=== PATIENT | female | born 2000 | race Caucasian/White ===

== ENCOUNTER 2025-02-18 23:44 | Emergency (ER) | payer OTHER, MEDICAID, SELFPAY ==
[2025-02-18 23:46] VITALS: BP 144/94; PULSE 82; RESP 18; TEMP 36.8; O2SAT 95; BMI 27.6
--- OUTSIDE RECORDS SUMMARY | 2025-02-19 00:03 | XMS RPT_ITS | CCD ---
Author Organization [facility] Inform ion Partnership [facility] Care Team Providers Care Curtain Mender Name Role Phone TRINHANABEL HUMPHRIESHRYN Unavailable Unavailable PRESLEY ALBERTSLY A Unavailable Unavailabl e Unavailable Primary Care Provider Unavailabl e Veronica Alberts Unavailable Semaj Lr IV Unavailable Unavailable Aristeo PIÑA, Veronica Primary Care Provider Rosa Alvarez MD Unavailable Keyla Oakes Unavailable Unavailable Aristeo PIÑA, Veronica Primary Care Provider Rosa Alvarez MD Unavailable Veronica Alberts MD Primary Care Provider Rosa Alvarez MD Unavailable Veronica Alberts Unavailable Unavailable Unavailable Veronica Alberts MD Primary Care Provider Rosa Alvarez MD Unavailable TRENTON MCCORD Attending Unavailable ARISTEO, VERONICA Primary Care Unavailable TRENTON MCCORD Referring Unavailable TRENTON MCCORD Attending Unavailable ARISTEO VERONICA Primary Care Unavailable TRENTON MCCORD Referring Unavailable TRENTON MCCORD Attending Unavailable ARISTEO VERONICA Primary Care Unavailable TRENTON MCCORD Referring Unavailable ARISTEO, VERONICA Primary Care Unavailable TRENTON MCCORD Referring Unavailable TRENTON MCCORD Attending Unavailable ARISTEO, VERONICA Primary Care Unavailable TRENTON MCCORD Referring Unavailable TRENTON MCCORD Attending Unavailable REFERRED, SELF Referring Unavailable ARISTEO, VERONICA Primary Care Unavailable VERONICA ALBERTS Attending Unavailable REFERRED, SELF Referring Unavailable ARISTEO, VERONICA Primary Care Unavailable ARISTEO, VERONICA Attending Unavailable ARISTEO, [place] Primary Care Unavailable WYNESKI, TRENTON Referring Unavailable WYNESKI, TRENTON Attending Unavailable WYNESKI, TRENTON Referring Unavailable ARISTEO, [place] Primary Care Unavailable WYNESKI, TRENTON Attending Unavailable WYNESKI, TRENTON Referring Unavailable ARISTEO, [place] Primary Care Unavailable WYNESKI, TRENTON Attending Unavailable ARISTEO, [place] Primary Care Unavailable ALYSON CONTRERAS Attending Unavailable WYNESKI, TRENTON Attending Unavailable ARISTEO, [place] Primary Care Unavailable WYNESKI, TRENTON Referring Unavailable Aristeo, [place] Primary Care Unavailable KAVULLA, MICHELLE Busby Attending Unavaila ble Self, Referral Referring Unavailable Kwasmax, Bert Attending Unavailable Aristeo, Veronica Primary Care Unavailable KAVULLA, [employer] VERONICA Busby Referring Unavaila ble Aristeo, Veronica Minaya Primary Care Provider Aristeo, Veronica Minaya Primary Care Provider [phone] Aristeo, Dr. Veronica Hernandez Primary Care Unav ailable Kwasnicka, Dr. Bert Kessler Attending Tracy vailable Aristeo, Dr. Veronica Hernandez Primary Care Unav ailable Kwasnicka, Dr. Bert Kessler Attending Tracy vailable Aristeo, Dr. Veronica Hernandez Primary Care Unav ailable Kwasnicka, Dr. Bert Kessler Attending Tracy vailable Kwasnicka, Dr. Bert Kessler Attending Tracy vailable Aristeo, Dr. Veronica Hernandez Primary Care Unav ailable Kwasnick[place], Dr. Bert Kessler Attending Tracy vailable Aristeo, Dr. Veronica Hernandez Primary Care Unav ailable Veronica Alberts MD Primary Care Provider LILIAN STEPHENSON Referring Unavailable ARISTEO, VERONICA Minaya Primary Care Unavailabl e LILIAN STEPHENSON Referring Unavailable ARISTEO, VERONICA Minaya Primary Care Unavailabl LILIAN Amezcua Referring Unavailable ARISTEO, VERONICA Minaya Primary Care Unavailabl e SARAH JENNINGS Attending Unavailable MIYA ARCE Referring Unavailable ARISTEO, VERONICA Minaya Primary Care Unavailabl e LILIAN STEPHENSON Referring Unavailable ARISTEO, VERONICA A Primary Care Unavailabl e LILIAN STEPHENSON Referring Unavailable ARISTEO, VERONICA A Primary Care Unavailabl LILIAN Amezcua Attending Unavailable ARISTEO, VERONICA A Primary Care Unavailabl e BERT CASEY Rei Attending Unavailable ARISTEO, VERONICA A Primary Care Unavailabl LILIAN Amezcua Attending Unavailable ARISTEO, VERONICA A Primary Care Unavailabl e LILIAN STEPHENSON Attending Unavailable ARISTEO, VERONICA A Primary Care Unavailabl e GALLAGAN MIYA E Attending Unavailable ARISTEO, VERONICA A Primary Care Unavailabl e GALLAGAN MIYA E Attending Unavailable ARISTEO, VERONICA A Primary Care Unavailabl e LILIAN STEPHENSON Attending Unavailable ARISTEO, VERONICA A Primary Care Unavailabl e GALLAGAN MIYA E Attending Unavailable ARISTEO, VERONICA A Primary Care Unavailabl e LILIAN STEPHENSON Attending Unavailable ARISTEO, VERONICA A Primary Care Unavailabl e LILIAN STEPHENSON Attending Unavailable ARISTEO, VERONICA A Primary Care Unavailabl e LILIAN STEPHENSON Attending Unavailable ARISTEO, VERONICA A Primary Care Unavailabl e Aristeo, Veronica A Primary Care Provider [phone] LORIE ROBLES Attending Unavailable ARISTEO, VERONICA Primary Care Unavailable ARISTEO, VERONICA Primary Care Unavailable TANK WOLF Attending Unavailable ARISTEO, VERONICA Primary Care Unavailable YESICA MCKINNON Attending Unavailable ARISTEO, VERONICA Primary Care Unavailable JORGEDARRELLNA Attending Unavailable ARISTEO, VERONICA Primary Care Unavailable SAFFEYESICA ASHFORD Attending Unavailable ARISTEO, VERONICA Primary Care Unavailable AKI SANDHU Attending Unavailable ARISTEO, VERONICA Primary Care Unavailable VALENTE, JAMIR Yi Attending Unavailable ARISTEO, VERONICA Primary Care Unavailable JORGE, LO Admitting Unavailable JORGE LO Attending Unavailable YESICA MCKINNON Attending Unavailable ARISTEO, VERONICA Primary Care Unavailable QUINCY AKI Attending Unavailable ARISTEO, VERONICA Primary Care Unavailable YESICA MCKINNON Referring Unavailable ARISTEO, VERONICA Primary Care Unavailable YESICA MCKINNON Attending Unavailable ARISTEO, VERONICA Primary Care Unavailable SAFFEYESICA ASHFORD Attending Unavailable ARISTEO, VERONICA Primary Care Unavailable LO PATEL Attending Unavailable ARISTEO, VERONICA Primary Care Unavailable KWASNICKA, BERT A Referring Unavailable ARISTEO, VERONICA A Primary Care Unavailabl e KWASNICKA, BERT A Referring Unavailable ARISTEO, VERONICA A Primary Care Unavailabl e ARISTEO, VERONICA A Primary Care Unavailabl e KWASNICKA, BERT A Referring Unavailable KWASNICKA, BERT A Referring Unavailable ARISTEO, VERONICA A Primary Care Unavailabl e KWASNICKA, BERT A Referring Unavailable ARISTEO, VERONICA A Primary Care Unavailabl e KWASNICKA, BERT A Referring Unavailable ARISTEO, VERONICA A Primary Care Unavailabl e KWASNICKA, BERT A Referring Unavailable ARISTEO, VERONICA A Primary Care Unavailabl e KWASNICKA, BERT A Referring Unavailable ARISTEO, VERONICA A Primary Care Unavailabl e Allergies Allergy Classification Reported Allergen(s) Allergy Type Date of Onset Reaction(s) Facility Penicillins (antibiotic) (2 sources) Amoxicillin Drug Allergy Unknown [facility] (20 sources) Amoxicillin; Translations: [amoxicillin] Drug Allergy 0 Hives, Rash, Unknown [place], [place] (11 sources) Penicillins; Translations: [PENICILLINS] Propensity to adverse reactions to drug 0 Hives, Rash [place], [place] (20 sources) oxyCODONE; Translations: [oxycodone] Drug Allergy 1 [facility] Work Phone: (15 sources) Penicillin; Translations: [Penicillins] Drug Allergy 3 Hives [facility] (20 sources) Penicillins Drug Intolerance 0 Hives, [facility] Medications Current Medications Medication Drug Class(es) Dates Sig (Normalized) Sig (Original) [id number] 200 actuat albuterol 0.09 mg/actuat metered dose inhaler (5 sources) beta2-Adrenergic Agonist Start: 10-16-2024 End: 11-15-2024 take 2 puff(s) by inhalation every four hours as needed for wheezing albuterol 108 (90 Base) MCG/ACT inhaler Inhale 2 puffs every 4 hours as needed for wheezing. Please provide spacer with the inhaler 18 g 10/16/2024 11/15/2024 Active Start: 10-16-2024 2.5 mg, Nebuli zation, Once, On 10/16/24 at 1355, For 1 dose Start: 10-02-2021 End: 10-31-2021 take 2 puff(s) by inhalation every six hours as needed Proventil HFA 90 mcg/inh inhalation aerosol ; 2 puff(s) inhaled every 6 hours, As Needed Quantity: 1 Refills: 0 Ordered: 02-Oct-2021 Keyla Oakes Start: 02-Oct-2021 End: 31-Oct-2021 Generic Substitution Allowed Comments: For inhalation only.It is very important that you take or use this exactly as directed. Do not skip doses or discontinue unless directed by your doctor.Obtain medical advice before taking any non-prescription drugs as some may affect the action of this medication.Shake well before use. Comment on above: For inhalation only. It is very important that you take or use this exactly as directed. Do not skip doses or discontinue unless directed by your doctor.Obtain medical advice before taking any non-prescription drugs as some may affect the action of this medication.Shake well before use. brompheniramine maleate 0.4 mg/ml / dextromethorphan hydrobromide 2 mg/ml / pseudoephedrine hydrochloride 6 mg/ml oral solution (1 source) alpha-Adrenergic Agonist, Uncompetitive R-njalak-U-aspartate Receptor Antagonist, Sigma-1 Agonist Start: End: take 10 mL by mouth every four hours as needed brompheniramine/pse udoephedrine/dextro methorphan [id number]/5 mL oral syrup ; 10 milliliter(s) orally every 4 hours, As Needed Quantity: 300 Refills: 0 Ordered: 02-Oct-2021 Keyla Oakes Start: 02-Oct-2021 End: 06-Oct-2021 Generic Substitution Allowed Comments: May cause drowsiness. Alcohol may intensify this effect. Use care when operating dangerous machinery.Obtain medical advice before taking any non-prescription drugs as some may affect the action of this medication. Comment on above: May cause drowsiness . Alcohol may intensify this effect. Use care when operating dangerous machinery.Obtain medical advice before taking any non-prescription drugs as some may affect the action of this medication. ergocalciferol 1.25 mg oral capsule (9 sources) Provitamin D2 Compound Start: 021 vitamin D (ERGOCALCIFEROL) 1.25 MG (39436 UT) capsule Take 1 Capsule (50,000 Units) by mouth every 7 days 12 Capsule 0 08/22/2020 Active inFLIXimab-dyyb 100 mg injection (20 sources) Tumor Necrosis Factor Fernando Start: 024 Inflectra 100 MG injection 07/09/2023 Active End: 10-07-2024 inFLIXimab (Remicade) 100 MG injection Infuse into a venous catheter. Every six weeks 10/07/2024 Discontinued (Therapy completed) Misc. Devices (Breast Pump) misc (19 sources) Start: 12-24-2023 Misc. Devices (Breast Pump) misc Indications: Mother Double Electric. Lactating mother 1 each 12/24/2023 Suspended Start: 12-24-2023 Misc. Devices (Breast Pump) misc Indications: Mother Double Electric. 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 60 tablet 05/28/2023 Active take 1 tablet by mouth once eddie y modafinil (Provigil) 100 mg tablet Take 1 tablet (100 mg) by mouth once daily. 0 Active predniSONE 50 mg oral tablet (4 sources) Start: 10-17-2024 End: 10-22-2024 take 1 tablet by mouth once daily predniSONE (Deltasone) 50 MG tablet Take 1 tablet (50 mg) by mouth daily for 5 days. Do not start before October 17, 2024. 5 tablet 10/17/2024 10/22/2024 Active Start: 10-16-2024 End: 10-16-2024 take 50 mg by mouth once 50 mg, Oral, Once, On Sun 05/02 at 1355, For 1 dose Start: 10-16-2024 End: 10-16-2024 take 50 mg by mouth once 50 mg, Oral, Once, On Sun 05/02 at 1355, For 1 dose no115/iron/folic ac id ( 19 ORAL) (5 sources) no115/i jason/folic acid ( 19 ORAL) Take by mouth. Active no115/i jason/folic acid ( 19 ORAL) Take by mouth. 0 Active sodium oxybate (Lumryz) 6 gram extend release granules,packet (4 sources) Start: 03-10-2023 sodium oxybate (Lumryz) 6 gram extend release granules,packet Take 1 packet by mouth. 0 03/10/2023 Active sodium oxybate (Lumryz) 9 gram extend release granules,packet (4 sources) sodium oxybate ( Lumryz) 9 gram extend release granules,packet Take 9 g by mouth once daily. 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 Take contents of one packet mixed with water in provided mixing cup at bedtime. 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 Take contents of one packet mixed with water in provided mixing cup at bedtime. 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 Take contents of one packet mixed with water in provided mixing cup at bedtime. 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 Take contents of one packet mixed with water in provided mixing cup at bedtime. 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 Take contents of one packet mixed with water in provided mixing cup at bedtime. Start after finishing 7 days of 7.5 gram dose. 30 each 3 04/17/2023 05/28/2023 Discontinued (Reorder) tiZANidine 2 mg oral tablet (1 source) Central alpha-2 Adrenergic Agonist Start: 05-15-2020 take 1 tablet by mouth three times daily as needed for pain tiZANidine (ZANAFLEX) 2 MG tablet Take 1 tablet by mouth 3 times daily as needed (pain) 30 tablet 0 05/15/2020 Active traMADol hydrochloride 50 mg oral tablet (4 sources) Opioid Agonist Start: 02-24-2024 End: 03-03-2024 take 1 tablet by mouth every six hours as needed for pain traMADol (Ultram) 50 MG tablet Indications: S/P section Take 1 tablet (50 mg) by mouth every 6 hours as needed for moderate pain (4-6) for up to 5 days. 20 tablet 02/27/2024 03/03/2024 Active Completed/Discontinued Medications Medication Drug Class(es) Dates Sig (Normalized) Sig (Original) acetaminophen 325 mg oral tablet (7 sources) Start: 02-24-2024 End: 02-27-2024 take 1 tablet by mouth every six hours as needed 650 mg, Oral, Every 6 hours PRN, other, Pain (1-10), Starting on Thu02/24/24 at 1200, , Give in addition to any other pain medication ordered at same time for any pain indication. Maximum dose of acetaminophen is 4000mg from all sources in 24 hours. Alternate ibuprofen and acetaminophen every 3 hours. Start: 02-24-2024 End: 02-24-2024 IntraVENous, Administer over 15 Minutes, As needed, Starting on Thu02/24/24 at 0634, Anesthesia Intraprocedure Start: 01-09-2022 End: 01-09-2022 acetaminophen (TYLENOL) tabl et 500 mg Start: 11-28-2021 End: 11-28-2021 acetaminophen (TYLENOL) tabl et 500 mg Start: 10-18-2021 End: 10-18-2021 acetaminophen (TYLENOL) tabl et 500 mg Start: 09-02-2021 End: 09-02-2021 acetaminophen (TYLENOL) tabl et 500 mg acetaminophen 325 mg / oxyCODONE hydrochloride 5 mg oral tablet (2 sources) Opioid Agonist Start: 02-27-2024 End: 02-27-2024 take 1 tablet by mouth every six hours as needed for pain oxyCODONE-acetaminophen (Percocet) 5-325 MG tablet Indications: S/P section Take 1 tablet by mouth every 6 hours as needed for moderate pain (4-6) or severe pain (7-10) for up to 5 days. 15 tablet 02/27/2024 02/27/2024 Discontinued (Stop taking at discharge) adapalene 1 mg/ml topical cream (8 sources) Retinoid Start: 05-07-2017 End: 06-27-2022 adapalene (DIFFERIN) 0.1 % cream Apply to affected area nightly at bedtime 135 g 3 05/07/2017 06/27/2022 Discontinued (* Remove (Not on AVS)) armodafinil 50 mg oral tablet (13 sources) Start: 01-13-2023 End: 06-25-2023 take 1 tablet by mouth once daily armodafinil (Nuvigil) 50 mg tablet Take 1 tablet (50 mg) by mouth once daily. 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 30 tablet 2 09/09/2022 10/13/2022 Discontinued (Therapy completed) azelastine hydrochloride 0.137 mg/actuat / fluticasone propionate 0.05 mg/actuat metered dose nasal spray (10 sources) Corticosteroid, Histamine-1 Receptor Antagonist Start: 06-05-2017 End: 06-25-2023 take 1 spray(s) nasal route once daily azelastine-fluticasone (Dymista) 137-50 mcg/spray nasal spray Administer 1 spray into affected nostril(s) once daily. 0 06/05/2017 06/25/2023 Discontinued (Other) Start: 06-05-2017 take 1 spray(s) nasa l route once daily DYMISTA 137-50 MCG/ACT SUSP use 1 [employer] each nostril daily 69 g 3 06/05/2017 Active azithromycin 500 mg injection (1 source) Macrolide Antimicrobial Start: 02-24-2024 End: 02-24-2024 IntraVENous, As needed, Starting on Thu02/24/24 at 0612, Anesthesia Intraprocedure bacitracin zinc 0.5 unt/mg topical ointment (1 source) Start: 12-31-2021 End: 01-01-2022 bacitracin 500 UNIT/GM ointment 5 ml bupivacaine hydrochloride 5 mg/ml injection (1 source) Amide Local Anesthetic Start: 12-31-2021 End: 12-31-2021 bupivacaine (MARCAINE) 0.5 % injection 1.5 mL calcium chloride 0.0014 meq/ml / potassium chloride 0.004 meq/ml / sodium chloride 0.103 meq/ml / sodium lactate 0.028 meq/ml injectable solution (3 sources) Start: 02-23-2024 End: 02-24-2024 take 100 mL intravenously every hour 100 mL/hr, IntraVENous, Continuous, Starting on Thu02/24/24 at 0600, Pre-Delivery chlorhexidine gluconate 40 mg/ml medicated liquid soap (2 sources) Start: 02-23-2024 End: 02-24-2024 1 Application, Topical, Daily, First dose on Thu02/23/24 at 0500, Pre-Delivery, Use solution to clean abdomen upon admission then once daily until delivered citric acid 66.8 mg/ml / sodium citrate 100 mg/ml oral solution (2 sources) Calculi Dissolution Agent, Anti-coagulant Start: 02-24-2024 End: 02-24-2024 take 30 mL by mouth once 30 mL, Oral, Once, On Thu02/24/24 at 0600, For 1 dose, Pre-Delivery, Give immediately prior to transfer to surgery. clindamycin 10 mg/ml medicated pad (8 sources) Lincosamide Antibacterial Start: 08-01-2020 End: 06-27-2022 clindamycin phosphate (CLEOCIN-T) 1 % SWAB 0 08/01/2020 06/27/2022 Discontinued (* Remove (Not on AVS)) 24 hr desvenlafaxine succinate 50 mg extended release oral tablet (20 sources) Serotonin and Norepinephrine Reuptake Inhibitor Start: 09-08-2024 End: 10-07-2024 take 1 tablet by mouth once daily in the morning desvenlafaxine (Pristiq) 50 MG 24 hr tablet Take 50 mg by mouth every morning. 09/08/2024 10/07/2024 Discontinued (Therapy completed) Start: 02-24-2024 End: 02-27-2024 take 25 mg by mouth once daily in the morning 25 mg, Oral, Every morning, First dose on Thu02/24/24 at 1200, Patient's own medication identified by glm. Start: 01-06-2023 End: 10-07-2024 take 1 tablet by mouth every twenty-four hours desvenlafaxine succinate ER 25 MG 24 hour tablet Take 25 mg by mouth. 01/06/2023 10/07/2024 Discontinued (Therapy completed) Start: 01-06-2023 End: 04-07-2024 take 2 tablets by mouth once daily in the morning desvenlafaxine succinate ER 25 MG 24 hour tablet Take 50 mg by mouth every morning. 01/06/2023 04/07/2024 Discontinued (Other) 1 ml dexamethasone phosphate 10 mg/ml injection (1 source) Corticosteroid Start: 02-24-2024 End: 02-24-2024 IntraVENous, As needed, Starting on Thu02/24/24 at 0633, Anesthesia Intraprocedure dexAMETHasone-bupiv acaine-epinephrine (TAP) syringe (1 source) Start: 02-24-2024 End: 02-24-2024 Injection, Once PRN Procedure, Starting on Thu02/24/24 at 0702, For 1 dose, Anesthesia Intraprocedure dexmedeTOMIDine HCl in NaCl (Precedex) injection (1 source) Start: 02-24-2024 End: 02-24-2024 Epidural, As needed, Starting on Thu02/24/24 at 0612, Anesthesia Intraprocedure 1 ml diphenhydrAMINE hydrochloride 50 mg/ml cartridge (6 sources) Histamine-1 Receptor Antagonist Start: 02-24-2024 End: 02-27-2024 take 25 mg intravenously every six hours as needed Start: 01-09-2022 End: 01-09-2022 diphenhydrAMINE (BENADRYL) c apsule 25 mg Start: 11-28-2021 End: 11-28-2021 diphenhydrAMINE (BENADRYL) c apsule 25 mg Start: 10-18-2021 End: 10-18-2021 diphenhydrAMINE (BENADRYL) c apsule 25 mg Start: 09-02-2021 End: 09-02-2021 diphenhydrAMINE (BENADRYL) c apsule 25 mg docusate sodium 100 mg oral capsule (2 sources) Start: 02-24-2024 End: 02-27-2024 take 100 mg by mouth twice daily as needed for constipation 100 mg, Oral, 2 times daily PRN, constipation, Starting on Thu02/24/24 at 1022, , Do not crush or break. 0.6 ml enoxaparin sodium 100 mg/ml prefilled syringe (2 sources) Low Molecular Weight Heparin Start: 02-24-2024 End: 02-27-2024 inject 60 mg by subcutaneous injection once daily 60 mg, SubCUTAneous, Daily, First dose on Thu02/24/24 at 2030, , Indication of Use: Prophylaxis-DVT/PE 1 ml ePHEDrine sulfate 50 mg/ml injection (1 source) alpha-Adrenergic Agonist, beta-Adrenergic Agonist, Norepinephrine Releasing Agent Start: 02-24-2024 End: 02-24-2024 IntraVENous, As needed, Starting on Thu02/24/24 at 0617, Anesthesia Intraprocedure 10 ml EPINEPHrine 0.005 mg/ml / lidocaine hydrochloride 20 mg/ml injection (2 sources) Antiarrhythmic, alpha-Adrenergic Agonist, beta-Adrenergic Agonist, Catecholamine, Amide Local Anesthetic Start: 02-24-2024 End: 02-24-2024 Epidural, As needed, Starting on Thu02/24/24 at 0612, Anesthesia Intraprocedure Start: 02-24-2024 End: 02-24-2024 Epidural, Once PRN Procedure , Starting on Thu02/24/24 at 0150, For 1 dose, Anesthesia Intraprocedure famotidine 20 mg oral tablet (2 sources) Histamine-2 Receptor Antagonist Start: 02-24-2024 End: 02-27-2024 take 1 tablet by mouth every twenty-four hours as needed for gastroesophageal reflux disease ferrous sulfate 325 mg oral tablet (2 sources) Start: 02-24-2024 End: 02-27-2024 325 mg, Oral, 2 times daily with meals, First dose on Thu02/24/24 at 1030, , Start if Hgb less than 10. Hold oral ferrous sulfate dose if receiving IV iron sucrose (Venofer) hydrocortisone 25 mg/ml topical cream (8 sources) Corticosteroid Start: 05-07-2017 End: 06-27-2022 hydrocortisone 2.5 % cream Apply to affected area 2 times daily Apply thin film to affected areas. 120 g 3 05/07/2017 06/27/2022 Discontinued (* Remove (Not on AVS)) HYDROmorphone (Dilaudid) injection 0.25 mg (2 sources) Start: 02-24-2024 End: 02-27-2024 HYDROmorphone (Dilaudid) injection 0.25 mg ibuprofen 600 mg oral tablet (2 sources) Nonsteroidal Anti-inflammatory Drug Start: 02-24-2024 End: 02-27-2024 take 1 tablet by mouth every six hours 600 mg, Oral, Every 6 hours, First dose on Thu02/24/24 at 1600, , Once tolerating PO, discontinue Toradol and begin ibuprofen 8 hours after the final dose of Toradol. Alternate ibuprofen and acetaminophen every 3 hours. inFLIXimab-dyyb (INFLECTRA) 800 mg in NaCl 0.9% 250 mL IV (8 sources) Start: 08-08-2022 End: 08-08-2022 inFLIXimab-dyyb (INFLECTRA) 800 mg in NaCl 0.9% 250 mL IV Start: 06-27-2022 End: 06-27-2022 inFLIXimab-dyyb (INFLECTRA) 800 mg in NaCl 0.9% 250 mL IV Start: 05-16-2022 End: 05-16-2022 inFLIXimab-dyyb (INFLECTRA) 800 mg in NaCl 0.9% 250 mL IV Start: 02-20-2022 End: 02-20-2022 inFLIXimab-dyyb (INFLECTRA) 800 mg in NaCl 0.9% 250 mL IV Start: 01-09-2022 End: 01-09-2022 inFLIXimab-dyyb (INFLECTRA) 800 mg in NaCl 0.9% 250 mL IV Start: 11-28-2021 End: 11-28-2021 inFLIXimab-dyyb (INFLECTRA) 800 mg in NaCl 0.9% 250 mL IV Start: 10-18-2021 End: 10-18-2021 inFLIXimab-dyyb (INFLECTRA) 800 mg in NaCl 0.9% 250 mL IV Start: 09-02-2021 End: 09-02-2021 inFLIXimab-dyyb (INFLECTRA) 800 mg in NaCl 0.9% 250 mL IV 1 ml ketorolac tromethamine 30 mg/ml cartridge (4 sources) Nonsteroidal Anti-inflammatory Drug, Cyclooxygenase Inhibitor Start: 02-24-2024 End: 02-25-2024 take 30 mg intravenously every six hours 30 mg, IntraVENous, Every 6 hours, First dose on Thu02/24/24 at 1400, For 4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 Residual codes; unclassified (1 source) 38 weeks gestation of ; Translations: [38 weeks gestation of ] Onset: 02-12-2024 Episodic Residual codes; unclassified (1 source) 37 weeks gestation of ; Translations: [37 weeks gestation of ] Onset: 02-03-2024 Episodic Residual codes; unclassified (1 source) 35 weeks gestation of ; Translations: [35 weeks gestation of ] Onset: 01-18-2024 Episodic Residual codes; unclassified (1 source) 33 weeks gestation of ; Translations: [33 weeks gestation of ] Onset: 01-08-2024 Episodic Residual codes; unclassified (1 source) 31 weeks gestation of ; Translations: [31 weeks gestation of ] Onset: 12-24-2023 Episodic Skin and subcutaneous tissue infections (20 sources) Abscess of buttock; Translations: [Cutaneous abscess of buttock] Onset: 02-25-2019 Resolved: 07-10-2021 07-10-2021 Episodic Comment on above: right gluteal absces s; I&D 2019; Substance-related disorders (9 sources) Marijuana user; Translations: [Cannabis use, unspecified, uncomplicated] Onset: 07-10-2021 07-10-2021 Episodic Unclassified (1 source) MOUTH LACERATION Onset: 02-25-2018 Unclassified (9 sources) Onset: 05-29-2023 Resolved: 09-04-2023 05-29-2023 Unclassified (1 source) Acute cough; Translations: [Acute cough] Onset: 10-16-2024 Results Test Name Value Interpretation Reference Range Facility HEPATITIS B SURFACE AB IMMUN ITY, QNon 01-28-2025 HEPATITIS B SURFACE AB IMMUNITY, QN <5 Low > OR = 10 [facility] Comment on above: Result Comment: Patient does not have immunity to hepatitis B virus. For additional information, please refer to http://CebaTech/faq/MKA692 (This link is being provided for informational/ educational purposes only). Performed By: #### [id number] #### [facility], [facility], [address] [place] [address] Assisted Living Administrator: Delano Tubbs #### [id number] #### [facility]/[address] [place] [id number] [facility] [place], [place] Assisted Living Administrator: Phillip Acuña M.D.,PhD #### [phone] #### [facility] [address], [address] [place] [phone] Assisted Living Administrator: Ricky Lawrence MD HEPATITIS B SURFACE ANTIGEN W/REFL CONFIRMon 01-28-2025 HEPATITIS B SURFACE ANTIGEN Non-Reactive Normal NON-REACTIVE [facility] Comment on above: Order Comment: FASTI NG:NO FASTING: NO Result Comment: For additional information, please refer to http://Sepior.Harri/faq/XZO469 (This link is being provided for informational/ educational purposes only.) Performed By: #### 3 [id number] #### [facility] [address] Assisted Living Administrator: Delano Tubbs #### [id number] #### [facility]/[address] [place], [place] Assisted Living Administrator: Phillip Acuña M.D.,PhD #### [phone] #### [facility] [address], [address] [place] [address] Assisted Living Administrator: Ricky Lawrence MD T-SPOT(R).TBon 01-28-2025 NEGATIVE CONTROL Passed Normal [facility] Comment on above: Order Comment: FASTI NG:NO FASTING: NO Performed By: #### 3 [id number] #### [facility] [address] [place] [address] Assisted Living Administrator: Delano Tubbs #### [id number] #### [facility]/[address] [place], [place] Assisted Living Administrator: Phillip Acuña M.D.,PhD #### [phone], [phone] #### [facility] [address], [address] [place] [address] Assisted Living Administrator: Ricky Lawrence MD PANEL A SPOT COUNT CORRECTED FOR NEG CONTROL 0 Normal [facility] Comment on above: Order Comment: FASTI NG:NO FASTING: NO Performed By: #### 3 [id number] #### [facility], [address] Assisted Living Administrator: Delano Tubbs #### [id number] #### [facility]/[address] [place], [place] Assisted Living Administrator: Phillip Acuña M.D.,PhD #### [phone], [phone] #### [facility] [address], [address] [place] [address] Assisted Living Administrator: Ricky Lawrence MD PANEL B SPOT COUNT CORRECTED FOR NEG CONTROL 0 Normal [facility] Comment on above: Order Comment: FASTI NG:NO FASTING: NO Performed By: #### 3 [id number] #### [facility] [address] [place] [address] Assisted Living Administrator: Delano Tubbs #### [id number] #### [facility]/[place] [id number] [facility] [place], [place] Assisted Living Administrator: Phillip Acuña M.D.,PhD #### [phone], [phone] #### [facility] [place] [address] Assisted Living Administrator: Ricky Lawrence MD POSITIVE CONTROL Passed Normal [facility] Comment on above: Order Comment: FASTI NG:NO FASTING: NO Result Comment: For additional information, please refer to http://education.Harri/faq/WFI065 (This link is being provided for informational/ educational purposes only.) Performed By: #### 3 [id number] #### [facility] [address] [place] [address] Assisted Living Administrator: Delano Tubbs #### [id number] #### [facility]/[place] [id number] [facility] [place], [place] Assisted Living Administrator: Phillip Acuña M.D.,PhD #### [phone], [phone] #### [facility] [address], [address] [place] [address] Assisted Living Administrator: Ricky Lawrence MD T-SPOT.TB Negative Normal Negative [facility] Comment on above: Order Comment: FASTI NG:NO FASTING: NO Result Comment: A negative test result does not exclude the possibility of exposure to or infection with Mycobacterium tuberculosis (M. tuberculosis). Patients with recent exposure to TB infected individuals exhibiting a negative T-SPOT.TB result should be considered for retesting within 6 weeks or if other relevant clinical symptoms indicate. Results from T-SPOT.TB testing must be used in conjunction with each individual's epidemiological history, current medical status, and results of other diagnostic evaluations. The T-SPOT.TB test is qualitative and results are reported as positive, borderline, or negative, given that the test controls perform as expected. In line with the Centers for Disease Control and Prevention's 2010 recommendation to report quantitative measurements alongside the qualitative result, the laboratory provides spot counts for informational purposes only. The T-SPOT.TB test should not be interpreted as a quantitative test. Performed By: #### 3 [id number] #### [facility] [address] [place] [address] Assisted Living Administrator: Delano Tubbs #### [phone] #### [facility]/[address] [place], [place] Assisted Living Administrator: Phillip Acuña M.D.,PhD #### [phone], [phone] #### [facility] [address], [address] [place] [address] Assisted Living Administrator: Ricky Lawrence MD T-SPOT(R).TBon 01-27-2025 NEGATIVE CONTROL Normal [facility] Comment on above: Performed By: #### 3 [id number] #### [facility], [place] [address] Assisted Living Administrator: Delano Tubbs #### [phone] #### [facility]/[address] [place], [place] Assisted Living Administrator: Phillip Acuña M.D.,PhD #### [phone], [phone] #### [facility] [address], [address] [place] [address] Assisted Living Administrator: Ricky Lawrence MD PANEL A SPOT COUNT CORRECTED FOR NEG CONTROL Normal [facility] Comment on above: Performed By: #### 3 [id number] #### [facility], [address] [place] [address] Assisted Living Administrator: Delano Tubbs #### [id number] #### [facility]/[address] [place] Assisted Living Administrator: Phillip Acuña M.D.,PhD #### [phone], [phone] #### [facility] of [address], [address] [place] [address] Assisted Living Administrator: Ricky Lawrence MD PANEL B SPOT COUNT CORRECTED FOR NEG CONTROL Normal [facility] Comment on above: Performed By: #### 3 [id number] #### [facility], [place] [address] [address] [place] [address] Assisted Living Administrator: Delano Tubbs #### [id number] #### [facility]/[address] [place], [place] Assisted Living Administrator: Phillip Acuña M.D.,PhD #### [phone], [phone] #### [facility] of [address], [address] [place] [address] Assisted Living Administrator: Ricky Lawrence MD POSITIVE CONTROL Normal [facility] Comment on above: Performed By: #### 3 [id number] #### [facility], [place] [address] Assisted Living Administrator: Delano Tubbs #### [id number] #### [facility]/[address] [place], [place] Assisted Living Administrator: Phillip Acuña M.D.,PhD #### [phone], [phone] #### [facility] of [address], [address] [place] [address] Assisted Living Administrator: Ricky Lawrence MD T-SPOT.TB Normal [facility] Comment on above: Performed By: #### 3 [id number] #### [facility], [place] [address] [address] [place] [address] Assisted Living Administrator: Delano Tubbs #### [id number] #### [facility]/[address] [place] Assisted Living Administrator: Phillip Acuña M.D.,PhD #### [phone], [phone] #### [facility] [address], [address] [place] [address] Assisted Living Administrator: Ricky Lawrence MD COVID-19, Flu A/B, and RSV C omboon 10-16-2024 Interpretation and review of laboratory results Normal [facility] ED Nursing Noteon 10-16-2024 ED Nursing Note Patient reports impr ovement in nausea, no additional vomiting. Lungs sounds improved, and currently denies SOB/CP. Normal [facility] ED Nursing Note Patient vomiting. Navi tolbert reports she feels like her stomach is upset from all of the drainage. Normal [facility] ED Nursing Note Patient to room 4 wi th c/o congestion, cough, and shortness of breath worse the last two days. V/S obtained, call light within reach. Patient has been using her boyfriends albuterol MDI one hour prior to arrival. Normal [facility] ED Provider Noteon ED Provider Note EMERGENCY DEPARTMENT ENCOUNTER Pt Name: Kristine Crum Birthdate 2000 Date of evaluation: 10/16/2024 ED Provider: Jamir Victor MD CHIEF COMPLAINT Chief Complaint Patient presents with Shortness of Breath Cough Nasal Congestion HISTORY OF PRESENT ILLNESS (Location/Symptom, Timing/Onset, Context/Setting, Quality, Duration, Modifying Factors, Severity) Note limiting factors. I wore appropriate PPE for the entirety of this encounter. HPI Kristine Crum is a 24 y.o. who presents to the emergency department with chief complaint of double breathing, cough and congestion. The patient started feeling bad a couple weeks ago. She says its gotten worse over the past couple days. She has had a lot of postnasal drainage. She has had a productive cough. She has felt short of breath over the past couple days which is somewhat new for her. She denies any pulmonary history that she is aware of. She only smokes occasionally. She does take seasonal allergy medication which has helped a little bit. She has a headache when she coughs. Vision normal. No fevers that she is aware of. She denies any pain elsewhere. No vomiting or diarrhea. No urinary complaints. No new pain or swelling in the legs. No localizing numbness or weakness. No other associated symptoms. Nursing Notes were reviewed. Limitations to history: None Outside historians: None REVIEW OF SYSTEMS Review of Systems Constitutional: Negative for chills and fever. HENT: Positive for congestion and postnasal drip. Negative for ear pain and sore throat. Eyes: Negative for visual disturbance. Respiratory: Positive for cough and shortness of breath. Cardiovascular: Negative for chest pain and leg swelling. Gastrointestinal: Negative for abdominal pain, diarrhea and vomiting. Genitourinary: Negative for dysuria. Musculoskeletal: Negative for arthralgias and back pain. Skin: Negative for color change and rash. Neurological: Negative for weakness and numbness. All other systems reviewed and are negative. Pertinent positives and negatives as per HPI. PAST MEDICAL HISTORY Past Medical History: Diagnosis Date CC (Crohn's colitis) (CMS/HCC) ([facility]) Narcolepsy SURGICAL HISTORY Past Surgical History: Procedure Laterality Date BREAST SURGERY SECTION, LOW TRANSVERSE TONSILLECTOMY (HISTORICAL) CURRENT MEDICATIONS Previous Medications INFLECTRA 100 MG INJECTION MISC. DEVICES (BREAST PUMP) MISC [employer]. Lactating mother MODAFINIL (PROVIGIL) 100 MG TABLET Take 1 tablet (100 mg) by mouth 2 times daily as needed (sleepiness). SODIUM OXYBATE ER (LUMRYZ) 9 G PACK Take 9 g by mouth Nightly. Take contents of one packet mixed with water in provided mixing cup at bedtime. ALLERGIES Amoxicillin, Oxycodone, and Penicillins FAMILY HISTORY Family History Problem Relation Name Age of Onset No Known Problems Paternal Grandfather Heart disease Paternal Grandmother Ovarian cysts Maternal Grandmother No Known Problems Maternal Grandfather Crohn's disease Father Diabetes Father Ovarian cysts Mother SOCIAL HISTORY Social History Socioeconomic History Marital status: Single Tobacco Use Smoking status: Former Current packs/day: 0.50 Types: Cigarettes Smokeless tobacco: Former Tobacco comments: She vapes Vaping Use Vaping status: Former Substance and Sexual Activity Alcohol use: Not Currently Drug use: Not Currently Types: Marijuana Comment: Last used when she was about 10 weeks Sexual activity: Not Currently Partners: Male Comment: recent Social Drivers of Health Financial Resource Strain: Low Risk (02/23/2024) Overall Financial Resource Strain (CARDIA) Difficulty of Paying Living Expenses: Not hard at all Food Insecurity: No Food Insecurity (02/23/2024) Hunger Vital Sign Worried About Running Out of Food in the Last Year: Never true Ran Out of Food in the Last Year: Never true Transportation Needs: No Transportation Needs (02/23/2024) PRAPARE - Transportation Lack of Transportation (Medical): No Lack of Transportation (Non-Medical): No Physical Activity: Insufficiently Active (02/23/2024) Exercise Vital Sign Days of Exercise per Week: 2 days Minutes of Exercise per Session: 40 min Stress: No Stress Concern Present (02/23/2024) [employer] - Occupational Stress Questionnaire Feeling of Stress : Not at all Social Connections: Moderately Isolated (02/23/2024) Social Connection and Isolation Panel [NHANES] Frequency of Communication with Friends and Family: More than three times a week Frequency of Social Gatherings with Friends and Family: Twice a week Attends Taoism Services: Never Active Member of Clubs or Organizations: Yes Attends Club or Organization Meetings: 1 to 4 times per year Marital Status: Never Intimate Partner Violence: Not At Risk (02/23/2024) Humilia (more content not included)... Normal [facility] Laboratory - Microbiology an d Antimicrobial susceptibilityon 10-16-2024 FLUAV RNA XANDER+probe Ql (Resp) Not detected Not Detected [facility] FLUBV RNA XANDER+probe Ql (Resp) Not detected Not Detected [facility] RSV RNA XANDER+probe Ql (Resp) Not detected Not Detected [facility] SARS-CoV-2 (COVID-19) RNA XANDER+probe Ql (Resp) Not detected Not Detected [facility] SARS-CoV-2 (COVID-19) RNA XANDER+probe Ql (Unsp spec) Methodology: real-time, RT-PCR The SARS-CoV-2, Flu A/B, and RSV Combo assay is intended for in vitro diagnostic use under the FDA Emergency Use Authorization (EUA). This test has not been FDA cleared or approved. In compliance with this authorization, please visit www.fda.gov/media/399842/do wnload or www.fda.gov/media/961483/do wnload to access the applicable information sheets. [facility] SARS-COV-2, FLU A/B, AND RSV COMBOon 05-11-2025 SARS-CoV-2 (COVID-19) RNA XANDER+probe Ql (Unsp spec) SARS-COV-2 Reference Not Detected Not Detected RESPIRATORY SYNCYTIAL VIRUS Reference Not Detected Not Detected INFLUENZA A (CEPHEID) Reference Not Detected Not Detected INFLUENZA B (CEPHEID) Reference Not Detected Not Detected ORDER COMMENTS: Methodology: real-time, RT-PCR The SARS-CoV-2, Flu A/B, and RSV Combo assay is intended for in vitro diagnostic use under the FDA Emergency Use Authorization (EUA). This test has not been FDA cleared or approved. In compliance with this authorization, please visit www.fda.gov/media/225065/do wnload or www.fda.gov/media/931165/do wnload to access the applicable information sheets. Normal [facility] Comment on above: Performed By: #### L [id number] ####Assisted Living Administrator: SHANTI FISHER ([phone])[facility] [place] [address] XR Chest Single viewon 10-16 No acute cardiopulmo nary abnormality identified. Report Dictated on Electronically Signed By: Guerrero Kang MD Electronically Signed Date/Time: 10/16/2024 2:09 PM EDT [facility] [employer] Patient Name: [facility]RISTINE VELAZQUEZ : 2000 [id number] Exam Date/Time: 10/16/2024 13:55 Procedure: XR CHEST 1 VIEW Ordering Provider: VICTOR TARAS Reason For Exam: DYSPNEA EXAMINATION: XR chest AP. EXAM DATE & TIME: 10/16/2024 1:55 PM EDT INDICATION: DYSPNEA ADDITIONAL INFORMATION: 24-year-old female with dyspnea presents for evaluation COMPARISON: None TECHNIQUE: Frontal view of the chest was obtained. FINDINGS: Lines/support devices: None. Cardiomediastinal silhouette: Within normal limits. Lungs/pleura: No focal consolidation, pleural effusion or pneumothorax. Osseous structures: No acute osseous abnormality is demonstrated. Other findings: None. [facility] Guerrero Kang MD - 10/16/2024 Patient Name: KRISTINE CRUM : 2000 [facility]#: [id number] Exam Date/Time: 10/16/2024 13:55 Procedure: XR CHEST 1 VIEW Ordering Provider: VICTOR TARAS Reason For Exam: DYSPNEA EXAMINATION: XR chest AP. EXAM DATE & TIME: 10/16/2024 1:55 PM EDT INDICATION: DYSPNEA ADDITIONAL INFORMATION: 24-year-old female with dyspnea presents for evaluation COMPARISON: None TECHNIQUE: Frontal view of the chest was obtained. FINDINGS: Lines/support devices: None. Cardiomediastinal silhouette: Within normal limits. Lungs/pleura: No focal consolidation, pleural effusion or pneumothorax. Osseous structures: No acute osseous abnormality is demonstrated. Other findings: None. IMPRESSION: No acute cardiopulmonary abnormality identified. Report Dictated on Electronically Signed By: Guerrero Kang MD Electronically Signed Date/Time: 10/16/2024 2:09 PM EDT [facility] Radiology Study observation (narrative) [facility] [employer] XR Chest Single viewOrdered By: Guerrero Kang on 10-16-2024 [facility] [employer] Work Phone: Sureswab(R) Advanced Vaginit is Plus, [facility] ([facility])on 10-08-2024 C. glabrata RNA XANDER+probe Ql (Vag fld) Not detected NOT DETECTED [facility] Comment on above: Radha species C. albicans, C. tropicalis, C. parapsilosis, and/or C. dubliniensis can be detected, but not differentiated, in the Radha spp. result. C. trachomatis rRNA XANDER+probe Ql (Unsp spec) Not detected NOT DETECTED [facility] Radha sp rRNA Probe Ql (Vag fld) Not detected NOT DETECTED [facility] Lactobacillus crispatus+gasseri+j ensenii + Gardnerella vaginalis + Atopobium vaginae rRNA XANDER+probe Ql (Vag fld) Negative NEGATIVE [facility] N. gonorrhoeae rRNA XANDER+probe Ql (Unsp spec) Not detected NOT DETECTED [facility] Comment on above: For additional infor marie, please refer to https://education.Harri/faq/OOS986 (This link is being provided for information/ educational purposes only.) T. vaginalis rRNA XANDER+probe Ql (Unsp spec) Not detected NOT DETECTED [facility] Office Visiton 10-07-2024 Follow-up visit [id number] Kristine Crum 2000 F Date Provider Department Center 10/07/2024 AKI G[facility] Family History Problem Relation Age of Onset No Known Problems Paternal Grandfather Heart disease Paternal Grandmother Ovarian cysts Maternal Grandmother No Known Problems Maternal Grandfather Crohn's disease Father Diabetes Father Ovarian cysts Mother Family Status - Relation Status Age at Paternal Grandfather Alive Paternal Grandmother Alive Maternal Grandmother Alive Maternal Grandfather Alive Father Alive Mother Alive Level of Service:14324 [place] PERIODIC PREVENTIVE MED EST PATIENT 18-39 YRS Reason for Visit and Comments: Annual Exam [83] - Annual exam Normal [facility] Progress Noteon 10-07-2024 Progress Note Associate Programmer was offere d to the patient for exam. 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 Chief Complaint Patient presents with Annual Exam Annual exam Patient's last menstrual period was 09/23/2024. Primary Care Physician: Veronica Alberts The patient was seen and examined. She is here for her annual. Pap 08/01 neg No ho abnormal Menses heavy bleeding Std testing desired Gardasil sp series control not desired no Delivery 2023 No fam ho cancer HPI : Kristine Crum is a 24 y.o. female OB History Para Term AB Living 1 1 1 1 SAB IAB Ectopic Multiple Live Births 0 1 # Outcome Date GA Lbr Randy/2nd Weight Sex Type Anes PTL Lv 1 Term 02/24/24 40w4d 7 lb 13 oz (3.545 kg) M CS-LTranv EPI N VAMSHI Complications: Meconium, Prolonged Rupture, Arrest of Dilatation Past Medical History: Diagnosis Date CC (Crohn's colitis) (CMS/HCC) (HCC) Narcolepsy Past Surgical History: Procedure Laterality Date BREAST SURGERY SECTION, LOW TRANSVERSE TONSILLECTOMY (HISTORICAL) Family History Problem Relation Name Age of Onset No Known Problems Paternal Grandfather Heart disease Paternal Grandmother Ovarian cysts Maternal Grandmother No Known Problems Maternal Grandfather Crohn's disease Father Diabetes Father Ovarian cysts Mother Social History Socioeconomic History Marital status: Single Spouse name: Not on file Number of children: Not on file Years of education: Not on file Highest education level: Not on file Occupational History Not on file Tobacco Use Smoking status: Former Current packs/day: 0.50 Types: Cigarettes Smokeless tobacco: Former Tobacco comments: She vapes Vaping Use Vaping status: Former Substance and Sexual Activity Alcohol use: Not Currently Drug use: Not Currently Types: Marijuana Comment: Last used when she was about 10 weeks Sexual activity: Not Currently Partners: Male Comment: recent Other Topics Concern Not on file Social History Narrative Not on file Social Drivers of Health Financial Resource Strain: Low Risk (02/23/2024) Overall Financial Resource Strain (CARDIA) Difficulty of Paying Living Expenses: Not hard at all Food Insecurity: No Food Insecurity (02/23/2024) Hunger Vital Sign Worried About Running Out of Food in the Last Year: Never true Ran Out of Food in the Last Year: Never true Transportation Needs: No Transportation Needs (02/23/2024) PRAPARE - Transportation Lack of Transportation (Medical): No Lack of Transportation (Non-Medical): No Physical Activity: Insufficiently Active (02/23/2024) Exercise Vital Sign Days of Exercise per Week: 2 days Minutes of Exercise per Session: 40 min Stress: No Stress Concern Present (02/23/2024) [employer] - Occupational Stress Questionnaire Feeling of Stress : Not at all Social Connections: Moderately Isolated (02/23/2024) Social Connection and Isolation Panel [NHANES] Frequency of Communication with Friends and Family: More than three times a week Frequency of Social Gatherings with Friends and Family: Twice a week Attends Taoism Services: Never Active Member of Clubs or Organizations: Yes Attends Club or Organization Meetings: 1 to 4 times per year Marital Status: Never Intimate Partner Violence: Not At Risk (02/23/2024) Humiliation, Afraid, Rape, and Kick questionnaire Fear of Current or Ex-Partner: No Emotionally Abused: No Physically Abused: No Sexually Abused: No Housing Stability: Low Risk (02/23/2024) Housing Stability Vital Sign Unable to Pay for Housing in the Last Year: No Number of Times Moved in the Last Year: 1 Homeless in the Last Year: No MEDICATIONS: Current Outpatient Medications Medication Sig Dispense Refill Inflectra 100 MG injection Misc. Devices (Breast Pump) misc Double Electric. Lactating mother 1 each 0 modafinil (Provigil) 100 MG tablet Take 1 tablet (100 mg) by mouth 2 times daily as needed (sleepiness). 60 tablet 0 Sodium Oxybate ER (Lumryz) 9 g pack Take 9 g by mouth Nightly. Take contents of one packet mixed with water in provided mixing cup at bedtime. 90 each 0 No current facility-administered medications for this visit. ALLERGIES: Allergies as of 10/07/2024 - Reviewed 10/07/2024 Allergen Reaction Noted Amoxicillin Hives 12/24/2023 Oxycodone Swelling 11/13/2020 Penicillins Hives and Rash 11/01/2009 Gynecologic History: Menstrual History: Patient's last menstrual period was 09/23/2024. Review of Systems Constitutional: Negative for fatigue, fever and unexpected weight change. HENT: Negative for congestion and sore throat. Eyes: Negative for discharge and visual disturbance. Respiratory: Negative for cough and shortness of breath. Cardiovascular: Negative for (more content not included)... [facility] Progress Noteon 04-07-2024 Progress Note VISIT Kristine Crum is a 24 y.o. female Presents today for routine visit S/P , Low Transverse on 02/24/24 of male (Humberto) who is doing well. She is accompanied by her baby. Patient is breast feeding without any problems. She denies any breast lumps, redness, edema or signs of infection on the breast. Patient denies any symptoms of depression or anxiety. Restarting her cycle of inflectra infusions. Last pap 08/01 Negative SUBJECTIVE: Patient had a , Low Transverse. Denies problems with voiding, BM's, eating or drinking. Patient is breast feeding. Patient's bleeding is: no bleeding. Patient is not sexually active. Patient plans condoms for contraception. depression screening: negative REVIEW OF SYSTEMS: Review of Systems Constitutional: Negative for fever. Genitourinary: Negative for difficulty urinating, frequency, menstrual problem, pelvic pain, vaginal bleeding, vaginal discharge and vaginal pain. Psychiatric/Behavioral: Negative for self-injury and suicidal ideas. The patient is not nervous/anxious. PHYSICAL EXAM: BP 117/78 Pulse 75 Wt 189 lb 6.4 oz (85.9 kg) Yes BMI 32.51 kg/m? Physical Exam Vitals reviewed. Constitutional: Appearance: Normal appearance. Abdominal: Palpations: Abdomen is soft. Tenderness: There is no abdominal tenderness. Comments: Incision well healed. No redness, drainage, edema or signs of infection Neurological: Mental Status: She is alert. Psychiatric: Mood and Affect: Mood normal. Behavior: Behavior normal. Thought Content: Thought content normal. Judgment: Judgment normal. ASSESSMENT/PLAN: Kristine was seen today for care. Diagnoses and all orders for this visit: care and examination (Primary) Status post delivery Other orders - Flu vaccine (FLUZONE/FLULAVAL/FLUARIX), trivalent, split virus (VFC product) Signs and symptoms of breast infection discussed. Advised patient to contact the office with signs of infection. Flu vaccine given. RTO 6 months for CLINICAL REHABILITATION SPECIALIST annual. Contact the office with any questions or concerns prior to next scheduled visit. Patient agrees with plan of care. Follow up in about 6 months (around 10/05/2024) for CLINICAL REHABILITATION SPECIALIST annual. Yesica Mckinnon APRN - [employer] [facility] Progress Note Flu vaccine given in left deltoid on 04/07/24. Pt tolerated well. [facility]# [id number] LOT# [id number] EXP 12/05/2024 [facility] Progress Noteon 03-09-2024 Progress Note Kristine Crum sarah 24 y.o. female SUBJECTIVE: 2 wks PP, PCD 2/2 arrest of dilation Bleeding minimal. No s/sx PP depression Not sexually active Planning nothing for control + Baby doing well. BP 123/80 Pulse 99 Wt 187 lb 6.4 oz (85 kg) LMP 05/16/2023 (Exact Date) Yes BMI 32.17 kg/m? Physical Exam Gen: normal appearance, NAD Neuro: AAOx3 Psych: normal affect Lungs: nonlabored breathing Chest: regular rate Incision: C/D/I, bandaged removed today Current Outpatient Medications: Cyanocobalamin (VITAMIN B 12 PO), Take 1,000 mcg by mouth daily., Disp: , Rfl: desvenlafaxine succinate ER 25 MG 24 hour tablet, Take 50 mg by mouth every morning., Disp: , Rfl: desvenlafaxine succinate ER 25 MG 24 hour tablet, Take 25 mg by mouth., Disp: , Rfl: Inflectra 100 MG injection, , Disp: , Rfl: inFLIXimab (Remicade) 100 MG injection, Infuse into a venous catheter. Every six weeks, Disp: , Rfl: Misc. Devices (Breast Pump) misc, Double Electric. Lactating mother, Disp: 1 each, Rfl: 0 MV-Min-Fe Fum-FA-DHA ( 1 PO), Take by mouth., Disp: , Rfl: modafinil (Provigil) 100 MG tablet, Take 1 tablet (100 mg) by mouth 2 times daily as needed (sleepiness)., Disp: 60 tablet, Rfl: 0 Sodium Oxybate ER (Lumryz) 9 g pack, Take 9 g by mouth Nightly. Take contents of one packet mixed with water in provided mixing cup at bedtime., Disp: 90 each, Rfl: 0 ASSESSMENT: 1. care and examination PLAN: Contraception: declines; discussed BF and anovulation; discussed recommended intervals Follow up: 4 weeks Follow up in about 4 weeks (around 04/06/2024) for PP visit w/ RICCARDO. [facility] 42on 02-27-2024 42 Follow-up visit with patient. Patient states infant has been nursing well, patient is having some slight discomfort initially but discomfort eases as nurses. Encouraged patient to call for assistance at next feeding if needed. Patient verbalized understanding and aware of how to call for LC on wall touch pad. [facility] Progress Noteon 02-27-2024 Progress Note Note-Tana lewis POST OPERATIVE DAY # 3 Kristine Crum is a 24 y.o. who was seen & examined today. Her was complicated by: Patient Active Problem List Diagnosis Crohn's disease (HCC) care, antepartum Vanishing twin syndrome Anxiety disorder affecting , antepartum Indication for care in labor or delivery Today she is doing well without any chief complaint. Her lochia is light. She denies Headache, Chest Pain, Vision Changes, and Shortness of Breath. She is ambulating well. Flatus present. Bowel movement present. Voiding spontaneously . She is tolerating solids. Pain is controlled yes. Vital Signs: Vitals: 02/26/24 0726 02/26/24 1935 02/27/24 0019 02/27/24 0330 BP: 112/68 139/76 120/67 113/75 BP Location: Right arm Right arm Right arm Patient Position: Sitting Lying Lying Pulse: 86 85 90 96 Resp: 16 16 16 18 Temp: 36.6 ?C (97.9 ?F) 36.8 ?C (98.2 ?F) 36.6 ?C (97.8 ?F) 36.6 ?C (97.9 ?F) TempSrc: Temporal Temporal Temporal Temporal SpO2: 96% 97% 96% 96% Weight: Height: Urine Input & Output last 24hrs: No intake or output data in the 24 hours ending 02/27/24 0530 Physical Exam: GENERAL APPEARANCE: alert, well appearing, in no apparent distress ABDOMEN : benign non-tender, without masses or organomegaly palpable EXTREMITIES: no redness or tenderness in the calves or thighs, no edema NEUROLOGIC: alert, oriented, normal speech, no focal findings or movement disorder noted UTERUS : normal size, well involuted, firm, non-tender Desc; incision: silverlon overlying, replaced overnight Labs: Lab Results Component Value Date WBC 14.5 (H) 02/23/2024 HGB 8.8 (L) 02/25/2024 HCT 34.1 (L) 02/23/2024 MCV 82.6 02/23/2024 PLT 203 02/23/2024 A Antibody Screen: No results found for: LABANTI No results found for: RUBELLAIGG LABOR DELIVERY ??? SCD's ONLY (labor through ambulation) SCD's PLUS Prophylactic Anticoagulation until discharge SCD's PLUS Prophylactic Anticoagulation for 6 weeks SCD's PLUS Therapeutic Anticoagulation for 6 weeks Vaginal Delivery [] BMI ? 40 kg/m2 Delivery All patients Vaginal Delivery [] BMI ? 40 kg/m2 AND [] Antepartum hospitalization ? 72 hours within the past month Delivery 1 Major Risk Factor: [x] BMI ? 35 kg/m2 [] Low Risk Thrombophilia [] PPH+RBCs, IR, or operation [] Infection+Antibiotics [] Antepartum hospitalization ? 72 hours within the past month [] PMH: Sickle Cell, SLE, Cardiac Dz, Active IBD, Active Cancer, Nephrotic Syndrome OR 2 Minor Risk Factors: [] Multiple gestation [] Age > 40 [] PPH ? 1,000cc [] (+)FMH of VTE [] Smoker [] Preeclampsia [] BMI ? 40 kg/m2 AND [] Low Risk Thrombophilia OR ANY OF THE FOLLOWING: [] High Risk Thrombophilia without prior VTE [] Low Risk Thrombophilia with (+)FMH of VTE [] Any single prior VTE ANY OF THE FOLLOWING: [] Already on LMWH/UFH [] Multiple prior VTE [] High Risk Thrombophilia with prior VTE Low Risk Thrombophilia: FVL (heterozygous), Prothrombin (heterozygous), Protein C, Protein S High Risk Thrombophilia: FVL (homozygous), Prothrombin (homozygous), FVL+Prothrombin (heterozygous), Antithrombin III, APLS Assessment/Plan: Kristine Crum is a 24 y.o. POD # 3 s/p PLTCS 2/2 Failed IOL Care - Doing well, VSS - Male - Contraception: Per Private Attending - Encourage ambulation and use of incentive spirometer - D/C lee catheter and saline lock IV on POD #1 - Postop Hb 8.8 - VTE Prophylaxis: Prophylactic Dosing until Discharge gHTN -Met criteria during labor -PreE labs WNL during labor -Normotensive and asymptomatic overnight -Vitals per unit protocol Acute Blood Loss Anemia -Hg drop from 11.2 to 8.8 postoperatively -EBL 600mL -Vital signs WNL without tachycardia or hypotension -Denies symptoms this AM -Continue PO iron Crohn's Disease -Follows with GI -On Remicade antepartum, per GI -Denies new sx this AM BHASKAR -Follows with psychiatry -Mood appropriate this AM -Continue Pristiq 25 mg daily Narcolepsy -No meds at this time -Follows with sleep medicine Disposition: Per private attending. Provider's Name: MD Leila Pace MD 02/27/2024, 5:30 AM [facility] 42on 02-26-2024 42 Observation of . Pt able to independently position and latch baby; baby in football hold on left breast. Reinforcement given on skin to skin, proper positioning and latch-on technique. Importance of deep, wide latch discussed. Baby feeding well and swallows noted. Pt reports feeding is comfortable. Breasts and nipples WNL; breasts remain soft. Pt reminded that learning to takes practice, and baby will continue to improve with this new skill over time. Reminded to feed baby on demand, at earliest signs of hunger, for a total of 8 or more feeds in 24 hours. Reviewed availability of [facility] dept and Mothers Support Group for help after discharge. Encouraged to all for LC as needed. [facility] Progress Noteon 02-26-2024 Progress Note Called to replace sa turated Silverlon Dressing. Silverlon removed with steri-strips remaining. Incision looks well approximated with no erythema, induration. New silverlon applied. Patient doing well with no complaints. [facility] Progress Note ------- Attestation signed by Kylah Laguerre MD at 02/26/2024 10:14 AM Hospital Care (Independent): I independently saw and evaluated the patient. I agree with the findings and plan of care as documented in the resident's note. Note- POST OPERATIVE DAY # 2 Kristine Crum is a 24 y.o. who was seen & examined today. Her was complicated by: Patient Active Problem List Diagnosis Crohn's disease (HCC) care, antepartum Vanishing twin syndrome Anxiety disorder affecting , antepartum Indication for care in labor or delivery Today she is doing well without any chief complaint. Her lochia is light. She denies Headache, Chest Pain, Vision Changes, and Shortness of Breath. She is ambulating well. Flatus present. Bowel movement present. Voiding spontaneously . She is tolerating solids. Pain is controlled yes. Vital Signs: Vitals: 02/25/24 0755 02/25/24 1114 02/25/24 1602 02/25/24 2205 BP: 116/62 108/60 121/74 117/71 BP Location: Right arm Right arm Right arm Patient Position: Sitting Sitting Pulse: 82 84 83 81 Resp: 18 14 18 18 Temp: 36.4 ?C (97.5 ?F) 36.6 ?C (97.9 ?F) 36.8 ?C (98.3 ?F) 36.7 ?C (98.1 ?F) TempSrc: Temporal Temporal Temporal Temporal SpO2: 95% 100% 98% 97% Weight: Height: Urine Input & Output last 24hrs: No intake or output data in the 24 hours ending 02/26/24 0540 Physical Exam: GENERAL APPEARANCE: alert, well appearing, in no apparent distress ABDOMEN : benign non-tender, without masses or organomegaly palpable EXTREMITIES: no redness or tenderness in the calves or thighs, no edema NEUROLOGIC: alert, oriented, normal speech, no focal findings or movement disorder noted UTERUS : normal size, well involuted, firm, non-tender Desc; incision: Silverlon in place Labs: Lab Results Component Value Date WBC 14.5 (H) 02/23/2024 HGB 8.8 (L) 02/25/2024 HCT 34.1 (L) 02/23/2024 MCV 82.6 02/23/2024 PLT 203 02/23/2024 A Antibody Screen: No results found for: LABANTI No results found for: RUBELLAIGG LABOR DELIVERY ??? SCD's ONLY (labor through ambulation) SCD's PLUS Prophylactic Anticoagulation until discharge SCD's PLUS Prophylactic Anticoagulation for 6 weeks SCD's PLUS Therapeutic Anticoagulation for 6 weeks Vaginal Delivery [] BMI ? 40 kg/m2 Delivery All patients Vaginal Delivery [] BMI ? 40 kg/m2 AND [] Antepartum hospitalization ? 72 hours within the past month Delivery 1 Major Risk Factor: [x] BMI ? 35 kg/m2 [] Low Risk Thrombophilia [] PPH+RBCs, IR, or operation [] Infection+Antibiotics [] Antepartum hospitalization ? 72 hours within the past month [] PMH: Sickle Cell, SLE, Cardiac Dz, Active IBD, Active Cancer, Nephrotic Syndrome OR 2 Minor Risk Factors: [] Multiple gestation [] Age > 40 [] PPH ? 1,000cc [] (+)FMH of VTE [] Smoker [] Preeclampsia [] BMI ? 40 kg/m2 AND [] Low Risk Thrombophilia OR ANY OF THE FOLLOWING: [] High Risk Thrombophilia without prior VTE [] Low Risk Thrombophilia with (+)FMH of VTE [] Any single prior VTE ANY OF THE FOLLOWING: [] Already on LMWH/UFH [] Multiple prior VTE [] High Risk Thrombophilia with prior VTE Low Risk Thrombophilia: FVL (heterozygous), Prothrombin (heterozygous), Protein C, Protein S High Risk Thrombophilia: FVL (homozygous), Prothrombin (homozygous), FVL+Prothrombin (heterozygous), Antithrombin III, APLS Assessment/Plan: Kristine Crum is a 24 y.o. POD # 2 s/p PLTCS 2/2 Failed IOL Care - Doing well, VSS - Male - Contraception: Per Private Attending - Encourage ambulation and use of incentive spirometer - D/C lee catheter and saline lock IV on POD #1 - Postop Hb 8.8 - VTE Prophylaxis: Prophylactic Dosing until Discharge gHTN -Met criteria during labor -PreE labs WNL during labor -Normotensive and asymptomatic overnight -Continue vitals per unit protocol Acute Blood Loss Anemia -Hg drop from 11.2 to 8.8 -EBL 600mL -Vital signs stable without signs of hypotension or tachycardia -Denies symptoms of light headedness with standing, dizziness this AM -Continue PO iron and colace Crohn's Disease -Follows with GI -On Remicade during antepartum period, per GI -Denies new sx this AM BHASKAR -Follows with psychiatry -Mood appropriate this AM -Continue Pristiq 25mg daily Narcolepsy -No meds at this time -Follows with sleep medicine Disposition: Per private attending. Provider's Name: MD Leila Pace MD 02/26/2024, 5:40 AM [facility] 42on 02-25-2024 42 Pt seen regarding of term who is now 35 HOL. This is first baby for pt. States is going well. Reports some nipple soreness. Baby is in nursery at this time for an antibiotic infusion. Reviewed deep latching technique through picture illustrations. Reminded that she and baby are learning a new skill that will improve with time and practice. Reminded to feed baby at earliest signs of hunger, but at least every 3 hours and call for help if not latching. Pt / family instructed on the following signs of adequate intake for the breastfed baby: 8 or more feeds in 24 hrs, including in the night; 6 or more wet diapers per 24 hrs by day 6 of life; 4 or more stools, turning yellow and seedy, per 24 hrs by day 5 of life; audible swallows during ; baby appears full / content after feeds; pt's breasts noticeably marinelli and heavier with whitish milk seen no later than day 5 . Engorgement, damaged nipples, blocked ducts and mastitis information all reviewed in care booklet. Pt / family reminded to have baby seen by follow up provider as instructed and no later than 3 days after discharge. Flyer given and discussed for [facility] and other resources for support after discharge. Encouraged to seek help as soon as possible for any infant feeding or related concerns. Encouraged to call LC for assist with ; reviewed use of wall touch pad. Pt reports she has a Spectra pump for home use. Pt receptive to my visit and education. Denies questions at this time. [facility] HEMOGLOBINon 02-25-2024 Hemoglobin (Bld) [Mass/Vol] 8.8 g/dL Low 11.7-16.0 [facility] Comment on above: Order Comment: POD # 1; if Hemoglobin less than 8 or greater than 3gm drop from admission, notify MD and repeat as ordered, Performed By: #### L [id number] ####Assisted Living Administrator: SHANTI FISHER ([phone])[facility] ([id number] Hemoglobin (Bld) [Mass/Vol]O rdered By: Kecia Velásquez on 02-25-2024 Interpretation and review of laboratory results Abnormal [facility] - Hematology and Cell countsOrdered By: Kecia Velásquez on 02-25-2024 Hemoglobin (Bld) [Mass/Vol] 8.8 g/dL Low 11.7 - 16.0 g/dL [facility] Nursing Noteon 02-25-2024 Nursing Note Mom asked if she cou ld switch baby to sensitive formula. She is doing both breast and bottle and continues to do so at home. She states that when baby drinks the regular formula he spits/throws up, but when she nurses him, he does not. I reached out to Dr. Nelson, and she was fine with this. Mom given a 4 pack of sensitive formula and slow flow nipples, will continue to monitor. [facility] Progress Noteon 02-25-2024 Progress Note Nutrition rescreen completed. Patient assigned a level 1. L[place] [facility] Progress Note Note-Tana lewis POST OPERATIVE DAY # 1 Kristine Crum is a 24 y.o. who was seen & examined today. Her was complicated by: Patient Active Problem List Diagnosis Crohn's disease (HCC) care, antepartum Vanishing twin syndrome Anxiety disorder affecting , antepartum Indication for care in labor or delivery Today she is doing well without any chief complaint. Her lochia is light. She denies Headache, Chest Pain, Vision Changes, and Shortness of Breath. She is ambulating well. Flatus present. Bowel movement absent. Voiding spontaneously . She is tolerating solids. Pain is controlled yes. Vital Signs: Vitals: 02/24/24 1705 02/24/24 1951 02/25/24 0004 02/25/24 0335 BP: 123/77 121/74 113/68 106/66 BP Location: Patient Position: Pulse: 75 68 78 85 Resp: 14 16 16 Temp: 36.4 ?C (97.5 ?F) 36.3 ?C (97.3 ?F) 36.3 ?C (97.4 ?F) 36.8 ?C (98.3 ?F) TempSrc: Temporal Temporal Temporal Temporal SpO2: 97% 97% 97% 95% Weight: Height: Urine Input & Output last 24hrs: Intake/Output Summary (Last 24 hours) at 02/25/2024 0613 Last data filed at 02/25/2024 0300 Gross per 24 hour Intake 1643 ml Output 4790 ml Net -3147 ml Physical Exam: GENERAL APPEARANCE: alert, well appearing, in no apparent distress ABDOMEN : benign non-tender, without masses or organomegaly palpable EXTREMITIES: no redness or tenderness in the calves or thighs, no edema NEUROLOGIC: alert, oriented, normal speech, no focal findings or movement disorder noted UTERUS : normal size, well involuted, firm, non-tender Desc; incision: Silverlon Labs: Lab Results Component Value Date WBC 14.5 (H) 02/23/2024 HGB 11.2 (L) 02/23/2024 HCT 34.1 (L) 02/23/2024 MCV 82.6 02/23/2024 PLT 203 02/23/2024 A Antibody Screen: No results found for: LABANTI No results found for: RUBELLAIGG LABOR DELIVERY ??? SCD's ONLY (labor through ambulation) SCD's PLUS Prophylactic Anticoagulation until discharge SCD's PLUS Prophylactic Anticoagulation for 6 weeks SCD's PLUS Therapeutic Anticoagulation for 6 weeks Vaginal Delivery [] BMI ? 40 kg/m2 Delivery All patients Vaginal Delivery [] BMI ? 40 kg/m2 AND [] Antepartum hospitalization ? 72 hours within the past month Delivery 1 Major Risk Factor: [x] BMI ? 35 kg/m2 [] Low Risk Thrombophilia [] PPH+RBCs, IR, or operation [] Infection+Antibiotics [] Antepartum hospitalization ? 72 hours within the past month [] PMH: Sickle Cell, SLE, Cardiac Dz, Active IBD, Active Cancer, Nephrotic Syndrome OR 2 Minor Risk Factors: [] Multiple gestation [] Age > 40 [] PPH ? 1,000cc [] (+)FMH of VTE [] Smoker [] Preeclampsia [] BMI ? 40 kg/m2 AND [] Low Risk Thrombophilia OR ANY OF THE FOLLOWING: [] High Risk Thrombophilia without prior VTE [] Low Risk Thrombophilia with (+)FMH of VTE [] Any single prior VTE ANY OF THE FOLLOWING: [] Already on LMWH/UFH [] Multiple prior VTE [] High Risk Thrombophilia with prior VTE Low Risk Thrombophilia: FVL (heterozygous), Prothrombin (heterozygous), Protein C, Protein S High Risk Thrombophilia: FVL (homozygous), Prothrombin (homozygous), FVL+Prothrombin (heterozygous), Antithrombin III, APLS Assessment/Plan: Kristine Crum is a 24 y.o. POD # 1 s/p PLTCS 2/2 Failed IOL Care - Doing well, VSS - Male - Contraception: Per Private Attending - Encourage ambulation and use of incentive spirometer - D/C lee catheter and saline lock IV on POD #1 - Postop Hb pending at this note time - VTE Prophylaxis: Prophylactic Dosing until Discharge gHTN -Met criteria during labor -PreE labs WNL at that time -Normotensive and asymptomatic overnight Chron's -follows with GI -Remicade per GI antepartum infusions BHASKAR -follows with psych -Mood appropriate this am -Continue Pristiq 25mg daily Narcolepsy -no medications at this time -follows with sleep clinic Disposition: Per private attending Provider's Name: MD Leila Pace MD 02/25/2024, 6:13 AM [facility] 42on 02-24-2024 42 RN states that she h ad originally called LC for latch assistance but was able to assist pt and latch infant on right side in cradle position. is awake, attentive, with wide gape, lips furled and continuous swallows noted. Mom encouraged to feed on the right side as long as he wants to, e.g. twenty minutes, then offer a burp and switch to left side if infant continues to show hunger cues. Mom encouraged to attempt feeding every 2-3 hrs today and at least 8- 10 times per 24 hr period- tomorrow. Re-assurance given to parents and encouraged to call as needed. [facility] CARECOORDon 02-24-2024 CARECOORD Date: 02/24/2024 Name: Kristine Crum : 2000 [facility] Information [place] Patient Information Primary Caregiver: Self Accompanied by/Relationship: S/O;Family Marital Status: single Support System: SO/Family Taoism/Cultural Factors: none Activities of Daily Living Communication: See demographics Living Arrangements Current Residence: Private residence Lives With: S/O; Family Support System: S/O; Family Income Information Income Source: Employed Financial Resource Strain How hard is it for you to pay for the very basics like food, housing, medical care and heating? N/A Housing Stability In the last 12 months, was there a time when you did not have a steady place to sleep or slept in a fdc (including now)? No Transportation Needs Has the lack of Transportation kept you from medical appointments? No In the past 12 months, has the lack of transportation kept you from meetings, work, or from getting things needed for daily living? No Food Insecurity Within the past 12 months, have you worried that your food would run out before you got the money to buy more? No Stress Do you feel stress - tense, restless, nervous, or anxious, or unable to sleep at night because you mind is troubled all the time? Mood stable Referral To Financial Resources: N/A Community Resources: Admission folder given upon admission to PP Unit Social Work: N/A CLP: N/A Medical Information 24 year year old admitted for augmentation of PROM at 40/3 weeks. 1 para 0. delivery. Hx of THC, stopped when she found out she was . Chemicals from marijuana can be passed to your baby through breast milk. THC is stored in fat and is slowly released over time, meaning an infant could be exposed for a longer period of time. Discharge Plan Home or Community Resources: Admission folder given upon admission to PP unit Equipment: N/A Education Given: Discussion on the A. B. C's of safe sleep. Always place your baby on his or her back to sleep, use a firm sleep surface and your baby should not sleep in an adult bed, on a couch or chair. Keep soft objects, toys and loose bedding out of your baby's sleep area. Reviewed depression. It is common to have blues. This is a normal response to many of the hormonal changes, stress and lack of sleep that go with raising a and physically recovering from the . Don't hesitate to talk to your provider with any concerns. There are resources in your home going booklet. To help prevent germs from spreading to you and your baby, make sure everyone washes their hands before they handle your . Avoid crowds, and keep infant away from sick people, anyone who is sick with a cough or fever, including family members. Post- warning signs information reviewed with patient per nurse with discharge Additional Information: Patient is independent and has insurance. She is prepared with her baby supplies. To be discharged to home. Denies any concerns at this time. Mental Health Services: Resources in discharge folder Equipment: Developmental Delay: N/A Children's Services: N/A Normal [facility] COMPREHENSIVE METABOLIC PANE Masood 02-24-2024 Albumin [Mass/Vol] 3.2 g/dL Low 3.5-5.0 [facility] Comment on above: Performed By: #### L [id number] ####Assisted Living Administrator: SHANTI FISHER ([id number])[address] ALP [Catalytic activity/Vol] 199 U/L High 38-126 [facility] Comment on above: Performed By: #### L AB17 ####Assisted Living Administrator: SHANTI FISHER ([id number])[address] ALT [Catalytic activity/Vol] 14 U/L Normal 0-34 [facility] Comment on above: Performed By: #### L AB17 ####Assisted Living Administrator: SHANTI FISHER ([id number])[address] Anion gap [Moles/Vol] 6 mmol/L Normal 3-13 [facility] Comment on above: Performed By: #### L AB17 ####Assisted Living Administrator: SHANTI FISHER ([id number])[facility] [place] [address] [place] AST [Catalytic activity/Vol] 21 U/L Normal 15-46 [facility] Comment on above: Performed By: #### L AB17 ####Assisted Living Administrator: SHANTI FISHER ([id number])[facility] ([facility])[address] [place] [address] [place] Bilirubin [Mass/Vol] 0.5 mg/dL Normal 0.2-1.3 [facility] Comment on above: Performed By: #### L AB17 ####Assisted Living Administrator: SHANTI FISHER ([id number])[facility] ([facility])[address] [place] [address] Calcium [Mass/Vol] 9.0 mg/dL Normal 8.4-10.4 [facility] Comment on above: Performed By: #### L AB17 ####Assisted Living Administrator: SHANTI FISHER ([id number])[facility] ([facility])[address] [place] [address] [place] Chloride [Moles/Vol] 111 mmol/L High 98-107 [facility] Comment on above: Performed By: #### L AB17 ####Assisted Living Administrator: SHANTI FISHER ([id number])[facility] ([facility])[address] [place] [address] [place] CO2 [Moles/Vol] 17 mmol/L Low 22-30 [facility] Comment on above: Performed By: #### L AB17 ####Assisted Living Administrator: SHANTI FISHER ([id number])[facility] ([facility])[address] [place] [address] [place] Creatinine [Mass/Vol] 0.67 mg/dL Normal 0.52-1.04 [facility] Comment on above: Performed By: #### L AB17 ####Assisted Living Administrator: SHANTI FISHER ([id number])[facility] ([facility])[address] [place] [address] [place] GLOMERULAR FILTRATION RATE ML/MIN/1.73 SQ M.PREDICTED >90.0 Normal >60.0 [facility] Comment on above: Result Comment: Calc ulation based on the Chronic Kidney Disease Epidemiology Collaboration (CKD-EPI) equation refit without adjustment for race Performed By: #### L AB17 ####Assisted Living Administrator: SHANTI FISHER ([id number])[facility] ([facility])[address] [place] [address] Glucose [Mass/Vol] 76 mg/dL Normal 70-100 [facility] Comment on above: Performed By: #### L AB17 ####Assisted Living Administrator: SHANTI FISHER ([id number])[facility] ([facility])[address] [place] [address] Potassium [Moles/Vol] 3.9 mmol/L Normal 3.5-5.1 [facility] Comment on above: Performed By: #### L AB17 ####Assisted Living Administrator: SHANTI FISHER ([id number])[facility] ([facility])[address] [place] [address] Protein [Mass/Vol] 6.6 g/dL Normal 6.3-8.2 [facility] Comment on above: Performed By: #### L AB17 ####Assisted Living Administrator: SHANTI FISHER ([id number])[facility] ([facility])[address] [place] [address] Sodium [Moles/Vol] 134 mmol/L Low 135-145 [facility] Comment on above: Performed By: #### L AB17 ####Assisted Living Administrator: SHANTI FISHER ([id number])[facility])[address] [place] [address] Urea nitrogen [Mass/Vol] 7 mg/dL Normal 7-17 [facility] Comment on above: Performed By: #### L AB17 ####Assisted Living Administrator: SHANTI FISHER ([id number])[facility])[address] [place] [address] Comprehensive metabolic 1998 panelon 02-24-2024 Albumin [Mass/Vol] 3.2 g/dL Low 3.5 - 5.0 g/dL [facility] ALP [Catalytic activity/Vol] 199 U/L High 38 - 126 U/L [facility] ALT [Catalytic activity/Vol] 14 U/L 0 - 34 U/L [facility] Anion gap [Moles/Vol] 6 mmol/L 3 - 13 mmol/L [facility] AST [Catalytic activity/Vol] 21 U/L 15 - 46 U/L [facility] Bilirubin [Mass/Vol] 0.5 mg/dL 0.2 - 1.3 mg/dL [facility] Calcium [Mass/Vol] 9.0 mg/dL 8.4 - 10. 4 mg/dL [facility] Chloride [Moles/Vol] 111 mmol/L High 98 - 107 mmol/L [facility] CO2 [Moles/Vol] 17 mmol/L Low 22 - 30 mmol/L [facility] Creatinine [Mass/Vol] 0.67 mg/dL 0.52 - 1.04 mg/dL [facility] GFR/1.73 sq M.predicted (S/P/Bld) [Vol rate/Area] - PINF [facility] Comment on above: Calculation based on the Chronic Kidney Disease Epidemiology Collaboration (CKD-EPI) equation refit without adjustment for race Glucose [Mass/Vol] 76 mg/dL 70 - 100 mg/dL [facility] Interpretation and review of laboratory results Abnormal [facility] Potassium [Moles/Vol] 3.9 mmol/L 3.5 - 5.1 mmol/L [facility] Protein [Mass/Vol] 6.6 g/dL 6.3 - 8.2 g/dL [facility] Sodium [Moles/Vol] 134 mmol/L Low 135 - 145 mmol/L [facility] Urea nitrogen [Mass/Vol] 7 mg/dL 7 - 17 mg/dL [facility] Epidural Blockon 02-24-2024 JOSTIN Goddard CRNA 02/24/2024 1:59 AM Epidural Block Time Out: 02/24/2024 1:44 AM Patient location during procedure: OB Start time: 02/24/2024 1:45 AM End time: 02/24/2024 1:53 AM Reason for block: labor analgesia Staffing Performed: SUPPLIER DEVELOPMENT MANAGER Resident/SUPPLIER DEVELOPMENT MANAGER: JOSTIN Goddard CRNA Preanesthetic Checklist Completed: patient identified, IV checked, site marked, risks and benefits discussed, surgical consent, monitors and equipment checked, pre-op evaluation, timeout performed, IV bolus and anesthesia consent given Block Placement Patient position: sitting Prep: ChloraPrep Sterility prep: drape, gloves, cap, hand and mask Sedation level: no sedation Patient monitoring: heart rate Approach: midline Location: lumbar Lumbar location: L3-L4 Epidural Loss of resistance technique: saline Guidance: landmark technique Needle Needle type: César Needle gauge: 17 G Needle length: 9 cm Needle insertion depth: 7 cm Catheter type: multi-orifice Catheter size: 19 G Catheter at skin depth: 14 cm Catheter securement method: surgical tape, liquid medical adhesive and clear occlusive dressing Test dose: negative Medications Administered lidocaine-EPINEPHrine (Xylocaine W/EPI) 1.5 %-[id number] injection - Epidural 3 mL - 02/24/2024 1:50:00 AM ropivacaine (Naropin) 0.2 % epidural bolus - Epidural 15 mL - 02/24/2024 1:51:00 AM Assessment Block outcome: pain improved Number of attempts: 1 Procedure assessment: patient tolerated procedure well with no immediate complications [facility] Nursing Noteon 02-24-2024 Nursing Note Yanet reported some dizziness when I went in to do vitals. No chest pain, no headache, and no blurred vision. Vitals were WDL, see flowsheet. Bleeding is WDL. Patient states she is very tired and hasn't had much sleep, she has been pushing her water and has great output. Patient states she will try to rest after visitors have gone. Will continue to monitor. Normal [facility] Nursing Note Patient up and ambul ated to the restroom with nurse. Patient did well. Mary care was demonstrated and teach back was done. Patient is ok to walk independently if she choose. Normal [facility] Op Noteon 02-24-2024 Op Note ------- Attestation signed by Gen Read MD at 02/27/2024 12:47 PM Procedures or Surgery: I was present for all coyle elements of the procedure or surgery as described in the resident note. Operative Note Patient: Kristine Crum : 2000 Date of Procedure: 02/24/24 Principal Problem: Indication for care in labor or delivery PREOPERATIVE DIAGNOSES: 1. at 40w4d 2. Failed augmentation of labor 3. Arrest of dilation 4. Crohn's disease 5. Gestational hypertension 6. Narcolepsy POSTOPERATIVE DIAGNOSES: 1. Same 2. Live male PROCEDURE: Primary low transverse section. SURGEON: Dr. Read ASST: Dr. Dumont ANESTHESIA: Epidural ANTIBIOTIC(S): Clindamycin, Gentamycin VAG PREP (Iodine): Yes FINDINGS: Viable male infant in cephalic presentation Weight 3545 g, Apgars 7 and 9. No adhesive disease Uterus, tubes, and ovaries normal FLUIDS: 1200 ml crystalloid URINE: 1100 ml EBL: 600 ml QBL: 590 ml DRAINS: Lee catheter SPECIMENS: Placenta COMPLICATIONS: None CONDITION: Stable and transferred to post anesthesia recovery Description of Procedure: The patient was taken back to the operating room with running IV fluids. She was given Clindamycin and gentamicin preoperatively for infection prophylaxis. Epidural anesthesia was in place and confirmed to be adequate. She was prepped and draped in the usual sterile fashion, and placed in the supine position with a leftward tilt. Anesthesia was found to be adequate. A Pfannenstiel skin incision was made with the scalpel. The incision was carried through the subcutaneous tissue to the fascia with the scalpel and bovie. The fascia was incised in the midline and carried transversely curved mayos. Kochers were used to grasp and elevate the superior edge of the fascia, and the underlying rectus muscle was dissected off with the bovie. The inferior fascia was treated in a similar fashion. The rectus muscles were in the midline bluntly. The peritoneum was found to be free of adherent bowel and entered bluntly. The peritoneal incision was extended bluntly with good visualization of bladder. The bladder retractor and Perez retractor were placed, and the vesicouterine peritoneum was identified. The lower uterine segment was incised in a low transverse fashion with a scalpel. The hysterotomy was extended bluntly. The amniotic cavity was ruptured with an Allis clamp and clear amniotic fluid was noted. The fetus was found to be in cephalic, occiput anterior presentation. Pelvis did not feel tight. Bladder retractor and Perez retractor were removed. The head was brought to the level of the uterine incision with special care to avoid using the incision as a fulcrum. Fundal pressure was then applied and the delivered without difficulty. The cord was clamped and cut, and the infant was handed off to the RN for evaluation. IV pitocin was then started. The placenta was removed with gentle traction and fundal pressure. The uterus was exteriorized and wrapped in a wet lap. The uterine cavity was wiped with a dry lap to assure complete removal of placental membranes. The uterine incision closed with 0 vicryl suture in a continuous fashion. A single figure of eight suture was placed in the center of her hysterotomy with 0 Vicryl. The uterine incision was found to be hemostatic. Tubes and ovaries were inspected and found to be normal. The posterior cul de sac was cleared of debris. The uterus was returned into the abdominal cavity. The uterine incision was reinspected and adequate hemostasis was again appreciated. The abdominal cavity was cleared of all clots and debris with wet lap sponges. The peritoneum was reapproximated with 3-0 Vicryl in a continuous fashion. The rectus muscles were reapproximated with 3-0 Vicryl in a continuous fashion. The fascia was closed with 0 Vicryl suture in a running fashion x2. The incision was irrigated. The subcutaneous layer was closed with 3-0 Monocryl. The skin was closed with 4-0 Vicryl suture in a subcuticular fashion. Steri strips and a bandage were placed over the incision. All counts were correct times two. Patient was transferred to the recovery room in satisfactory stable condition. MELANIA DUMONT DO 02/24/2024 8:19 AM VTE Prophylaxis: Prophylactic Dosing until Discharge LABOR DELIVERY ??? SCD's ONLY (labor through ambulation) SCD's PLUS Prophylactic Anticoagulation until discharge SCD's PLUS Prophylactic Anticoagulation for 6 weeks SCD's PLUS Therapeutic Anticoagulation for 6 weeks Vaginal Delivery [] BMI ? 40 kg/m2 Del (more content not included)... Normal [facility] Peripheral Blockon RUSLAN Hernandes SUPPLIER DEVELOPMENT MANAGER 02/24/2024 7:07 AM Peripheral Block Time Out: 02/24/2024 7:02 AM Patient location during procedure: Procedural Start time: 02/24/2024 7:02 AM End time: 02/24/2024 7:07 AM Reason for block: at surgeon's request and post-op pain management Staffing Performed: SUPPLIER DEVELOPMENT MANAGER Resident/SUPPLIER DEVELOPMENT MANAGER: JOSTIN Hernandes CRNA Preanesthetic Checklist Completed: patient identified, IV checked, site marked, risks and benefits discussed, surgical consent, monitors and equipment checked, pre-op evaluation and timeout performed Region: [place] Primary: TAP (60ml of Bupivacaine 0.375% with dexamethasone 0.01% with epinephrine 1:200,000 divided evenly bilaterally) Peripheral Block Patient position: supine Prep: ChloraPrep Patient monitoring: heart rate, conveyor monitor and continuous pulse ox O2: Room air Laterality: bilateral Injection technique: single-shot Guidance: ultrasound guided -image retained in chart, tip of the needle identified by ultraound during injection. Needle Needle: 21G X 110 mm Additional Notes 02/24/2024 7:02 AM Assessment Injection assessment: negative aspiration for heme, no paresthesia on injection, incremental injection and local visualized surrounding nerve on ultrasound Paresthesia pain: none Heart rate change: no Slow fractionated injection: yes Required Documentation: Relevant anatomy identified (Nerves, Vessels, Muscles), Negative for blood on aspiration, Local anesthetic injected incrementally with intermittent aspiration every 5 mL, No EKG changes noted, No symptoms of toxicity, Local anesthetic spread visualized around nerves or plane., Normal resistance with injection, No paresthesias reported by patient during injection and Local anesthetic injected without difficultyMedications gixEUBNTsexve-jaolwmewaqj-r pinephrine (TAP) syringe - Injection 40 mL - 02/24/2024 7:02:00 AM [facility] Progress Noteon 02-24-2024 Progress Note Safety Huddle Patient admitted for AOL-PROM. Her labor course consisted of a cytotec, lee balloon, pitocin. She was broken and on pitocin for 18 hours without making change past 4 cm. She met criteria for failed induction/augmentation of labor. She was agreeable to a PCD. Plan to proceed with a primary section for failed augmentation of labor. Risks and benefits discussed with the patient including the risk of injury to surrounding structures, bleeding and infection. Patient amendable to receiving blood products if medically indicated. Consent form signed. Safety Huddle performed with Attending provider, OB devulcanizer charger, OB anesthesia, resident team and primary RN. All in agreement for PCD-Failed IOL. Patient will be for clinda/gent and azithromycin. Epidural in place and will be redosed. This will be an unscheduled non-emergent primary section. Shawna Doran, DO 02/24/2024 5:54 AM [facility] 36on 02-23-2024 36 Noted. Pt is current ly admitted in hospital [facility] 36 S-Patient called in because her water broke. B-She is 40.3 weeks . A-States she started leaking about 20 minutes with some mucous plug. R-I advised OB Triage. Reason for Disposition Leakage of fluid from vagina (Exception: Patient is uncertain, but thinks it might be urine incontinence.) Answer Assessment - Initial Assessment Questions 1. ONSET: When did you notice the fluid coming out of your vagina? 20 minutes ago 2. CONTRACTIONS: Are you having any contractions? If Yes, ask: Describe the contractions that you are having. (e.g., duration, frequency, regularity, severity) no 3. NEHEMIAS: What date are you expecting to deliver? 02/20/24 4. PARITY: Have you had a baby before? If Yes, ask: How long did the labor last? no 5. MOVEMENT: Has the baby's movement decreased or changed significantly from normal? See note 6. OTHER SYMPTOMS: Do you have any other symptoms? (e.g., abdomen pain, fever, hand or face swelling, vaginal bleeding) no Protocols used: - Rupture of Mem[id number] and Rh group Confirm Nom (Bld)on 02-23-2024 ABO group Nom (Bld) A [facility] D Ag Ql (RBC) Positive [facility] BLOOD TYPE AND SCREEN GELon 02-23-2024 ABO GROUPING A Normal [facility] Comment on above: Order Comment: Speci men is valid for 3 days - nurse to verify valid specimen. Performed By: #### L [id number] ####Assisted Living Administrator: SHANTI FISHER ([id number])[facility] ([facility])[address] [place] [address] RH TYPE IN BLOOD Positive Normal [facility] Comment on above: Order Comment: Speci men is valid for 3 days - nurse to verify valid specimen. Performed By: #### L [id number] ####Assisted Living Administrator: SHANTI FISHER ([id number])[facility] ([facility])[address] [place] [address] Blood type and Crossmatch pa sai (Bld)on 02-23-2024 ABO group Nom (Bld) A [facility] Blood group antibody screen GEL Ql Negative [facility] D Ag Ql (RBC) Positive [facility] CBC (HEMOGRAM)on 02-23-2024 Erythrocyte distribution width (RBC) [Ratio] 14.4 % Normal 11.5-15.0 [facility] Comment on above: Performed By: #### L [id number] ####Assisted Living Administrator: SHANTI FISHER ([id number])[facility])[address] [place] [address] Hematocrit (Bld) [Volume fraction] 34.1 % Low 35.0-47.0 [facility] Comment on above: Performed By: #### L [id number] ####Assisted Living Administrator: SHANTI FISHER ([id number])[facility])[address] [place] [address] Hemoglobin (Bld) [Mass/Vol] 11.2 g/dL Low 11.7-16.0 [facility] Comment on above: Performed By: #### L [id number] ####Assisted Living Administrator: SHANTI FISHER ([id number])[facility])[address] [place] [address] MCH (RBC) [Entitic mass] 27.1 pg Normal 26.0-34.0 [facility] Comment on above: Performed By: #### L [id number] ####Assisted Living Administrator: SHANTI FISHER ([id number])[facility])[address] [place] [address] MCHC 32.8 % Normal 30.5-36.0 [facility] Comment on above: Performed By: #### L [id number] ####Assisted Living Administrator: SHANTI FISHER ([id number])[facility])[address] [place] [address] MCV (RBC) [Entitic vol] 82.6 fL Normal 77.0-99.0 [facility] Comment on above: Performed By: #### L [id number] ####Assisted Living Administrator: SHANTI FISHER ([id number])[facility])[address] [place] [address] Platelet mean volume (Bld) [Entitic vol] 12.8 fL High 9.0-12.7 [facility] Comment on above: Performed By: #### L [id number] ####Assisted Living Administrator: SHANTI FISHER ([id number])[facility])[address] [place] [address] Platelets (Bld) [#/Vol] 203 10*3/uL Normal 140-440 [facility] Comment on above: Performed By: #### L [id number] ####Assisted Living Administrator: SHANTI FISHER ([id number])[facility])[address] [place] [address] RBC (Bld) [#/Vol] 4.13 10*6/uL Normal 3.80-5.20 [facility] Comment on above: Performed By: #### L [id number] ####Assisted Living Administrator: SHANTI FISHER ([id number])[facility])[address] [place] [address] WBC (Bld) [#/Vol] 14.5 10*3/uL High 3.6-10.7 [facility] Comment on above: Performed By: #### L [id number] ####Assisted Living Administrator: SHANTI FISHER ([id number])[facility] ([address] CBC panel Auto (Bld)on 02-22 Erythrocyte distribution width (RBC) [Ratio] 14.4 % 11.5 - 15.0 % [facility] Hematocrit (Bld) [Volume fraction] 34.1 % Low 35.0 - 47.0 % [facility] Hemoglobin (Bld) [Mass/Vol] 11.2 g/dL Low 11.7 - 16.0 g/dL [facility] Interpretation and review of laboratory results Abnormal [facility] MCH (RBC) [Entitic mass] 27.1 pg 26.0 - 34.0 pg [facility] MCHC (RBC) [Mass/Vol] 32.8 % 30.5 - 36.0 % [facility] MCV (RBC) [Entitic vol] 82.6 fL 77.0 - 99.0 fL [facility] Platelet mean volume (Bld) [Entitic vol] 12.8 fL High 9.0 - 12.7 fL [facility] Platelets (Bld) [#/Vol] 203 10*3/uL 140 - 440 10*3/uL [facility] RBC (Bld) [#/Vol] 4.13 10*6/uL 3.80 - 5.2 0 10*6/uL [facility] WBC (Bld) [#/Vol] 14.5 10*3/uL High 3.6 - 10.7 10*3/uL [facility] Progress Noteon 02-23-2024 Progress Note Department of Obstet rics and Gynecology Labor and Delivery Triage Note CHIEF COMPLAINT: r/o ROM HISTORY OF PRESENT ILLNESS: Pt noted leaking then gush of fluid around 3am today. Was originally clear fluid but noted green fluid in triage bathroom. No regular contractions but does have abdominal cramping and stomach ache. Denies N/V/BAH/VC/CP/SOB/RUQ or epigastric pain/LE edema. Checked in office yesterday was 06/27/3. The patient is a 24 y.o. 40w3d. OB History 1 Para Term AB Living SAB IAB Ectopic Multiple Live Births Patient presents with a chief complaint as above. Denies DFM/VB/CTX. Endorses LOF. Estimated Due Date: Estimated Date of Delivery: 02/20/24 PAST MEDICAL HISTORY: Past Medical History: Diagnosis Date CC (Crohn's colitis) (CMS/HCC) (HCC) Narcolepsy PAST SURGICAL HISTORY: Past Surgical History: Procedure Laterality Date BREAST SURGERY TONSILLECTOMY (HISTORICAL) SOCIAL HISTORY: reports that she has quit smoking. Her smoking use included cigarettes. She has quit using smokeless tobacco. She reports that she does not currently use alcohol. She reports that she does not currently use drugs after having used the following drugs: Marijuana. MEDICATIONS: Prior to Admission medications Medication Sig Start Date End Date Taking? Authorizing Provider Cyanocobalamin (VITAMIN B 12 PO) Take 1,000 mcg by mouth daily. Historical Provider, desvenlafaxine succinate ER 25 MG 24 hour tablet Take 50 mg by mouth every morning. 01/06/23 Historical Provider, desvenlafaxine succinate ER 25 MG 24 hour tablet Take 25 mg by mouth. 01/06/23 Historical Provider, Inflectra 100 MG injection 07/09/23 Historical Provider, inFLIXimab (Remicade) 100 MG injection Infuse into a venous catheter. Every six weeks Historical Provider, Misc. Devices (Breast Pump) misc Double Electric. Lactating mother 12/24/23 Yesica Mckinnon APRN - MICHELLE modafinil (Provigil) 100 MG tablet Take 1 tablet (100 mg) by mouth 2 times daily as needed (sleepiness). 05/28/23 02/12/24 Kayleigh Stevens MD MV-Min-Fe Fum-FA-DHA ( 1 PO) Take by mouth. Historical Provider, Sodium Oxybate ER (Lumryz) 9 g pack Take 9 g by mouth Nightly. Take contents of one packet mixed with water in provided mixing cup at bedtime. 05/28/23 02/12/24 Kayleigh Stevens MD CARE: Complicated by: none REVIEW OF SYSTEMS: Pertinent items are noted in HPI. APPEARANCE: Pain: No PHYSICAL EXAM: Vital Signs: VS wnl-reviewed/Respirations normal effort Vitals: 02/23/24 0426 BP: 133/87 Pulse: 80 Resp: 18 Temp: 37 ?C (98.6 ?F) TempSrc: Oral Weight: 206 lb (93.4 kg) Height: 5' 4 (1.626 m) Abdomen: soft, NT, ND, no rebound/guarding Uterus: gravid/non-tender LE Edema: trace Speculum Exam: pooled fluid appearing dark green and thin, blood absent, Nitrizine test is positive, Ferning test is positive heart rate: Category I Cervix: checked in office on 02/21 was found to be 1/20/-3, visually closed on spec exam Contraction frequency: none Membranes: Ruptured meconium stained RESULTS: NST: Reactive GENERAL LABS: No results found for this or any previous visit (from the past 24 hour(s)). TRIAGE COURSE: Pt resting comfortably in triage. Reported gush of fluid around 3am this morning that was initially clear but is now dark green in triage. Spec exam significant for pooling of dark green fluid, positive Nitrazine, positive ferning. Cervical exam performed in office on 02/21 was 1/20/-3, cervical exam deferred at this time due to ROM. Plan to admit to L&D for AOL-PROM. FHT Cat I, HR baseline 130, accelerations present, decelerations absent. ESSION: Leaking Fluid/ROM-meconium Pain assessment and plan: None DISCUSSED WITH [facility] PROVIDER: Dr. Lo Patel DISPOSITION: Admit to L&D [facility] Progress Noteon 2024 Progress Note Patient advised to c all with labor contractions, LOF, bleeding or decreased movement GBS negative RH+ Normal GCT/CBC Received Tdap Advised kick counts Induction Thursday F/U PP visit Normal [facility] Progress Note Stable Follows with GI [facility] Progress Note Stable Normal [facility] Progress Note PLAN: Anxiety disorder affecting , antepartum Stable Crohn's disease (HCC) Stable Follows with GI care, antepartum Patient advised to call with labor contractions, LOF, bleeding or decreased movement GBS negative RH+ Normal GCT/CBC Received Tdap Advised kick counts Induction Thursday F/U PP visit ASSESSESMENT: Diagnosis Plan 1. High-risk supervision, third trimester 2. Anxiety disorder affecting , antepartum 3. Post-term , 40-42 weeks of gestation 4. Crohn's disease with complication, unspecified gastrointestinal tract location (HCC) 5. Vanishing twin syndrome 6. 40 weeks gestation of She is here for 40w2d OB visit. Denies cramping, leaking of fluid, or bleeding PHYSICAL EXAM: BP 123/80 Pulse 84 Wt 207 lb (93.9 kg) LMP 05/16/2023 (Exact Date) BMI 35.53 kg/m? I have reviewed her pertinent history, lab results, medications and problem list. See episode for any changes. Reports baby is very active all day Well appearing, Alert & oriented Skin warm & dry Normal range of motion in all extremities. Abdomen soft nontender Normal resp effort Yesica Mckinnon, [employer] 02/22/24 Follow up for visit. Normal [facility] Progress Noteon 02-15-2024 Progress Note GBS negative Will schedule for 41 week IOL. She declines earlier IOL. OK for vaginal delivery unless active perianal or rectal disease from a GI perspective. Normal [facility] Progress Note Stable on medication (IV Inflectra q6w). Has been on meds x 10 years. Recent infusion 01/15/24. Continue follow up with GI. Normal [facility] Progress Note PLAN: Crohn's disease (HCC) Stable on medication (IV Inflectra q6w). Has been on meds x 10 years. Recent infusion 01/15/24. Continue follow up with GI. care, antepartum GBS negative Will schedule for 41 week IOL. She declines earlier IOL. OK for vaginal delivery unless active perianal or rectal disease from a GI perspective. ASSESSESMENT: Diagnosis Plan 1. Supervision of high risk in third trimester 2. 39 weeks gestation of 3. Crohn's disease with complication, unspecified gastrointestinal tract location (HCC) She is here for 39w2d OB visit. Denies cramping, leaking of fluid, or bleeding PHYSICAL EXAM: BP 122/80 Pulse 70 Wt 204 lb 6.4 oz (92.7 kg) LMP 05/16/2023 (Exact Date) BMI 35.09 kg/m? I have reviewed her pertinent history, lab results, medications and problem list. See episode for any changes. Well appearing, Alert & oriented Skin warm & dry Normal range of motion in all extremities. Abdomen soft nontender Normal resp effort Tank Wolf MD 02/15/24 Follow up in about 1 week (around 2024) for Routine OB visit. Normal [facility] Progress Noteon 02-12-2024 Progress Note Gbs neg Normal [facility] Progress Note She is here for 38w6 d OB visit. Denies cramping leaking or bleeding or LOF PHYSICAL EXAM: BP 136/81 Pulse 85 Wt 200 lb (90.7 kg) LMP 05/16/2023 (Exact Date) BMI 34.33 kg/m? I have reviewed her pertinent history, lab results, medications and problem list. See episode for any changes. Denies cramping leaking or bleeding or LOF Well appearing, Alert & oriented Skin warm & dry Normal range of motion in all extremities. Abdomen soft nontender Normal resp effort ASSESSESMENT: Diagnosis Plan 1. Anxiety disorder affecting , antepartum 2. 38 weeks gestation of PLAN: Patient Active Problem List Diagnosis Crohn's disease (HCC) care, antepartum Vanishing twin syndrome Anxiety disorder affecting , antepartum Anxiety disorder affecting , antepartum Gbs neg JOSTIN Rod CNM 02/12/24 Follow up in about 1 week (around 02/19/2024) for TROITO. Normal [facility] Progress Noteon 02-03-2024 Progress Note -GBS collected -labor precautions [facility] Progress Note PLAN: Crohn's disease (HCC) Stable on medication ( IV Inflectra Q6w). Has been on meds x 10 years. Recent infusion 01/15/24 Continued F/U with GI Growth AGA care, antepartum -GBS collected -labor precautions ASSESSESMENT: Diagnosis Plan 1. Supervision of high risk , antepartum 2. Vanishing twin syndrome 3. Anxiety disorder affecting , antepartum 4. care, antepartum 5. 37 weeks gestation of 6. screening for streptococcus B Group B Strep Screen PCR She is here for 37w4d OB visit. Denies cramping, leaking of fluid, or bleeding PHYSICAL EXAM: LMP 05/16/2023 (Exact Date) I have reviewed her pertinent history, lab results, medications and problem list. See episode for any changes. Well appearing, Alert & oriented Skin warm & dry Normal range of motion in all extremities. Abdomen soft nontender Normal resp effort Lo Patel MD 02/03/24 Follow up in about 1 week (around 02/10/2024) for TORITO. Normal [facility] Progress Note Stable on medication ( IV Inflectra Q6w). Has been on meds x 10 years. Recent infusion 01/15/24 Continued F/U with GI Growth AGA Normal [facility] Progress Noteon 01-18-2024 Progress Note PLAN: Anxiety disorder affecting , antepartum Stable on medication. Follows with psychiatrist Crohn's disease (HCC) Stable on medication ( IV Inflectra Q6w). Has been on meds x 10 years. Recent infusion 01/15/24 Continued F/U with GI Prelim US: Single live IUP in a vertex presentation. Cardiac activity and movement are present. EFW is 2681gr = 5lbs 15oz, 49% (Ector). KATIE = 16.7cm. anatomy appears normal, as noted above. Normal movements and breathing noted. care, antepartum Patient advised to call with > 6 contractions in an hour, LOF, bleeding or decreased movement RH+ Normal GCT/CBC Received Tdap Prelim US: Single live IUP in a vertex presentation. Cardiac activity and movement are present. EFW is 2681gr = 5lbs 15oz, 49% (Ector). KATIE = 16.7cm. anatomy appears normal, as noted above. Normal movements and breathing noted. TORITO 1 week Vanishing twin syndrome Serial growth US. Prelim US: Single live IUP in a vertex presentation. Cardiac activity and movement are present. EFW is 2681gr = 5lbs 15oz, 49% (Ector). KATIE = 16.7cm. anatomy appears normal, as noted above. Normal movements and breathing noted. ASSESSESMENT: Diagnosis Plan 1. High-risk supervision, third trimester 2. Anxiety disorder affecting , antepartum 3. Vanishing twin syndrome 4. Maternal Crohn's disease affecting in third trimester ([facility]) 5. 35 weeks gestation of She is here for 35w2d OB visit. Denies cramping, leaking of fluid, or bleeding. Prelim US results reviewed with patient: Single live IUP in a vertex presentation. Cardiac activity and movement are present. EFW is 2681gr = 5lbs 15oz, 49% (Ector). KATIE = 16.7cm. anatomy appears normal, as noted above. Normal movements and breathing noted. PHYSICAL EXAM: BP 117/70 Pulse 83 Wt 194 lb (88 kg) LMP 05/16/2023 (Exact Date) BMI 33.30 kg/m? I have reviewed her pertinent history, lab results, medications and problem list. See episode for any changes. Feeling good movement Well appearing, Alert & oriented Normal range of motion in all extremities. Normal resp effort Yesica Mckinnon APRN - [employer] 01/18/24 Follow up in about 1 week (around 01/25/2024) for TORITO. Normal [facility] Progress Note Serial growth US. Prelim US: Single live IUP in a vertex presentation. Cardiac activity and movement are present. EFW is 2681gr = 5lbs 15oz, 49% (Ector). KATIE = 16.7cm. anatomy appears normal, as noted above. Normal movements and breathing noted. Normal [facility] Progress Note Patient advised to c all with > 6 contractions in an hour, LOF, bleeding or decreased movement RH+ Normal GCT/CBC Received Tdap Prelim US: Single live IUP in a vertex presentation. Cardiac activity and movement are present. EFW is 2681gr = 5lbs 15oz, 49% (Ector). KATIE = 16.7cm. anatomy appears normal, as noted above. Normal movements and breathing noted. TORITO 1 week Normal [facility] Progress Note Stable on medication ( IV Inflectra Q6w). Has been on meds x 10 years. Recent infusion 01/15/24 Continued F/U with GI Prelim US: Single live IUP in a vertex presentation. Cardiac activity and movement are present. EFW is 2681gr = 5lbs 15oz, 49% (Ector). KATIE = 16.7cm. anatomy appears normal, as noted above. Normal movements and breathing noted. Normal [facility] Progress Note Stable on medication . Follows with psychiatrist Normal [facility] OB FOLLOW UP TRANSABDOMIN AL APPROACHon 01-18-2024 OB FOLLOW UP TRANSABDOMINAL APPROACH OBSTETRICS REPORT (Signed Final 01/18/2024 07:56 pm) PATIENT INFO: ID #: [id number] : [birth year] (23 yrs)(F) Name: KRISTINE Visit Date: 01/18/2024 03:22 pm SKYLA PERFORMED BY: Attending: Loki Ontiveros MD Performed By: Ruth Kapoor RDMS Referred By: Yesica BARRY Location: [facility] [place] Visit Type: [facility] ENGINEER SERVICE(S) PROVIDED: [place] [id number] INDICATIONS: Supervision of high risk , O09.93 unspecified, third trimester Continuing after spontaneous O31.10X0 of one fetus or more, unspecified trimester, not applicable or unspecified Crohn's disease of both small and large K50.80 intestine without complications (HCC) 31 weeks gestation of Z3A.31 EDC 02/20/2024 = 35w2d Growth / KATIE EVALUATION: Num Of Fetuses: 1 Preg. Location: Intrauterine Heart Rate(bpm): 138 Cardiac Activity: Regular rhythm Lie: Vertex Presentation: Vertex Placenta: Posterior Grade 1 P. Cord Insertion: Not Visualized Amniotic Fluid KATIE FV: Within normal limits KATIE Sum(cm) %Tile Largest Pocket(cm) 16.7 61 5.5 RUQ(cm) RLQ(cm) LUQ(cm) LLQ(cm) 4.9 5.5 2.4 3.9 BIOMETRY: BPD: 90.7 mm G.Age: 36w 5d 89 % OFD: 110.7 mm HC: 320.2 mm G.Age: 36w 1d 36 % AC: 306.9 mm G.Age: 34w 4d 38 % FL: 70.7 mm G.Age: 36w 2d 69 % CI: 81.9 % 70 - 86 FL/HC: 22.1 % 20.1 - 22.3 HC/AC: 1.04 0.93 - 1.11 FL/BPD: 77.9 % 71 - 87 FL/AC: 23.0 % - 24 Est. FW: 2681 gm 5 lb 15 oz 49 % GESTATIONAL AGE: Clinical NEHEMIAS: 35w 2d NEHEMIAS: 02/20/24 U/S Today: 36w 0d NEHEMIAS: 02/15/24 Best: 35w 2d Det. By: Clinical NEHEMIAS NEHEMIAS: 02/20/24 TARGETED ANATOMY: Central Nervous System Calvarium/Cranial V.: Normal appearance Intracranial Leif: Normal appearance Cavum: Normal appearance Parenchyma: Normal appearance Lateral Ventricles: Rt WNL. Lt non vis Choroid Plexus: Normal appearance Cereb./Vermis: Normal appearance Cisterna Magna: Normal appearance Midline Falx: Normal appearance Spine Cervical: Normal appearance Thoracic: Normal appearance Lumbar: Normal appearance Sacral: Normal appearance Head/Neck Face: Not visualized Lips: Normal appearance Profile: Normal appearance Orbits/Eyes: Not visualized Thorax 4 Chamber View: Normal appearance Cardiac Activity: Normal Rt Outflow Tract: Not visualized Lt Outflow Tract: Normal appearance Diaphragm: Normal appearance 3 Vessel View: Normal appearance 3 V Trachea View: Normal appearance Abdomen Cord Insertion: Normal appearance Situs: Normal appearance Stomach: Normal appearance Lt Kidney: Normal appearance Rt Kidney: Normal appearance Bladder: Normal appearance Extremities Lt Humerus: Normal appearance Rt Humerus: Not visualized Lt Forearm: Normal appearance Rt Forearm: Normal appearance Lt Hand: Normal appearance Rt Hand: Not visualized Lt Femur: Normal appearance Rt Femur: Normal appearance Lt Lower Leg: Normal appearance Rt Lower Leg: Normal appearance Lt Foot: Not visualized Rt Foot: Normal appearance Other Umbilical Cord: Normal 3-vessel Genitalia: Male Comment: Renal arteries - Normal appearance CERVIX UTERUS ADNEXA: Cervix Not seen Right Ovary Size(cm) 2.95 x 1.48 x 2.15 Vol(ml): 4.91 Normal in size and appearance Left Ovary Not visualized Cul De Sac No free fluid Adnexa Both adnexae appeared unremarkable. Loki Ontiveros MD Electronically Signed Final Report 01/18/2024 07:56 pm IMPRESSION: Single live IUP in a vertex presentation. Cardiac activity and movement are present. EFW is 2681gr = 5lbs 15oz, 49% (Ector). KATIE = 16.7cm. anatomy appears normal, as noted above. Normal movements and breathing noted. Patient is scheduled to see Yesica Mckinnon CNP following ultrasound 01/18/2024. *Ultrasound cannot detect all or genetic abnormalities and a normal ultrasound cannot guarantee a normal outcome.* Normal [facility] Progress Noteon 01-08-2024 Progress Note Pt here for OB visit . The baby is active. No LOF or bleeding. No contractions. History reviewed - see episode report No nausea or vomiting. PE: See vitals Pt A&OX3, NAD Normal affect Non labored breathing Abd - non tender Ext - no edema lower extremities 33 week IUP Ulsd growth 12/24 wnl Repeat next visit Will go for labs Normal [facility] RUBELLA ANTIBODY, IGGon RUBELLA IMMUNE STATUS 24.1 IU/mL Normal [facility] Comment on above: Result Comment: GALI Busby COMMENTS: Interpretation Table: <10.0 Antibody NOT Detected >=10.0 Antibody Detected Performed By: #### L [id number] ####Assisted Living Administrator: JAYA FARIAS ([id number])[facility] SIRISHAPRESBYTER[facility] CENTERRafaela (SBHLAB)[address] [place] [address] Rubella antibody, IgGon 08 Rubella virus IgG Qn (S) 24.1 [IU]/mL IU/mL [employer] Interpretation Table : <10.0 Antibody NOT Detected >=10.0 Antibody Detected [facility] BIOPHYSICAL PROFILE WO NON STRESS TESTINGon 12-25-2023 BIOPHYSICAL PROFILE WO NON STRESS TESTING Interpreted by: Marlyn Montejo Indication ======== Growth for Suspected Problem with Growth, Crohn's DIsease/ Ulcerative Colitis History ====== General History Smoking: Quit during Height 163 cm Height (ft) 5 ft Height (in) 4 in Previous Outcomes 1 Para 0 Maternal Assessment Height 163 cm Height (ft) 5 ft Height (in) 4 in Weight 74 kg Weight (lb) 164 lb Weight gain 0 kg Weight gain (lb) 0 lb BMI 28.15 kg/m??? Physical Exam Initial weight (lb) 164 lb ========= Miller . Number of fetuses: 1 Dating ====== LMP on: 05/16/2023 GA by LMP 31 w + 6 d NEHEMIAS by LMP: 02/20/2024 Conception: LMP Ultrasound examination on: 12/25/2023 GA by U/S based upon: AC, BPD, Femur, HC GA by U/S 32 w + 6 d NEHMEIAS by U/S: 02/13/2024 Assigned: based on the LMP, selected on 08/19/2023 Assigned GA 31 w + 6 d Assigned NEHEMIAS: 02/20/2024 Growth Overview Exam date GA BPD (mm) HC (mm) AC (mm) FL (mm) HL (mm) EFW (g) 10/02/2023 19w 6d 47 65% 172.8 41% 141.4 33% 32.2 49% 32.6 76% 312 40% 11/27/2023 27w 6d 72.5 78% 273.1 80% 233.1 36% 53.1 45% 1180 48% 12/25/2023 31w 6d 82.4 78% 308 79% 277.1 45% 61.6 39% 1923 50% Impression ========= Kristine Crum presents for assessment of growth for Crohn's disease (on biologic therapy). She also has narcolepsy, and is on desvenlafaxine. - Vertex, posterior placenta, normal amniotic fluid volume - Normal interval growth - No malformations identified on a limited survey - [facility] 01/13 We recommend repeat assessment of growth in 4 weeks for Crohn's disease on biologic therapy. General Evaluation Cardiac activity present. FHR 147 bpm. movements: visualized. Presentation: cephalic Placenta: Placental site: posterior Umbilical cord: Cord vessels: 3 vessel cord Amniotic fluid: Amount of AF: normal amount. MVP 5.8 cm. KATIE 20.3 cm. Q1 5.8 cm, Q2 4.6 cm, Q3 5.6 cm, Q4 4.3 cm Biometry Standard BPD 82.4 mm 33w 1d 78% Hadlock OFD 108.7 mm 91% INTERGROWTH-21st HC 308.0 mm 34w 3d 79% Hadlock Cerebellum tr 42.1 mm 33w 1d 82% Davison AC 277.1 mm 31w 5d 45% Hadlock Femur 61.6 mm 32w 0d 39% Hadlock HC / AC 1.11 EFW 1,923 g 31w 6d 50% Hadlock EFW (lb) 4 lb EFW (oz) 4 oz EFW by: Hadlock (BWI-NI-SQ-FL) Extended Case Fitter 4.3 mm Head / Face / Neck Cephalic index 0.76 13% Nicolaides Extremities / Bony Struc FL / BPD 0.75 FL / HC 0.20 FL / AC 0.22 Other Structures FHR 147 bpm Anatomy Cranium: Normal Lateral ventricles: Normal Midline falx: Normal Cavum septi pellucidi: Normal Cerebellum: Normal Cisterna magna: Normal Head / Neck Rt lateral ventricle: Normal Lt lateral ventricle: Normal Thalami: Normal Cerebellar lobes: Normal 4-chamber view: Normal 3-vessel view: Normal Heart / Thorax Cardiac axis: Normal Diaphragm: Normal Stomach: Normal Kidneys: Normal Bladder: visualized Abdomen Stomach: correct situs Rt kidney: Normal Lt kidney: Normal Large bowel: Normal sex: male Wants to know sex: yes Biophysical Profile 2: breathing movements 2: Gross body movements 2: tone 2: Amniotic fluid volume 01/13 Biophysical profile score Maternal Structures Uterus / Cervix Uterus: Visualized Cervix: Not visualized Ovaries / Tubes / Adnexa Rt ovary: Visualized Rt ovary details: Normal Lt ovary: Not visualized Method ====== Transabdominal ultrasound examination. View: Suboptimal view: limited by late gestational age Indication ======== Growth for Suspected Problem with Growth, Crohn's DIsease/ Ulcerative Colitis History ====== General History Smoking: Quit during Height 163 cm Height (ft) 5 ft Height (in) 4 in Previous Outcomes 1 Para 0 Maternal Assessment Height 163 cm Height (ft) 5 ft Height (in) 4 in Weight 74 kg Weight (lb) 164 lb Weight gain 0 kg Weight gain (lb) 0 lb BMI 28.15 kg/m??? Physical Exam Initial weight (lb) 164 lb ========= Miller . Number of fetuses: 1 Dating ====== LMP on: 05/16/2023 GA by LMP 31 w + 6 d NEHEMIAS by LMP: 02/20/2024 Conception: LMP Ultrasound examination on: 12/25/2023 GA by U/S based upon: AC, BPD, Femur, HC GA by U/S 32 w + 6 d NEHEMIAS by U/S: 02/13/2024 Assigned: based on the LMP, selected on 08/19/2023 Assigned GA 31 w + 6 d Assigned NEHEMIAS: 02/20/2024 Growth Overview Exam date GA BPD (mm) HC (mm) AC (mm) FL (mm) HL (mm) EFW (g) 10/02/2023 19w 6d 47 65% 172.8 41% 141.4 33% 32.2 49% 32.6 76% 312 40% 11/27/2023 27w 6d 72.5 78% 273.1 80% 233.1 36% 53.1 45% 1180 48% 12/25/2023 31w 6d 82.4 78% 308 79% 277.1 45% 61.6 39% 1923 50% Impression ========= Kristine Crum presents for assessment of (more content not included)... [facility] US OB FOLLOW UP TRANSABDOMIN AL APPROACHon 12-25-2023 OB FOLLOW UP TRANSABDOMINAL APPROACH Interpreted by: Marlyn Montejo Indication ======== Growth for Suspected Problem with Growth, Crohn's DIsease/ Ulcerative Colitis History ====== General History Smoking: Quit during Height 163 cm Height (ft) 5 ft Height (in) 4 in Previous Outcomes 1 Para 0 Maternal Assessment Height 163 cm Height (ft) 5 ft Height (in) 4 in Weight 74 kg Weight (lb) 164 lb Weight gain 0 kg Weight gain (lb) 0 lb BMI 28.15 kg/m??? Physical Exam Initial weight (lb) 164 lb ========= Miller . Number of fetuses: 1 Dating ====== LMP on: 05/16/2023 GA by LMP 31 w + 6 d NEHEMIAS by LMP: 02/20/2024 Conception: LMP Ultrasound examination on: 12/25/2023 GA by U/S based upon: AC, BPD, Femur, HC GA by U/S 32 w + 6 d NEHEMIAS by U/S: 02/13/2024 Assigned: based on the LMP, selected on 08/19/2023 Assigned GA 31 w + 6 d Assigned NEHEMIAS: 02/20/2024 Growth Overview Exam date GA BPD (mm) HC (mm) AC (mm) FL (mm) HL (mm) EFW (g) 10/02/2023w 6d 47 65% 172.8 41% 141.4 33% 32.2 49% 32.6 76% 312 40% 11/27/2023 27w 6d 72.5 78% 273.1 80% 233.1 36% 53.1 45% 1180 48% 12/25/2023 31w 6d 82.4 78% 308 79% 277.1 45% 61.6 39% 1923 50% Impression ========= Kristine Crum presents for assessment of growth for Crohn's disease (on biologic therapy). She also has narcolepsy, and is on desvenlafaxine. - Vertex, posterior placenta, normal amniotic fluid volume - Normal interval growth - No malformations identified on a limited survey - [facility] 01/13 We recommend repeat assessment of growth in 4 weeks for Crohn's disease on biologic therapy. General Evaluation Cardiac activity present. FHR 147 bpm. movements: visualized. Presentation: cephalic Placenta: Placental site: posterior Umbilical cord: Cord vessels: 3 vessel cord Amniotic fluid: Amount of AF: normal amount. MVP 5.8 cm. KATIE 20.3 cm. Q1 5.8 cm, Q2 4.6 cm, Q3 5.6 cm, Q4 4.3 cm Biometry Standard BPD 82.4 mm 33w 1d 78% Hadlock OFD 108.7 mm 91% INTERGROWTH-21st HC 308.0 mm 34w 3d 79% Hadlock Cerebellum tr 42.1 mm 33w 1d 82% Davison AC 277.1 mm 31w 5d 45% Hadlock Femur 61.6 mm 32w 0d 39% Hadlock HC / AC 1.11 EFW 1,923 g 31w 6d 50% Hadlock EFW (lb) 4 lb EFW (oz) 4 oz EFW by: Hadlock (GOB-IP-LD-FL) Extended Case Fitter 4.3 mm Head / Face / Neck Cephalic index 0.76 13% Nicolaides Extremities / Bony Struc FL / BPD 0.75 FL / HC 0.20 FL / AC 0.22 Other Structures FHR 147 bpm Anatomy Cranium: Normal Lateral ventricles: Normal Midline falx: Normal Cavum septi pellucidi: Normal Cerebellum: Normal Cisterna magna: Normal Head / Neck Rt lateral ventricle: Normal Lt lateral ventricle: Normal Thalami: Normal Cerebellar lobes: Normal 4-chamber view: Normal 3-vessel view: Normal Heart / Thorax Cardiac axis: Normal Diaphragm: Normal Stomach: Normal Kidneys: Normal Bladder: visualized Abdomen Stomach: correct situs Rt kidney: Normal Lt kidney: Normal Large bowel: Normal sex: male Wants to know sex: yes Biophysical Profile 2: breathing movements 2: Gross body movements 2: tone 2: Amniotic fluid volume 01/13 Biophysical profile score Maternal Structures Uterus / Cervix Uterus: Visualized Cervix: Not visualized Ovaries / Tubes / Adnexa Rt ovary: Visualized Rt ovary details: Normal Lt ovary: Not visualized Method ====== Transabdominal ultrasound examination. View: Suboptimal view: limited by late gestational age Indication ======== Growth for Suspected Problem with Growth, Crohn's DIsease/ Ulcerative Colitis History ====== General History Smoking: Quit during Height 163 cm Height (ft) 5 ft Height (in) 4 in Previous Outcomes 1 Para 0 Maternal Assessment Height 163 cm Height (ft) 5 ft Height (in) 4 in Weight 74 kg Weight (lb) 164 lb Weight gain 0 kg Weight gain (lb) 0 lb BMI 28.15 kg/m??? Physical Exam Initial weight (lb) 164 lb ========= Miller . Number of fetuses: 1 Dating ====== LMP on: 05/16/2023 GA by LMP 31 w + 6 d NEHEMIAS by LMP: 02/20/2024 Conception: LMP Ultrasound examination on: 12/25/2023 GA by U/S based upon: AC, BPD, Femur, HC GA by U/S 32 w + 6 d NEHEIMAS by U/S: 02/13/2024 Assigned: based on the LMP, selected on 08/19/2023 Assigned GA 31 w + 6 d Assigned NEHEMIAS: 02/20/2024 Growth Overview Exam date GA BPD (mm) HC (mm) AC (mm) FL (mm) HL (mm) EFW (g) 10/02/2023 19w 6d 47 65% 172.8 41% 141.4 33% 32.2 49% 32.6 76% 312 40% 11/27/2023 27w 6d 72.5 78% 273.1 80% 233.1 36% 53.1 45% 1180 48% 12/25/2023 31w 6d 82.4 78% 308 79% 277.1 45% 61.6 39% 1923 50% Impression ========= Kristine Crum presents for assessment of (more content not included)... [facility] Progress Noteon 12-24-2023 Progress Note Serial growth US. Sc heduled tomorrow at [facility] Progress Note Patient advised to c all with > 6 contractions in an hour, LOF, bleeding or decreased movement RH+ Normal GCT/CBC Received Tdap Keep scheduled growth US at and F/U appt : Miller sex: Male Delivery Plans Planned delivery method: Vaginal Planned delivery location: [facility] Planned anesthesia: Epidural Post-Delivery Plans Feeding intentions: Breast Milk Circumcision requested: Provider Performed Breast pump order given to patient TORITO at out office 2 weeks and growth US in 4 weeks [facility] Progress Note Stable on medication ( IV Inflectra Q6w). Has been on meds x 10 years Continued F/U with GI Serial growth US. Scheduled for growth US tomorrow at and TORITO next week there for F/U. [facility] Progress Note Stable on medication . Follows with psychiatrist [facility] Progress Note PLAN: Anxiety disorder affecting , antepartum Stable on medication. Follows with psychiatrist Crohn's disease (HCC) Stable on medication ( IV Inflectra Q6w). Has been on meds x 10 years Continued F/U with GI Serial growth US. Scheduled for growth US tomorrow at and TORITO next week there for F/U. care, antepartum Patient advised to call with > 6 contractions in an hour, LOF, bleeding or decreased movement RH+ Normal GCT/CBC Received Tdap Keep scheduled growth US at and F/U appt : Miller sex: Male Delivery Plans Planned delivery method: Vaginal Planned delivery location: [facility] Planned anesthesia: Epidural Post-Delivery Plans Feeding intentions: Breast Milk Circumcision requested: Provider Performed Breast pump order given to patient TORITO at out office 2 weeks and growth US in 4 weeks Vanishing twin syndrome Serial growth US. Scheduled tomorrow at ASSESSESMENT: Diagnosis Plan 1. High-risk supervision, third trimester Rubella antibody, IgG Misc. Devices (Breast Pump) misc Rubella antibody, IgG US OB follow up transabdominal approach 2. Anxiety disorder affecting , antepartum 3. Vanishing twin syndrome US OB follow up transabdominal approach 4. Crohn's disease of both small and large intestine without complication (HCC) US OB follow up transabdominal approach 5. 31 weeks gestation of Rubella antibody, IgG Misc. Devices (Breast Pump) misc Rubella antibody, IgG US OB follow up transabdominal approach She is here for 31w5d transfer of care OB visit. Patient has had adequate PNC at . She is moving to [place] from [facility] so is transferring care to our practice. Records available in [facility] at time of visit. Reviewed records/ Denies cramping, leaking of fluid, or bleeding PHYSICAL EXAM: BP 118/75 Pulse 79 Wt 185 lb (83.9 kg) LMP 05/16/2023 (Exact Date) BMI 31.76 kg/m? I have reviewed her pertinent history, lab results, medications and problem list. See episode for any changes. Feeling good movement Well appearing, Alert & oriented Skin warm & dry Normal range of motion in all extremities. Abdomen soft nontender Normal resp effort Yesica Mckinnon APRN - [employer] 12/24/23 Follow up in about 2 weeks (around 01/07/2024) for TORITO. Normal [facility] CBC panel Auto (Bld)on 12-03 Erythrocyte distribution width (RBC) [Ratio] 13.2 % Normal 11.5-14.5 [facility] Comment on above: Performed By: #### 3 6903-3 #### DANIELLA Cooper ([id number]) [facility] ([facility]) [address] [place] [address] Hematocrit (Bld) [Volume fraction] 34.7 % Low 36.0-46.0 [facility] Comment on above: Performed By: #### 3 6903-3 #### DANIELLA Cooper ([id number]) [facility] ([facility]) [id number] [place] [address] Hemoglobin (Bld) [Mass/Vol] 11.3 g/dL Low 12.0-16.0 [facility] Comment on above: Performed By: #### 3 6903-3 #### DANIELLA Cooper ([id number]) [facility] ([facility]) [address] [place] [address]17 MCH (RBC) [Entitic mass] 29.3 pg Normal 26.0-34.0 [facility] Comment on above: Performed By: #### 3 6903-3 #### DANIELLA Cooper ([id number]) [facility] ([facility]) [address] [place] [address] 49311 MCHC (RBC) [Mass/Vol] 32.6 g/dL Normal 32.0-36.0 [facility] Comment on above: Performed By: #### 3 6903-3 #### DANIELLA Cooper ([id number]) [facility] ([facility]) [address] [place] [address]809 MCV (RBC) [Entitic vol] 90 fL Normal 80-100 [facility] Comment on above: Performed By: #### 3 6903-3 #### DANIELLA Cooper ([id number]) [facility] ([facility]) [id number] [place] [address]50 Nucleated RBC/100 WBC (Bld) [Ratio] 0.0 /100 WBCs Normal 0.0-0.0 [facility] Comment on above: Performed By: #### 3 6903-3 #### DANIELLA Cooper ([id number]) [facility] ([facility]) [address] [place] [address] 14745 Platelets (Bld) [#/Vol] 222 x10*3/uL Normal 150-450 [facility] Comment on above: Performed By: #### 3 6903-3 #### DANIELLA Cooper ([id number]) [facility] ([facility]) [address] [place] [address] [place] [address] RBC (Bld) [#/Vol] 3.86 x10*6/uL Low 4.00-5.20 [facility] Comment on above: Performed By: #### 3 6903-3 #### DANIELLA Cooper ([id number]) [facility] ([facility]) [id number] [place] [address] WBC (Bld) [#/Vol] 13.6 x10*3/uL High 4.4-11.3 [facility] Comment on above: Performed By: #### 3 6903-3 #### DANIELLA Cooper ([id number]) [facility] ([facility]) [address] [place] [address] Glucose^1H post 50 g glucose Corbin 12-04-2023 Glucose 1 Hr post 50 g glucose PO [Mass/Vol] 91 mg/dL Normal <135 [facility] Comment on above: Order Comment: The A PTIMA Combo 2 assay is FDA-approved NAAT using target capture for the in vitro qualitative detection and differentiation of ribosomal RNA (rRNA) for Chlamydia trachomatis and Neisseria gonorrhoeae testing on clinician-collected endocervical, PreservCyt solution liquid Pap specimens, vaginal, throat, rectal, and male urethral swab specimens; patient-collected vaginal swab specimens, and female and male urine specimens from symptomatic and asymptomatic individuals. Samples from all other sites are not validated for this method. Performed By: #### 3 6903-3 #### DANIELLA Cooper ([id number]) [facility] ([facility]) [address] [place] [address] REFLEX ADDED, ANEMIA PANELon 12-04-2023 REFLEX ADDED, ANEMIA PANEL No reflex. [facility] Comment on above: Performed By: #### 3 6903-3 #### DANIELLA Cooper ([id number]) [facility] ([facility]) [address] [place] [address] US OB FOLLOW UP TRANSABDOMIN AL APPROACHon 11-27-2023 US OB FOLLOW UP TRANSABDOMINAL APPROACH Interpreted by: Elijah Hinton Indication ======== Growth for Suspected Problem with Growth, Crohn's DIsease/ Ulcerative Colitis History ====== General History Smoking: Quit during Height 163 cm Height (ft) 5 ft Height (in) 4 in Previous Outcomes 1 Para 0 Maternal Assessment Height 163 cm Height (ft) 5 ft Height (in) 4 in Weight 74 kg Weight (lb) 164 lb Weight gain 0 kg Weight gain (lb) 0 lb BMI 28.15 kg/m??? Physical Exam Initial weight (lb) 164 lb ========= Miller . Number of fetuses: 1 Dating ====== LMP on: 05/16/2023 GA by LMP 27 w + 6 d NEHEMIAS by LMP: 02/20/2024 Conception: LMP Ultrasound examination on: 11/27/2023 GA by U/S based upon: AC, BPD, Femur, HC GA by U/S 28 w + 5 d NEHEMIAS by U/S: 02/14/2024 Assigned: based on the LMP, selected on 08/19/2023 Assigned GA 27 w + 6 d Assigned NEHEMIAS: 02/20/2024 Growth Overview Exam date GA BPD (mm) HC (mm) AC (mm) FL (mm) HL (mm) EFW (g) 10/02/2023 19w 6d 47 65% 172.8 41% 141.4 33% 32.2 49% 32.6 76% 312 40% 11/27/2023 27w 6d 72.5 78% 273.1 80% 233.1 36% 53.1 45% 1180 48% Impression ========= REMOTE READ Patient here for growth ultrasound in a complicated by Crohn's disease and narcolepsy - Normal interval growth - No malformations on today's limited survey - Normal amniotic fluid Growth in 4 weeks General Evaluation Cardiac activity present. FHR 156 bpm. movements: visualized. Presentation: cephalic Placenta: Placental site: posterior Umbilical cord: Cord vessels: 3 vessel cord Amniotic fluid: Amount of AF: normal amount. MVP 4.4 cm. KATIE 15.1 cm. Q1 3.6 cm, Q2 3.2 cm, Q3 4.4 cm, Q4 3.9 cm Biometry Standard BPD 72.5 mm 29w 1d 78% Hadlock OFD 96.3 mm 91% INTERGROWTH-21st HC 273.1 mm 29w 6d 80% Hadlock Cerebellum tr 34.2 mm 28w 6d 79% Davison AC 233.1 mm 27w 5d 36% Hadlock Femur 53.1 mm 28w 1d 45% Hadlock HC / AC 1.17 EFW 1,180 g 27w 6d 48% Hadlock EFW (lb) 2 lb EFW (oz) 10 oz EFW by: Hadlock ([id number]-FL) Extended Case Fitter 7.8 mm Head / Face / Neck Cephalic index 0.75 15% Nicolaides Extremities / Bony Struc FL / BPD 0.73 FL / HC 0.19 FL / AC 0.23 Other Structures FHR 156 bpm Anatomy Cranium: Normal Lateral ventricles: Normal Midline falx: Normal Cavum septi pellucidi: Normal Cerebellum: Normal Cisterna magna: Normal Head / Neck Rt lateral ventricle: Normal Lt lateral ventricle: Normal Thalami: Normal Cerebellar lobes: Normal Profile: Normal 4-chamber view: Normal 3-vessel view: Normal Heart / Thorax Cardiac axis: Normal Diaphragm: Normal Stomach: Normal Kidneys: Normal Bladder: visualized Genitals: Normal Abdomen Stomach: correct situs Rt kidney: Normal Lt kidney: Normal Large bowel: Normal sex: male Wants to know sex: yes Biophysical Profile 2: breathing movements 2: Gross body movements 2: tone 2: Amniotic fluid volume 8/8 Biophysical profile score Method ====== Transabdominal ultrasound examination. View: Suboptimal view: limited by late gestational age [facility] US OB DETAIL ANATOMYon 10-02-2023 US OB DETAIL ANATOMY Interpreted by: Luzmaria Cullen Indication ======== Screening for Anomaly, Crohn's DIsease/ Ulcerative Colitis History ====== General History Smoking: Quit during Height 163 cm Height (ft) 5 ft Height (in) 4 in Previous Outcomes 1 Para 0 Maternal Assessment Height 163 cm Height (ft) 5 ft Height (in) 4 in Weight 74 kg Weight (lb) 164 lb Weight gain 0 kg Weight gain (lb) 0 lb BMI 28.15 kg/m??? Physical Exam Initial weight (lb) 164 lb ========= Miller . Number of fetuses: 1 Dating ====== LMP on: 05/16/2023 GA by LMP 19 w + 6 d NEHEMIAS by LMP: 02/20/2024 Conception: LMP Ultrasound examination on: 10/02/2023 GA by U/S based upon: AC, BPD, Femur, HC GA by U/S 19 w + 6 d NEHEMIAS by U/S: 02/20/2024 Assigned: based on the LMP, selected on 08/19/2023 Assigned GA 19 w + 6 d Assigned NEHEMIAS: 02/20/2024 Growth Overview Exam date GA BPD (mm) HC (mm) AC (mm) FL (mm) HL (mm) EFW (g) 10/02/2023 19w 6d 47 65% 172.8 41% 141.4 33% 32.2 49% 32.6 76% 312 40% Impression ========= REMOTE READ: A targeted anatomic survey was indicated due to medication exposure. She is on Inflectra for Crohn's and Prestiq for narcolepsy. She has risk reducing cffDNA. - biometry is consistent with the stated gestational age -Detailed anatomic evaluation of the brain/ventricles, face, heart/outflow tracts and chest anatomy, abdominal organ specific anatomy, number/length/architecture of limbs and detailed evaluation of the umbilical cord and placenta and other anatomy as clinically indicated was performed. -No malformations were identified on this comprehensive survey within limitations of sonographic evaluation at this gestational age. Thank you for allowing us to participate in the care of your patient Follow-up ======== Growth at 28 weeks General Evaluation Cardiac activity present. FHR 146 bpm. movements: visualized. Presentation: Variable Placenta: Placental site: posterior, No Previa Seen Umbilical cord: Cord vessels: 3 vessel cord. Insertion site: placental insertion: normal Amniotic fluid: Amount of AF: normal amount Biometry Standard BPD 47.0 mm 20w 1d 65% Hadlock OFD 60.5 mm 56% INTERGROWTH-21st HC 172.8 mm 19w 6d 41% Hadlock Cerebellum tr 20.5 mm 20w 0d 57% Davison Nuchal fold 4.0 mm AC 141.4 mm 19w 4d 33% Hadlock Femur 32.2 mm 20w 0d 49% Hadlock Humerus 32.6 mm 76% Chitty HC / AC 1.22 84% Hadlock EFW 312 g 19w 5d 40% Hadlock EFW (lb) 0 lb EFW (oz) 11 oz EFW by: Hadlock ([id number]-FL) Extended Case Fitter 6.3 mm CM 5.5 mm 69% Nicolaides Head / Face / Neck Cephalic index 0.78 37% Nicolaides Nasal bone: present Extremities / Bony Struc FL / BPD 0.69 39% Hadlock FL / HC 0.19 68% Hadlock FL / AC 0.23 80% Hadlock Other Structures FHR 146 bpm Anatomy Cranium: Normal Lateral ventricles: Normal Choroid plexus: Normal Midline falx: Normal Cavum septi pellucidi: Normal Cerebellum: Normal Cisterna magna: Normal Head / Neck Head size: Normal Head shape: Normal Rt lateral ventricle: Normal Lt lateral ventricle: Normal Rt choroid plexus: Normal Lt choroid plexus: Normal Thalami: Normal Cerebellar lobes: Normal Vermis: Normal Neck: Normal Neck: No neck masses seen Lips: Normal Profile: Normal Nose: Normal Face Nasal bone: present Maxilla: Normal Mandible: Normal Orbits: Normal 4-chamber view: Normal RVOT view: Normal LVOT view: Normal 3-vessel view: Normal 7-yugdpy-agngoua view: Normal Heart / Thorax Situs: situs solitus (normal) Aortic arch view: Normal Bicaval view: Normal Cardiac position: levocardia (normal) Cardiac axis: Normal Cardiac size: normal (approx. 1/3 of thoracic area) Cardiac proportions: proportioned (normal) Cardiac rhythm: regular (normal) Rt lung: Normal Lt lung: Normal Rt diaphragm: Normal Lt diaphragm: Normal Cord insertion: Normal Stomach: Normal Kidneys: Normal Bladder: Normal Genitals: Normal Abdomen Abdom. wall: Normal Stomach: Stomach size and situs appear normal Rt kidney: Normal Lt kidney: Normal Small bowel: Normal Large bowel: Normal Cervical spine: Normal Thoracic spine: Normal Lumbar spine: Normal Sacral spine: Normal Arms: Normal Hands: normal Legs: Normal Feet: normal Rt upper arm: Normal Rt forearm: Normal Rt hand: Normal Rt fingers: Normal Lt upper arm: Normal Lt forearm: Normal Lt hand: Normal Lt fingers: Normal Rt upper leg: Normal Rt lower leg: Normal Rt foot: Normal Rt toes: Normal Lt upper leg: Normal Lt lower leg: Normal Lt foot: Normal Lt toes: Normal Position of hands: Normal Position of feet: Normal Wants to know sex: no Genetic Screen Age 23 yrs Echogenic focus: no Ventriculomegaly: no Nuchal fol (more content not included)... Normal [facility] US for pregnancyon 4 Interpreted by: Luzmaria Steele Indication ======== Screening for Anomaly, Crohn's DIsease/ Ulcerative Colitis History ====== General History Smoking: Quit during Height 163 cm Height (ft) 5 ft Height (in) 4 in Previous Outcomes 1 Para 0 Maternal Assessment Height 163 cm Height (ft) 5 ft Height (in) 4 in Weight 74 kg Weight (lb) 164 lb Weight gain 0 kg Weight gain (lb) 0 lb BMI 28.15 kg/m Physical Exam Initial weight (lb) 164 lb ========= Miller . Number of fetuses: 1 Dating ====== LMP on: 05/16/2023 GA by LMP 19 w + 6 d NEHEMIAS by LMP: 02/20/2024 Conception: LMP Ultrasound examination on: 10/02/2023 GA by U/S based upon: AC, BPD, Femur, HC GA by U/S 19 w + 6 d NEHEMIAS by U/S: 02/20/2024 Assigned: based on the LMP, selected on 08/19/2023 Assigned GA 19 w + 6 d Assigned NEHEMIAS: 02/20/2024 Growth Overview Exam date GA BPD (mm) HC (mm) AC (mm) FL (mm) HL (mm) EFW (g) 10/02/2023 19w 6d 47 65% 172.8 41% 141.4 33% 32.2 49% 32.6 76% 312 40% Impression ========= REMOTE READ: A targeted anatomic survey was indicated due to medication exposure. She is on Inflectra for Crohn's and Prestiq for narcolepsy. She has risk reducing cffDNA. - biometry is consistent with the stated gestational age -Detailed anatomic evaluation of the brain/ventricles, face, heart/outflow tracts and chest anatomy, abdominal organ specific anatomy, number/length/architecture of limbs and detailed evaluation of the umbilical cord and placenta and other anatomy as clinically indicated was performed. -No malformations were identified on this comprehensive survey within limitations of sonographic evaluation at this gestational age. Thank you for allowing us to participate in the care of your patient Follow-up ======== Growth at 28 weeks General Evaluation Cardiac activity present. FHR 146 bpm. movements: visualized. Presentation: Variable Placenta: Placental site: posterior, No Previa Seen Umbilical cord: Cord vessels: 3 vessel cord. Insertion site: placental insertion: normal Amniotic fluid: Amount of AF: normal amount Biometry Standard BPD 47.0 mm 20w 1d 65% Hadlock OFD 60.5 mm 56% INTERGROWTH-21st HC 172.8 mm 19w 6d 41% Hadlock Cerebellum tr 20.5 mm 20w 0d 57% Davison Nuchal fold 4.0 mm AC 141.4 mm 19w 4d 33% Hadlock Femur 32.2 mm 20w 0d 49% Hadlock Humerus 32.6 mm 76% Chitty HC / AC 1.22 84% Hadlock EFW 312 g 19w 5d 40% Hadlock EFW (lb) 0 lb EFW (oz) 11 oz EFW by: Hadlock ([id number]-FL) Extended Case Fitter 6.3 mm CM 5.5 mm 69% Nicolaides Head / Face / Neck Cephalic index 0.78 37% Nicolaides Nasal bone: present Extremities / Bony Struc FL / BPD 0.69 39% Hadlock FL / HC 0.19 68% Hadlock FL / AC 0.23 80% Hadlock Other Structures FHR 146 bpm Anatomy Cranium: Normal Lateral ventricles: Normal Choroid plexus: Normal Midline falx: Normal Cavum septi pellucidi: Normal Cerebellum: Normal Cisterna magna: Normal Head / Neck Head size: Normal Head shape: Normal Rt lateral ventricle: Normal Lt lateral ventricle: Normal Rt choroid plexus: Normal Lt choroid plexus: Normal Thalami: Normal Cerebellar lobes: Normal Vermis: Normal Neck: Normal Neck: No neck masses seen Lips: Normal Profile: Normal Nose: Normal Face Nasal bone: present Maxilla: Normal Mandible: Normal Orbits: Normal 4-chamber view: Normal RVOT view: Normal LVOT view: Normal 3-vessel view: Normal 2-bmisfc-wmidjan view: Normal Heart / Thorax Situs: situs solitus (normal) Aortic arch view: Normal Bicaval view: Normal Cardiac position: levocardia (normal) Cardiac axis: Normal Cardiac size: normal (approx. 1/3 of thoracic area) Cardiac proportions: proportioned (normal) Cardiac rhythm: regular (normal) Rt lung: Normal Lt lung: Normal Rt diaphragm: Normal Lt diaphragm: Normal Cord insertion: Normal Stomach: Normal Kidneys: Normal Bladder: Normal Genitals: Normal Abdomen Abdom. wall: Normal Stomach: Stomach size and situs appear normal Rt kidney: Normal Lt kidney: Normal Small bowel: Normal Large bowel: Normal Cervical spine: Normal Thoracic spine: Normal Lumbar spine: Normal Sacral spine: Normal Arms: Normal Hands: normal Legs: Normal Feet: normal Rt upper arm: Normal Rt forearm: Normal Rt hand: Normal Rt fingers: Normal Lt upper arm: Normal Lt forearm: Normal Lt hand: Normal Lt fingers: Normal Rt upper leg: Normal Rt lower leg: Normal Rt foot: Normal Rt toes: Normal Lt upper leg: Normal Lt lower leg: Normal Lt foot: Normal Lt toes: Normal Position o (more content not included)... VIEWPOINT Luzmaria Cullen M D - 10/02/2023 Interpreted by: Luzmaria Cullen Indication ======== Screening for Anomaly, Crohn's DIsease/ Ulcerative Colitis History ====== General History Smoking:Quit during Gjqads280 cm Height (ft)5 ft Height (in)4 in Previous Outcomes Gravida1 Para0 Maternal Assessment Ppicct337 cm Height (ft)5 ft Height (in)4 in Vwwfqz04 kg Weight (lb)164 lb Weight gain0 kg Weight gain (lb)0 lb BMI28.15 kg/m Physical Exam Initial weight (lb)164 lb ========= Miller . Number of fetuses: 1 Dating ====== LMP on:05/16/2023 GA by LMP19 w + 6 d NEHEMIAS by LMP:02/20/2024 Conception:LMP Ultrasound examination on:10/02/2023 GA by U/S based upon:AC, BPD, Femur, HC GA by U/S19 w + 6 d NEHEMIAS by U/S:02/20/2024 Assigned:based on the LMP, selected on 08/19/2023 Assigned GA19 w + 6 d Assigned NEHEMIAS:02/20/2024 Growth Overview Exam date GA BPD (mm) HC (mm) AC (mm) FL (mm) HL (mm) EFW (g) 10/02/2023 19w 6d 47 65% 172.8 41% 141.4 33% 32.2 49% 32.6 76% 312 40% Impression ========= REMOTE READ: A targeted anatomic survey was indicated due to medication exposure. She is on Inflectra for Crohn's and Prestiq for narcolepsy. She has risk reducing cffDNA. - biometry is consistent with the stated gestational age -Detailed anatomic evaluation of the brain/ventricles, face, heart/outflow tracts and chest anatomy, abdominal organ specific anatomy, number/length/architecture of limbs and detailed evaluation of the umbilical cord and placenta and other anatomy as clinically indicated was performed. -No malformations were identified on this comprehensive survey within limitations of sonographic evaluation at this gestational age. Thank you for allowing us to participate in the care of your patient Follow-up ======== Growth at 28 weeks General Evaluation Cardiac activity present. FHR 146 bpm. movements: visualized. Presentation: Variable Placenta: Placental site: posterior, No Previa Seen Umbilical cord: Cord vessels: 3 vessel cord. Insertion site: placental insertion: normal Amniotic fluid: Amount of AF: normal amount Biometry Standard BPD47.0 mm20w 1d 65% Hadlock OFD60.5 mm 56% INTERGROWTH-21st HC172.8 mm19w 6d 41% Hadlock Cerebellum tr20.5 mm20w 0d 57% Davison Nuchal fold4.0 mm AC141.4 mm19w 4d 33% Hadlock Femur32.2 mm20w 0d 49% Hadlock Iguhfui12.6 mm 76% Chitty HC / AC1.22 84% Hadlock LKA413 g19w 5d 40% Hadlock EFW (lb)0 lb EFW (oz)11 oz EFW by:Hadlock (EQM-[id number]-FL) Extended Vp6.3 mm CM5.5 mm 69% Nicolaides Head / Face / Neck Cephalic index0.78 37% Nicolaides Nasal bone:present Extremities / Bony Struc FL / BPD0.69 39% Hadlock FL / HC0.19 68% Hadlock FL / AC0.23 80% Hadlock Other Structures DWY702 bpm Anatomy Cranium:Normal Lateral ventricles:Normal Choroid plexus:Normal Midline falx:Normal Cavum septi pellucidi:Normal Cerebellum:Normal Cisterna magna:Normal Head / Neck Head size:Normal Head shape:Normal Rt lateral ventricle:Normal Lt lateral ventricle:Normal Rt choroid plexus:Normal Lt choroid plexus:Normal Thalami:Normal Cerebellar lobes:Normal Vermis:Normal Neck:Normal Neck:No neck masses seen Lips:Normal Profile:Normal Nose:Normal Face Nasal bone:present Maxilla:Normal Mandible:Normal Orbits:Normal 4-chamber view:Normal RVOT view:Normal LVOT view:Normal 3-vessel view:Normal 9-bzmqcz-cmsckoa view:Normal Heart / Thorax Situs:situs solitus (normal) Aortic arch view:Normal Bicaval view:Normal Cardiac position:levocardia (normal) Cardiac axis:Normal Cardiac size:normal (approx. 1/3 of thoracic area) Cardiac proportions:proportioned (normal) Cardiac rhythm:regular (normal) Rt lung:Normal Lt lung:Normal Rt diaphragm:Normal Lt diaphragm:Normal Cord insertion:Normal Stomach:Normal Kidneys:Normal Bladder:Normal Genitals:Normal Abdomen Abdom. wall:Normal Stomach:Stomach size and situs appear normal Rt kidney:Normal Lt kidney:Normal Small bowel:Normal Large bowel:Normal Cervical spine:Normal Thoracic spine:Normal Lumbar spine:Normal Sacral spine:Normal Arms:Normal Hands:normal Legs:Normal Feet:normal Rt upper arm:Normal Rt forearm:Normal Rt hand:Normal Rt fingers:Normal Lt upper arm:Normal Lt forearm:Normal Lt hand:Normal Lt fingers:Normal Rt upper leg:Normal Rt lower leg:Normal Rt foot:Normal Rt toes:Normal Lt upper leg:Normal Lt lower leg:Normal Lt foot:Normal Lt toes:Normal Position of hands:Normal Position of feet:Normal Wants to know sex:no Genetic Screen Age23 yrs Echogenic focus:no Ventriculomegaly:no Nuchal fold:normal Echogenic bow (more content not included)... [facility] Work Phone: Radiology Study observation (narrative) [facility] Work Phone: US for pregnancyOrdered By: Luzmaria Cullen on 10-02-2023 [facility] Work Phone: No Panel Informationon 08-18 Interpreted by: Floyd Dorsey Indication ======== Nuchal Translucency Screening, Confirm Gestational Age , Crohn's DIsease/ Ulcerative Colitis History ====== General History Smoking: Quit during Height 163 cm Height (ft) 5 ft Height (in) 4 in Previous Outcomes 1 Para 0 Maternal Assessment Height 163 cm Height (ft) 5 ft Height (in) 4 in Weight 74 kg Weight (lb) 164 lb Weight gain 0 kg Weight gain (lb) 0 lb BMI 28.15 kg/m Physical Exam Initial weight (lb) 164 lb ========= Miller . Number of fetuses: 1 Dating ====== LMP on: 05/16/2023 GA by LMP 13 w + 4 d NEHEMIAS by LMP: 02/20/2024 Conception: LMP Ultrasound examination on: 08/19/2023 GA by U/S based upon: CRL GA by U/S 13 w + 3 d NEHEMIAS by U/S: 02/21/2024 Assigned: based on the LMP, selected on 08/19/2023 Assigned GA 13 w + 4 d Assigned NEHEMIAS: 02/20/2024 Impression ========= Remote reading - In utero gestational sac with a live fetus - Karnak rump length is consistent with given NEHEMIAS - organ survey is within normal limits for the gestational age - Nuchal translucency is within normal limits measuring 1.8 mm - Normal appearing adnexa A normal first trimester evaluation cannot exclude major malformations. A second trimester anatomic survey was scheduled. Thank you for allowing us to participate in the care of your patient General Evaluation Cardiac activity present Placenta: Too early to evaluate Cord vessels: normal placental insertion Amniotic fluid: normal amount Biometry Standard FHR 152 bpm CRL 75.7 mm 13w 3d 36% Pexsters NT 1.80 mm Extended Nasal bone: present Anatomy Heart: Normal Oxford and Situs. Stomach: Visible, with correct situs. Bladder: Visible. Arms: Both Upper Extremities Seen. Legs: Both Lower Extremities Seen. The following structures appear normal: Cranium. Face: Nasal Bone Present. Neck. Thorax. Abdominal wall: Normal abdominal cord insertion. Spine. Maternal Structures Uterus / Cervix Uterus: Visualized Uterus position: anteverted Cervix: Visualized Cervix details: Normal Ovaries / Tubes / Adnexa Rt ovary: Visualized Rt ovary details: Normal Rt ovary morphology: normal Rt ovary D1 37.6 mm Rt ovary D2 32.6 mm Rt ovary D3 11.8 mm Rt ovary Vol 7.6 cm Lt ovary: Visualized Lt ovary details: Normal Lt ovary morphology: normal Lt ovary D1 34.5 mm Lt ovary D2 23.6 mm Lt ovary D3 25.3 mm Lt ovary Vol 10.8 cm Cul de Sac / Bladder / Kidneys / Other Cul de Sac: Visualized Free fluid: No free fluid visualized Method ====== Transabdominal ultrasound examination. View: Sufficient [facility] Sunita, Floyd, MD - 08/19/2023 Interpreted by: Floyd Dorsey Indication ======== Nuchal Translucency Screening, Confirm Gestational Age , Crohn's DIsease/ Ulcerative Colitis History ====== General History Smoking:Quit during Mmeobp263 cm Height (ft)5 ft Height (in)4 in Previous Outcomes Gravida1 Para0 Maternal Assessment Dmfpsp165 cm Height (ft)5 ft Height (in)4 in Gqyhvz93 kg Weight (lb)164 lb Weight gain0 kg Weight gain (lb)0 lb BMI28.15 kg/m Physical Exam Initial weight (lb)164 lb ========= Miller . Number of fetuses: 1 Dating ====== LMP on:05/16/2023 GA by LMP13 w + 4 d NEHEMIAS by LMP:02/20/2024 Conception:LMP Ultrasound examination on:08/19/2023 GA by U/S based upon:CRL GA by U/S13 w + 3 d NEHEMIAS by U/S:02/21/2024 Assigned:based on the LMP, selected on 08/19/2023 Assigned GA13 w + 4 d Assigned NEHEMIAS:02/20/2024 Impression ========= Remote reading - In utero gestational sac with a live fetus - Karnak rump length is consistent with given NEHEMIAS - organ survey is within normal limits for the gestational age - Nuchal translucency is within normal limits measuring 1.8 mm - Normal appearing adnexa A normal first trimester evaluation cannot exclude major malformations. A second trimester anatomic survey was scheduled. Thank you for allowing us to participate in the care of your patient General Evaluation Cardiac activity present Placenta: Too early to evaluate Cord vessels: normal placental insertion Amniotic fluid: normal amount Biometry Standard NAM520 bpm CRL75.7 mm13w 3d 36% Pexsters NT1.80 mm Extended Nasal bone:present Anatomy Heart: Normal Oxford and Situs. Stomach: Visible, with correct situs. Bladder: Visible. Arms: Both Upper Extremities Seen. Legs: Both Lower Extremities Seen. The following structures appear normal: Cranium. Face: Nasal Bone Present. Neck. Thorax. Abdominal wall: Normal abdominal cord insertion. Spine. Maternal Structures Uterus / Cervix Uterus:Visualized Uterus position:anteverted Cervix:Visualized Cervix details:Normal Ovaries / Tubes / Adnexa Rt ovary:Visualized Rt ovary details:Normal Rt ovary morphology:normal Rt ovary D137.6 mm Rt ovary D232.6 mm Rt ovary D311.8 mm Rt ovary Vol7.6 cm Lt ovary:Visualized Lt ovary details:Normal Lt ovary morphology:normal Lt ovary D134.5 mm Lt ovary D223.6 mm Lt ovary D325.3 mm Lt ovary Vol10.8 cm Cul de Sac / Bladder / Kidneys / Other Cul de Sac:Visualized Free fluid:No free fluid visualized Method ====== Transabdominal ultrasound examination. View: Sufficient [facility] Work Phone: Radiology Study observation (narrative) [facility] Work Phone: No Panel InformationOrdered By: Floyd Dorsey on 08-19-2023 [facility] Work Phone: US OB < 14 WEEKS EARLYon US OB < 14 WEEKS EARLY Interpreted by: Floyd Dorsey Indication ======== Nuchal Translucency Screening, Confirm Gestational Age , Crohn's DIsease/ Ulcerative Colitis History ====== General History Smoking:Quit during Jpeeee565 cm Height (ft)5 ft Height (in)4 in Previous Outcomes Gravida1 Para0 Maternal Assessment Jqdhyn485 cm Height (ft)5 ft Height (in)4 in Ozvlcf27 kg Weight (lb)164 lb Weight gain0 kg Weight gain (lb)0 lb BMI28.15 kg/m??? Physical Exam Initial weight (lb)164 lb ========= Miller . Number of fetuses: 1 Dating ====== LMP on:05/16/2023 GA by LMP13 w + 4 d NEHEMIAS by LMP:02/20/2024 Conception:LMP Ultrasound examination on:08/19/2023 GA by U/S based upon:CRL GA by U/S13 w + 3 d NEHEMIAS by U/S:02/21/2024 Assigned:based on the LMP, selected on 08/19/2023 Assigned GA13 w + 4 d Assigned NEHEMIAS:02/20/2024 Impression ========= Remote reading - In utero gestational sac with a live fetus - Karnak rump length is consistent with given NEHEMIAS - organ survey is within normal limits for the gestational age - Nuchal translucency is within normal limits measuring 1.8 mm - Normal appearing adnexa A normal first trimester evaluation cannot exclude major malformations. A second trimester anatomic survey was scheduled. Thank you for allowing us to participate in the care of your patient General Evaluation Cardiac activity present Placenta: Too early to evaluate Cord vessels: normal placental insertion Amniotic fluid: normal amount Biometry Standard NTQ225 bpm CRL75.7 mm13w 3d 36% Pexsters NT1.80 mm Extended Nasal bone:present Anatomy Heart: Normal Oxford and Situs. Stomach: Visible, with correct situs. Bladder: Visible. Arms: Both Upper Extremities Seen. Legs: Both Lower Extremities Seen. The following structures appear normal: Cranium. Face: Nasal Bone Present. Neck. Thorax. Abdominal wall: Normal abdominal cord insertion. Spine. Maternal Structures Uterus / Cervix Uterus:Visualized Uterus position:anteverted Cervix:Visualized Cervix details:Normal Ovaries / Tubes / Adnexa Rt ovary:Visualized Rt ovary details:Normal Rt ovary morphology:normal Rt ovary D137.6 mm Rt ovary D232.6 mm Rt ovary D311.8 mm Rt ovary Vol7.6 cm??? Lt ovary:Visualized Lt ovary details:Normal Lt ovary morphology:normal Lt ovary D134.5 mm Lt ovary D223.6 mm Lt ovary D325.3 mm Lt ovary Vol10.8 cm??? Cul de Sac / Bladder / Kidneys / Other Cul de Sac:Visualized Free fluid:No free fluid visualized Method ====== Transabdominal ultrasound examination. View: Sufficient Normal [facility] US OB NT (NUCHAL TRANSLUCENC Y)on 08-19-2023 US OB NT (NUCHAL TRANSLUCENCY) Interpreted by: Floyd Dorsey Indication ======== Nuchal Translucency Screening, Confirm Gestational Age , Crohn's DIsease/ Ulcerative Colitis History ====== General History Smoking:Quit during Okcwwb525 cm Height (ft)5 ft Height (in)4 in Previous Outcomes Gravida1 Para0 Maternal Assessment Glaxxu876 cm Height (ft)5 ft Height (in)4 in Hcvjhm56 kg Weight (lb)164 lb Weight gain0 kg Weight gain (lb)0 lb BMI28.15 kg/m??? Physical Exam Initial weight (lb)164 lb ========= Miller . Number of fetuses: 1 Dating ====== LMP on:05/16/2023 GA by LMP13 w + 4 d NEHEMIAS by LMP:02/20/2024 Conception:LMP Ultrasound examination on:08/19/2023 GA by U/S based upon:CRL GA by U/S13 w + 3 d NEHEMIAS by U/S:02/21/2024 Assigned:based on the LMP, selected on 08/19/2023 Assigned GA13 w + 4 d Assigned NEHEMIAS:02/20/2024 Impression ========= Remote reading - In utero gestational sac with a live fetus - Karnak rump length is consistent with given NEHEMIAS - organ survey is within normal limits for the gestational age - Nuchal translucency is within normal limits measuring 1.8 mm - Normal appearing adnexa A normal first trimester evaluation cannot exclude major malformations. A second trimester anatomic survey was scheduled. Thank you for allowing us to participate in the care of your patient General Evaluation Cardiac activity present Placenta: Too early to evaluate Cord vessels: normal placental insertion Amniotic fluid: normal amount Biometry Standard JPQ788 bpm CRL75.7 mm13w 3d 36% Pexsters NT1.80 mm Extended Nasal bone:present Anatomy Heart: Normal Oxford and Situs. Stomach: Visible, with correct situs. Bladder: Visible. Arms: Both Upper Extremities Seen. Legs: Both Lower Extremities Seen. The following structures appear normal: Cranium. Face: Nasal Bone Present. Neck. Thorax. Abdominal wall: Normal abdominal cord insertion. Spine. Maternal Structures Uterus / Cervix Uterus:Visualized Uterus position:anteverted Cervix:Visualized Cervix details:Normal Ovaries / Tubes / Adnexa Rt ovary:Visualized Rt ovary details:Normal Rt ovary morphology:normal Rt ovary D137.6 mm Rt ovary D232.6 mm Rt ovary D311.8 mm Rt ovary Vol7.6 cm??? Lt ovary:Visualized Lt ovary details:Normal Lt ovary morphology:normal Lt ovary D134.5 mm Lt ovary D223.6 mm Lt ovary D325.3 mm Lt ovary Vol10.8 cm??? Cul de Sac / Bladder / Kidneys / Other Cul de Sac:Visualized Free fluid:No free fluid visualized Method ====== Transabdominal ultrasound examination. View: Sufficient [facility] Blood type and Indirect anti body screen panel (Bld)on 08-13-2023 ABO group Nom (Bld) A Normal [facility] Comment on above: Performed By: #### 3 4532-2 #### DANIELLA Cooper ([id number]) [facility] ([facility]) [address] [place] [address] Blood group antibody screen Ql Negative [facility] Comment on above: Performed By: #### 3 4532-2 #### DANIELLA Cooper ([id number]) [facility] ([facility]) [address] [place] [address] D Ag Ql (Bld) Positive [facility] Comment on above: Result Comment: 2nd ABO test required. Order and Collect VERAB Performed By: #### 3 4532-2 #### DANIELLA Cooper ([id number]) [facility] ([facility]) [address] [place] [address] CBC panel Auto (Bld)on 08-12 Erythrocyte distribution width (RBC) [Ratio] 13.2 % Normal 11.5-14.5 [facility] Comment on above: Performed By: #### 5 8410-2 #### ELAINE Cooper ([id number]) [facility] ([facility]) [address] [place] [address] Hematocrit (Bld) [Volume fraction] 36.8 % Normal 36.0-46.0 [facility] Comment on above: Performed By: #### 5 8410-2 #### ELAINE Cooper ([id number]) [facility] ([facility]) [address] [place] [address] Hemoglobin (Bld) [Mass/Vol] 12.6 g/dL Normal 12.0-16.0 [facility] Comment on above: Performed By: #### 5 8410-2 #### ELAINE Cooper ([id number]) [facility] ([facility]) [address] [place] [address] MCH (RBC) [Entitic mass] 29.4 pg Normal 26.0-34.0 [facility] Comment on above: Performed By: #### 5 8410-2 #### ELAINE Cooper ([id number]) [facility] ([facility]) [address] [place] [address] MCHC (RBC) [Mass/Vol] 34.2 g/dL Normal 32.0-36.0 [facility] Comment on above: Performed By: #### 5 8410-2 #### ELAINE Cooper ([id number]) [facility] ([facility]) [address] [place] [address] MCV (RBC) [Entitic vol] 86 fL Normal 80-100 [facility] Comment on above: Performed By: #### 5 8410-2 #### ELAINE Cooper ([id number]) [facility] ([facility]) [address] [place] [address] Nucleated RBC/100 WBC (Bld) [Ratio] 0.0 /100 WBCs Normal 0.0-0.0 [facility] Comment on above: Performed By: #### 5 8410-2 #### ELAINE Cooper ([id number]) [facility] ([facility]) [address] [place] [address] Platelets (Bld) [#/Vol] 235 x10*3/uL Normal 150-450 [facility] Comment on above: Performed By: #### 5 8410-2 #### ELAINE Cooper ([id number]) [facility] ([facility]) [address] [place] [address] RBC (Bld) [#/Vol] 4.29 x10*6/uL Normal 4.00-5.20 [facility] Comment on above: Performed By: #### 5 8410-2 #### ELAINE Cooper ([id number]) [facility] ([facility]) [address] [place] [address] WBC (Bld) [#/Vol] 11.2 x10*3/uL Normal 4.4-11.3 [facility] Comment on above: Performed By: #### 5 8410-2 #### ELAINE Cooper ([id number]) [facility] ([facility]) [address] [place] [address] CFTR gene targeted mutation analysis Molgen Doc (Bld/Tiss)on 08-13-2023 CFTR gene targeted mutation analysis Molgen Nom (Bld/Tiss) SEE COMMENT [facility] Comment on above: Result Comment: NEGATIVE INTERPRETATION: NO pathogenic variants were detected in the CFTR gene. Intron 8 poly T alleles: 7,7 This result significantly decreases, but does not rule out, the likelihood that this individual is a carrier of cystic fibrosis (CF). Pathogenic variants may exist which are not detectable by Next Generation Sequencing. Variations of Uncertain Significance, Benign and Likely Benign variants are not included in this report but are available upon request. If this testing was done to determine carrier risk, the chance of producing an offspring with CF is also significantly decreased but cannot be ruled out. The following table, derived from data in the ACMG 2011: Technical standards and guidelines for CFTR mutation testing (2), may provide useful risk assessment based on ethnicity assuming a negative personal and family history of CF. Accurate risk assessment requires standard Bayesian analysis. Genetic counseling is recommended. DETECTION RATES CARRIER RISK NEG POST-TEST RISK Ashkenazi Caodaism >96% 07/02 < >91% 07/02 <257 >84% 46 <350 >73% 65 <219 Georgian >55% < METHODOLOGY Genomic DNA obtained from the submitted sample was sequenced using [employer]. Unless otherwise indicated, all targeted regions are sequenced with > 100x depth of coverage. Reads are aligned to the human genome [Homo sapiens: GRCh37 (hg19)] reference sequence for the CFTR gene [transcript: [id number]]. The assay covers all coding exons, exon-intron boundaries (including 10-20 bases of intronic flanking sequences), and other specific genomic regions demonstrated to be causative of disease at the time of assay design. LIMITATIONS This assay achieves an analytical sensitivity and specificity of >99% for single nucleotide variants and insertions/deletions of <15 bp in length within the sequenced regions. This assay has not been validated to detect variant mosaicism or exon-level deletions/duplications. Certain types of variants, such as structural rearrangements (e.g., inversions, gene conversion events, translocations, etc.) or variants embedded in sequence with complex architecture (e.g., short tandem repeats, segmental duplications, etc.) may not be detected. In very rare cases the analyzed DNA may not represent the patients constitutional genome (when the patient has undergone bone marrow transplant, has received recent blood transfusions, etc.) REFERENCES: 1. Alison Perez, Nelly Goodman., Andrea Morales, Stefania Andrade., Jacobo Perea., Scott KEric K., Rei Rodrigues. (2015). Validation of a semiconductor next-generation sequencing assay for the clinical genetic screening of CFTR. Molecular genetics genomic medicine, 3(5), 396-403. 2. [employer]. Technical standards and guidelines for CFTR mutation testing. [employer] Standards and Guidelines for Clinical Genetics Laboratories. [place] ([place]): 2011. Available at http://www.acmg.net/docs/CFTR_Mutation_Testing_2011.pdf. 3. Cy Stanley., Andrea Coyle., Alison Jacobsen., Stefania Stein, Aissatou Beck., Cy Stephenson., Lizett Wilde (2008). Clinical practice and genetic counseling for cystic fibrosis and CFTR-related disorders. Genetics in medicine: official journal of the [employer], 10(12), 851-868. 4. Zack LÓPEZ, Maris C, Andry GR, dante Adam D, Neeraj AR, Pilar WW, Abner KG, Edwin S for the ACMG Laboratory Land Commissioner Committee. CFTR variant testing: a technical standard of the [employer] (ACMG). Carolyn Med. 2020;22(8):3362-9631. DISCLAIMER: DNA studies do not constitute a definitive test for the selected condition(s) in all individuals. This laboratory has taken every precaution to avoid possible sources of errors. Errors might result from trace contamination, rare technical errors, rare genetic variants that interfere with analysis, alternative classifications systems or recent scientific developments. This test was developed and its performance determined by [facility]. It has not been cleared or approved by the US Food and Drug Administration (FDA). The FDA has determined that such clearance or approval is not necessary. This analysis is used for clinical purposes. It should not be regarded as investigational or for research. This laboratory is certified under the Clinical Laboratory Improvement Amendments of 1988 (CLIA-88) as qualified to perform high complexity clinical laboratory testing. Performed By: #### 3 6903-3 #### DANIELLA Cooper ([id number]) [facility] ([facility]) [address] [place] [address] HCV RNA panel XANDER+probeon HCV PCR W/GENOTYPE REFLEX ORDERED HCV viral load not detected, genotyping will not be performed. Normal [facility] Comment on above: Order Comment: Repor table Range: 15-100,000,000 IU/mL. The rigoberto HCV is an in vitro nucleic acid amplification test for both the detection and quantitation of hepatitis C virus (HCV) RNA, in human EDTA plasma or serum, of HCV antibody positive or HCV-infected individuals on the rigoberto 6800/8800 Systems. Dual probes are used to detect and quantify, but not discriminate HCV genotypes 1-6. Though rare, mutations within the highly conserved regions of a viral genome covered by rigoberto HCV may affect primer and/or probe binding resulting in the under-quantitation of virus or failure to detect the presence of virus. The analytical quantification range of this assay has been determined to be 15 to 100,000,000 IU/ml in plasma. If the assay DETECTED the presence of the virus but was not able to accurately quantify the number of copies, the test result will be reported as <15 Detected or >100,000,000 Detected. The rigoberto??? HCV is intended for use as an aid in the diagnosis of HCV infection in the following populations: individuals with antibody evidence of HCV with evidence of liver disease, individuals suspected to be actively infected with HCV antibody evidence, and individuals at risk for HCV infection with antibodies to HCV. Detection of HCV RNA indicates that the virus is replicating and therefore is evidence of active infection. The rigoberto HCV is intended for use as an aid in the management of HCV infected patients undergoing anti-viral therapy. The assay can be used to measure HCV RNA levels at baseline, during treatment, at the end of treatment, and at the end of follow up of treatment to determine sustained or non-sustained viral response. The results must be interpreted within the context of all relevant clinical and laboratory findings. This test is approved by the US Food and Drug Administration, and its performance characteristics verified by the [facility], Department of Pathology, [facility]. Performed By: #### 5 0023-1 #### DANIELLA Cooper ([id number]) [facility] ([facility]) [address] [place] [address] HCV RNA RESULT Not detected Normal Not detected [facility] Comment on above: Order Comment: Repor table Range: 15-100,000,000 IU/mL. The rigoberto HCV is an in vitro nucleic acid amplification test for both the detection and quantitation of hepatitis C virus (HCV) RNA, in human EDTA plasma or serum, of HCV antibody positive or HCV-infected individuals on the rigoberto 6800/8800 Systems. Dual probes are used to detect and quantify, but not discriminate HCV genotypes 1-6. Though rare, mutations within the highly conserved regions of a viral genome covered by rigoberto HCV may affect primer and/or probe binding resulting in the under-quantitation of virus or failure to detect the presence of virus. The analytical quantification range of this assay has been determined to be 15 to 100,000,000 IU/ml in plasma. If the assay DETECTED the presence of the virus but was not able to accurately quantify the number of copies, the test result will be reported as <15 Detected or >100,000,000 Detected. The rigoberto??? HCV is intended for use as an aid in the diagnosis of HCV infection in the following populations: individuals with antibody evidence of HCV with evidence of liver disease, individuals suspected to be actively infected with HCV antibody evidence, and individuals at risk for HCV infection with antibodies to HCV. Detection of HCV RNA indicates that the virus is replicating and therefore is evidence of active infection. The rigoberto HCV is intended for use as an aid in the management of HCV infected patients undergoing anti-viral therapy. The assay can be used to measure HCV RNA levels at baseline, during treatment, at the end of treatment, and at the end of follow up of treatment to determine sustained or non-sustained viral response. The results must be interpreted within the context of all relevant clinical and laboratory findings. This test is approved by the US Food and Drug Administration, and its performance characteristics verified by the [facility] Diagnostic Laboratory, Department of Pathology, [facility]. Performed By: #### 5 0023-1 #### DANIELLA Cooper ([id number]) [facility] ([facility]) [address] [place] [address] HCV RNA, PCR LOG Normal [facility] Comment on above: Order Comment: Repor table Range: 15-100,000,000 IU/mL. The rigobetro HCV is an in vitro nucleic acid amplification test for both the detection and quantitation of hepatitis C virus (HCV) RNA, in human EDTA plasma or serum, of HCV antibody positive or HCV-infected individuals on the rigoberto [employer] 3D0/8800 Systems. Dual probes are used to detect and quantify, but not discriminate HCV genotypes 1-6. Though rare, mutations within the highly conserved regions of a viral genome covered by rigoberto HCV may affect primer and/or probe binding resulting in the under-quantitation of virus or failure to detect the presence of virus. The analytical quantification range of this assay has been determined to be 15 to 100,000,000 IU/ml in plasma. If the assay DETECTED the presence of the virus but was not able to accurately quantify the number of copies, the test result will be reported as <15 Detected or >100,000,000 Detected. The rigoberto??? HCV is intended for use as an aid in the diagnosis of HCV infection in the following populations: individuals with antibody evidence of HCV with evidence of liver disease, individuals suspected to be actively infected with HCV antibody evidence, and individuals at risk for HCV infection with antibodies to HCV. Detection of HCV RNA indicates that the virus is replicating and therefore is evidence of active infection. The rigoberto HCV is intended for use as an aid in the management of HCV infected patients undergoing anti-viral therapy. The assay can be used to measure HCV RNA levels at baseline, during treatment, at the end of treatment, and at the end of follow up of treatment to determine sustained or non-sustained viral response. The results must be interpreted within the context of all relevant clinical and laboratory findings. This test is approved by the US Food and Drug Administration, and its performance characteristics verified by the [facility] Diagnostic Laboratory, Department of Pathology, [facility]. Result Comment: Not calculated Performed By: #### 5 0023-1 #### DANIELLA Cooper ([id number]) [facility] ([facility]) [address] [place] [address] HIV 1+2 Ab+HIV1 p24 Agon HIV 1+2 Ab+HIV1 p24 Ag IA Ql Non-Reactive [facility] Comment on above: Order Comment: HIV A g/Ab screen is performed using the Siemens Agile GroupllBigFix HIV Ag/Ab Combo assay which detects the presence of HIV p24 antigen as well as antibodies to HIV-1 (Group M and O) and HIV-2. No laboratory evidence of HIV infection. If acute HIV infection is suspected, consider testing for HIV RNA by PCR (viral load). Performed By: #### 5 6888-1 #### DANIELLA Cooper ([id number]) [facility] ([facility]) [address] [place] [address] Hepatitis B virus surface Ag on 08-13-2023 HBV surface Ag IA Ql Non-Reactive Normal Nonreactive [facility] Comment on above: Result Comment: Biot in interference may cause falsely decreased results. Patients taking a Biotin dose of up to 5 mg/day should refrain from taking Biotin for 24 hours before sample collection. Providers may contact their local laboratory for further information. Performed By: #### 5 196-1 #### DANIELLA Cooper ([id number]) [facility] ([facility]) [address] [place], [place] [id number] REFLEX ADDED, ANEMIA PANELon 08-13-2023 REFLEX ADDED, ANEMIA PANEL No reflex. [facility] Ambulatory Comment on above: Performed By: #### A PRFX #### DANIELLA Cooper ([id number]) [facility] ([facility]) [address] [place] [address] Rubella virus Ab.IgMon 08-12 Rubella virus IgM IA Qn (S) <10.0 Normal <=19.9 [facility] Comment on above: Result Comment: INTE RPRETIVE INFORMATION: Rubella Ab, IgM 19.9 AU/mL or less........ Not Detected 20.0-24.9 AU/mL........... Indeterminate-Repeat testing in 10-14 days may be helpful. 25.0 AU/mL or greater..... Detected-IgM antibody to Rubella detected which may indicate a current or recent infection or immunization. Testing immediately post-exposure is of no value without a later convalescent specimen. While the presence of IgM antibodies suggest current or recent infection, low levels of IgM antibodies may occasionally persist for more than 12 months post-infection or immunization. The magnitude of the measured result is not indicative of the amount of antibody present. Performed By: [facility] [address] [place] [address] Managed Security Sales Consultant: Jb Kaur MD, PhD CLIA Number: [id number] Performed By: #### 3 6903-3 #### DANIELLA Cooper ([id number]) [facility] ([facility]) [address] [place], [place] [address] SMN1 gene+SMN2 gene targeted mutation analysison 08-13-2023 ELECTRONICALLY SIGNED BY Beverley Valle MD [facility] Ambulatory Comment on above: Performed By: #### 3 6903-3 #### DANIELLA Cooper ([id number]) [facility] ([facility]) [address] [place] [address] SMN1 gene+SMN2 gene targeted mutation analysis Molgen Doc (Bld/Tiss)on 08-13-2023 SMA RESULT SEE COMMENT [facility] Comment on above: Result Comment: 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 INTERPRETATION: The finding of two SMN1 copies significantly reduces the risk of being a carrier, however there is still a residual risk. There are 2 limitations of the carrier test. First, approximately 2% of SMA cases arise as the result of de loi mutation events. Second, the copy number of SMN1 can vary on a chromosome; as it has been observed that about 4% of the normal population possess three copies of SMN1. It is possible for a carrier to possess one chromosome with two copies and a second chromosome with zero copies (2+0 carrier). The finding of two SMN1 genes on a single chromosome has serious genetic counseling implications, because a carrier with two SMN1 genes on one chromosome and a SMN1 deletion on the other chromosome will have the same dosage result as a non-carrier with one SMN1 gene on each chromosome 5. The single-nucleotide polymorphism SNP ([id number]) has been shown to be associated with the ''2+0'' chromosome in some populations, particularly in the Ashkenazi Caodaism population, and when negative (- SNP), this will further reduce the carrier risk (shown in the table). Carrier detection relies on the accurate determination of the SMN1 gene exon 7 copies. Carriers have one copy of SMN1 and non-carriers have 2 or more copies of SMN1. Test results should be interpreted in the context of the patient''s clinical presentation and family history. Please see the following table for the residual risk of being a carrier after this test. CARRIER RISK BY ETHNICITY: : Ashkenazi Caodaism: Georgian: : : 117 CARRIER DETECTION RATE BY ETHNICITY: : 95% Ashkenazi Caodaism: 94% Georgian: 93% : 92% : 92% RESIDUAL CARRIER RISK, TWO COPIES DETECTED (-SNP): : Ashkenazi Caodaism: 1/580 Georgian: 1/702 : 396 : 06/1761 Genetics in Medicine (2014) 16, 148-594 Journal of Medical Genetics (2009) 46, 088-818 ASSAY LIMITATIONS: Point mutations will not be detected by this assay. In addition, this analysis will not detect genetic changes outside of the probe regions. A false result could be produced due to interference of probe binding. Chromosomal configuration of the SMN1 gene will not be elucidated. METHODOLOGY: Multiplex Ligation-dependent Probe Amplification (MLPA) analysis was performed to investigate the copy number of exon 7 of the SMN1 gene. DISCLAIMER: This test was developed at [facility] (CLIA [id number], [place] [id number]). Testing was performed at [facility] ([facility])(CLIA License [id number], [place] [id number]). It has not been cleared or approved by the US Food and Drug Administration (FDA). The FDA has determined that such clearance or approval is not necessary. This analysis is used for clinical purposes. It should not be regarded as investigational or for research. This laboratory is certified under the Clinical Laboratory Improvement Amendments of 1988 (CLIA-88) as qualified to perform high complexity clinical laboratory testing. Performed By: #### 3 6903-3 #### DANIELLA Cooper ([id number]) [facility] ([facility]) [address] [place], [place] [address] Treponema pallidum Ab.IgG+Ig Mon 08-13-2023 T. pallidum IgG+IgM IA Ql (S) Non-Reactive Normal Nonreactive [facility] Comment on above: Result Comment: No s ignificant level of Treponema pallidum antibody detected. Repeat testing in 2 to 4 weeks may be considered if early infection or incubating syphilis infection is suspected. Performed By: #### 4 7236-5 #### DANIELLA Cooper ([id number]) [facility] ([facility]) [address] [place] [address] VZV IgG IA Ql (S)on 08-13-19 24 VARICELLA ZOSTER IGG INDEX 0.8 IA Normal <=0.8 [facility] Comment on above: Order Comment: NEGAT APURVA: No IgG antibodies specific to VZV detected. It is likely that the patient has not had a previous exposure to VZV through infection or vaccination. Alternatively, the patient may have been exposed to VZV but a failure to respond may indicate immunodeficiency. EQUIVOCAL:Equivocal results; obtain additional sample for retesting. POSITIVE: IgG antibody to VZV detected. This may indicate that the patient was exposed to VZV through infection or vaccination. The interpretation of serological tests should take into account the immunological status of the patient. Test results for patients, including immunocompromised patients, neonates, and pediatric patients, reflect their capacity to respond immunologically to the virus as well as their exposure to the pathogen. Patients treated with IVIG may demonstrate altered results in serological assays. Performed By: #### 1 5410-4 #### DANIELLA Cooper ([id number]) [facility] ([facility]) [address] [place], [place] [address] Varicella zoster virus Ab.Ig Roberth 08-13-2023 VZV IgG IA Ql (S) Negative Normal Negative [facility] Comment on above: Order Comment: NEGAT APURVA: No IgG antibodies specific to VZV detected. It is likely that the patient has not had a previous exposure to VZV through infection or vaccination. Alternatively, the patient may have been exposed to VZV but a failure to respond may indicate immunodeficiency. EQUIVOCAL:Equivocal results; obtain additional sample for retesting. POSITIVE: IgG antibody to VZV detected. This may indicate that the patient was exposed to VZV through infection or vaccination. The interpretation of serological tests should take into account the immunological status of the patient. Test results for patients, including immunocompromised patients, neonates, and pediatric patients, reflect their capacity to respond immunologically to the virus as well as their exposure to the pathogen. Patients treated with IVIG may demonstrate altered results in serological assays. Performed By: #### 1 5410-4 #### DANIELLA Cooper ([id number]) [facility] ([facility]) [address] [place] [address] Bacteria identifiedon 2023 Bacteria identified Cx Nom (U) Test: Urine culture Specimen Source: Clean Catch/Voided Specimen Type: Urine Specimen Date: 07/24/2023 11:02 AM Result Date: 07/26/2023 8:18 AM Result Status: Final result Abnormal: No Resulting Lab: [facility] [address] [place], [place] [id number] CULTURE No significant growth Normal [facility] Comment on above: Performed By: #### 6 30-4 #### DANIELLA Cooper ([id number]) [facility] ([facility]) [address] [place] [address] C. trachomatis and N. gonorr hoeae DNA XANDER+probe Nom (Unsp spec)on 07-24-2023 C. trachomatis rRNA XANDER+probe Ql (Unsp spec) Negative Normal Negative [facility] Comment on above: Order Comment: The A PTIMA Combo 2 assay is FDA-approved NAAT using target capture for the in vitro qualitative detection and differentiation of ribosomal RNA (rRNA) for Chlamydia trachomatis and Neisseria gonorrhoeae testing on clinician-collected endocervical, PreservCyt solution liquid Pap specimens, vaginal, throat, rectal, and male urethral swab specimens; patient-collected vaginal swab specimens, and female and male urine specimens from symptomatic and asymptomatic individuals. Samples from all other sites are not validated for this method. Performed By: #### 3 6903-3 #### DANIELLA Cooper ([id number]) [facility] ([facility]) [address] [place] [address] N. gonorrhoeae DNA Probe+sig amp Ql (Unsp spec) Negative Normal Negative [facility] Comment on above: Order Comment: The A PTIMA Combo 2 assay is FDA-approved NAAT using target capture for the in vitro qualitative detection and differentiation of ribosomal RNA (rRNA) for Chlamydia trachomatis and Neisseria gonorrhoeae testing on clinician-collected endocervical, PreservCyt solution liquid Pap specimens, vaginal, throat, rectal, and male urethral swab specimens; patient-collected vaginal swab specimens, and female and male urine specimens from symptomatic and asymptomatic individuals. Samples from all other sites are not validated for this method. Performed By: #### 3 6903-3 #### DANIELLA Cooper ([id number]) [facility] ([facility]) [address] [place] [address] Cervical AND or Vaginal cyto logy studyon 07-24-2023 Cytology Cervical or vaginal smear or scraping study Pathology report.total SEE COMMENT Gynecologic Cytology Case: [id number] Authorizing Provider: Lilian Alberts, Collected: 07/24/2023 1102 BAG TURNER-CNM Ordering Location: [facility] Received: 07/24/2023 1102 First Screen: KASSIE Mckenna Specimen: ThinPrep Liquid-Based Pap-Imaging System Screen, CERVIX, SCREENING Cytology study comment SEE COMMENT A. THINPREP PAP CERVIX, SCREENING - Specimen Adequacy Satisfactory for evaluation; absence of endocervical/transformation zone component General Categorization Negative for intraepithelial lesion or malignancy. Descriptive Interpretation Negative for intraepithelial lesion or malignancy Specimen does not meet the requisition-stated criteria for HPV testing. See Pap test interpretation above. Laboratory comment SEE COMMENT Slide(s) initially screened by KASSIE Mckenna at [facility] [address] [facility] [id number] By the signature on this report, the individual or group listed as making the Final Interpretation/Diagnosis certifies that they have reviewed this case. This specimen has been analyzed by the ThinPrep Imaging System ([employer] an automated imaging and review system, which assists the laboratory in evaluating cells on ThinPrep Pap tests. Following automated imaging, selected lin from every slide were reviewed by a reel man and/or pathologist. Cervical cytology is a screening procedure primarily for squamous cancers and precursors and has associated false-negative and false-positives results as evidenced by published data. Your patient's test should be interpreted in this context, together with the patient's history and clinical findings. Regular sampling and follow-up of unexplained clinical signs and symptoms are recommended to minimize false negative results. LAB AP HPV HR Reflex if ASCUS only LAB AP HPV GENOTYPE QUESTION Yes LAB AP PAP ADDITIONAL TESTS Chlamydia + Gonorrhea Date last menstrual period 05/16/2023 [facility] Ambulatory US OB < 14 WEEKS EARLYon US OB < 14 WEEKS EARLY Interpreted By: Aretha Simmons, STUDY: US OB < 14 WEEKS EARLY; 07/10/2023 4:16 pm INDICATION: Signs/Symptoms:missed menses, +UPT at home. LMP 06/05/2023 NEHEMIAS 02/20/2024 COMPARISON: None. ACCESSION NUMBER(S): [id number] ORDERING CLINICIAN: LILIAN ALBERTS TECHNIQUE: Multiple ultrasonographic images of the pelvis were obtained. 02/24/2024 ultrasound was performed. FINDINGS: UTERUS: The mean gestation sac diameter measures at 2.5 mm, corresponding to a gestational age of . A pole is also identified in the uterus. The crown-rump length measures at 1.1 cm, corresponding to a gestational age of 7 weeks 2 days. The heart rate is 171 bpm. The estimated date of delivery is 02/24/2024. There is a yolk sac measuring 0.4 cm There is a 2nd yolk sac with a fetus with a crown-rump length of 0.4 cm. This is asymmetrically small with respect to the larger fetus in this could represent intrauterine demise of a twin . No heart tones are seen. The uterus measures 6.1 x 4.8 x 10.3 cm. The cervix is closed and measures at least 4.4 cm in length. MATERNAL ANATOMY: RIGHT ADNEXA: The right ovary measures 2.8 x 1.3 x 2.5 cm and demonstrates normal flow. No adnexal mass is identified. LEFT ADNEXA: The left ovary measures 3.2 x 1.8 x 2.4 cm and demonstrates normal flow. No adnexal mass is identified. IMPRESSION: 1. Intrauterine gestational sac containing a living fetus with a crown-rump length of 1.1 cm which corresponds to a gestational age of 7 weeks 2 days and an NEHEMIAS of 02/24/2024. 2. There are 2 gestational sacs with the suggestion of a small pole with a crown-rump length of 0.4 cm. This could represent intrauterine demise of one of the twins in a twin . 3. Unremarkable ovaries MACRO: None Signed by: Aretha Simmons 07/14/2023 9:11 AM Dictation workstation: [id number] [facility] US OB TRANSVAGINALon 024 US OB TRANSVAGINAL Interpreted By: Aretha Terrazas, STUDY: US OB < 14 WEEKS EARLY; 07/10/2023 4:16 pm INDICATION: Signs/Symptoms:missed menses, +UPT at home. LMP 06/05/2023 NEHEMIAS 02/20/2024 COMPARISON: None. ACCESSION NUMBER(S): [id number] ORDERING CLINICIAN: LILIAN ALBERTS TECHNIQUE: Multiple ultrasonographic images of the pelvis were obtained. 02/24/2024 ultrasound was performed. FINDINGS: UTERUS: The mean gestation sac diameter measures at 2.5 mm, corresponding to a gestational age of . A pole is also identified in the uterus. The crown-rump length measures at 1.1 cm, corresponding to a gestational age of 7 weeks 2 days. The heart rate is 171 bpm. The estimated date of delivery is 02/24/2024. There is a yolk sac measuring 0.4 cm There is a 2nd yolk sac with a fetus with a crown-rump length of 0.4 cm. This is asymmetrically small with respect to the larger fetus in this could represent intrauterine demise of a twin . No heart tones are seen. The uterus measures 6.1 x 4.8 x 10.3 cm. The cervix is closed and measures at least 4.4 cm in length. MATERNAL ANATOMY: RIGHT ADNEXA: The right ovary measures 2.8 x 1.3 x 2.5 cm and demonstrates normal flow. No adnexal mass is identified. LEFT ADNEXA: The left ovary measures 3.2 x 1.8 x 2.4 cm and demonstrates normal flow. No adnexal mass is identified. IMPRESSION: 1. Intrauterine gestational sac containing a living fetus with a crown-rump length of 1.1 cm which corresponds to a gestational age of 7 weeks 2 days and an NEHEMIAS of 02/24/2024. 2. There are 2 gestational sacs with the suggestion of a small pole with a crown-rump length of 0.4 cm. This could represent intrauterine demise of one of the twins in a twin . 3. Unremarkable ovaries MACRO: None Signed by: Aretha Simmons 07/14/2023 9:11 AM Dictation workstation: [id number] [facility] Infusion - Non Oncologyon Infusion - Non Oncology General: Planned Infusion/Injectioninflectra Ever Received this Medication Beforeyes Previous Issues when Receiving this Medicationno Temp C36.6 degrees C Temp F98 degrees F Heart Rate73 beats per minute Resp Rate 16 breath per minute Blood Pressure Cfyabxfj710 mm/Hg Blood Pressure Oztpcxysp93 mm/Hg Pulse Fuuoqboj46 % SpO2 Patient Onroom air Comfortdenies pain Weight in kg75.8 kilogram(s) Weight in nst996.1 pound(s) Health/Med History: Change in Medical/Surgical History Since Last Visitno Fever or Infectionno Change in Medication Since Last Visitno Current Treatmentsubsequent Blood Avoidance/Restrictionsnone Previous Transfusion Reactionno Health HistoryOther Other Health History: CommentsCrohn's Disease, narcolepsy. Type 2 Narcolepsy (likes naps) Electronic Signatures: Jenna LazaroRN) (Signed 06-Mar-2023 09:16) Authored: General, Health/Med History Last Updated: 06-Mar-2023 09:16 by Jenna Lazaro) Normal [facility] Infusion - Non Oncologyon Infusion - Non Oncology General: Planned Infusion/InjectionInflectra for Crohn's Ever Received this Medication Beforeyes Previous Issues when Receiving this Medicationno Temp C36.8 degrees C Temp F98.3 degrees F Heart Rate97 beats per minute Resp Rate 20 breath per minute Blood Pressure Oiaiwzwx963 mm/Hg Blood Pressure Pehdgxwjp20 mm/Hg Pulse Ysezkeop38 % Comfortdenies pain Weight in kg77.1 kilogram(s) Weight in aep105.9 pound(s) Health/Med History: Change in Medical/Surgical History Since Last Visitno Fever or Infectionno Change in Medication Since Last Visitno Current Treatmentsubsequent Previous Transfusion Reactionno Health HistoryOther Other Health History: CommentsCrohn's Disease, narcolepsy. Type 2 Narcolepsy (likes naps) Electronic Signatures: Raymundo DardenRN) (Signed 16-Jan-2023 09:16) Authored: General, Health/Med History Last Updated: 16-Jan-2023 09:16 by Raymundo Darden (RN) [facility] Infusion - Non Oncologyon Infusion - Non Oncology General: Planned Infusion/Injectioninflectra 10mg/kg Ever Received this Medication Beforeyes Previous Issues when Receiving this Medicationno Temp C37.1 degrees C Temp F98.9 degrees F Heart Rate76 beats per minute Resp Rate 20 breath per minute Blood Pressure Ncungxkr129 mm/Hg Blood Pressure Nebjetzob54 mm/Hg Pulse Rqsmpfzy43 % SpO2 Patient Onroom air Comfortdenies pain Weight in kg75.4 kilogram(s) Weight in hvi772.2 pound(s) Health/Med History: Change in Medical/Surgical History Since Last Visitno Fever or Infectionno Change in Medication Since Last Visitno Current Treatmentsubsequent Previous Transfusion Reactionno Health HistoryOther Other Health History: CommentsCrohn's Disease, narcolepsy. Type 2 Narcolepsy (likes naps) Electronic Signatures: Raymundo Darden) (Signed 05-Dec-2022 09:02) Authored: General, Health/Med History Last Updated: 05-Dec-2022 09:02 by Raymundo Darden (RN) [facility] Infusion - Non Oncologyon Infusion - Non Oncology General: Planned Infusion/InjectionInflectra Ever Received this Medication Beforeyes Previous Issues when Receiving this Medicationno Temp C36.7 degrees C Temp F98.2 degrees F Heart Rate80 beats per minute Resp Rate 18 breath per minute Blood Pressure Jdjrgwox704 mm/Hg Blood Pressure Bckmhjmbk46 mm/Hg Pulse Ozjxewdj541 % SpO2 Patient Onroom air Comfortdenies pain Health/Med History: Change in Medical/Surgical History Since Last Visitno Fever or Infectionno Change in Medication Since Last Visitno Current Treatmentsubsequent Previous Transfusion Reactionno Health HistoryOther Other Health History: CommentsCrohn's Disease Type 2 Narcolepsy (likes naps) Electronic Signatures: Raymundo Darden) (Signed 10-Oct-2022 10:22) Authored: General, Health/Med History Last Updated: 10-Oct-2022 10:22 by Raymundo Darden (RN) [facility] Established Visit (Gastroent erology)on 09-03-2022 Established Visit (Gastroenterology) Diagnoses/Problems Assessed Crohn's disease (555.9) (K50.90) Patient Discussion/Summary Crohn's Disease It is recommended that you have an influenza vaccination (the flu shot) every year. You should not receive the live version of this vaccination which is inhaled. It is safe for you to receive the injection form of this vaccination. If you are over the age of 50 you should consider vaccination against Herpes Zoster (shingles). You should have a skin exam with a lead tank mechanic every year to screen for melanoma and other forms of skin cancer. You should be screened for osteoporosis (low bone density) with an imaging test called DEXA. Other medications such as NSAIDs like Ibuprofen, Aleve, Naproxen, Motrin, or Meloxicam may lead to worsening of your inflammatory bowel disease. These medications should be avoided. If you use tobacco products (cigarettes, chewing tobacco, etc) you should quit. Talk to your primary care provider about ways to help you quit. Provider Impressions 1. Moderate to Severe Crohns disease - Diagnosed at the age of 10 no hx of surgery -Patient remains in remission and well maintained on Remicade 10 mg/kg every 6 weeks, of note patient has been tried on bio similar's such as Inflectra and had worsening of disease along with worsening of hydradenitis and I recommend patient continue on Remicade 10mg/kg q 6 qweeks -CBC, CMP and CRP was all within normal limits -colon in Jul 2021 with no endoscopic signs of active disease, mild inflammation seen on biopsy of the TI -Repeat colon in 2 years - Follow up in 6 months Chief Complaint Follow up- Crohns Current treatment- Remicade History of Present IllnessPatient is a 22-year-old female presents for follow-up for Crohn's disease. She has no complaints today. She denies any abdominal pain, blood in her stools or increased frequency of bowel movements. She denies any change in vision or rash or nocturnal stooling. Overall she states she feels well and has no complaints at this time. Patient is currently receiving q. 6-week remicade infusions. Review of Systems Constitutional: no fever, no chills, not feeling tired and no recent weight loss. Eyes: no yellow sclera/jaundice. ENT: no lymphadenopathy. Cardiovascular: no shortness of breath and no chest pain. Respiratory: no cough. Gastrointestinal: as noted in HPI. Musculoskeletal: no joint swelling. Integumentary: no rashes, no skin lesions and was no jaundiced. Neurological: no headache. Psychiatric: no anxiety and no depression. Hematologic/Lymphatic: no tendency for easy bleeding and no tendency for easy bruising. All other systems have been reviewed and are negative for complaint. 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 EVERY 6 WEEKS Vitals Vital Signs Recorded: 03Sep2022 03:12PM Heart Rate86 Taxucryc919 Ysppjoegg22 Ckmlkp609 lb Physical Exam Constitutional General appearance: In no acute distress . Eyes Anicteric Sclerae . Pulmonary Auscultation of lungs: Clear. Cardiovascular Auscultation of heart: RRR without murmur. Examination of extremities for edema: Normal. Abdomen Soft, non-tender. Bowel sounds normal. No hepatomegaly or splenomegaly. Results/Data Complete Blood [id number] 02:09PMVeronica marte Test NameResultFlagReference White Blood Cell Count12.3 x10E9/LH4.4 - 11.3 Red Blood Cell Count4.85 x10E12/LSee Below Reference Range: 4.00 - 5.20 Jcozsznwxi63.5 g/dLSee Below Reference Range: 12.0 - 16.0 HCT41.9 %See Below Reference Range: 36.0 - 46.0 MCV86 fL80 - 100 MCHC32.2 g/dLSee Below Reference Range: 32.0 - 36.0 Platelet Bzhgl402 x10E9/L150 - 450 RDW-CV13.2 %See Below Reference Range: 11.5 - 14.5 C Reactive Protein, [id number] 02:09PMVeronica Quiñones Test NameResultFlagReference C Reactive Protein, Serum<0.10 mg/dL REF VALUE < 1.00 Comprehensive Metabolic [id number] 02:09Veronica Quiñones Test NameResultFlagReference Glucose, Serum85 mg/dL74 - 99 Sodium, Brrlh924 mmol/L136 - 145 POTASSIU (more content not included)... Normal [facility] [employer] Multiple sleep latency testo n 08-20-2022 [facility] Polysomnographyon 08-20-2022 [facility] Basic Metabolic Panelon Calcium [Mass/Vol] 9.2 mg/dL Normal 7.6-11.0 [facility] Comment on above: Order Comment: Relea se to patient->Automatic 56091&Blood Performed By: #### S RATE #### [place] [address] CO2 [Moles/Vol] 21.0 mmol/L Low 22.0-29.0 [facility] Comment on above: Order Comment: Relea se to patient->Automatic 95906&Blood Performed By: #### S RATE #### [place] [address] Creatinine [Mass/Vol] 0.69 mg/dL Normal 0.50-1.00 [facility] Comment on above: Order Comment: Relea se to patient->Automatic 23725&Blood Performed By: #### S RATE #### [place] [address] Glucose [Mass/Vol] 110 mg/dL High 70-99 [facility] Comment on above: Order Comment: Relea se to patient->Automatic 35681&Blood Result Comment: Rob maria for Diagnosis of Diabetes: Fasting Specimen (no caloric intake for at least 8 hours): <100 mg/dL Normal 100-125 mg/dL Increased risk for Diabetes >125 mg/dL Diagnostic for Diabetes Random Glucose (any time of day without regard to last meal): > or = 200 mg/dL plus Classic Symptoms of Diabetes Performed By: #### S RATE #### [place] [address] Urea nitrogen [Mass/Vol] 10 mg/dL Normal 4-19 [facility] Comment on above: Order Comment: Relea se to patient->Automatic 45330&Blood Performed By: #### S RATE #### [address] [address] Chloride [Moles/Vol] 108 mmol/L Normal 96-108 [facility] Comment on above: Order Comment: Relea se to patient->Automatic 78930&Blood Performed By: #### S RATE #### [place] [address] Potassium [Moles/Vol] 4.0 mmol/L Normal 3.3-5.1 [facility] Comment on above: Order Comment: Relea se to patient->Automatic 73140&Blood Performed By: #### S RATE #### [place] [address] Sodium [Moles/Vol] 139 mmol/L Normal 133-145 [facility] Comment on above: Order Comment: Relea se to patient->Automatic 34636&Blood Performed By: #### S RATE #### [place] [address] Calcium [Mass/Vol] 9.2 mg/dL 7.6 - 11. 0 mg/dL [facility] Chloride [Moles/Vol] 108 mmol/L 96 - 108 mmol/L [facility] CO2 [Moles/Vol] 21 mmol/L Low 22.0 - 29.0 mmol/L [facility] Creatinine [Mass/Vol] 0.69 mg/dL 0.50 - 1.00 mg/dL [facility] Glucose [Mass/Vol] 110 mg/dL High 70 - 99 mg/dL [facility] Comment on above: Criteria for Diagnos is of Diabetes: Fasting Specimen (no caloric intake for at least 8 hours): <100 mg/dL Normal 100-125 mg/dL Increased risk for Diabetes >125 mg/dL Diagnostic for Diabetes Random Glucose (any time of day without regard to last meal): > or = 200 mg/dL plus Classic Symptoms of Diabetes Interpretation and review of laboratory results Abnormal [facility] Potassium [Moles/Vol] 4.0 mmol/L 3.3 - 5.1 mmol/L [facility] Sodium [Moles/Vol] 139 mmol/L 133 - 145 mmol/L [facility] Urea nitrogen [Mass/Vol] 10 mg/dL 4 - 19 mg/dL [facility] C-Reactive Proteinon 023 CRP [Mass/Vol] mg/L Normal 0.0-1.0 [facility] Comment on above: Order Comment: Relea se to patient->Automatic 07433&Blood Result Comment: CRP determinations in neonates should be interpreted with caution. CRP may be elevated in circumstances not associated with inflammation (e.g. difficult delivery, pneumothorax). In premature neonates CRP levels may not rise to abnormal levels even if sepsis is present; some speculate that immature liver function decreases the ability to generate a CRP response. Performed By: #### S RATE #### [place] [address] C-reactive proteinon 023 CRP [Mass/Vol] mg/L 0.0 - 1.0 mg/dL [facility] Comment on above: CRP determinations i n neonates should be interpreted with caution. CRP may be elevated in circumstances not associated with inflammation (e.g. difficult delivery, pneumothorax). In premature neonates CRP levels may not rise to abnormal levels even if sepsis is present; some speculate that immature liver function decreases the ability to generate a CRP response. Complete Blood Counton 08-08 Differential Complete Automated Normal [facility] Comment on above: Order Comment: Relea se to patient->Automatic 69388&Blood Performed By: #### E SRAT #### [address] [address] Basophils/100 WBC (Bld) 0.20 % Normal 0.00-1.00 [facility] Comment on above: Order Comment: Relea se to patient->Automatic 69304&Blood Performed By: #### E SRAT #### [place] [address] Eosinophils/100 WBC (Bld) 2.40 % Normal 0.00-3.00 [facility] Comment on above: Order Comment: Relea se to patient->Automatic 35254&Blood Performed By: #### E SRAT #### [address] [id number] Erythrocyte distribution width (RBC) [Ratio] 13.2 % Normal 0.0-14.4 [facility] Comment on above: Order Comment: Relea se to patient->Automatic 81553&Blood Performed By: #### E SRAT #### [address] [address] Hematocrit (Bld) [Volume fraction] 40.5 % Normal 36.0-44.0 [facility] Comment on above: Order Comment: Relea se to patient->Automatic 09999&Blood Performed By: #### E SRAT #### [address] [address] Hemoglobin (Bld) [Mass/Vol] 13.8 g/dL Normal 12.0-15.0 [facility] Comment on above: Order Comment: Relea se to patient->Automatic 47950&Blood Performed By: #### E SRAT #### [address] [address] Immature granulocytes/100 WBC (Bld) 0.20 % Normal [facility] Comment on above: Order Comment: Relea se to patient->Automatic 46606&Blood Result Comment: Gretchen ture Granulocyte Percent includes promyelocytes, myelocytes, and metamyelocytes. IG% > 1.0 indicates a left shift is present. With automated differentials, bands are included in the neutrophil count and not in the Immature Granulocyte Percent. Performed By: #### E SRAT #### [address] [address] Lymphocytes/100 WBC (Bld) 35.0 % Normal 24.0-44.0 [facility] Comment on above: Order Comment: Relea se to patient->Automatic 61618&Blood Performed By: #### E SRAT #### [address] [address] MCH (RBC) [Entitic mass] 28.4 pg Normal 26.0-34.0 [facility] Comment on above: Order Comment: Relea se to patient->Automatic 38335&Blood Performed By: #### E SRAT #### [address] [address] MCHC 34.1 % Normal 31.0-37.0 [facility] Comment on above: Order Comment: Relea se to patient->Automatic 73947&Blood Performed By: #### E SRAT #### [address] [address] MCV (RBC) [Entitic vol] 83.3 fL Normal 80.0-100.0 [facility] Comment on above: Order Comment: Relea se to patient->Automatic 19634&Blood Performed By: #### E SRAT #### [address] [address] Monocytes/100 WBC (Bld) 6.00 % Normal 3.00-6.00 [facility] Comment on above: Order Comment: Relea se to patient->Automatic 22736&Blood Performed By: #### E SRAT #### [address] [address] Neutrophils (Bld) [#/Vol] 5.3 10*3/uL Normal 2.0-7.2 [facility] Comment on above: Order Comment: Relea se to patient->Automatic 66894&Blood Performed By: #### E SRAT #### [address] [address] Neutrophils/100 WBC (Bld) 56.2 % Normal 35.0-66.0 [facility] Comment on above: Order Comment: Relea se to patient->Automatic 79103&Blood Performed By: #### E SRAT #### [address] [address] Nucleated RBC/100 WBC (Bld) [Ratio] 0.0 % Normal -1.0-0.0 [facility] Comment on above: Order Comment: Relea se to patient->Automatic 39745&Blood Performed By: #### E SRAT #### [address] [address] Platelet mean volume (Bld) [Entitic vol] 10.3 fL Normal [facility] Comment on above: Order Comment: Relea se to patient->Automatic 01768&Blood Result Comment: MPV is platelet range and age dependent Performed By: #### E SRAT #### [address] [address] Platelets (Bld) [#/Vol] 253 10*3/uL Normal 150-450 [facility] Comment on above: Order Comment: Relea se to patient->Automatic 11522&Blood Performed By: #### E SRAT #### [address] [address] RBC 4.86 10E12/L Normal 4.00-4.90 [facility] Comment on above: Order Comment: Relea se to patient->Automatic 73415&Blood Performed By: #### E SRAT #### [address] [address] WBC (Bld) [#/Vol] 9.4 10*3/uL Normal 4.5-11.0 [facility] Comment on above: Order Comment: Relea se to patient->Automatic 14612&Blood Performed By: #### E SRAT #### [address] [address] Basophils/100 WBC (Bld) 0.2 % 0.00 - 1.00 % [facility] Differential Complete Automated [facility] Eosinophils/100 WBC (Bld) 2.40 % 0.00 - 3.00 % [facility] Erythrocyte distribution width (RBC) [Ratio] 13.2 % 0.0 - 14.4 % [facility] Hematocrit (Bld) [Volume fraction] 40.5 % 36.0 - 44.0 % [facility] Hemoglobin (Bld) [Mass/Vol] 13.8 g/dL 12.0 - 15.0 g/dl [facility] Immature granulocytes/100 WBC (Bld) 0.2 % [facility] Comment on above: Immature Granulocyte Percent includes promyelocytes, myelocytes, and metamyelocytes. IG% > 1.0 indicates a left shift is present. With automated differentials, bands are included in the neutrophil count and not in the Immature Granulocyte Percent. Lymphocytes/100 WBC (Bld) 35 % 24.0 - 44.0 % [facility] MCH (RBC) [Entitic mass] 28.4 pg 26.0 - 34.0 pg [facility] MCHC 34.1 % 31.0 - 37.0 % [facility] MCV (RBC) [Entitic vol] 83.3 fL 80.0 - 100.0 fl [facility] Monocytes/100 WBC (Bld) 6.00 % 3.00 - 6.00 % [facility] Neutrophils (Bld) [#/Vol] 5.3 10*3/uL [facility] Neutrophils/100 WBC (Bld) 56.2 % 35.0 - 66.0 % [facility] Nucleated RBC/100 WBC (Bld) [Ratio] 0 % -1.0 - 0.0 % [facility] Platelet mean volume (Bld) [Entitic vol] 10.3 fL [facility] Comment on above: MPV is platelet range and age dependent Platelets (Bld) [#/Vol] 253 10*3/uL [facility] RBC (Bld) [#/Vol] 4.86 10*6/uL [facility] WBC (Bld) [#/Vol] 9.4 10*3/uL [facility] Release to patient->Automatic [facility] Erythrocyte Sedimentation Ra kylah 08-08-2022 ESR (Bld) [Velocity] 10 mm/h Normal [facility] Comment on above: Order Comment: Relea se to patient->Automatic 48208&Blood Performed By: #### B MP #### [place] [address] ESR Interpretation ----- Normal [facility] Comment on above: Order Comment: Relea se to patient->Automatic 54975&Blood Result Comment: : 0-2 mm/hr [place] to puberty: 3-13 mm/hr - Less than 50 years old: Male: <15 mm/hr Female: <20 mm/hr - Greater than 50 years old: Male: <20 mm/hr Female: <30 mm/hr Performed By: #### B MP #### [place] [address] Erythrocyte Sedimentation Rate Interpretation ----- [facility] Comment on above: : 0-2 mm/hr to puberty: 3-13 mm/hr - Less than 50 years old: Male: <15 mm/hr Female: <20 mm/hr - Greater than 50 years old: Male: <20 mm/hr Female: <30 mm/hr ESR (Bld) [Velocity] 10 mm/h mm/hr [facility] Release to patient->Automatic [facility] Hepatic Panelon 08-08-2022 Albumin [Mass/Vol] 3.9 g/dL Normal 3.5-5.0 [facility] Comment on above: Order Comment: Relea se to patient->Automatic 43603&Blood Performed By: #### L IVER #### [place] [address] ALP [Catalytic activity/Vol] 60 U/L Normal 35-104 [facility] Comment on above: Order Comment: Relea se to patient->Automatic 56012&Blood Performed By: #### L IVER #### [facility] [address] [address] Bili, Conjugated <0.2 Normal 0.0-0.7 [facility] Comment on above: Order Comment: Relea se to patient->Automatic 04553&Blood Performed By: #### L IVER #### [address] [address] Bili,Total 0.6 mg/dL Normal 0.0-1.0 [facility] Comment on above: Order Comment: Relea se to patient->Automatic 37917&Blood Performed By: #### L IVER #### [address] [address] Protein [Mass/Vol] 7.1 g/dL Normal 5.9-8.4 [facility] Comment on above: Order Comment: Relea se to patient->Automatic 43292&Blood Performed By: #### L IVER #### [address] [address] ALT [Catalytic activity/Vol] 13 U/L Normal 0-34 [facility] Comment on above: Order Comment: Relea se to patient->Automatic 16534&Blood Performed By: #### L IVER #### [address] [address] AST [Catalytic activity/Vol] 13 U/L Normal 0-31 [facility] Comment on above: Order Comment: Relea se to patient->Automatic 85056&Blood Performed By: #### L IVER #### [address] [address] Hepatic function panelon Albumin [Mass/Vol] 3.9 g/dL 3.5 - 5.0 g/dL [facility] ALP [Catalytic activity/Vol] 60 U/L 35 - 104 U/L [facility] ALT [Catalytic activity/Vol] 13 U/L 0 - 34 U/L [facility] AST [Catalytic activity/Vol] 13 U/L 0 - 31 U/L [facility] Bilirubin [Mass/Vol] 0.6 mg/dL 0.0 - 1.0 mg/dL [facility] Bilirubin, Conjugated mg/dL 0.0 - 0.7 mg/dL [facility] Protein [Mass/Vol] 7.1 g/dL 5.9 - 8.4 g/dL [facility] No Panel Informationon 08-08 Release to patient->Automatic [facility] POCT urine HCGOrdered By: Me venus Pride on 08-08-2022 Clear Background *Present [facility] Control Line *Present [facility] HCG ( test) Ql (U) Negative Negative [facility] Interpretation and review of laboratory results Normal [facility] LOT # [id number] [facility] C Reactive Protein, Serumon 08-01-2022 CRP [Mass/Vol] mg/L -[facility] [address] DO Work Phone: Comment on above: REF VALUE< 1.00 C-REACTIVE PROTEINon 023 CRP [Mass/Vol] mg/L Normal [facility] Comment on above: Result Comment: REF VALUE < 1.00 Performed By: #### C RP #### [address] [address] CBCon 08-01-2022 Erythrocyte distribution width (RBC) [Ratio] 13.2 % Normal 11.5 - 14.5 [facility] Comment on above: Performed By: #### C BC #### [address] [address] Hematocrit (Bld) [Volume fraction] 41.9 % Normal 36.0 - 46.0 [facility] Comment on above: Performed By: #### C BC #### [address] [address] Hemoglobin (Bld) [Mass/Vol] 13.5 g/dL Normal 12.0 - 16.0 [facility] Comment on above: Performed By: #### C BC #### [address] [address] MCHC (RBC) [Mass/Vol] 32.2 g/dL Normal 32.0 - 36.0 [facility] Comment on above: Performed By: #### C BC #### [address] [address] MCV (RBC) [Entitic vol] 86 fL Normal 80 - 100 [facility] Comment on above: Performed By: #### C BC #### [address] [address] Platelets (Bld) [#/Vol] 295 10*3/uL Normal 150 - 450 [facility] Comment on above: Performed By: #### C BC #### [address] [address] RBC 4.85 x10E12/L Normal 4.00 - 5.20 [facility] Comment on above: Performed By: #### C BC #### [address] [address] WBC (Bld) [#/Vol] 12.3 10*3/uL High 4.4 - 11.3 [facility] Comment on above: Performed By: #### C BC #### [address] [address] COMPREHENSIVE PANELon 2022 Albumin [Mass/Vol] 3.9 g/dL Normal 3.4 - 5.0 [facility] Comment on above: Performed By: #### C MP #### [address] [address] ALP [Catalytic activity/Vol] 56 U/L Normal 33 - 110 [facility] Comment on above: Performed By: #### C MP #### [address] [address] ALT [Catalytic activity/Vol] 12 U/L Normal 7 - 45 [facility] Comment on above: Result Comment: Marlee ents treated with Sulfasalazine may generate falsely decreased results for ALT. Performed By: #### C MP #### [address] [address] Anion gap [Moles/Vol] 10 mmol/L Normal 10 - 20 [facility] Comment on above: Performed By: #### C MP #### [address] [address] AST [Catalytic activity/Vol] 11 U/L Normal 9 - 39 [facility] Comment on above: Performed By: #### C MP #### [address] [address] Bilirubin [Mass/Vol] 0.5 mg/dL Normal 0.0 - 1.2 [facility] Comment on above: Performed By: #### C MP #### [address] [address] Calcium [Mass/Vol] 8.8 mg/dL Normal 8.6 - 10.3 [facility] Comment on above: Performed By: #### C MP #### [address] [address] Chloride [Moles/Vol] 108 mmol/L High 98 - 107 [facility] Comment on above: Performed By: #### C MP #### [address] [address] Creatinine [Mass/Vol] 0.74 mg/dL Normal 0.50 - 1.05 [facility] Comment on above: Performed By: #### C MP #### [address] [address] eGFR FEMALE >90 Normal >90 [facility] Comment on above: Result Comment: CALC ULATIONS OF ESTIMATED GFR ARE PERFORMED USING THE 2020 CKD-EPI STUDY REFIT EQUATION WITHOUT THE RACE VARIABLE FOR THE IDMS-TRACEABLE CREATININE METHODS. https://jasn.asnjournals.org/content/early/ASN.28362451 88 Performed By: #### C MP #### [address] [address] Glucose [Mass/Vol] 85 mg/dL Normal 74 - 99 [facility] Comment on above: Performed By: #### C MP #### [address] [address] HCO3 (Bld) [Moles/Vol] 26 mmol/L Normal 21 - 32 [facility] Comment on above: Performed By: #### C MP #### [address] [address] Potassium [Moles/Vol] 4.0 mmol/L Normal 3.5 - 5.3 [facility] Comment on above: Performed By: #### C MP #### [address] [address] Protein [Mass/Vol] 6.7 g/dL Normal 6.4 - 8.2 [facility] Comment on above: Performed By: #### C MP #### [address] [address] Sodium [Moles/Vol] 140 mmol/L Normal 136 - 145 [facility] Comment on above: Performed By: #### C MP #### [address] [address] Urea nitrogen [Mass/Vol] 13 mg/dL Normal 6 - 23 [facility] Comment on above: Performed By: #### C MP #### [address] [address] Laboratory - Chemistry and C hemistry - challengeon 08-01-2022 Albumin BCP dye [Mass/Vol] 3.9 g/dL 3.4 - 5.0 [facility] 200 DO Work Phone: ALP [Catalytic activity/Vol] 56 U/L 33 - 110 [facility] DO Work Phone: ALT With P-5'-P [Catalytic activity/Vol] 12 U/L 7 - 45 [facility] 200 DO Work Phone: Comment on above: Patients treated wit h Sulfasalazine may generate falsely decreased results for ALT. Anion gap [Moles/Vol] 10 mmol/L 10 - 20 [facility] 200 DO Work Phone: AST With P-5'-P [Catalytic activity/Vol] 11 U/L 9 - 39 [facility] 200 DO Work Phone: Bilirubin [Mass/Vol] 0.5 mg/dL 0.0 - 1.2 [facility] 200 DO Work Phone: Calcium [Mass/Vol] 8.8 mg/dL 8.6 - 10.3 -[facility] 200 DO Work Phone: Chloride [Moles/Vol] 108 mmol/L above high threshold 98 - 107 [facility] 200 DO Work Phone: CO2 [Moles/Vol] 26 mmol/L 21 - 32 -[facility] Work Phone: Creatinine [Mass/Vol] 0.74 mg/dL See Below -[facility] DO Work Phone: Comment on above: Reference Range: 0.5 0 - 1.05 Glucose [Mass/Vol] 85 mg/dL 74 - 99 [facility] DO Work Phone: Potassium [Moles/Vol] 4.0 mmol/L 3.5 - 5.3 -[facility] DO Work Phone: Protein [Mass/Vol] 6.7 g/dL 6.4 - 8.2 -[facility] DO Work Phone: Sodium [Moles/Vol] 140 mmol/L 136 - 145 [facility] DO Work Phone: Urea nitrogen [Mass/Vol] 13 mg/dL 6 - 23 [facility] DO Work Phone: Laboratory - Hematology and Cell countson 08-01-2022 Erythrocyte distribution width (RBC) [Ratio] 13.2 % See Below -[facility] DO Work Phone: Comment on above: Reference Range: 11. 5 - 14.5 Hematocrit (Bld) [Volume fraction] 41.9 % See Below -[facility] DO Work Phone: Comment on above: Reference Range: 36. 0 - 46.0 Hemoglobin (Bld) [Mass/Vol] 13.5 g/dL See Below -[facility] DO Work Phone: Comment on above: Reference Range: 12. 0 - 16.0 MCHC (RBC) [Mass/Vol] 32.2 g/dL See Below -[facility] DO Work Phone: Comment on above: Reference Range: 32. 0 - 36.0 MCV (RBC) [Entitic vol] 86 fL 80 - 100 -[facility] DO Work Phone: Platelets (Bld) [#/Vol] 295 10*3/uL 150 - 450 -[facility] DO Work Phone: RBC (Bld) [#/Vol] 4.85 {x10E12/L} See Below -[facility] DO Work Phone: Comment on above: Reference Range: 4.0 0 - 5.20 WBC (Bld) [#/Vol] 12.3 10*3/uL above high threshold 4.4 - 11.3 -[facility] DO Work Phone: No Panel Informationon 08-01 >90 >90 [facility] DO Work Phone: [phone] Comment on above: CALCULATIONS OF JIM MATED GFR ARE PERFORMED USING THE 2020 CKD-EPI STUDY REFIT EQUATION WITHOUT THE RACE VARIABLE FOR THE IDMS-TRACEABLE CREATININE METHODS.https://jasn.asnjournals.org/content/early//ASN. 9888103604 Initial Visit (Gastroenterol ogy)on 07-18-2022 Initial Visit (Gastroenterology) Diagnoses/Problems Assessed Crohn's disease (555.9) (K50.90) Orders Crohn's disease C Reactive Protein, Serum; Status:Active; Requested for:18Jul2022; Perform:Lab Services - Lab To Draw (Blood Test); Due:16Oct2022;Ordered; For:Crohn's disease; Ordered By:Veronica Quiñones; Calprotectin, Fecal; Status:Active; Requested for:18Jul2022; Perform:Lab Services - Lab To Draw (Non-Blood Test); Due:16Oct2022;Ordered; For:Crohn's disease; Ordered By:Veronica Quiñones; Complete Blood Count; Status:Active; Requested for:18Jul2022; Perform:Lab Services - Lab To Draw (Blood Test); Due:16Oct2022;Ordered; For:Crohn's disease; Ordered By:Veronica Quiñones; Comprehensive Metabolic Panel; Status:Active; Requested for:18Jul2022; Perform:Lab Services - Lab To Draw (Blood Test); Due:16Oct2022;Ordered; For:Crohn's disease; Ordered By:Veronica Quiñones; Patient Discussion/Summary thank you for coming to your appointment today - Please do your blood work and stool studies in the outpatient lab - I will have you follow up with Dr. Casey in a month - I will touch base with him to start the process of transferring your infusions over to [facility]; keep your upcoming infusion at [facility] Call with any questions or concerns [phone] Provider Impressions 1. crohns disease Diagnosed in 2009 and doing well on Remicade since 2010. Will get baseline CBC, CMP, CRP, and calprotectin. She will monitor for any further rectal bleeding and call with any further concerns. Have sent for complete records from previous GI. I did find a note from 10/18/[address] Mccord in [facility] which nicely summarizes patient disease course; will scan this under office visits for easy finding. Patient will need to follow up with a physician to manage Remicade. Chief Complaint Crohn's disease of small and large intestine Seen by [facility] in [place] EGD and colon with [facility] about 1 year ago - per patient History of Present IllnessKRISTINE CRUM is a 22 year female with past medical history of crohns disease who presents for consultation requested by her PCP for evaluation of crohns disease PCP is Veronica Alberts MD Patients mother is here with her today Patient is transferring care to [facility] after previously following with Dr. Mccord at [facility] for Crohns Disease. Her Crohns phenotype is inflammatory, non-penetrating, non-stricturing. She was initially diagnosed in 2009 on EGD/colonoscopy. 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 She quickly failed 5-ASAs and she has been on Remicade since 2010 and has done very well with it. She has not had any hospitalizations for Crohns since starting Remicade. She has never had a surgical resection. She last had an EGD and colonoscopy in July 2021. Patient states she was told that everything looked good. She gets Remicade infusions every 6 weeks at [facility] infusion center currently, but will need to transfer to our facility. She gets rapid infusions and is only at the center for about an hour. She would like to continue the rapid infusions if possible. She is scheduled for an infusion the of August at [facility]; she plans to keep this appointment there, then try to transfer here. Her symptoms are mostly well-controlled. She denies any diarrhea. She did have about 3 days of rectal bleeding last week which is unusual for her, but that has since resolved. She also had some abdominal pain/cramping last week that has been improving as well, and she states she was on her period and feels some cramping was from that. She has been eating well and maintaining her weight. She otherwise denies N/V, melena, constipation, diarrhea, nocturnal diarrhea, or rectal pain. She denies any skin rashes, eye redness/pain, or joint pain. Social Hx: e-cigarette: currently vaping tobacco: none etoh: none illicit drug use: marijuana NSAIDs: rare Family Hx: father -- crohns disease No GI malignancy or pancreatitis Review of Systems Constitutional: no reported fever, chills, or weight loss. Skin: no reported icterus, lesions, or rash. Eye: no reported itching, pain, vision changes. Ear: no reported discharge, hearing loss, or pain. Nose: no reported congestion, discharge, or epistaxis. Mouth/throat: no reported dysphagia, hoarseness, or throat pain. Resp: no reported cough, dyspnea, or wheezing. Cardiovascular: no reported chest pain, lower extremity edema, or palpitations. GI: see hpi : no reported dysuria, hematuria, or frequency. Neuro: no reported confusion, memory loss, headaches, or dizziness. Psych: no reported anxiety, depression, or insomnia. Musculoskeletal: no reported arthralgia, joint swelling, or myalgias. Heme/lymph: no reported easy bleeding or bruising, or swollen lymph nodes. Endocrine: no reported cold/heat intolerance, polydipsia, or polyuria. Past Medical History Problems History of Abscess, gluteal (682.5) (more content not included)... Normal [facility] Basic Metabolic Panelon 06-09 Calcium [Mass/Vol] 9.0 mg/dL Normal 7.6-11.0 [facility] Comment on above: Order Comment: Relea se to patient->Automatic 80308&Blood Performed By: #### E SRAT #### [place] [address] CO2 [Moles/Vol] 21.5 mmol/L Low 22.0-29.0 [facility] Comment on above: Order Comment: Relea se to patient->Automatic 11464&Blood Performed By: #### E SRAT #### [place] [address] Creatinine [Mass/Vol] 0.66 mg/dL Normal 0.50-1.00 [facility] Comment on above: Order Comment: Relea se to patient->Automatic 61576&Blood Performed By: #### E SRAT #### [address] [address] Glucose [Mass/Vol] 82 mg/dL Normal 70-99 [facility] Comment on above: Order Comment: Relea se to patient->Automatic 20332&Blood Result Comment: Crit eria for Diagnosis of Diabetes: Fasting Specimen (no caloric intake for at least 8 hours): <100 mg/dL Normal 100-125 mg/dL Increased risk for Diabetes >125 mg/dL Diagnostic for Diabetes Random Glucose (any time of day without regard to last meal): > or = 200 mg/dL plus Classic Symptoms of Diabetes Performed By: #### E SRAT #### [place] [address] Urea nitrogen [Mass/Vol] 13 mg/dL Normal 4-19 [facility] Comment on above: Order Comment: Relea se to patient->Automatic 37989&Blood Performed By: #### E SRAT #### [place] [address] Chloride [Moles/Vol] 108 mmol/L Normal 96-108 [facility] Comment on above: Order Comment: Relea se to patient->Automatic 59365&Blood Performed By: #### E SRAT #### [place] [address] Potassium [Moles/Vol] 4.2 mmol/L Normal 3.3-5.1 [facility] Comment on above: Order Comment: Relea se to patient->Automatic 66273&Blood Performed By: #### E SRAT #### [place] [address] Sodium [Moles/Vol] 140 mmol/L Normal 133-145 [facility] Comment on above: Order Comment: Relea se to patient->Automatic 09584&Blood Performed By: #### E SRAT #### [place] [address] Calcium [Mass/Vol] 9.0 mg/dL 7.6 - 11. 0 mg/dL [facility] Chloride [Moles/Vol] 108 mmol/L 96 - 108 mmol/L [facility] CO2 [Moles/Vol] 21.5 mmol/L Low 22.0 - 29.0 mmol/L [facility] Creatinine [Mass/Vol] 0.66 mg/dL 0.50 - 1.00 mg/dL [facility] Glucose [Mass/Vol] 82 mg/dL 70 - 99 mg/dL [facility] Comment on above: Criteria for Diagnos is of Diabetes: Fasting Specimen (no caloric intake for at least 8 hours): <100 mg/dL Normal 100-125 mg/dL Increased risk for Diabetes >125 mg/dL Diagnostic for Diabetes Random Glucose (any time of day without regard to last meal): > or = 200 mg/dL plus Classic Symptoms of Diabetes Interpretation and review of laboratory results Abnormal [facility] Potassium [Moles/Vol] 4.2 mmol/L 3.3 - 5.1 mmol/L [facility] Sodium [Moles/Vol] 140 mmol/L 133 - 145 mmol/L [facility] Urea nitrogen [Mass/Vol] 13 mg/dL 4 - 19 mg/dL [facility] C-Reactive Proteinon 023 CRP [Mass/Vol] mg/L Normal 0.0-1.0 [facility] Comment on above: Order Comment: Relea se to patient->Automatic 92405&Blood Result Comment: CRP determinations in neonates should be interpreted with caution. CRP may be elevated in circumstances not associated with inflammation (e.g. difficult delivery, pneumothorax). In premature neonates CRP levels may not rise to abnormal levels even if sepsis is present; some speculate that immature liver function decreases the ability to generate a CRP response. Performed By: #### E SRAT #### [address] [address] C-reactive proteinon 023 CRP [Mass/Vol] mg/L 0.0 - 1.0 mg/dL [facility] Comment on above: CRP determinations i n neonates should be interpreted with caution. CRP may be elevated in circumstances not associated with inflammation (e.g. difficult delivery, pneumothorax). In premature neonates CRP levels may not rise to abnormal levels even if sepsis is present; some speculate that immature liver function decreases the ability to generate a CRP response. Complete Blood Counton 06-27 Differential Complete Automated Normal [facility] Comment on above: Order Comment: Relea se to patient->Automatic 22707&Blood Performed By: #### B MP #### [address] [address] Basophils/100 WBC (Bld) 0.40 % Normal 0.00-1.00 [facility] Comment on above: Order Comment: Relea se to patient->Automatic 69014&Blood Performed By: #### B MP #### [address] [address] Eosinophils/100 WBC (Bld) 3.10 % High 0.00-3.00 [facility] Comment on above: Order Comment: Relea se to patient->Automatic 86743&Blood Performed By: #### B MP #### [address] [address] Erythrocyte distribution width (RBC) [Ratio] 12.7 % Normal 0.0-14.4 [facility] Comment on above: Order Comment: Relea se to patient->Automatic 67810&Blood Performed By: #### B MP #### [address] [address] Hematocrit (Bld) [Volume fraction] 39.8 % Normal 36.0-44.0 [facility] Comment on above: Order Comment: Relea se to patient->Automatic 91590&Blood Performed By: #### B MP #### [address] [address] Hemoglobin (Bld) [Mass/Vol] 13.5 g/dL Normal 12.0-15.0 [facility] Comment on above: Order Comment: Relea se to patient->Automatic 46300&Blood Performed By: #### B MP #### [address] [address] Immature granulocytes/100 WBC (Bld) 0.10 % Normal [facility] Comment on above: Order Comment: Relea se to patient->Automatic 99115&Blood Result Comment: Gretchen ture Granulocyte Percent includes promyelocytes, myelocytes, and metamyelocytes. IG% > 1.0 indicates a left shift is present. With automated differentials, bands are included in the neutrophil count and not in the Immature Granulocyte Percent. Performed By: #### B MP #### [address] [address] Lymphocytes/100 WBC (Bld) 42.3 % Normal 24.0-44.0 [facility] Comment on above: Order Comment: Relea se to patient->Automatic 97336&Blood Performed By: #### B MP #### [address] [address] MCH (RBC) [Entitic mass] 28.4 pg Normal 26.0-34.0 [facility] Comment on above: Order Comment: Relea se to patient->Automatic 68197&Blood Performed By: #### B MP #### [address] [address] MCHC 33.9 % Normal 31.0-37.0 [facility] Comment on above: Order Comment: Relea se to patient->Automatic 69297&Blood Performed By: #### B MP #### [address] [address] MCV (RBC) [Entitic vol] 83.6 fL Normal 80.0-100.0 [facility] Comment on above: Order Comment: Relea se to patient->Automatic 01818&Blood Performed By: #### B MP #### [address] [address] Monocytes/100 WBC (Bld) 7.10 % High 3.00-6.00 [facility] Comment on above: Order Comment: Relea se to patient->Automatic 60277&Blood Performed By: #### B MP #### [address] [place] [address] Neutrophils (Bld) [#/Vol] 3.4 10*3/uL Normal 2.0-7.2 [facility] Comment on above: Order Comment: Relea se to patient->Automatic 01154&Blood Performed By: #### B MP #### [address] [address] Neutrophils/100 WBC (Bld) 47.0 % Normal 35.0-66.0 [facility] Comment on above: Order Comment: Relea se to patient->Automatic 79548&Blood Performed By: #### B MP #### [address] [address] Nucleated RBC/100 WBC (Bld) [Ratio] 0.8 % High -1.0-0.0 [facility] Comment on above: Order Comment: Relea se to patient->Automatic 16546&Blood Performed By: #### B MP #### [address] [address] Platelet mean volume (Bld) [Entitic vol] 10.6 fL Normal [facility] Comment on above: Order Comment: Relea se to patient->Automatic 97127&Blood Result Comment: MPV is platelet range and age dependent Performed By: #### B MP #### [address] [address] Platelets (Bld) [#/Vol] 260 10*3/uL Normal 150-450 [facility] Comment on above: Order Comment: Relea se to patient->Automatic 61512&Blood Performed By: #### B MP #### [address] [address] RBC 4.76 10E12/L Normal 4.00-4.90 [facility] Comment on above: Order Comment: Relea se to patient->Automatic 31444&Blood Performed By: #### B MP #### [facility] [address] [place] [address] WBC (Bld) [#/Vol] 7.2 10*3/uL Normal 4.5-11.0 [facility] Comment on above: Order Comment: Relea se to patient->Automatic 18837&Blood Performed By: #### B MP #### [facility] [address] [place], [place] [id number] Basophils/100 WBC (Bld) 0.4 % 0.00 - 1.00 % [facility] Differential Complete Automated [facility] Eosinophils/100 WBC (Bld) 3.10 % High 0.00 - 3.00 % [facility] Erythrocyte distribution width (RBC) [Ratio] 12.7 % 0.0 - 14.4 % [facility] Hematocrit (Bld) [Volume fraction] 39.8 % 36.0 - 44.0 % [facility] Hemoglobin (Bld) [Mass/Vol] 13.5 g/dL 12.0 - 15.0 g/dl [facility] Immature granulocytes/100 WBC (Bld) 0.1 % [facility] Comment on above: Immature Granulocyte Percent includes promyelocytes, myelocytes, and metamyelocytes. IG% > 1.0 indicates a left shift is present. With automated differentials, bands are included in the neutrophil count and not in the Immature Granulocyte Percent. Interpretation and review of laboratory results Abnormal [facility] Lymphocytes/100 WBC (Bld) 42.3 % 24.0 - 44.0 % [facility] MCH (RBC) [Entitic mass] 28.4 pg 26.0 - 34.0 pg [facility] MCHC 33.9 % 31.0 - 37.0 % [facility] MCV (RBC) [Entitic vol] 83.6 fL 80.0 - 100.0 fl [facility] Monocytes/100 WBC (Bld) 7.10 % High 3.00 - 6.00 % [facility] Neutrophils (Bld) [#/Vol] 3.4 10*3/uL [facility] Neutrophils/100 WBC (Bld) 47.0 % 35.0 - 66.0 % [facility] Nucleated RBC/100 WBC (Bld) [Ratio] 0.8 % High -1.0 - 0.0 % [facility] Platelet mean volume (Bld) [Entitic vol] 10.6 fL [facility] Comment on above: MPV is platelet range and age dependent Platelets (Bld) [#/Vol] 260 10*3/uL [facility] RBC (Bld) [#/Vol] 4.76 10*6/uL [facility] WBC (Bld) [#/Vol] 7.2 10*3/uL [facility] Release to patient->Automatic [facility] Erythrocyte Sedimentation Ra kylah 06-27-2022 ESR (Bld) [Velocity] 10 mm/h Normal [facility] Comment on above: Order Comment: Relea se to patient->Automatic 43551&Blood Performed By: #### E SRAT #### [place] [address] ESR Interpretation ----- Normal [facility] Comment on above: Order Comment: Relea se to patient->Automatic 54004&Blood Result Comment: : 0-2 mm/hr to puberty: 3-13 mm/hr - Less than 50 years old: Male: <15 mm/hr Female: <20 mm/hr - Greater than 50 years old: Male: <20 mm/hr Female: <30 mm/hr Performed By: #### E SRAT #### [place] [address] Erythrocyte Sedimentation Rate Interpretation ----- [facility] Comment on above: : 0-2 mm/hr to puberty: 3-13 mm/hr - Less than 50 years old: Male: <15 mm/hr Female: <20 mm/hr - Greater than 50 years old: Male: <20 mm/hr Female: <30 mm/hr ESR (Bld) [Velocity] 10 mm/h mm/hr [facility] Release to patient->Automatic [facility] Hepatic Panelon 06-27-2022 Albumin [Mass/Vol] 4.1 g/dL Normal 3.5-5.0 [facility] Comment on above: Order Comment: Relea se to patient->Automatic 53415&Blood Performed By: #### E SRAT #### [address] [address] ALP [Catalytic activity/Vol] 61 U/L Normal 35-104 [facility] Comment on above: Order Comment: Relea se to patient->Automatic 88236&Blood Performed By: #### E SRAT #### [address] [address] ALT [Catalytic activity/Vol] 12 U/L Normal 0-34 [facility] Comment on above: Order Comment: Relea se to patient->Automatic 40064&Blood Performed By: #### E SRAT #### [address] [address] AST [Catalytic activity/Vol] 15 U/L Normal 0-31 [facility] Comment on above: Order Comment: Relea se to patient->Automatic 95911&Blood Performed By: #### E SRAT #### [address] [address] Bili, Conjugated <0.2 Normal 0.0-0.7 [facility] Comment on above: Order Comment: Relea se to patient->Automatic 08470&Blood Performed By: #### E SRAT #### [address] [address] Bili,Total 0.4 mg/dL Normal 0.0-1.0 [facility] Comment on above: Order Comment: Relea se to patient->Automatic 62919&Blood Performed By: #### E SRAT #### [address] [address] Protein [Mass/Vol] 6.7 g/dL Normal 5.9-8.4 [facility] Comment on above: Order Comment: Joel harrington to patient->Automatic 48058&Blood Performed By: #### E SRAT #### [place] [id number] Hepatic function panelon Albumin [Mass/Vol] 4.1 g/dL 3.5 - 5.0 g/dL [facility] ALP [Catalytic activity/Vol] 61 U/L 35 - 104 U/L [facility] ALT [Catalytic activity/Vol] 12 U/L 0 - 34 U/L [facility] AST [Catalytic activity/Vol] 15 U/L 0 - 31 U/L [facility] Bilirubin [Mass/Vol] 0.4 mg/dL 0.0 - 1.0 mg/dL [facility] Bilirubin, Conjugated mg/dL 0.0 - 0.7 mg/dL [facility] Protein [Mass/Vol] 6.7 g/dL 5.9 - 8.4 g/dL [facility] No Panel Informationon 06-27 Release to patient->Automatic [facility] POCT urine HCGon 06-27-2022 Clear Background *Present [facility] Control Line *Present [facility] HCG ( test) Ql (U) Negative Negative [facility] Interpretation and review of laboratory results Normal [facility] LOT # [id number] [facility] Basic Metabolic Panelon Calcium [Mass/Vol] 9.1 mg/dL Normal 7.6-11.0 [facility] Comment on above: Order Comment: Joel harrington to patient->Automatic 41702&Blood Performed By: #### E SRAT #### [address] [address] CO2 [Moles/Vol] 21.2 mmol/L Low 22.0-29.0 [facility] Comment on above: Order Comment: Kishora se to patient->Automatic 38325&Blood Performed By: #### E SRAT #### [address] [address] Creatinine [Mass/Vol] 0.65 mg/dL Normal 0.50-1.00 [facility] Comment on above: Order Comment: Relea se to patient->Automatic 13507&Blood Performed By: #### E SRAT #### [address] [address] Glucose [Mass/Vol] 84 mg/dL Normal 70-99 [facility] Comment on above: Order Comment: Relea se to patient->Automatic 36313&Blood Result Comment: Crit eria for Diagnosis of Diabetes: Fasting Specimen (no caloric intake for at least 8 hours): <100 mg/dL Normal 100-125 mg/dL Increased risk for Diabetes >125 mg/dL Diagnostic for Diabetes Random Glucose (any time of day without regard to last meal): > or = 200 mg/dL plus Classic Symptoms of Diabetes Performed By: #### E SRAT #### [address] [address] Urea nitrogen [Mass/Vol] 16 mg/dL Normal 4-19 [facility] Comment on above: Order Comment: Relea se to patient->Automatic 57139&Blood Performed By: #### E SRAT #### [address] [address] Chloride [Moles/Vol] 107 mmol/L Normal 96-108 [facility] Comment on above: Order Comment: Relea se to patient->Automatic 85992&Blood Performed By: #### E SRAT #### [address] [address] Potassium [Moles/Vol] 4.0 mmol/L Normal 3.3-5.1 [facility] Comment on above: Order Comment: Relea se to patient->Automatic 40371&Blood Performed By: #### E SRAT #### [address] [place] [address] Sodium [Moles/Vol] 138 mmol/L Normal 133-145 [facility] Comment on above: Order Comment: Relea se to patient->Automatic 69108&Blood Performed By: #### E SRAT #### [address] [address] Calcium [Mass/Vol] 9.1 mg/dL 7.6 - 11. 0 mg/dL [facility] Chloride [Moles/Vol] 107 mmol/L 96 - 108 mmol/L [facility] CO2 [Moles/Vol] 21.2 mmol/L Low 22.0 - 29.0 mmol/L [facility] Creatinine [Mass/Vol] 0.65 mg/dL 0.50 - 1.00 mg/dL [facility] Glucose [Mass/Vol] 84 mg/dL 70 - 99 mg/dL [facility] Comment on above: Criteria for Diagnos is of Diabetes: Fasting Specimen (no caloric intake for at least 8 hours): <100 mg/dL Normal 100-125 mg/dL Increased risk for Diabetes >125 mg/dL Diagnostic for Diabetes Random Glucose (any time of day without regard to last meal): > or = 200 mg/dL plus Classic Symptoms of Diabetes Interpretation and review of laboratory results Abnormal [facility] Potassium [Moles/Vol] 4.0 mmol/L 3.3 - 5.1 mmol/L [facility] Sodium [Moles/Vol] 138 mmol/L 133 - 145 mmol/L [facility] Urea nitrogen [Mass/Vol] 16 mg/dL 4 - 19 mg/dL [facility] C-Reactive Proteinon 022 CRP [Mass/Vol] mg/L Normal 0.0-1.0 [facility] Comment on above: Order Comment: Relea se to patient->Automatic 37664&Blood Result Comment: CRP determinations in neonates should be interpreted with caution. CRP may be elevated in circumstances not associated with inflammation (e.g. difficult delivery, pneumothorax). In premature neonates CRP levels may not rise to abnormal levels even if sepsis is present; some speculate that immature liver function decreases the ability to generate a CRP response. Performed By: #### S RATE #### [address] [address] C-reactive proteinon 022 CRP [Mass/Vol] mg/L 0.0 - 1.0 mg/dL [facility] Comment on above: CRP determinations i n neonates should be interpreted with caution. CRP may be elevated in circumstances not associated with inflammation (e.g. difficult delivery, pneumothorax). In premature neonates CRP levels may not rise to abnormal levels even if sepsis is present; some speculate that immature liver function decreases the ability to generate a CRP response. Complete Blood Counton 05-16 Differential Complete Automated Normal [facility] Comment on above: Order Comment: Relea se to patient->Automatic 44827&Blood Performed By: #### E SRAT #### [place] [address] Basophils/100 WBC (Bld) 0.40 % Normal 0.00-1.00 [facility] Comment on above: Order Comment: Relea se to patient->Automatic 91828&Blood Performed By: #### E SRAT #### [address] [address] Eosinophils/100 WBC (Bld) 3.20 % High 0.00-3.00 [facility] Comment on above: Order Comment: Relea se to patient->Automatic 01241&Blood Performed By: #### E SRAT #### [address] [address] Erythrocyte distribution width (RBC) [Ratio] 12.9 % Normal 0.0-14.4 [facility] Comment on above: Order Comment: Relea se to patient->Automatic 41916&Blood Performed By: #### E SRAT #### [address] [id number] Hematocrit (Bld) [Volume fraction] 40.1 % Normal 36.0-44.0 [facility] Comment on above: Order Comment: Relea se to patient->Automatic 83178&Blood Performed By: #### E SRAT #### [address] [id number] Hemoglobin (Bld) [Mass/Vol] 13.5 g/dL Normal 12.0-15.0 [facility] Comment on above: Order Comment: Relea se to patient->Automatic 27190&Blood Performed By: #### E SRAT #### [address] [id number] Immature granulocytes/100 WBC (Bld) 0.10 % Normal [facility] Comment on above: Order Comment: Relea se to patient->Automatic 80229&Blood Result Comment: Gretchen ture Granulocyte Percent includes promyelocytes, myelocytes, and metamyelocytes. IG% > 1.0 indicates a left shift is present. With automated differentials, bands are included in the neutrophil count and not in the Immature Granulocyte Percent. Performed By: #### E SRAT #### [address] [address] Lymphocytes/100 WBC (Bld) 36.7 % Normal 24.0-44.0 [facility] Comment on above: Order Comment: Relea se to patient->Automatic 79062&Blood Performed By: #### E SRAT #### [address] [address] MCH (RBC) [Entitic mass] 27.8 pg Normal 26.0-34.0 [facility] Comment on above: Order Comment: Relea se to patient->Automatic 84551&Blood Performed By: #### E SRAT #### [address] [address] MCHC 33.7 % Normal 31.0-37.0 [facility] Comment on above: Order Comment: Relea se to patient->Automatic 89129&Blood Performed By: #### E SRAT #### [address] [address] MCV (RBC) [Entitic vol] 82.7 fL Normal 80.0-100.0 [facility] Comment on above: Order Comment: Relea se to patient->Automatic 81579&Blood Performed By: #### E SRAT #### [address] [address] Monocytes/100 WBC (Bld) 7.40 % High 3.00-6.00 [facility] Comment on above: Order Comment: Relea se to patient->Automatic 23615&Blood Performed By: #### E SRAT #### [address] [address] Neutrophils (Bld) [#/Vol] 4.8 10*3/uL Normal 2.0-7.2 [facility] Comment on above: Order Comment: Relea se to patient->Automatic 18774&Blood Performed By: #### E SRAT #### [address] [address] Neutrophils/100 WBC (Bld) 52.2 % Normal 35.0-66.0 [facility] Comment on above: Order Comment: Relea se to patient->Automatic 72563&Blood Performed By: #### E SRAT #### [address] [address] Nucleated RBC/100 WBC (Bld) [Ratio] 0.0 % Normal -1.0-0.0 [facility] Comment on above: Order Comment: Relea se to patient->Automatic 07437&Blood Performed By: #### E SRAT #### [address] [address] Platelet mean volume (Bld) [Entitic vol] 10.3 fL Normal [facility] Comment on above: Order Comment: Relea se to patient->Automatic 79481&Blood Result Comment: MPV is platelet range and age dependent Performed By: #### E SRAT #### [address] [address] Platelets (Bld) [#/Vol] 235 10*3/uL Normal 150-450 [facility] Comment on above: Order Comment: Relea se to patient->Automatic 23649&Blood Performed By: #### E SRAT #### [address] [address] RBC 4.85 10E12/L Normal 4.00-4.90 [facility] Comment on above: Order Comment: Relea se to patient->Automatic 02345&Blood Performed By: #### E SRAT #### [address] [address] WBC (Bld) [#/Vol] 9.2 10*3/uL Normal 4.5-11.0 [facility] Comment on above: Order Comment: Relea se to patient->Automatic 96764&Blood Performed By: #### E SRAT #### [address] [address] Basophils/100 WBC (Bld) 0.4 % 0.00 - 1.00 % [facility] Differential Complete Automated [facility] Eosinophils/100 WBC (Bld) 3.20 % High 0.00 - 3.00 % [facility] Erythrocyte distribution width (RBC) [Ratio] 12.9 % 0.0 - 14.4 % [facility] Hematocrit (Bld) [Volume fraction] 40.1 % 36.0 - 44.0 % [facility] Hemoglobin (Bld) [Mass/Vol] 13.5 g/dL 12.0 - 15.0 g/dl [facility] Immature granulocytes/100 WBC (Bld) 0.1 % [facility] Comment on above: Immature Granulocyte Percent includes promyelocytes, myelocytes, and metamyelocytes. IG% > 1.0 indicates a left shift is present. With automated differentials, bands are included in the neutrophil count and not in the Immature Granulocyte Percent. Interpretation and review of laboratory results Abnormal [facility] Lymphocytes/100 WBC (Bld) 36.7 % 24.0 - 44.0 % [facility] MCH (RBC) [Entitic mass] 27.8 pg 26.0 - 34.0 pg [facility] MCHC 33.7 % 31.0 - 37.0 % [facility] MCV (RBC) [Entitic vol] 82.7 fL 80.0 - 100.0 fl [facility] Monocytes/100 WBC (Bld) 7.40 % High 3.00 - 6.00 % [facility] Neutrophils (Bld) [#/Vol] 4.8 10*3/uL [facility] Neutrophils/100 WBC (Bld) 52.2 % 35.0 - 66.0 % [facility] Nucleated RBC/100 WBC (Bld) [Ratio] 0 % -1.0 - 0.0 % [facility] Platelet mean volume (Bld) [Entitic vol] 10.3 fL [facility] Comment on above: MPV is platelet range and age dependent Platelets (Bld) [#/Vol] 235 10*3/uL [facility] RBC (Bld) [#/Vol] 4.85 10*6/uL [facility] WBC (Bld) [#/Vol] 9.2 10*3/uL [facility] Release to patient->Automatic [facility] Erythrocyte Sedimentation Ra kylah 05-16-2022 ESR (Bld) [Velocity] 11 mm/h Normal [facility] Comment on above: Order Comment: Relea se to patient->Automatic 95867&Blood Performed By: #### S RATE #### [place] [address] ESR Interpretation ----- Normal [facility] Comment on above: Order Comment: Relea se to patient->Automatic 62428&Blood Result Comment: : 0-2 mm/hr [place] to puberty: 3-13 mm/hr - Less than 50 years old: Male: <15 mm/hr Female: <20 mm/hr - Greater than 50 years old: Male: <20 mm/hr Female: <30 mm/hr Performed By: #### S RATE #### [place] [address] Erythrocyte Sedimentation Rate Interpretation ----- [facility] Comment on above: : 0-2 mm/hr to puberty: 3-13 mm/hr - Less than 50 years old: Male: <15 mm/hr Female: <20 mm/hr - Greater than 50 years old: Male: <20 mm/hr Female: <30 mm/hr ESR (Bld) [Velocity] 11 mm/h mm/hr [facility] Release to patient->Automatic [facility] Hepatic Panelon 05-16-2022 Bili, Conjugated <0.2 Normal 0.0-0.7 [facility] Comment on above: Order Comment: Relea se to patient->Automatic 26237&Blood Performed By: #### B MP #### [place] [address] Bili,Total 0.4 mg/dL Normal 0.0-1.0 [facility] Comment on above: Order Comment: Relea se to patient->Automatic 52056&Blood Performed By: #### B MP #### [place] [address] Protein [Mass/Vol] 6.8 g/dL Normal 5.9-8.4 [facility] Comment on above: Order Comment: Relea se to patient->Automatic 49140&Blood Performed By: #### B MP #### [place] [address] Albumin [Mass/Vol] 4.0 g/dL Normal 3.5-5.0 [facility] Comment on above: Order Comment: Relea se to patient->Automatic 80903&Blood Performed By: #### B MP #### [place] [id number] ALP [Catalytic activity/Vol] 62 U/L Normal 35-104 [facility] Comment on above: Order Comment: Relea se to patient->Automatic 95227&Blood Performed By: #### B MP #### [address] [id number] ALT [Catalytic activity/Vol] 10 U/L Normal 0-34 [facility] Comment on above: Order Comment: Relea se to patient->Automatic 82157&Blood Performed By: #### B MP #### [address] [address] AST [Catalytic activity/Vol] 15 U/L Normal 0-31 [facility] Comment on above: Order Comment: Relea se to patient->Automatic 93052&Blood Performed By: #### B MP #### [place] [address] Hepatic function panelon Albumin [Mass/Vol] 4.0 g/dL 3.5 - 5.0 g/dL [facility] ALP [Catalytic activity/Vol] 62 U/L 35 - 104 U/L [facility] ALT [Catalytic activity/Vol] 10 U/L 0 - 34 U/L [facility] AST [Catalytic activity/Vol] 15 U/L 0 - 31 U/L [facility] Bilirubin [Mass/Vol] 0.4 mg/dL 0.0 - 1.0 mg/dL [facility] Bilirubin, Conjugated mg/dL 0.0 - 0.7 mg/dL [facility] Protein [Mass/Vol] 6.8 g/dL 5.9 - 8.4 g/dL [facility] No Panel Informationon 05-16 Release to patient->Automatic [facility] POCT urine HCGon 05-16-2022 Clear Background *Present [facility] Control Line *Present [facility] HCG ( test) Ql (U) Negative Negative [facility] Interpretation and review of laboratory results Normal [facility] LOT # [id number] [facility] Basic Metabolic Panelon 10-2 Calcium [Mass/Vol] 8.9 mg/dL Normal 7.6-11.0 [facility] Comment on above: Order Comment: Relea se to patient->Automatic 98067&Blood Performed By: #### S RATE #### [place] [address] CO2 [Moles/Vol] 19.5 mmol/L Low 22.0-29.0 [facility] Comment on above: Order Comment: Relea se to patient->Automatic 62838&Blood Performed By: #### S RATE #### [place] [address] Creatinine [Mass/Vol] 0.64 mg/dL Normal 0.50-1.00 [facility] Comment on above: Order Comment: Relea se to patient->Automatic 31811&Blood Performed By: #### S RATE #### [place] [address] Glucose [Mass/Vol] 94 mg/dL Normal 70-99 [facility] Comment on above: Order Comment: Relea se to patient->Automatic 34009&Blood Result Comment: Crit eria for Diagnosis of Diabetes: Fasting Specimen (no caloric intake for at least 8 hours): <100 mg/dL Normal 100-125 mg/dL Increased risk for Diabetes >125 mg/dL Diagnostic for Diabetes Random Glucose (any time of day without regard to last meal): > or = 200 mg/dL plus Classic Symptoms of Diabetes Performed By: #### S RATE #### [place] [address] Urea nitrogen [Mass/Vol] 11 mg/dL Normal 4-19 [facility] Comment on above: Order Comment: Relea se to patient->Automatic 35278&Blood Performed By: #### S RATE #### [address] [place] [address] Chloride [Moles/Vol] 106 mmol/L Normal 96-108 [facility] Comment on above: Order Comment: Relea se to patient->Automatic 82869&Blood Performed By: #### S RATE #### [place] [address] Potassium [Moles/Vol] 3.6 mmol/L Normal 3.3-5.1 [facility] Comment on above: Order Comment: Relea se to patient->Automatic 90911&Blood Performed By: #### S RATE #### [place] [address] Sodium [Moles/Vol] 137 mmol/L Normal 133-145 [facility] Comment on above: Order Comment: Relea se to patient->Automatic 15638&Blood Performed By: #### S RATE #### [place] [address] C-Reactive Proteinon 022 CRP [Mass/Vol] mg/L Normal 0.0-1.0 [facility] Comment on above: Order Comment: Relea se to patient->Automatic 92685&Blood Result Comment: CRP determinations in neonates should be interpreted with caution. CRP may be elevated in circumstances not associated with inflammation (e.g. difficult delivery, pneumothorax). In premature neonates CRP levels may not rise to abnormal levels even if sepsis is present; some speculate that immature liver function decreases the ability to generate a CRP response. Performed By: #### B MP #### [place] [address] Complete Blood Counton 04-02 Differential Complete Manual Normal [facility] Comment on above: Order Comment: Relea se to patient->Automatic 65719&Blood Performed By: #### S RATE #### [place] [address] Erythrocyte distribution width (RBC) [Ratio] 13.1 % Normal 0.0-14.4 [facility] Comment on above: Order Comment: Relea se to patient->Automatic 00530&Blood Performed By: #### S RATE #### [place] [address] Hematocrit (Bld) [Volume fraction] 37.8 % Normal 36.0-44.0 [facility] Comment on above: Order Comment: Relea se to patient->Automatic 61056&Blood Performed By: #### S RATE #### [place] [address] Hemoglobin (Bld) [Mass/Vol] 12.6 g/dL Normal 12.0-15.0 [facility] Comment on above: Order Comment: Relea se to patient->Automatic 77264&Blood Performed By: #### S RATE #### [place] [address] Immature granulocytes/100 WBC (Bld) 0.20 % Normal [facility] Comment on above: Order Comment: Relea se to patient->Automatic 43584&Blood Result Comment: Gretchen ture Granulocyte Percent includes promyelocytes, myelocytes, and metamyelocytes. IG% > 1.0 indicates a left shift is present. With automated differentials, bands are included in the neutrophil count and not in the Immature Granulocyte Percent. Performed By: #### S RATE #### [place] [address] MCH (RBC) [Entitic mass] 27.7 pg Normal 26.0-34.0 [facility] Comment on above: Order Comment: Relea se to patient->Automatic 11507&Blood Performed By: #### S RATE #### [place] [address] MCHC 33.3 % Normal 31.0-37.0 [facility] Comment on above: Order Comment: Relea se to patient->Automatic 11387&Blood Performed By: #### S RATE #### [address] [address] MCV (RBC) [Entitic vol] 83.1 fL Normal 80.0-100.0 [facility] Comment on above: Order Comment: Relea se to patient->Automatic 28606&Blood Performed By: #### S RATE #### [address] [address] Nucleated RBC/100 WBC (Bld) [Ratio] 0.0 % Normal -1.0-0.0 [facility] Comment on above: Order Comment: Relea se to patient->Automatic 33290&Blood Performed By: #### S RATE #### [address] [address] Platelet mean volume (Bld) [Entitic vol] 10.5 fL Normal [facility] Comment on above: Order Comment: Relea se to patient->Automatic 85585&Blood Result Comment: MPV is platelet range and age dependent Performed By: #### S RATE #### [address] [address] Platelets (Bld) [#/Vol] 265 10*3/uL Normal 150-450 [facility] Comment on above: Order Comment: Relea se to patient->Automatic 32887&Blood Performed By: #### S RATE #### [address] [address] RBC 4.55 10E12/L Normal 4.00-4.90 [facility] Comment on above: Order Comment: Relea se to patient->Automatic 11312&Blood Performed By: #### S RATE #### [address] [address] WBC (Bld) [#/Vol] 10.8 10*3/uL Normal 4.5-11.0 [facility] Comment on above: Order Comment: Relea se to patient->Automatic 37073&Blood Performed By: #### S RATE #### [place] [address] Erythrocyte Sedimentation Ra kylah 04-02-2022 ESR (Bld) [Velocity] 6 mm/h Normal [facility] Comment on above: Order Comment: Relea se to patient->Automatic 51664&Blood Performed By: #### S RATE #### [place] [address] ESR Interpretation ----- Normal [facility] Comment on above: Order Comment: Relea se to patient->Automatic 50412&Blood Result Comment: [place]: 0-2 mm/hr [place] to puberty: 3-13 mm/hr - Less than 50 years old: Male: <15 mm/hr Female: <20 mm/hr - Greater than 50 years old: Male: <20 mm/hr Female: <30 mm/hr Performed By: #### S RATE #### [place] [address] Hepatic Panelon 04-02-2022 Bili, Conjugated <0.2 Normal 0.0-0.7 [facility] Comment on above: Order Comment: Relea se to patient->Automatic 37314&Blood Performed By: #### B MP #### [place] [address] Bili,Total 0.3 mg/dL Normal 0.0-1.0 [facility] Comment on above: Order Comment: Relea se to patient->Automatic 67546&Blood Performed By: #### B MP #### [place] [address] Protein [Mass/Vol] 6.7 g/dL Normal 5.9-8.4 [facility] Comment on above: Order Comment: Relea se to patient->Automatic 13902&Blood Performed By: #### B MP #### [place] [address] Albumin [Mass/Vol] 4.1 g/dL Normal 3.5-5.0 [facility] Comment on above: Order Comment: Relea se to patient->Automatic 40722&Blood Performed By: #### B MP #### [address] [address] ALP [Catalytic activity/Vol] 64 U/L Normal 35-104 [facility] Comment on above: Order Comment: Relea se to patient->Automatic 30570&Blood Performed By: #### B MP #### [address] [address] ALT [Catalytic activity/Vol] 8 U/L Normal 0-34 [facility] Comment on above: Order Comment: Relea se to patient->Automatic 58543&Blood Performed By: #### B MP #### [address] [address] AST [Catalytic activity/Vol] 17 U/L Normal 0-31 [facility] Comment on above: Order Comment: Relea se to patient->Automatic 82113&Blood Performed By: #### B MP #### [address] [address] Manual Differentialon 2021 Absolute Neutrophil No. 6.6 10E3/uL Normal 2.0-7.2 [facility] Comment on above: Order Comment: Relea se to patient->Automatic 80674&Blood Performed By: #### B MP #### [address] [address] Anisocytosis Slight Normal [facility] Comment on above: Order Comment: Relea se to patient->Automatic 73299&Blood Performed By: #### B MP #### [address] [address] Band Neutrophils 0 % Low 5-11 [facility] Comment on above: Order Comment: Relea se to patient->Automatic 94269&Blood Performed By: #### B MP #### [address] [address] Basophils 1 % Normal 0-1 [facility] Comment on above: Order Comment: Relea se to patient->Automatic 15788&Blood Performed By: #### B MP #### [address] [address] Eosinophils 1 % Normal 0-3 [facility] Comment on above: Order Comment: Relea se to patient->Automatic 46430&Blood Performed By: #### B MP #### [address] [address] Lymphocytes 32 % Normal 24-44 [facility] Comment on above: Order Comment: Relea se to patient->Automatic 94129&Blood Performed By: #### B MP #### [address] [address] Metamyelocytes 0 % Normal 0-0 [facility] Comment on above: Order Comment: Relea se to patient->Automatic 08827&Blood Performed By: #### B MP #### [address] [address] Monocytes 5 % Normal 3-6 [facility] Comment on above: Order Comment: Relea se to patient->Automatic 37458&Blood Performed By: #### B MP #### [address] [address] Myelocytes 0 % Normal 0-0 [facility] Comment on above: Order Comment: Relea se to patient->Automatic 97724&Blood Performed By: #### B MP #### [address] [address] Poikilocytosis Slight Normal [facility] Comment on above: Order Comment: Relea se to patient->Automatic 51462&Blood Result Comment: Slig ht # Target Cells Performed By: #### B MP #### [address] [address] Promyelocytes 0 % Normal 0-0 [facility] Comment on above: Order Comment: Relea se to patient->Automatic 07503&Blood Performed By: #### B MP #### [address] [id number] Segmented Neutrophils 61 % Normal 35-66 [facility] Comment on above: Order Comment: Relea se to patient->Automatic 51214&Blood Performed By: #### B MP #### [address] [address] Basic Metabolic Panelon 02-06 Calcium [Mass/Vol] 9.0 mg/dL Normal 7.6-11.0 [facility] Comment on above: Order Comment: Relea se to patient->Automatic 00592&Blood Performed By: #### B MP #### [address] [address] CO2 [Moles/Vol] 21.4 mmol/L Low 22.0-29.0 [facility] Comment on above: Order Comment: Relea se to patient->Automatic 84708&Blood Performed By: #### B MP #### [address] [address] Creatinine [Mass/Vol] 0.67 mg/dL Normal 0.50-1.00 [facility] Comment on above: Order Comment: Relea se to patient->Automatic 77969&Blood Performed By: #### B MP #### [address] [id number] Glucose [Mass/Vol] 95 mg/dL Normal 70-99 [facility] Comment on above: Order Comment: Relea se to patient->Automatic 66525&Blood Result Comment: Rob maria for Diagnosis of Diabetes: Fasting Specimen (no caloric intake for at least 8 hours): <100 mg/dL Normal 100-125 mg/dL Increased risk for Diabetes >125 mg/dL Diagnostic for Diabetes Random Glucose (any time of day without regard to last meal): > or = 200 mg/dL plus Classic Symptoms of Diabetes Performed By: #### B MP #### [place] [address] Urea nitrogen [Mass/Vol] 12 mg/dL Normal 4-19 [facility] Comment on above: Order Comment: Relea se to patient->Automatic 67464&Blood Performed By: #### B MP #### [address] [address] Chloride [Moles/Vol] 108 mmol/L Normal 96-108 [facility] Comment on above: Order Comment: Relea se to patient->Automatic 23774&Blood Performed By: #### B MP #### [address] [address] Potassium [Moles/Vol] 4.0 mmol/L Normal 3.3-5.1 [facility] Comment on above: Order Comment: Relea se to patient->Automatic 78198&Blood Performed By: #### B MP #### [address] [address] Sodium [Moles/Vol] 138 mmol/L Normal 133-145 [facility] Comment on above: Order Comment: Relea se to patient->Automatic 07091&Blood Performed By: #### B MP #### [address] [address] Calcium [Mass/Vol] 9.0 mg/dL 7.6 - 11 mg/dL [facility] Chloride [Moles/Vol] 108 mmol/L 96 - 108 mmol/L [facility] CO2 [Moles/Vol] 21.4 mmol/L Low 22 - 29 mmol/L [facility] Creatinine [Mass/Vol] 0.67 mg/dL 0.5 - 1 mg/dL [facility] Glucose [Mass/Vol] 95 mg/dL 70 - 99 mg/dL [facility] Comment on above: Criteria for Diagnos is of Diabetes: Fasting Specimen (no caloric intake for at least 8 hours): <100 mg/dL Normal 100-125 mg/dL Increased risk for Diabetes >125 mg/dL Diagnostic for Diabetes Random Glucose (any time of day without regard to last meal): > or = 200 mg/dL plus Classic Symptoms of Diabetes Interpretation and review of laboratory results Abnormal [facility] Potassium [Moles/Vol] 4.0 mmol/L 3.3 - 5.1 mmol/L [facility] Sodium [Moles/Vol] 138 mmol/L 133 - 145 mmol/L [facility] Urea nitrogen [Mass/Vol] 12 mg/dL 4 - 19 mg/dL [facility] C-Reactive Proteinon 022 CRP [Mass/Vol] mg/L Normal 0.0-1.0 [facility] Comment on above: Order Comment: Relea se to patient->Automatic 22194&Blood Result Comment: CRP determinations in neonates should be interpreted with caution. CRP may be elevated in circumstances not associated with inflammation (e.g. difficult delivery, pneumothorax). In premature neonates CRP levels may not rise to abnormal levels even if sepsis is present; some speculate that immature liver function decreases the ability to generate a CRP response. Performed By: #### C RP #### [place] [address] C-reactive proteinon 022 CRP [Mass/Vol] mg/L 0 - 1 mg/dL [facility] Comment on above: CRP determinations i n neonates should be interpreted with caution. CRP may be elevated in circumstances not associated with inflammation (e.g. difficult delivery, pneumothorax). In premature neonates CRP levels may not rise to abnormal levels even if sepsis is present; some speculate that immature liver function decreases the ability to generate a CRP response. Complete Blood Counton 02-20 Differential Complete Automated Normal [facility] Comment on above: Order Comment: Relea se to patient->Automatic 74035&Blood Performed By: #### L IVER #### [address] [address] Basophils/100 WBC (Bld) 0.20 % Normal 0.00-1.00 [facility] Comment on above: Order Comment: Relea se to patient->Automatic 68254&Blood Performed By: #### L IVER #### [address] [address] Eosinophils/100 WBC (Bld) 3.90 % High 0.00-3.00 [facility] Comment on above: Order Comment: Relea se to patient->Automatic 72426&Blood Performed By: #### L IVER #### [address] [address] Erythrocyte distribution width (RBC) [Ratio] 13.2 % Normal 0.0-14.4 [facility] Comment on above: Order Comment: Relea se to patient->Automatic 99912&Blood Performed By: #### L IVER #### [address] [address] Hematocrit (Bld) [Volume fraction] 38.7 % Normal 36.0-44.0 [facility] Comment on above: Order Comment: Relea se to patient->Automatic 91073&Blood Performed By: #### L IVER #### [address] [address] Hemoglobin (Bld) [Mass/Vol] 13.1 g/dL Normal 12.0-15.0 [facility] Comment on above: Order Comment: Relea se to patient->Automatic 37021&Blood Performed By: #### L IVER #### [address] [address] Immature granulocytes/100 WBC (Bld) 0.20 % Normal [facility] Comment on above: Order Comment: Relea se to patient->Automatic 85072&Blood Result Comment: Gretchen ture Granulocyte Percent includes promyelocytes, myelocytes, and metamyelocytes. IG% > 1.0 indicates a left shift is present. With automated differentials, bands are included in the neutrophil count and not in the Immature Granulocyte Percent. Performed By: #### L IVER #### [address] [address] Lymphocytes/100 WBC (Bld) 44.6 % High 24.0-44.0 [facility] Comment on above: Order Comment: Relea se to patient->Automatic 24933&Blood Performed By: #### L IVER #### [address] [address] MCH (RBC) [Entitic mass] 27.9 pg Normal 26.0-34.0 [facility] Comment on above: Order Comment: Relea se to patient->Automatic 07430&Blood Performed By: #### L IVER #### [address] [address] MCHC 33.9 % Normal 31.0-37.0 [facility] Comment on above: Order Comment: Relea se to patient->Automatic 56244&Blood Performed By: #### L IVER #### [address] [address] MCV (RBC) [Entitic vol] 82.5 fL Normal 80.0-100.0 [facility] Comment on above: Order Comment: Relea se to patient->Automatic 97387&Blood Performed By: #### L IVER #### [address] [address] Monocytes/100 WBC (Bld) 6.10 % High 3.00-6.00 [facility] Comment on above: Order Comment: Relea se to patient->Automatic 77800&Blood Performed By: #### L IVER #### [address] [address] Neutrophils (Bld) [#/Vol] 3.6 10*3/uL Normal 2.0-7.2 [facility] Comment on above: Order Comment: Relea se to patient->Automatic 88139&Blood Performed By: #### L IVER #### [address] [address] Neutrophils/100 WBC (Bld) 45.0 % Normal 35.0-66.0 [facility] Comment on above: Order Comment: Relea se to patient->Automatic 18665&Blood Performed By: #### L IVER #### [address] [address] Nucleated RBC/100 WBC (Bld) [Ratio] 0.0 % Normal -1.0-0.0 [facility] Comment on above: Order Comment: Relea se to patient->Automatic 07297&Blood Performed By: #### L IVER #### [address] [address] Platelet mean volume (Bld) [Entitic vol] 10.8 fL Normal [facility] Comment on above: Order Comment: Relea se to patient->Automatic 12162&Blood Result Comment: MPV is platelet range and age dependent Performed By: #### L IVER #### [address] [address] Platelets (Bld) [#/Vol] 245 10*3/uL Normal 150-450 [facility] Comment on above: Order Comment: Relea se to patient->Automatic 08582&Blood Performed By: #### L IVER #### [address] [address] RBC 4.69 10E12/L Normal 4.00-4.90 [facility] Comment on above: Order Comment: Relea se to patient->Automatic 61039&Blood Performed By: #### L IVER #### [address] [address] WBC (Bld) [#/Vol] 8.0 10*3/uL Normal 4.5-11.0 [facility] Comment on above: Order Comment: Joel harrington to patient->Automatic 87313&Blood Performed By: #### L KALANI #### [address] [address] Basophils/100 WBC (Bld) 0.2 % 0 - 1 % [facility] Differential Complete Automated [facility] Eosinophils/100 WBC (Bld) 3.90 % High 0 - 3 % [facility] Erythrocyte distribution width (RBC) [Ratio] 13.2 % 0 - 14.4 % [facility] Hematocrit (Bld) [Volume fraction] 38.7 % 36 - 44 % [facility] Hemoglobin (Bld) [Mass/Vol] 13.1 g/dL 12 - 15 g/dl [facility] Immature granulocytes/100 WBC (Bld) 0.2 % [facility] Comment on above: Immature Granulocyte Percent includes promyelocytes, myelocytes, and metamyelocytes. IG% > 1.0 indicates a left shift is present. With automated differentials, bands are included in the neutrophil count and not in the Immature Granulocyte Percent. Interpretation and review of laboratory results Abnormal [facility] Lymphocytes/100 WBC (Bld) 44.6 % High 24 - 44 % [facility] MCH (RBC) [Entitic mass] 27.9 pg 26 - 34 pg [facility] MCHC 33.9 % 31 - 37 % [facility] MCV (RBC) [Entitic vol] 82.5 fL 80 - 100 fl [facility] Monocytes/100 WBC (Bld) 6.10 % High 3 - 6 % [facility] Neutrophils (Bld) [#/Vol] 3.6 10*3/uL [facility] Neutrophils/100 WBC (Bld) 45.0 % 35 - 66 % [facility] Nucleated RBC/100 WBC (Bld) [Ratio] 0 % -1 - 0 % [facility] Platelet mean volume (Bld) [Entitic vol] 10.8 fL [facility] Comment on above: MPV is platelet range and age dependent Platelets (Bld) [#/Vol] 245 10*3/uL [facility] RBC (Bld) [#/Vol] 4.69 10*6/uL [facility] WBC (Bld) [#/Vol] 8.0 10*3/uL [facility] Release to patient->Automatic [facility] Erythrocyte Sedimentation Ra kylah 02-20-2022 ESR (Bld) [Velocity] 9 mm/h Normal [facility] Comment on above: Order Comment: Relea se to patient->Automatic 04554&Blood Performed By: #### E SRAT #### [place] [address] ESR Interpretation ----- Normal [facility] Comment on above: Order Comment: Relea se to patient->Automatic 07622&Blood Result Comment: : 0-2 mm/hr to puberty: 3-13 mm/hr - Less than 50 years old: Male: <15 mm/hr Female: <20 mm/hr - Greater than 50 years old: Male: <20 mm/hr Female: <30 mm/hr Performed By: #### E SRAT #### [place] [address] Erythrocyte Sedimentation Rate Interpretation ----- [facility] Comment on above: [place]: 0-2 mm/hr to puberty: 3-13 mm/hr - Less than 50 years old: Male: <15 mm/hr Female: <20 mm/hr - Greater than 50 years old: Male: <20 mm/hr Female: <30 mm/hr ESR (Bld) [Velocity] 9 mm/h mm/hr [facility] Release to patient->Automatic [facility] Hepatic Panelon 02-20-2022 Albumin [Mass/Vol] 3.8 g/dL Normal 3.5-5.0 [facility] Comment on above: Order Comment: Relea se to patient->Automatic 63810&Blood Performed By: #### E SRAT #### [address] [address] ALP [Catalytic activity/Vol] 62 U/L Normal 35-104 [facility] Comment on above: Order Comment: Relea se to patient->Automatic 49790&Blood Performed By: #### E SRAT #### [address] [address] ALT [Catalytic activity/Vol] 7 U/L Normal 0-34 [facility] Comment on above: Order Comment: Relea se to patient->Automatic 68275&Blood Performed By: #### E SRAT #### [address] [address] AST [Catalytic activity/Vol] 14 U/L Normal 0-31 [facility] Comment on above: Order Comment: Relea se to patient->Automatic 90326&Blood Performed By: #### E SRAT #### [address] [address] Bili, Conjugated <0.2 Normal 0.0-0.7 [facility] Comment on above: Order Comment: Relea se to patient->Automatic 85632&Blood Performed By: #### E SRAT #### [address] [address] Bili,Total 0.5 mg/dL Normal 0.0-1.0 [facility] Comment on above: Order Comment: Relea se to patient->Automatic 04761&Blood Performed By: #### E SRAT #### [address] [address] Protein [Mass/Vol] 7.0 g/dL Normal 5.9-8.4 [facility] Comment on above: Order Comment: Relea se to patient->Automatic 15750&Blood Performed By: #### E SRAT #### [address] [address] Hepatic function panelon Albumin [Mass/Vol] 3.8 g/dL 3.5 - 5 g/dL [facility] ALP [Catalytic activity/Vol] 62 U/L 35 - 104 U/L [facility] ALT [Catalytic activity/Vol] 7 U/L 0 - 34 U/L [facility] AST [Catalytic activity/Vol] 14 U/L 0 - 31 U/L [facility] Bilirubin [Mass/Vol] 0.5 mg/dL 0 - 1 mg/dL [facility] Bilirubin, Conjugated mg/dL 0 - 0.7 mg/dL [facility] Protein [Mass/Vol] 7.0 g/dL 5.9 - 8.4 g/dL [facility] No Panel Informationon 02-20 Release to patient->Automatic [facility] POCT urine HCGon 02-20-2022 Clear Background *Present [facility] Control Line *Present [facility] HCG ( test) Ql (U) Negative Negative [facility] Interpretation and review of laboratory results Normal [facility] LOT # [id number] [facility] Quantiferon TB Goldon 2021 Mitogen minus NIL 9.96 IU/mL Normal [facility] Comment on above: Order Comment: Relea se to patient->Automatic 06075&Blood Performed By: #### Q [facility] #### [address] [address] Quantiferon minus NIL 0.04 IU/mL Normal [facility] Comment on above: Order Comment: Relea se to patient->Automatic 95653&Blood Result Comment: Inte rferon gamma release is measured for specimens from each of the four collection tubes. A qualitative result (Negative, Positive, or Indeterminate) is based on interpretation of the four values, NIL, Mitogen minus NIL(MITOGEN-NIL, TBI minus Nil (TBI-NIL), and TB2 minus NIL(TB2)-NIL). The NIL value represents nonspecific reactivity produced by the patient specimen. The MITOGEN-NIL value serves as the positive control for the patient specimen, demonstrating successful lymphocyte activity. The TBI-NIL tube specifically detects CD4+ lymphocyte reactivity, specifically stimulated by the TBI antigens. The TB2-NIL tube detects both CD4+ and CD8+ lymphocyte reactivity, stimulated by TB2 antigens. An overall Negative result does not completely rule out TB infection. A false-positive result in the absence of other clinical evidence of TB infection is not common and may be due to infection from some NTM(M. kansasii, M. szulgai, or M. marinum). Testing Performed: [place] [address] Performed By: #### Q [facility] #### [address] [address] Quantiferon TB Gold Negative Normal Negative [facility] Comment on above: Order Comment: Relea se to patient->Automatic 91041&Blood Performed By: #### Q UTBG #### [address] [address] TB1 minus NIL 0.00 IU/mL Normal 0.00-0.34 [facility] Comment on above: Order Comment: Relea se to patient->Automatic 44151&Blood Performed By: #### Q UTBG #### [address] [address] TB2 minus NIL 0.02 IU/mL Normal 0.00-0.34 [facility] Comment on above: Order Comment: Relea se to patient->Automatic 72274&Blood Performed By: #### Q UTBG #### [address] [address] Hepatitis Acute Panelon 08-0 Hep B Core Ab, IgM Negative Normal Negative [facility] Comment on above: Order Comment: Relea se to patient->Automatic 34350&Blood Performed By: #### E SRAT #### [address] [address] Hepatitis A Ab, IgM Negative Normal Negative [facility] Comment on above: Order Comment: Relea se to patient->Automatic 32231&Blood Result Comment: Resu lt does not exclude the possibility of exposure to hepatitis A virus. Antibody level during early infection stage may be below the limit of detection of the assay. Performed By: #### E SRAT #### [address] [id number] Hepatitis Bs Antigen Negative Normal Negative [facility] Comment on above: Order Comment: Relea se to patient->Automatic 70453&Blood Performed By: #### E SRAT #### [address] [id number] Hepatitis C Antibody Negative Normal Negative [facility] Comment on above: Order Comment: Relea se to patient->Automatic 49544&Blood Result Comment: Sign [id number] ratio is <1.00. Test Performed by: [place] [address] [place] [address] Options Advisor: Tomas Gomez M.D. Ph.D.; CLIA# [id number] Performed By: #### E SRAT #### [address] [address] Basic Metabolic Panelon 08-0 -2021 Calcium [Mass/Vol] 8.8 mg/dL Normal 7.6-11.0 [facility] Comment on above: Order Comment: Relea se to patient->Automatic 46610&Blood Performed By: #### E SRAT #### [address] [address] CO2 [Moles/Vol] 23.3 mmol/L Normal 22.0-29.0 [facility] Comment on above: Order Comment: Relea se to patient->Automatic 82288&Blood Performed By: #### E SRAT #### [address] [id number] Creatinine [Mass/Vol] 0.63 mg/dL Normal 0.50-1.00 [facility] Comment on above: Order Comment: Relea se to patient->Automatic 86620&Blood Performed By: #### E SRAT #### [address] [address] Glucose [Mass/Vol] 93 mg/dL Normal 70-99 [facility] Comment on above: Order Comment: Relea se to patient->Automatic 89667&Blood Result Comment: Crit candace for Diagnosis of Diabetes: Fasting Specimen (no caloric intake for at least 8 hours): <100 mg/dL Normal 100-125 mg/dL Increased risk for Diabetes >125 mg/dL Diagnostic for Diabetes Random Glucose (any time of day without regard to last meal): > or = 200 mg/dL plus Classic Symptoms of Diabetes Performed By: #### E SRAT #### [address] [address] Urea nitrogen [Mass/Vol] 9 mg/dL Normal 4-19 [facility] Comment on above: Order Comment: Relea se to patient->Automatic 10976&Blood Performed By: #### E SRAT #### [address] [address] Chloride [Moles/Vol] 107 mmol/L Normal 96-108 [facility] Comment on above: Order Comment: Relea se to patient->Automatic 57426&Blood Performed By: #### E SRAT #### [address] [address] Potassium [Moles/Vol] 3.8 mmol/L Normal 3.3-5.1 [facility] Comment on above: Order Comment: Relea se to patient->Automatic 82535&Blood Performed By: #### E SRAT #### [address] [address] Sodium [Moles/Vol] 138 mmol/L Normal 133-145 [facility] Comment on above: Order Comment: Relea se to patient->Automatic 06867&Blood Performed By: #### E SRAT #### [address] [address] Calcium [Mass/Vol] 8.8 mg/dL 7.6 - 11 mg/dL [facility] Chloride [Moles/Vol] 107 mmol/L 96 - 108 mmol/L [facility] CO2 [Moles/Vol] 23.3 mmol/L 22 - 29 mmol/L [facility] Creatinine [Mass/Vol] 0.63 mg/dL 0.5 - 1 mg/dL [facility] Glucose [Mass/Vol] 93 mg/dL 70 - 99 mg/dL [facility] Comment on above: Criteria for Diagnos is of Diabetes: Fasting Specimen (no caloric intake for at least 8 hours): <100 mg/dL Normal 100-125 mg/dL Increased risk for Diabetes >125 mg/dL Diagnostic for Diabetes Random Glucose (any time of day without regard to last meal): > or = 200 mg/dL plus Classic Symptoms of Diabetes Potassium [Moles/Vol] 3.8 mmol/L 3.3 - 5.1 mmol/L [facility] Sodium [Moles/Vol] 138 mmol/L 133 - 145 mmol/L [facility] Urea nitrogen [Mass/Vol] 9 mg/dL 4 - 19 mg/dL [facility] C-Reactive Proteinon CRP [Mass/Vol] mg/L Normal 0.0-1.0 [facility] Comment on above: Order Comment: Relea se to patient->Automatic 97645&Blood Result Comment: CRP determinations in neonates should be interpreted with caution. CRP may be elevated in circumstances not associated with inflammation (e.g. difficult delivery, pneumothorax). In premature neonates CRP levels may not rise to abnormal levels even if sepsis is present; some speculate that immature liver function decreases the ability to generate a CRP response. Performed By: #### C RP #### [address] [address] C-reactive proteinon 022 CRP [Mass/Vol] mg/L 0 - 1 mg/dL [facility] Comment on above: CRP determinations i n neonates should be interpreted with caution. CRP may be elevated in circumstances not associated with inflammation (e.g. difficult delivery, pneumothorax). In premature neonates CRP levels may not rise to abnormal levels even if sepsis is present; some speculate that immature liver function decreases the ability to generate a CRP response. Complete Blood Counton 01-09 Differential Complete Automated Normal [facility] Comment on above: Order Comment: Relea se to patient->Automatic 38008&Blood Performed By: #### L IVER #### [address] [address] Basophils/100 WBC (Bld) 0.40 % Normal 0.00-1.00 [facility] Comment on above: Order Comment: Relea se to patient->Automatic 16410&Blood Performed By: #### L IVER #### [address] [address] Eosinophils/100 WBC (Bld) 3.60 % High 0.00-3.00 [facility] Comment on above: Order Comment: Relea se to patient->Automatic 69781&Blood Performed By: #### L IVER #### [address] [address] Erythrocyte distribution width (RBC) [Ratio] 12.8 % Normal 0.0-14.4 [facility] Comment on above: Order Comment: Relea se to patient->Automatic 14004&Blood Performed By: #### L IVER #### [address] [address] Hematocrit (Bld) [Volume fraction] 38.2 % Normal 36.0-44.0 [facility] Comment on above: Order Comment: Relea se to patient->Automatic 21228&Blood Performed By: #### L IVER #### [address] [address] Hemoglobin (Bld) [Mass/Vol] 12.6 g/dL Normal 12.0-15.0 [facility] Comment on above: Order Comment: Relea se to patient->Automatic 46650&Blood Performed By: #### L IVER #### [address] [address] Immature granulocytes/100 WBC (Bld) 0.10 % Normal [facility] Comment on above: Order Comment: Relea se to patient->Automatic 85252&Blood Result Comment: Gretchen ture Granulocyte Percent includes promyelocytes, myelocytes, and metamyelocytes. IG% > 1.0 indicates a left shift is present. With automated differentials, bands are included in the neutrophil count and not in the Immature Granulocyte Percent. Performed By: #### L IVER #### [place] [address] Lymphocytes/100 WBC (Bld) 38.5 % Normal 24.0-44.0 [facility] Comment on above: Order Comment: Relea se to patient->Automatic 21847&Blood Performed By: #### L IVER #### [place] [address] MCH (RBC) [Entitic mass] 27.3 pg Normal 26.0-34.0 [facility] Comment on above: Order Comment: Relea se to patient->Automatic 28636&Blood Performed By: #### L IVER #### [address] [address] MCHC 33.0 % Normal 31.0-37.0 [facility] Comment on above: Order Comment: Relea se to patient->Automatic 74014&Blood Performed By: #### L IVER #### [address] [address] MCV (RBC) [Entitic vol] 82.9 fL Normal 80.0-100.0 [facility] Comment on above: Order Comment: Relea se to patient->Automatic 71206&Blood Performed By: #### L IVER #### [address] [address] Monocytes/100 WBC (Bld) 4.50 % Normal 3.00-6.00 [facility] Comment on above: Order Comment: Relea se to patient->Automatic 33241&Blood Performed By: #### L IVER #### [address] [address] Neutrophils (Bld) [#/Vol] 3.8 10*3/uL Normal 2.0-7.2 [facility] Comment on above: Order Comment: Relea se to patient->Automatic 59973&Blood Performed By: #### L IVER #### [address] [address] Neutrophils/100 WBC (Bld) 52.9 % Normal 35.0-66.0 [facility] Comment on above: Order Comment: Relea se to patient->Automatic 94491&Blood Performed By: #### L IVER #### [address] [address] Nucleated RBC/100 WBC (Bld) [Ratio] 0.0 % Normal -1.0-0.0 [facility] Comment on above: Order Comment: Relea se to patient->Automatic 90176&Blood Performed By: #### L IVER #### [address] [address] Platelet mean volume (Bld) [Entitic vol] 10.4 fL Normal [facility] Comment on above: Order Comment: Relea se to patient->Automatic 29008&Blood Result Comment: MPV is platelet range and age dependent Performed By: #### L IVER #### [address] [address] Platelets (Bld) [#/Vol] 251 10*3/uL Normal 150-450 [facility] Comment on above: Order Comment: Relea se to patient->Automatic 68212&Blood Performed By: #### L IVER #### [facility] [address] [place], [place] [id number] RBC 4.61 10E12/L Normal 4.00-4.90 [facility] Comment on above: Order Comment: Relea se to patient->Automatic 68583&Blood Performed By: #### L IVER #### [address] [id number] WBC (Bld) [#/Vol] 7.1 10*3/uL Normal 4.5-11.0 [facility] Comment on above: Order Comment: Relea se to patient->Automatic 05147&Blood Performed By: #### L IVER #### [address] [address] Basophils/100 WBC (Bld) 0.4 % 0 - 1 % [facility] Differential Complete Automated [facility] Eosinophils/100 WBC (Bld) 3.60 % High 0 - 3 % [facility] Erythrocyte distribution width (RBC) [Ratio] 12.8 % 0 - 14.4 % [facility] Hematocrit (Bld) [Volume fraction] 38.2 % 36 - 44 % [facility] Hemoglobin (Bld) [Mass/Vol] 12.6 g/dL 12 - 15 g/dl [facility] Immature granulocytes/100 WBC (Bld) 0.1 % [facility] Comment on above: Immature Granulocyte Percent includes promyelocytes, myelocytes, and metamyelocytes. IG% > 1.0 indicates a left shift is present. With automated differentials, bands are included in the neutrophil count and not in the Immature Granulocyte Percent. Interpretation and review of laboratory results Abnormal [facility] Lymphocytes/100 WBC (Bld) 38.5 % 24 - 44 % [facility] MCH (RBC) [Entitic mass] 27.3 pg 26 - 34 pg [facility] MCHC 33.0 % 31 - 37 % [facility] MCV (RBC) [Entitic vol] 82.9 fL 80 - 100 fl [facility] Monocytes/100 WBC (Bld) 4.50 % 3 - 6 % [facility] Neutrophils (Bld) [#/Vol] 3.8 10*3/uL [facility] Neutrophils/100 WBC (Bld) 52.9 % 35 - 66 % [facility] Nucleated RBC/100 WBC (Bld) [Ratio] 0 % -1 - 0 % [facility] Platelet mean volume (Bld) [Entitic vol] 10.4 fL [facility] Comment on above: MPV is platelet range and age dependent Platelets (Bld) [#/Vol] 251 10*3/uL [facility] RBC (Bld) [#/Vol] 4.61 10*6/uL [facility] WBC (Bld) [#/Vol] 7.1 10*3/uL [facility] Release to patient->Automatic [facility] GGTon 01-09-2022 Gamma glutamyl transferase [Catalytic activity/Vol] 10 U/L Normal 7-51 [facility] Comment on above: Order Comment: Relea se to patient->Automatic 17351&Blood Performed By: #### L IVER #### [place] [address] Gamma glutamyl transferase [Catalytic activity/Vol] 10 U/L 7 - 51 U/L [facility] Hepatic Panelon 01-09-2022 Bili, Conjugated <0.2 Normal 0.0-0.7 [facility] Comment on above: Order Comment: Relea se to patient->Automatic 45267&Blood Performed By: #### L IVER #### [place] [address] Albumin [Mass/Vol] 3.9 g/dL Normal 3.5-5.0 [facility] Comment on above: Order Comment: Relea se to patient->Automatic 02621&Blood Performed By: #### L IVER #### [place] [address] ALP [Catalytic activity/Vol] 60 U/L Normal 35-104 [facility] Comment on above: Order Comment: Relea se to patient->Automatic 58413&Blood Performed By: #### L IVER #### [address] [address] Bili,Total 0.4 mg/dL Normal 0.0-1.0 [facility] Comment on above: Order Comment: Relea se to patient->Automatic 26887&Blood Performed By: #### L IVER #### [address] [address] Protein [Mass/Vol] 6.5 g/dL Normal 5.9-8.4 [facility] Comment on above: Order Comment: Relea se to patient->Automatic 23738&Blood Performed By: #### L IVER #### [address] [address] ALT [Catalytic activity/Vol] 12 U/L Normal 0-34 [facility] Comment on above: Order Comment: Relea se to patient->Automatic 34819&Blood Performed By: #### L IVER #### [address] [address] AST [Catalytic activity/Vol] 14 U/L Normal 0-31 [facility] Comment on above: Order Comment: Relea se to patient->Automatic 65076&Blood Performed By: #### L IVER #### [address] [address] Hepatic function panelon Albumin [Mass/Vol] 3.9 g/dL 3.5 - 5 g/dL [facility] ALP [Catalytic activity/Vol] 60 U/L 35 - 104 U/L [facility] ALT [Catalytic activity/Vol] 12 U/L 0 - 34 U/L [facility] AST [Catalytic activity/Vol] 14 U/L 0 - 31 U/L [facility] Bilirubin [Mass/Vol] 0.4 mg/dL 0 - 1 mg/dL [facility] Bilirubin, Conjugated mg/dL 0 - 0.7 mg/dL [facility] Protein [Mass/Vol] 6.5 g/dL 5.9 - 8.4 g/dL [facility] No Panel Informationon 01-09 Release to patient->Automatic [facility] POCT urine HCGon 01-09-2022 Clear Background *Present [facility] Control Line *Present [facility] HCG ( test) Ql (U) Negative Negative [facility] Interpretation and review of laboratory results Normal [facility] Lot Number [id number] [facility] Vitamin D 25 OHon 01-09-2022 25 OH Vitamin D 92 ng/mL Normal 30-100 [facility] Comment on above: Order Comment: Relea se to patient->Automatic [id number]&Blood Result Comment: Refe rence ranges provided by [facility] Laboratory are based on Endocrine Society Guidelines: Level: Characterization < 21 ng/mL: Vitamin D deficiency 21-29 ng/mL: Suboptimal Vitamin D status 30-100 ng/mL: Optimal Vitamin D status >100 ng/mL: Potentially toxic Vitamin D effects Performed By: #### V 25DH #### [place] [address] Vitamin D 25 hydroxyon 01-09 25 [place] Vitamin D 92 ng/mL 30 - 100 ng/mL [facility] Comment on above: Reference ranges pro vided by [facility] Laboratory are based on Endocrine Society Guidelines: Level: Characterization < 21 ng/mL: Vitamin D deficiency 21-29 ng/mL: Suboptimal Vitamin D status 30-100 ng/mL: Optimal Vitamin D status >100 ng/mL: Potentially toxic Vitamin D effects ED Provider Progress Noteon 01-01-2022 [employer] Authentication Interface Message Text Kristine Crum : 2000 Chief Complaint Patient presents with Injury Allergies Allergen Reactions Oxycodone Swelling Had facial swelling and throat tightness when took oxy after wisdom teeth were pulled. Resolved once stopped taking oxy. Amoxicillin Hives and Rash Penicillins Rash DOS: 12/31/2021 HPI Kristine is our 21 yo old female with a PMHx of IBD, and migraines presenting after cutting her hand on glass from her fish tank. Denies BAH, vision changes, no sob/difficulty breathing, no chest or abdominal pain. Tolerating PO intake well, no nausea or vomiting. Denies dizziness or lightheadedness. No fever or chills. No retained glass noted. States that she immediatly applied pressure however do to persistent movement was unable to stop the bleeding totally. Review of Systems Constitutional: Negative for appetite change, fatigue and fever. HENT: Negative for sinus pressure, sinus pain and sneezing. Eyes: Negative for visual disturbance. Respiratory: Negative for cough and shortness of breath. Gastrointestinal: Negative for abdominal distention, abdominal pain, constipation, diarrhea, nausea and vomiting. Genitourinary: Negative for dysuria and hematuria. Musculoskeletal: Negative for arthralgias and myalgias. Skin: Positive for wound (right index finger laceration). Neurological: Negative for dizziness, seizures, weakness, light-headedness, numbness and headaches. Psychiatric/Behavioral: Negative for agitation. The patient is not nervous/anxious. Past Medical History: Diagnosis Date Acne Crohn's disease Former smoker Inflammatory bowel disease Migraines started 4-5 years ago, worse since tragus piercing has been outMay 2018, now has some degree of headache almost daily. Obesity Poor sleep hygiene Past Surgical History: Procedure Laterality Date ABCESS DRAINAGE Right 02/26/2019 INCISION AND DRAINAGE ABSCESS (SIMPLE) right buttock performed by Ronnie Irene MD at [facility] OR COLONOSCOPY ESOPHAGOSCOPY N/A 06/04/2018 ENDOSCOPY (UPPER AND COLONOSCOPY) with biopsies performed by Baldomero Becerra MD at [facility] OR ESOPHAGOSCOPY N/A 07/15/2021 ENDOSCOPY (UPPER AND COLONOSCOPY) with biopsies (screening IBD) performed by Trenton Mccord MD at [facility] OR [place] [facility],UGI ENDOSCOPY TONSILLECTOMY AND ADENOIDECTOMY 2004 WRIST GANGLION EXCISION Left 05/29/2017 CYST GANGLION EXCISION, LEFT WRIST performed by Phillip Lala Sr., MD at [facility] OR WRIST GANGLION EXCISION Left 06/04/2018 CYST GANGLION EXCISION performed by Phillip Lala Sr., MD at [facility] OR Pediatric History Patient Parents Anitha Crum (Mother) Guerrero Crum (Father) Other Topics Concern Not on file Social History Narrative Not on file ED Triage Vitals Date and Time Temp Temp src Pulse Resp BP SpO2 Weight User 12/31/21 2157 36.4 C (97.5 F) Temporal 80 20 130/79 100 % 79.9 kg EAB Physical Exam Constitutional: General: She is not in acute distress. Appearance: Normal appearance. She is normal weight. She is not ill-appearing. HENT: Head: Normocephalic and atraumatic. Nose: No congestion or rhinorrhea. Mouth/Throat: Pharynx: No oropharyngeal exudate or posterior oropharyngeal erythema. Eyes: Extraocular Movements: Extraocular movements intact. Pupils: Pupils are equal, round, and reactive to light. Neck: Musculoskeletal: Normal range of motion. Cardiovascular: Rate and Rhythm: Normal rate. Pulses: Normal pulses. Heart sounds: Normal heart sounds. No murmur heard. Pulmonary: Effort: Pulmonary effort is normal. No respiratory distress. Breath sounds: Normal breath sounds. Abdominal: General: Bowel sounds are normal. There is no distension. Palpations: Abdomen is soft. Tenderness: There is no abdominal tenderness. Musculoskeletal: General: No swelling or tenderness. Normal range of motion. Cervical back: Normal range of motion. Skin: General: Skin is warm and dry. Capillary Refill: Capillary refill takes less than 2 seconds. Findings: Laceration (2cm laceration on right index finger) present. Neurological: General: No focal deficit present. Mental Status: She is alert and oriented to person, place, and time. Mental status is at baseline. Psychiatric: Mood and Affect: Mood normal. Behavior: Behavior normal. Thought Content: Thought content normal. Judgment: Judgment normal. Procedures MDM ED Course: Diagnosis' considered: Labs/Radiology: Consults: No orders of the defined types were placed in this encounter. Medical Record/Transferring Institution Record: Treatment/Reassessment: Kristine is our 21 yo old female with a PMHx of IBD, and migraines presenting after cutting her hand on glass from her fish tank. In the ED vital signs stable, well-appearing and cooperative. Emergency care plan for patient was reviewed with patient which includes consulting the suture team for wound closure. Received 3 (more content not included)... Normal [facility] Basic Metabolic Panelon 06-2 3-2022 Creatinine [Mass/Vol] 0.64 mg/dL Normal 0.50-1.00 [facility] Comment on above: Order Comment: Relea se to patient->Automatic 34047&Blood Performed By: #### L IVER #### [address] [address] Glucose [Mass/Vol] 101 mg/dL High 70-99 [facility] Comment on above: Order Comment: Relea se to patient->Automatic 97419&Blood Result Comment: Crit candace for Diagnosis of Diabetes: Fasting Specimen (no caloric intake for at least 8 hours): <100 mg/dL Normal 100-125 mg/dL Increased risk for Diabetes >125 mg/dL Diagnostic for Diabetes Random Glucose (any time of day without regard to last meal): > or = 200 mg/dL plus Classic Symptoms of Diabetes Performed By: #### L IVER #### [address] [address] Urea nitrogen [Mass/Vol] 14 mg/dL Normal 4-19 [facility] Comment on above: Order Comment: Relea se to patient->Automatic 84845&Blood Performed By: #### L IVER #### [address] [address] Calcium [Mass/Vol] 8.9 mg/dL Normal 7.6-11.0 [facility] Comment on above: Order Comment: Relea se to patient->Automatic 03537&Blood Performed By: #### L IVER #### [address] [address] CO2 [Moles/Vol] 20.0 mmol/L Low 22.0-29.0 [facility] Comment on above: Order Comment: Relea se to patient->Automatic 89488&Blood Performed By: #### L IVER #### [address] [address] Chloride [Moles/Vol] 108 mmol/L Normal 96-108 [facility] Comment on above: Order Comment: Relea se to patient->Automatic 92402&Blood Performed By: #### L IVER #### [address] [address] Potassium [Moles/Vol] 3.8 mmol/L Normal 3.3-5.1 [facility] Comment on above: Order Comment: Relea se to patient->Automatic 46687&Blood Performed By: #### L IVER #### [address] [address] Sodium [Moles/Vol] 139 mmol/L Normal 133-145 [facility] Comment on above: Order Comment: Relea se to patient->Automatic 76285&Blood Performed By: #### L IVER #### [address] [address] Calcium [Mass/Vol] 8.9 mg/dL 7.6 - 11 mg/dL [facility] Chloride [Moles/Vol] 108 mmol/L 96 - 108 mmol/L [facility] CO2 [Moles/Vol] 20 mmol/L Low 22 - 29 mmol/L [facility] Creatinine [Mass/Vol] 0.64 mg/dL 0.5 - 1 mg/dL [facility] Glucose [Mass/Vol] 101 mg/dL High 70 - 99 mg/dL [facility] Comment on above: Criteria for Diagnos is of Diabetes: Fasting Specimen (no caloric intake for at least 8 hours): <100 mg/dL Normal 100-125 mg/dL Increased risk for Diabetes >125 mg/dL Diagnostic for Diabetes Random Glucose (any time of day without regard to last meal): > or = 200 mg/dL plus Classic Symptoms of Diabetes Interpretation and review of laboratory results Abnormal [facility] Potassium [Moles/Vol] 3.8 mmol/L 3.3 - 5.1 mmol/L [facility] Sodium [Moles/Vol] 139 mmol/L 133 - 145 mmol/L [facility] Urea nitrogen [Mass/Vol] 14 mg/dL 4 - 19 mg/dL [facility] C-Reactive Proteinon 022 CRP [Mass/Vol] mg/L Normal 0.0-1.0 [facility] Comment on above: Order Comment: Relea se to patient->Automatic 48066&Blood Result Comment: CRP determinations in neonates should be interpreted with caution. CRP may be elevated in circumstances not associated with inflammation (e.g. difficult delivery, pneumothorax). In premature neonates CRP levels may not rise to abnormal levels even if sepsis is present; some speculate that immature liver function decreases the ability to generate a CRP response. Performed By: #### B MP #### [address] [address] C-reactive proteinon 022 CRP [Mass/Vol] mg/L 0 - 1 mg/dL [facility] Comment on above: CRP determinations i n neonates should be interpreted with caution. CRP may be elevated in circumstances not associated with inflammation (e.g. difficult delivery, pneumothorax). In premature neonates CRP levels may not rise to abnormal levels even if sepsis is present; some speculate that immature liver function decreases the ability to generate a CRP response. Complete Blood Counton 11-28 Differential Complete Automated Normal [facility] Comment on above: Order Comment: Relea se to patient->Automatic 60537&Blood Performed By: #### B MP #### [address] [address] Basophils/100 WBC (Bld) 0.20 % Normal 0.00-1.00 [facility] Comment on above: Order Comment: Relea se to patient->Automatic 86550&Blood Performed By: #### B MP #### [address] [address] Immature granulocytes/100 WBC (Bld) 0.20 % Normal [facility] Comment on above: Order Comment: Relea se to patient->Automatic 58979&Blood Result Comment: Gretchen ture Granulocyte Percent includes promyelocytes, myelocytes, and metamyelocytes. IG% > 1.0 indicates a left shift is present. With automated differentials, bands are included in the neutrophil count and not in the Immature Granulocyte Percent. Performed By: #### B MP #### [address] [address] Nucleated RBC/100 WBC (Bld) [Ratio] 0.0 % Normal -1.0-0.0 [facility] Comment on above: Order Comment: Relea se to patient->Automatic 70427&Blood Performed By: #### B MP #### [address] [address] RBC 4.75 10E12/L Normal 4.00-4.90 [facility] Comment on above: Order Comment: Relea se to patient->Automatic 79955&Blood Performed By: #### B MP #### [address] [address] Eosinophils/100 WBC (Bld) 4.90 % High 0.00-3.00 [facility] Comment on above: Order Comment: Relea se to patient->Automatic 53173&Blood Performed By: #### B MP #### [address] [address] Erythrocyte distribution width (RBC) [Ratio] 13.0 % Normal 0.0-14.4 [facility] Comment on above: Order Comment: Relea se to patient->Automatic 07987&Blood Performed By: #### B MP #### [address] [address] Hematocrit (Bld) [Volume fraction] 39.9 % Normal 36.0-44.0 [facility] Comment on above: Order Comment: Relea se to patient->Automatic 82978&Blood Performed By: #### B MP #### [address] [address] Hemoglobin (Bld) [Mass/Vol] 13.3 g/dL Normal 12.0-15.0 [facility] Comment on above: Order Comment: Relea se to patient->Automatic 32515&Blood Performed By: #### B MP #### [address] [address] Lymphocytes/100 WBC (Bld) 33.7 % Normal 24.0-44.0 [facility] Comment on above: Order Comment: Relea se to patient->Automatic 17632&Blood Performed By: #### B MP #### [address] [address] MCH (RBC) [Entitic mass] 28.0 pg Normal 26.0-34.0 [facility] Comment on above: Order Comment: Relea se to patient->Automatic 86525&Blood Performed By: #### B MP #### [address] [address] MCHC 33.3 % Normal 31.0-37.0 [facility] Comment on above: Order Comment: Relea se to patient->Automatic 72820&Blood Performed By: #### B MP #### [address] [address] MCV (RBC) [Entitic vol] 84.0 fL Normal 80.0-100.0 [facility] Comment on above: Order Comment: Relea se to patient->Automatic 00887&Blood Performed By: #### B MP #### [address] [address] Monocytes/100 WBC (Bld) 6.20 % High 3.00-6.00 [facility] Comment on above: Order Comment: Relea se to patient->Automatic 24165&Blood Performed By: #### B MP #### [address] [address] Neutrophils (Bld) [#/Vol] 4.9 10*3/uL Normal 2.0-7.2 [facility] Comment on above: Order Comment: Relea se to patient->Automatic 66092&Blood Performed By: #### B MP #### [address] [id number] Neutrophils/100 WBC (Bld) 54.8 % Normal 35.0-66.0 [facility] Comment on above: Order Comment: Relea se to patient->Automatic 50388&Blood Performed By: #### B MP #### [address] [address] Platelet mean volume (Bld) [Entitic vol] 10.5 fL Normal [facility] Comment on above: MPV is platelet range and age dependent Order Comment: Relea se to patient->Automatic 09273&Blood Result Comment: MPV is platelet range and age dependent Performed By: #### B MP #### [address] [address] Platelets (Bld) [#/Vol] 250 10*3/uL Normal 150-450 [facility] Comment on above: Order Comment: Relea se to patient->Automatic 40120&Blood Performed By: #### B MP #### [address] [address] WBC (Bld) [#/Vol] 8.9 10*3/uL Normal 4.5-11.0 [facility] Comment on above: Order Comment: Relea se to patient->Automatic 77984&Blood Performed By: #### B MP #### [address] [address] Basophils/100 WBC (Bld) 0.2 % 0 - 1 % [facility] Differential Complete Automated [facility] Immature granulocytes/100 WBC (Bld) 0.2 % [facility] Comment on above: Immature Granulocyte Percent includes promyelocytes, myelocytes, and metamyelocytes. IG% > 1.0 indicates a left shift is present. With automated differentials, bands are included in the neutrophil count and not in the Immature Granulocyte Percent. Interpretation and review of laboratory results Abnormal [facility] Nucleated RBC/100 WBC (Bld) [Ratio] 0 % -1 - 0 % [facility] RBC (Bld) [#/Vol] 4.75 10*6/uL [facility] Release to patient->Automatic [facility] Hepatic Panelon 11-28-2021 Bili, Conjugated <0.2 Normal 0.0-0.7 [facility] Comment on above: Order Comment: Relea se to patient->Automatic 01727&Blood Performed By: #### B MP #### [address] [address] Protein [Mass/Vol] 6.4 g/dL Normal 5.9-8.4 [facility] Comment on above: Order Comment: Relea se to patient->Automatic 25190&Blood Performed By: #### B MP #### [address] [address] Albumin [Mass/Vol] 3.7 g/dL Normal 3.5-5.0 [facility] Comment on above: Order Comment: Relea se to patient->Automatic 93878&Blood Performed By: #### B MP #### [address] [address] ALP [Catalytic activity/Vol] 62 U/L Normal 35-104 [facility] Comment on above: Order Comment: Relea se to patient->Automatic 09958&Blood Performed By: #### B MP #### [address] [address] ALT [Catalytic activity/Vol] 8 U/L Normal 0-34 [facility] Comment on above: Order Comment: Relea se to patient->Automatic 73458&Blood Performed By: #### B MP #### [address] [address] AST [Catalytic activity/Vol] 11 U/L Normal 0-31 [facility] Comment on above: Order Comment: Relea se to patient->Automatic 79377&Blood Performed By: #### B MP #### [place] [address] Bili,Total 0.3 mg/dL Normal 0.0-1.0 [facility] Comment on above: Order Comment: Relea se to patient->Automatic 66593&Blood Performed By: #### B MP #### [place] [address] Hepatic function panelon Albumin [Mass/Vol] 3.7 g/dL 3.5 - 5 g/dL [facility] ALP [Catalytic activity/Vol] 62 U/L 35 - 104 U/L [facility] ALT [Catalytic activity/Vol] 8 U/L 0 - 34 U/L [facility] AST [Catalytic activity/Vol] 11 U/L 0 - 31 U/L [facility] Bilirubin [Mass/Vol] 0.3 mg/dL 0 - 1 mg/dL [facility] Bilirubin, Conjugated mg/dL 0 - 0.7 mg/dL [facility] Protein [Mass/Vol] 6.4 g/dL 5.9 - 8.4 g/dL [facility] No Panel Informationon 11-28 Release to patient->Automatic [facility] POCT urine HCGon 11-28-2021 Clear Background *Present [facility] Control Line *Present [facility] HCG ( test) Ql (U) Negative Negative [facility] Interpretation and review of laboratory results Normal [facility] Lot Number [id number] [facility] Basic Metabolic Panelon 10-06 Urea nitrogen [Mass/Vol] 13 mg/dL Normal 4-19 [facility] Comment on above: Order Comment: Relea se to patient->Automatic 76368&Blood Performed By: #### L IVER #### [place] [address] Calcium [Mass/Vol] 8.9 mg/dL Normal 7.6-11.0 [facility] Comment on above: Order Comment: Relea se to patient->Automatic 52483&Blood Performed By: #### L IVER #### [address] [address] CO2 [Moles/Vol] 22.0 mmol/L Normal 22.0-29.0 [facility] Comment on above: Order Comment: Relea se to patient->Automatic 34671&Blood Performed By: #### L IVER #### [place] [address] Creatinine [Mass/Vol] 0.74 mg/dL Normal 0.50-1.00 [facility] Comment on above: Order Comment: Relea se to patient->Automatic 56832&Blood Performed By: #### L IVER #### [place] [address] Glucose [Mass/Vol] 99 mg/dL Normal 70-99 [facility] Comment on above: Order Comment: Relea se to patient->Automatic 61713&Blood Result Comment: Rob maria for Diagnosis of Diabetes: Fasting Specimen (no caloric intake for at least 8 hours): <100 mg/dL Normal 100-125 mg/dL Increased risk for Diabetes >125 mg/dL Diagnostic for Diabetes Random Glucose (any time of day without regard to last meal): > or = 200 mg/dL plus Classic Symptoms of Diabetes Performed By: #### L IVER #### [address] [address] Chloride [Moles/Vol] 109 mmol/L High 96-108 [facility] Comment on above: Order Comment: Relea se to patient->Automatic 67929&Blood Performed By: #### L IVER #### [address] [address] Potassium [Moles/Vol] 3.9 mmol/L Normal 3.3-5.1 [facility] Comment on above: Order Comment: Relea se to patient->Automatic 81043&Blood Performed By: #### L IVER #### [address] [address] Sodium [Moles/Vol] 139 mmol/L Normal 133-145 [facility] Comment on above: Order Comment: Relea se to patient->Automatic 46065&Blood Performed By: #### L IVER #### [address] [address] Calcium [Mass/Vol] 8.9 mg/dL 7.6 - 11 mg/dL [facility] Chloride [Moles/Vol] 109 mmol/L High 96 - 108 mmol/L [facility] CO2 [Moles/Vol] 22 mmol/L 22 - 29 mmol/L [facility] Creatinine [Mass/Vol] 0.74 mg/dL 0.5 - 1 mg/dL [facility] Glucose [Mass/Vol] 99 mg/dL 70 - 99 mg/dL [facility] Comment on above: Criteria for Diagnos is of Diabetes: Fasting Specimen (no caloric intake for at least 8 hours): <100 mg/dL Normal 100-125 mg/dL Increased risk for Diabetes >125 mg/dL Diagnostic for Diabetes Random Glucose (any time of day without regard to last meal): > or = 200 mg/dL plus Classic Symptoms of Diabetes Interpretation and review of laboratory results Abnormal [facility] Potassium [Moles/Vol] 3.9 mmol/L 3.3 - 5.1 mmol/L [facility] Sodium [Moles/Vol] 139 mmol/L 133 - 145 mmol/L [facility] Urea nitrogen [Mass/Vol] 13 mg/dL 4 - 19 mg/dL [facility] C-Reactive Proteinon 022 CRP [Mass/Vol] mg/L Normal 0.0-1.0 [facility] Comment on above: Order Comment: Relea se to patient->Automatic 30873&Blood Result Comment: CRP determinations in neonates should be interpreted with caution. CRP may be elevated in circumstances not associated with inflammation (e.g. difficult delivery, pneumothorax). In premature neonates CRP levels may not rise to abnormal levels even if sepsis is present; some speculate that immature liver function decreases the ability to generate a CRP response. Performed By: #### C RP #### [place] [address] C-reactive proteinon 022 CRP [Mass/Vol] mg/L 0 - 1 mg/dL [facility] Comment on above: CRP determinations i n neonates should be interpreted with caution. CRP may be elevated in circumstances not associated with inflammation (e.g. difficult delivery, pneumothorax). In premature neonates CRP levels may not rise to abnormal levels even if sepsis is present; some speculate that immature liver function decreases the ability to generate a CRP response. Complete Blood Counton 10-18 Differential Complete Manual Normal [facility] Comment on above: Order Comment: Relea se to patient->Automatic 08929&Blood Performed By: #### L IVER #### [place] [address] Erythrocyte distribution width (RBC) [Ratio] 12.9 % Normal 0.0-14.4 [facility] Comment on above: Order Comment: Relea se to patient->Automatic 70912&Blood Performed By: #### L IVER #### [place] [address] Hematocrit (Bld) [Volume fraction] 38.3 % Normal 36.0-44.0 [facility] Comment on above: Order Comment: Relea se to patient->Automatic 77193&Blood Performed By: #### L IVER #### [address] [address] Hemoglobin (Bld) [Mass/Vol] 12.8 g/dL Normal 12.0-15.0 [facility] Comment on above: Order Comment: Relea se to patient->Automatic 17080&Blood Performed By: #### L IVER #### [address] [id number] Immature granulocytes/100 WBC (Bld) 0.20 % Normal [facility] Comment on above: Order Comment: Relea se to patient->Automatic 88787&Blood Result Comment: Gretchen ture Granulocyte Percent includes promyelocytes, myelocytes, and metamyelocytes. IG% > 1.0 indicates a left shift is present. With automated differentials, bands are included in the neutrophil count and not in the Immature Granulocyte Percent. Performed By: #### L IVER #### [address] [address] MCH (RBC) [Entitic mass] 27.6 pg Normal 26.0-34.0 [facility] Comment on above: Order Comment: Relea se to patient->Automatic 15731&Blood Performed By: #### L IVER #### [address] [address] MCHC 33.4 % Normal 31.0-37.0 [facility] Comment on above: Order Comment: Relea se to patient->Automatic 28065&Blood Performed By: #### L IVER #### [address] [address] MCV (RBC) [Entitic vol] 82.5 fL Normal 80.0-100.0 [facility] Comment on above: Order Comment: Relea se to patient->Automatic 95547&Blood Performed By: #### L IVER #### [address] [address] Nucleated RBC/100 WBC (Bld) [Ratio] 0.0 % Normal -1.0-0.0 [facility] Comment on above: Order Comment: Relea se to patient->Automatic 39562&Blood Performed By: #### L IVER #### [address] [id number] Platelet mean volume (Bld) [Entitic vol] 10.3 fL Normal [facility] Comment on above: Order Comment: Relea se to patient->Automatic [id number]&Blood Result Comment: MPV is platelet range and age dependent Performed By: #### L IVER #### [address] [address] Platelets (Bld) [#/Vol] 249 10*3/uL Normal 150-450 [facility] Comment on above: Order Comment: Relea se to patient->Automatic 60734&Blood Performed By: #### L IVER #### [address] [address] RBC 4.64 10E12/L Normal 4.00-4.90 [facility] Comment on above: Order Comment: Relea se to patient->Automatic 19458&Blood Performed By: #### L IVER #### [address] [address] WBC (Bld) [#/Vol] 9.6 10*3/uL Normal 4.5-11.0 [facility] Comment on above: Order Comment: Relea se to patient->Automatic 23501&Blood Performed By: #### L IVER #### [address] [address] Differential Complete Manual [facility] Erythrocyte distribution width (RBC) [Ratio] 12.9 % 0 - 14.4 % [facility] Hematocrit (Bld) [Volume fraction] 38.3 % 36 - 44 % [facility] Hemoglobin (Bld) [Mass/Vol] 12.8 g/dL 12 - 15 g/dl [facility] Immature granulocytes/100 WBC (Bld) 0.2 % [facility] Comment on above: Immature Granulocyte Percent includes promyelocytes, myelocytes, and metamyelocytes. IG% > 1.0 indicates a left shift is present. With automated differentials, bands are included in the neutrophil count and not in the Immature Granulocyte Percent. MCH (RBC) [Entitic mass] 27.6 pg 26 - 34 pg [facility] MCHC 33.4 % 31 - 37 % [facility] MCV (RBC) [Entitic vol] 82.5 fL 80 - 100 fl [facility] Nucleated RBC/100 WBC (Bld) [Ratio] 0 % -1 - 0 % [facility] Platelet mean volume (Bld) [Entitic vol] 10.3 fL [facility] Comment on above: MPV is platelet range and age dependent Platelets (Bld) [#/Vol] 249 10*3/uL [facility] RBC (Bld) [#/Vol] 4.64 10*6/uL [facility] WBC (Bld) [#/Vol] 9.6 10*3/uL [facility] Hepatic Panelon 10-18-2021 Bili, Conjugated <0.2 Normal 0.0-0.7 [facility] Comment on above: Order Comment: Relea se to patient->Automatic 90054&Blood Performed By: #### L IVER #### [place] [address] Protein [Mass/Vol] 6.5 g/dL Normal 5.9-8.4 [facility] Comment on above: Order Comment: Relea se to patient->Automatic 38384&Blood Performed By: #### L IVER #### [place] [address] Albumin [Mass/Vol] 4.0 g/dL Normal 3.5-5.0 [facility] Comment on above: Order Comment: Relea se to patient->Automatic 87953&Blood Performed By: #### L IVER #### [place] [address] ALP [Catalytic activity/Vol] 61 U/L Normal 35-104 [facility] Comment on above: Order Comment: Relea se to patient->Automatic 80300&Blood Performed By: #### L IVER #### [place] [address] ALT [Catalytic activity/Vol] 10 U/L Normal 0-34 [facility] Comment on above: Order Comment: Relea se to patient->Automatic 69885&Blood Performed By: #### L IVER #### [address] [id number] AST [Catalytic activity/Vol] 13 U/L Normal 0-31 [facility] Comment on above: Order Comment: Relea se to patient->Automatic 57448&Blood Performed By: #### L IVER #### [facility] [address] [place] [address] Bili,Total 0.3 mg/dL Normal 0.0-1.0 [facility] Comment on above: Order Comment: Relea se to patient->Automatic 30796&Blood Performed By: #### L IVER #### [address] [address] Hepatic function panelon Albumin [Mass/Vol] 4.0 g/dL 3.5 - 5 g/dL [facility] ALP [Catalytic activity/Vol] 61 U/L 35 - 104 U/L [facility] ALT [Catalytic activity/Vol] 10 U/L 0 - 34 U/L [facility] AST [Catalytic activity/Vol] 13 U/L 0 - 31 U/L [facility] Bilirubin [Mass/Vol] 0.3 mg/dL 0 - 1 mg/dL [facility] Bilirubin, Conjugated mg/dL 0 - 0.7 mg/dL [facility] Protein [Mass/Vol] 6.5 g/dL 5.9 - 8.4 g/dL [facility] Manual Differentialon 2021 Absolute Neutrophil No. 4.0 10E3/uL Normal 2.0-7.2 [facility] Comment on above: Order Comment: Relea se to patient->Automatic 36819&Blood Performed By: #### L IVER #### [address] [place] [address] Atypical Lymphocytes 1 % Normal 0-8 [facility] Comment on above: Order Comment: Relea se to patient->Automatic 94333&Blood Performed By: #### L IVER #### [address] [address] Band Neutrophils 0 % Low 5-11 [facility] Comment on above: Order Comment: Relea se to patient->Automatic 58909&Blood Performed By: #### L IVER #### [address] [address] Cell Morphology Normal Normal [facility] Comment on above: Order Comment: Relea se to patient->Automatic 85511&Blood Performed By: #### L IVER #### [address] [address] Eosinophils 9 % High 0-3 [facility] Comment on above: Order Comment: Relea se to patient->Automatic 26072&Blood Performed By: #### L IVER #### [address] [address] Lymphocytes 42 % Normal 24-44 [facility] Comment on above: Order Comment: Relea se to patient->Automatic 95627&Blood Performed By: #### L IVER #### [address] [address] Metamyelocytes 0 % Normal 0-0 [facility] Comment on above: Order Comment: Relea se to patient->Automatic 22523&Blood Performed By: #### L IVER #### [address] [address] Monocytes 6 % Normal 3-6 [facility] Comment on above: Order Comment: Relea se to patient->Automatic 69933&Blood Performed By: #### L IVER #### [address] [address] Myelocytes 0 % Normal 0-0 [facility] Comment on above: Order Comment: Relea se to patient->Automatic 34967&Blood Performed By: #### L IVER #### [address] [address] Promyelocytes 0 % Normal 0-0 [facility] Comment on above: Order Comment: Relea se to patient->Automatic 92486&Blood Performed By: #### L IVER #### [address] [address] Segmented Neutrophils 42 % Normal 35-66 [facility] Comment on above: Order Comment: Relea se to patient->Automatic 08499&Blood Performed By: #### L IVER #### [address] [address] % Eosinophils 9 % High 0 - 3 % [facility] % Metamyelocytes 0 % 0 - 0 % [facility] % Monocytes 6 % 3 - 6 % [facility] % Myelocytes 0 % 0 - 0 % [facility] % Promyelocytes 0 % 0 - 0 % [facility] Absolute Neutrophil No. 4.0 [facility] Atypical Lymphocytes 1 % 0 - 8 % [facility] Band Neutrophil 0 % Low 5 - 11 % [facility] Cell Morphology Normal [facility] Interpretation and review of laboratory results Abnormal [facility] Lymphocytes 42 % 24 - 44 % [facility] Segmented Neutrophils 42 % 35 - 66 % [facility] No Panel Informationon 10-18 Release to patient->Automatic [facility] Release to patient->Automatic [facility] POCT urine HCGon 10-18-2021 Clear Background *Present [facility] Control Line *Present [facility] HCG ( test) Ql (U) Negative Negative [facility] Interpretation and review of laboratory results Normal [facility] Lot Number [id number] [facility] Progress Noteon 10-18-2021 Furniture Mover Authentication Interface Message Text Kristine Crum is here for follow-up for: IBD/Crohns (Dx. Feb 2010) ---Patient last seen in Mar 2021 ---History from patient ---Seen Today in the [facility] Kristine is a 21 y.o. female with Crohn's disease. Her Crohn s phenotype is inflammatory, non-penetrating, non-stricturing. Past Surgical History Past Surgical History: Procedure Laterality Date ABCESS DRAINAGE Right 02/26/2019 INCISION AND DRAINAGE ABSCESS (SIMPLE) right buttock performed by Ronnie Irene MD at [facility] OR COLONOSCOPY ESOPHAGOSCOPY N/A 06/04/2018 ENDOSCOPY (UPPER AND COLONOSCOPY) with biopsies performed by Baldomero Becerra MD at [facility] OR ESOPHAGOSCOPY N/A 07/15/2021 ENDOSCOPY (UPPER AND COLONOSCOPY) with biopsies (screening IBD) performed by Trenton Mccord MD at [facility] OR [place] [facility],UGI ENDOSCOPY TONSILLECTOMY AND ADENOIDECTOMY 2004 WRIST GANGLION EXCISION Left 05/29/2017 CYST GANGLION EXCISION, LEFT WRIST performed by Phillip Lala Sr., MD at [facility] OR WRIST GANGLION EXCISION Left 06/04/2018 CYST GANGLION EXCISION performed by Phillip Lala Sr., MD at [facility] OR Extent of disease involvement Macroscopic lower tract involvement: ileocolonic Macroscopic upper GI tract disease proximal to Ligament of Treitz: no Macroscopic upper GI tract disease distal to Ligament of Treitz: no Perianal disease: no Current symptoms (on the worst day in past 7 days) She reports on the worst day her general well-being is normal. Limitations in daily activities were described as: no limitations. Abdominal pain: none. Stool number on the worst day in past 7 days: 2 . The number of liquid/watery stools per day was 0 . Most of the stools were described as formed. Nocturnal diarrhea: no . She reported no bloody stools . . Extraintestinal manifestations: Fever greater than 38.5C for 3 of last 7 days: no Definite arthritis: no Uveitis: no Erythema nodosum: no Pyoderma gangrenosum: no Current meds/therapies: Current Outpatient Medications: tretinoin (RETIN-A) 0.025 % CREA cream, , Disp: , Rfl: clindamycin phosphate (CLEOCIN-T) 1 % SWAB, , Disp: , Rfl: vitamin D (ERGOCALCIFEROL) 1.25 MG (09661 UT) capsule, Take 1 Capsule (50,000 Units) by mouth every 7 days (Patient not taking: Reported on 09/30/2021), Disp: 12 Capsule, Rfl: 0 DYMISTA 137-50 MCG/ACT SUSP, use 1 [employer] each nostril daily, Disp: 69 g, Rfl: 3 adapalene (DIFFERIN) 0.1 % cream, Apply to affected area nightly at bedtime, Disp: 135 g, Rfl: 3 hydrocortisone 2.5 % cream, Apply to affected area 2 times daily Apply thin film to affected areas., Disp: 120 g, Rfl: 3 No current facility-administered medications for this visit. Facility-Administered Medications Ordered in Other Visits: NaCl 0.9% PosiFlush 2 mL, 2 mL, Intravenous, PRFlex Granados Matthew J, MD NaCl 0.9% PosiFlush 2 mL, 2 mL, Intercatheter, PRN, Trenton Mccord MD, Last Rate: 0 mL/hr at 10/18/21 1152, 2 mL at 10/18/21 1152 NaCl 0.9 % IV Flush bag 30 mL, 30 mL, Intravenous, PRRafaela, Trenton Mccord MD sterile water injection 10 mL, 10 mL, Injection, PRFlex Granados Matthew J, MD NaCl 0.9% PosiFlush 10 mL, 10 mL, Intravenous, PRFlex Granados Matthew J, MD NaCl 0.9 % 10 mL, 10 mL, Intravenous, PRN, Trenton Mccord MD diphenhydrAMINE (BENADRYL) injection 25 mg, 25 mg, Intravenous, Q4H PRN, Trenton Mccord MD EPINEPHrine 1 mg/mL injection 0.5 mg, 0.5 mg, Intramuscular, Once PRNFlex Matthew J, MD methylPREDNISolone (Solu-MEDROL) in sterile water IV High CONC 125 mg, 125 mg, Intravenous, Once PRNFlex Matthew J, MD lidocaine (LMX) 4 % kit 5 g, 1 Each, Topical, PRN, Trenton Mccord MD diphenhydrAMINE (BENADRYL) capsule 25 mg, 25 mg, Oral, PRN, Trenton Mccord MD Enteral supplement: is not on an enteral supplement . . Objective: There were no vitals taken for this visit. Based on current information, my global assessment of current disease status is her disease is quiescent. Kristine estrada growth status is satisfactory. The overall nutritional status is satisfactory. Her primary wood scaler will be Trenton Mccord MD. History of Present Illness This is not a consultation. She is accompanied by her friend of family. No supervisor mixing was used. Remicade - every 6 weeks; Started - 07/09/10 ---Last - 09/02/21- 800mg (9.8mg/kg) - Now Inflectra ---Next - Today; every 6 weeks ---But, most recent dose is 3 weeks late, regarding financial issues ABD pain - No issues Stooling - 1-2x per day ---no diarrhea ---no blood in stool ---No waking to stool UO - Doing well N/V - No issues with vomiting ---no nausea now, but did have recent URI, with increased nausea Appetite - Doing well now ---was not eating well with URI Growth - Increased weight since last seen ---BMI - 32.6 (was 28.9 when last seen) Activity - Doing well Fevers - No issues Rashes - No issues ---has seen dermatology - ? of Hydradenitis Supp. ---Patient Hydrade (more content not included)... Normal [facility] Progress Noteon 09-30-2021 Furniture Mover Authentication Interface Message Text Kristine Crum is a 21 y.o. female patient. PHQ9 Assessment With Score Performed by: Veronica Alberts MD Authorized by: Veronica Alberts MD PHQ-9 See PHQ9 Flowsheet Feeling down, depressed, irritable or hopeless: Several days Little interest or pleasure in doing things: Several days Trouble falling or staying sleep, or sleeping too much: More than half the days Poor appetite, weight loss, or overeating: Several days Feeling tired or having little energy: More than half the days Feeling bad about yourself - or feeling that you are a failure, or have let yourself or your family down: Not at all Trouble concentrating on things, like school work, reading or watching TV: Several days Moving or speaking so slowly that other people could have noticed. Or the opposite - being so fidgety or restless that you were moving around a lot more than usual: Not at all Thoughts that you would be better off , or of hurting yourself in some way: Not at all In the past year have you felt depressed or sad most days, even if you felt OK sometimes?: Yes If you are experiencing any of the problems on this form, how difficult have these problems made it for you to do your work, take care of things at home or get along with other people?: Somewhat difficult Has there been a time in the past month when you have had serious thoughts about ending your life?: No Have you ever, in your whole life, tried to kill yourself or made a suicide attempt?: No PHQ-9 Total Score: 8 Health Risk Assessment - CRAFFT Authorized by: Veronica Alberts MD CRAFFT Results: 1. Drink more than a few sips of beer, wine, or any drink containing alcohol? Put 0 if none.: 5 2. Use any marijuana (weed, oil, or hash by smoking, vaping, or in food) or synthetic marijuana (like K2, Spice)? Put 0 if none.: 0 3. Use anything else to get high (like other illegal drugs, prescription or sitz-eej-vdcenta medications, and things that you sniff, sykes, or vape)? Put 0 if none.: 0 4. Use any tobacco or nicotine products (for example, cigarettes, e-cigarettes, hookahs or smokeless tobacco)?: 300 5. Have you ever ridden in a CAR driven by someone (including yourself) who was high or had been using alcohol or drugs?: No 6. Do you ever use alcohol or drugs to RELAX, feel better about yourself, or fit in?: No 7. Do you ever use alcohol or drugs while you are by yourself, or ALONE?: No 8. Do you ever FORGET things you did while using alcohol or drugs?: No 9. Do your FAMILY or FRIENDS ever tell you that you should cut down on your drinking or drug use?: No 10. Have you ever gotten into TROUBLE while you were using alcohol or drugs?: No Total CRAFFT+N Score: : 0 Electronically signed by: Jenny De Paz ID: Kristine Crum is a 21 y.o. female. Her chief complaint(s) include: 21 YEAR WELL CHILD Assessment 1. Routine general medical examination at a health care facility 2. Need for vaccination 3. Marijuana use 4. Current every day nicotine vaping Plan Kristine was seen today for 21 year well child. Diagnoses and all orders for this visit: Routine general medical examination at a health care facility - Hearing Screening - Cancel: Vision Screening - PHQ9 Assessment With Score - Health Risk Assessment - CRAFFT Need for vaccination - COVID-19 MRNA VACCINE PFIZER 30MCG/0.3ML IM SUSP - Meningococcal B (BEXSERO) Marijuana use Current every day nicotine vaping Return in about 1 year (around 09/30/2022) for well check. Encouraged smoking cessation. Encouraged patient to continue to use condoms for protection against stds. Encouraged patient to switch to adult provider. She already has a provider in mind. Encouraged healthy diet and exercise for healthy body. Repeat hearing test in 1 month. Subjective HPI Comments: Lives with partner. Male. Has nexplanon and uses condoms. Sees obgyn She is unaccompanied. 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 Eating: (Improving. ). Activities & Sports: Kristine has a job. Sex: The patient is interested in males. The patient has 1 current sexual partners. The patient has had >5 lifetime sexual partners. The patient's gender identity is cisgender. Typically, the patient uses implant as current contraceptive method. Menstruation Menstruation: regular periods Output Urine and Stool Pattern: Urine and Stool Pattern: Normal stool pattern, normal urine pattern. Sleep Sleeping Difficulty: no difficulty sleeping Teen Anticipatory Guidance The following anticipatory guidance was reviewed during the visit: Health: age appropriate dental care. Primary Care Review of Systems Objective Vital Signs 09/30/21 1435 BP: 114/70 Pulse: 80 Weight: 86.8 kg Height: 163 cm Body mass index is 32.67 kg/m . Physical Exam Constitutional: She appears well. She is active. No distress. (more content not included)... Normal [facility] Basic Metabolic Panelon -2 Calcium [Mass/Vol] 8.9 mg/dL Normal 7.6-11.0 [facility] Comment on above: Order Comment: Relea se to patient->Automatic 33773&Blood Performed By: #### L IVER #### [place] [address] CO2 [Moles/Vol] 19.1 mmol/L Low 22.0-29.0 [facility] Comment on above: Order Comment: Relea se to patient->Automatic 61190&Blood Performed By: #### L IVER #### [place] [address] Creatinine [Mass/Vol] 0.63 mg/dL Normal 0.50-1.00 [facility] Comment on above: Order Comment: Relea se to patient->Automatic 98135&Blood Performed By: #### L IVER #### [place] [address] Glucose [Mass/Vol] 134 mg/dL High 70-99 [facility] Comment on above: Order Comment: Relea se to patient->Automatic 47259&Blood Result Comment: Rob maria for Diagnosis of Diabetes: Fasting Specimen (no caloric intake for at least 8 hours): <100 mg/dL Normal 100-125 mg/dL Increased risk for Diabetes >125 mg/dL Diagnostic for Diabetes Random Glucose (any time of day without regard to last meal): > or = 200 mg/dL plus Classic Symptoms of Diabetes Performed By: #### L IVER #### [place] [address] Urea nitrogen [Mass/Vol] 13 mg/dL Normal 4-19 [facility] Comment on above: Order Comment: Relea se to patient->Automatic 57962&Blood Performed By: #### L IVER #### [address] [address] Chloride [Moles/Vol] 108 mmol/L Normal 96-108 [facility] Comment on above: Order Comment: Relea se to patient->Automatic 89956&Blood Performed By: #### L IVER #### [place] [address] Potassium [Moles/Vol] 4.2 mmol/L Normal 3.3-5.1 [facility] Comment on above: Order Comment: Relea se to patient->Automatic 34759&Blood Result Comment: Hemo lysis detected. Results may be falsely elevated. Interpret results with caution. Performed By: #### L IVER #### [place] [address] Sodium [Moles/Vol] 139 mmol/L Normal 133-145 [facility] Comment on above: Order Comment: Relea se to patient->Automatic 13082&Blood Performed By: #### L IVER #### [place] [address] Calcium [Mass/Vol] 8.9 mg/dL 7.6 - 11. 0 mg/dL [facility] Chloride [Moles/Vol] 108 mmol/L 96 - 108 mmol/L [facility] CO2 [Moles/Vol] 19.1 mmol/L Low 22.0 - 29.0 mmol/L [facility] Creatinine [Mass/Vol] 0.63 mg/dL 0.50 - 1.00 mg/dL [facility] Glucose [Mass/Vol] 134 mg/dL High 70 - 99 mg/dL [facility] Comment on above: Criteria for Diagnos is of Diabetes: Fasting Specimen (no caloric intake for at least 8 hours): <100 mg/dL Normal 100-125 mg/dL Increased risk for Diabetes >125 mg/dL Diagnostic for Diabetes Random Glucose (any time of day without regard to last meal): > or = 200 mg/dL plus Classic Symptoms of Diabetes Interpretation and review of laboratory results Abnormal [facility] Potassium [Moles/Vol] 4.2 mmol/L 3.3 - 5.1 mmol/L [facility] Comment on above: Hemolysis detected. Results may be falsely elevated. Interpret results with caution. Sodium [Moles/Vol] 139 mmol/L 133 - 145 mmol/L [facility] Urea nitrogen [Mass/Vol] 13 mg/dL 4 - 19 mg/dL [facility] C-Reactive Proteinon 022 CRP [Mass/Vol] mg/L Normal 0.0-1.0 [facility] Comment on above: Order Comment: Relea se to patient->Automatic 59075&Blood Result Comment: CRP determinations in neonates should be interpreted with caution. CRP may be elevated in circumstances not associated with inflammation (e.g. difficult delivery, pneumothorax). In premature neonates CRP levels may not rise to abnormal levels even if sepsis is present; some speculate that immature liver function decreases the ability to generate a CRP response. Performed By: #### L IVER #### [address] [address] C-reactive proteinon 022 CRP [Mass/Vol] mg/L 0.0 - 1.0 mg/dL [facility] Comment on above: CRP determinations i n neonates should be interpreted with caution. CRP may be elevated in circumstances not associated with inflammation (e.g. difficult delivery, pneumothorax). In premature neonates CRP levels may not rise to abnormal levels even if sepsis is present; some speculate that immature liver function decreases the ability to generate a CRP response. Complete Blood Counton 09-02 Differential Complete Automated Normal [facility] Comment on above: Order Comment: Relea se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 93.89 kg Yesica Mckinnon [employer] Work Phone: [facility] [employer] 2024 11:27-0400 Diastolic blood pressure 80 mm[Hg] Yesica Garrisonll [employer] Work Phone: [facility] [employer] 2024 11:27-0400 Heart rate 84 /min Yesica Griffinfell [employer] Work Phone: [facility] [employer] 2024 11:27-0400 Systolic blood pressure 123 mm[Hg] Yesica Griffinfesammie [employer] Work Phone: [facility] [employer] 02-15-2024 11:24-0400 Body mass index (BMI) [Ratio] 35.09 kg/m2 Tank Wolf MD Work Phone: [facility] [employer] 02-15-2024 11:24-0400 Body weight 92.72 kg Tank Wolf MD Work Phone: [facility] [employer] 02-15-2024 11:24-0400 Diastolic blood pressure 80 mm[Hg] Tank Wolf MD Work Phone: [facility] [employer] 02-15-2024 11:24-0400 Heart rate 70 /min Tank Wolf MD Work Phone: [facility] [employer] 02-15-2024 11:24-0400 Systolic blood pressure 122 mm[Hg] Tank Wolf MD Work Phone: [facility] [employer] 02-12-2024 13:48-0400 Body mass index (BMI) [Ratio] 34.33 kg/m2 Lorieavelina Robles [employer] - CNM Work Phone: [facility] [employer] 02-12-2024 13:48-0400 Body weight 90.72 kg Lorie Pradok [employer] - CNM Work Phone: [facility] [employer] 02-12-2024 13:48-0400 Diastolic blood pressure 81 mm[Hg] Lorie Pradok [employer] - CNM Work Phone: [facility] [employer] 02-12-2024 13:48-0400 Heart rate 85 /min Lorieavelina Pradok [employer] - CNM Work Phone: [facility] [employer] 02-12-2024 13:48-0400 Systolic blood pressure 136 mm[Hg] Lorie Robles [employer] - CNM Work Phone: [facility] [employer] 02-03-2024 15:18-0400 Body mass index (BMI) [Ratio] 34.5 kg/m2 Lo Patel MD Work Phone: [facility] [employer] 02-03-2024 15:18-0400 Body weight 91.17 kg Lo Patel MD Work Phone: [facility] [employer] 02-03-2024 15:18-0400 Diastolic blood pressure 76 mm[Hg] Lo Patel MD Work Phone: [facility] [employer] 02-03-2024 15:18-0400 Systolic blood pressure 118 mm[Hg] Lo Patel MD Work Phone: [facility] [employer] 01-18-2024 15:35-0400 Body mass index (BMI) [Ratio] 33.3 kg/m2 Yesica Saffell [employer] Work Phone: [facility] [employer] 01-18-2024 15:35-0400 Body weight 88 kg Yesica Saffell [employer] Work Phone: [facility] [employer] 01-18-2024 15:35-0400 Diastolic blood pressure 70 mm[Hg] Yesica Saffell [employer] Work Phone: [facility] [employer] 01-18-2024 15:35-0400 Heart rate 83 /min Yesica Saffell [employer] Work Phone: [facility] [employer] 01-18-2024 15:35-0400 Systolic blood pressure 117 mm[Hg] Yesica Saffell [employer] Work Phone: [facility] [employer] 01-08-2024 07:32-0400 Body mass index (BMI) [Ratio] 32.27 kg/m2 Aki Sandhu MD Work Phone: [facility] [employer] 01-08-2024 07:32-0400 Body weight 85.28 kg Aki Sandhu MD Work Phone: [facility] [employer] 01-08-2024 07:32-0400 Diastolic blood pressure 76 mm[Hg] Aki Sandhu MD Work Phone: [facility] [employer] 01-08-2024 07:32-0400 Heart rate 89 /min Aki Sandhu MD Work Phone: [facility] [employer] 01-08-2024 07:32-0400 Systolic blood pressure 120 mm[Hg] Aki Sanhdu MD Work Phone: [facility] [employer] 12-24-2023 10:38-0400 Body mass index (BMI) [Ratio] 31.76 kg/m2 Yesica Saffell [employer] Work Phone: [facility] [employer] 12-24-2023 10:38-0400 Body weight 83.92 kg Yesica Saffell [employer] Work Phone: [facility] [employer] 12-24-2023 10:38-0400 Diastolic blood pressure 75 mm[Hg] Yesica Saffell [employer] Work Phone: [facility] [employer] 12-24-2023 10:38-0400 Heart rate 79 /min Yesica Saffell [employer] Work Phone: [facility] [employer] 12-24-2023 10:38-0400 Systolic blood pressure 118 mm[Hg] Yesica Saffell [employer] Work Phone: [facility] [employer] 08-27-2023 14:36-0400 Body height 162.6 cm Kayleigh Stevens MD Work Phone: [facility] [employer] 08-27-2023 14:36-0400 Body mass index (BMI) [Ratio] 28.46 kg/m2 Kayleigh Stevens MD Work Phone: [facility] [employer] 08-27-2023 14:36-0400 Body weight 75.21 kg Kayleigh Stevens MD Work Phone: [facility] [employer] 08-27-2023 14:36-0400 Diastolic blood pressure 78 mm[Hg] Kayleigh Stevens MD Work Phone: [facility] [employer] 08-27-2023 14:36-0400 Heart rate 62 /min Kayleigh Stevens MD Work Phone: [facility] [employer] 08-27-2023 14:36-0400 Respiratory rate 16 /min Kayleigh Stevens MD Work Phone: [facility] [employer] 08-27-2023 14:36-0400 SaO2% (BldA) [Mass fraction] 98 % Kayleigh Stevens MD Work Phone: [facility] [employer] Comment on above: ra 08-27-2023 14:36-0400 Systolic blood pressure 116 mm[Hg] Kayleigh Stevens MD Work Phone: [facility] [employer] 06-25-2023 15:49-0500 Body height 162.6 cm Lilian Alberts [employer]-CN[employer] Work Phone: [facility] 06-25-2023 15:49-0500 Body mass index (BMI) [Ratio] 27.64 kg/m2 Lilian Alberts [employer] Work Phone: [facility] 06-25-2023 15:49-0500 Body weight 73.03 kg Lilian Alberts [employer] Work Phone: [facility] 05-28-2023 11:58-0500 Body height 162.6 cm Kayleigh Stevens MD Work Phone: [facility] [employer] 05-28-2023 11:58-0500 Body mass index (BMI) [Ratio] 27.74 kg/m2 Kayleigh Stevens MD Work Phone: [facility] [employer] 05-28-2023 11:58-0500 Body weight 73.3 kg Kayleigh Stevens MD Work Phone: [facility] [employer] 05-28-2023 11:58-0500 Diastolic blood pressure 70 mm[Hg] Kayleigh Stevens MD Work Phone: [facility] [employer] 05-28-2023 11:58-0500 Heart rate 90 /min Kayleigh Stevens MD Work Phone: [facility] [employer] 05-28-2023 11:58-0500 Respiratory rate 16 /min Kayleigh Stevens MD Work Phone: [facility] 05-28-2023 11:58-0500 SaO2% (BldA) [Mass fraction] 98 % Kayleigh Stevens MD Work Phone: [facility] [employer] Comment on above: 05-28-2023 11:58-0500 Systolic blood pressure 110 mm[Hg] Kayleigh Stevens MD Work Phone: [facility] [employer] 02-24-2023 11:02-0400 Body height 162.6 cm Kayleigh Stevens MD Work Phone: [facility] [employer] 02-24-2023 11:02-0400 Body mass index (BMI) [Ratio] 29.18 kg/m2 Kayleigh Stevens MD Work Phone: [facility] [employer] 02-24-2023 11:02-0400 Body weight 77.11 kg Kayleigh Stevens MD Work Phone: [facility] [employer] 02-24-2023 11:02-0400 Diastolic blood pressure 70 mm[Hg] Kayleigh Stevens MD Work Phone: [facility] [employer] 02-24-2023 11:02-0400 Heart rate 93 /min Kayleigh Stevens MD Work Phone: [facility] 02-24-2023 11:02-0400 Respiratory rate 16 /min Kayleigh Stevens MD Work Phone: [facility] [employer] 02-24-2023 11:02-0400 SaO2% (BldA) [Mass fraction] 97 % Kayleigh Stevens MD Work Phone: [facility] [employer] Comment on above: 02-24-2023 11:02-0400 Systolic blood pressure 108 mm[Hg] Kayleigh Stevens MD Work Phone: [facility] 01-13-2023 14:02-0400 Body height 162.6 cm Kayleigh Stevens MD Work Phone: [facility] [employer] 01-13-2023 14:02-0400 Body mass index (BMI) [Ratio] 29.59 kg/m2 Kayleigh Stevens MD Work Phone: [facility] [employer] 01-13-2023 14:02-0400 Body weight 78.2 kg Kayleigh Stevens MD Work Phone: [facility] 01-13-2023 14:02-0400 Diastolic blood pressure 72 mm[Hg] Kayleigh Stevens MD Work Phone: [facility] [employer] 01-13-2023 14:02-0400 Heart rate 75 /min Kayleigh Stevens MD Work Phone: [facility] [employer] 01-13-2023 14:02-0400 Respiratory rate 16 /min Kayleigh Stevens MD Work Phone: [facility] [employer] 01-13-2023 14:02-0400 SaO2% (BldA) [Mass fraction] 96 % Kayleigh Stevens MD Work Phone: [facility] [employer] Comment on above: 01-13-2023 14:02-0400 Systolic blood pressure 108 mm[Hg] Kayleigh Stevens MD Work Phone: [facility] [employer] 10-13-2022 13:54-0400 Body height 162.6 cm Kayleigh Stevens MD Work Phone: [facility] 10-13-2022 13:54-0400 Body mass index (BMI) [Ratio] 28.29 kg/m2 Kayleigh Stevens MD Work Phone: [facility] [employer] 10-13-2022 13:54-0400 Body weight 74.75 kg Kayleigh Stevens MD Work Phone: [facility] [employer] 10-13-2022 13:54-0400 Diastolic blood pressure 78 mm[Hg] Kayleigh Stevens MD Work Phone: [facility] 10-13-2022 13:54-0400 Heart rate 69 /min Kayleigh Stevens MD Work Phone: [facility] 10-13-2022 13:54-0400 Respiratory rate 16 /min Kayleigh Stevens MD Work Phone: [facility] 10-13-2022 13:54-0400 SaO2% (BldA) [Mass fraction] 94 % Kayleigh Stevens MD Work Phone: [facility] Comment on above: ra 10-13-2022 13:54-0400 Systolic blood pressure 120 mm[Hg] Kayleigh Stevens MD Work Phone: [facility] 08-08-2022 13:25-0500 Body temperature 99 [degF] Trenton Mccord MD Work Phone: [facility] 08-08-2022 13:25-0500 Diastolic blood pressure 67 mm[Hg] Trenton Mccord MD Work Phone: [facility] 08-08-2022 13:25-0500 Heart rate 86 /min Trenton Mccord MD Work Phone: [facility] 08-08-2022 13:25-0500 Respiratory rate 18 /min Trenton Mccord MD Work Phone: [facility] 08-08-2022 13:25-0500 Systolic blood pressure 107 mm[Hg] Trenton Mccord MD Work Phone: [facility] 08-08-2022 11:40-0500 Body height 163.5 cm Trenton Mccord MD Work Phone: [facility] 08-08-2022 11:40-0500 Body mass index (BMI) [Ratio] 29.33 kg/m2 Trenton Mccord MD Work Phone: [facility] 08-08-2022 11:40-0500 Body weight 78.4 kg Trenton Mccord MD Work Phone: [facility] 07-18-2022 08:57-0500 Body height 165.1 cm [employer] Work Phone: [facility] 200 DO Work Phone: 07-18-2022 08:57-0500 Body mass index (BMI) [Ratio] 28.96 kg/m2 [employer] Work Phone: [facility] 200 DO Work Phone: 07-18-2022 08:57-0500 Body surface area Derived from formula 1.86 m2 [employer] Work Phone: [facility] 200 DO Work Phone: 07-18-2022 08:57-0500 Body weight 78.93 kg [employer] Work Phone: [facility] 200 DO Work Phone: 07-18-2022 08:57-0500 Diastolic blood pressure 74 mm[Hg] [employer] Work Phone: [facility] 200 DO Work Phone: 07-18-2022 08:57-0500 Heart rate 82 /min [employer] Work Phone: [facility] 200 DO Work Phone: 07-18-2022 08:57-0500 Systolic blood pressure 111 mm[Hg] [employer] Work Phone: [facility] 200 DO Work Phone: 06-27-2022 12:55-0500 Body temperature 98.2 [degF] Trenton Mccord MD Work Phone: [facility] 06-27-2022 12:55-0500 Diastolic blood pressure 66 mm[Hg] Trenton Mccord MD Work Phone: [facility] 06-27-2022 12:55-0500 Heart rate 61 /min Trenton Mccord MD Work Phone: [facility] 06-27-2022 12:55-0500 Respiratory rate 16 /min Trenton Mccord MD Work Phone: [facility] 06-27-2022 12:55-0500 Systolic blood pressure 110 mm[Hg] Trenton Mccord MD Work Phone: [facility] 06-12-2022 15:11-0500 Body height 162.6 cm Kayleigh Stevens MD Work Phone: [facility] [employer] 06-12-2022 15:11-0500 Body mass index (BMI) [Ratio] 30.35 kg/m2 Kayleigh Stevens MD Work Phone: [facility] [employer] 06-12-2022 15:11-0500 Body weight 80.2 kg Kayleigh Setvens MD Work Phone: [facility] [employer] 06-12-2022 15:11-0500 Diastolic blood pressure 80 mm[Hg] Kayleigh Stevens MD Work Phone: [facility] [employer] 06-12-2022 15:11-0500 Heart rate 81 /min Kayleigh Stevens MD Work Phone: [facility] [employer] 06-12-2022 15:11-0500 Respiratory rate 16 /min Kayleigh Stevens MD Work Phone: [facility] [employer] 06-12-2022 15:11-0500 SaO2% (BldA) [Mass fraction] 98 % Kayleigh Stevens MD Work Phone: [facility] [employer] Comment on above: ra 06-12-2022 15:11-0500 Systolic blood pressure 120 mm[Hg] Kayleigh Stevens MD Work Phone: [facility] [employer] 05-16-2022 13:45-0500 Body temperature 97.9 [degF] Trenton Mccord MD Work Phone: [facility] 05-16-2022 13:45-0500 Diastolic blood pressure 65 mm[Hg] Trenton Mccord MD Work Phone: [facility] 05-16-2022 13:45-0500 Heart rate 64 /min Trenton Mccord MD Work Phone: [facility] 05-16-2022 13:45-0500 Respiratory rate 16 /min Trenton Mccord MD Work Phone: [facility] 05-16-2022 13:45-0500 Systolic blood pressure 102 mm[Hg] Trenton Mccord MD Work Phone: [facility] 05-16-2022 12:12-0500 Body height 164.5 cm Trenton Mccord MD Work Phone: [facility] 05-16-2022 12:12-0500 Body mass index (BMI) [Ratio] 29.08 kg/m2 Trenton Mccord MD Work Phone: [facility] 05-16-2022 12:12-0500 Body weight 78.7 kg Trenton Mccord MD Work Phone: [facility] 02-20-2022 11:19-0400 Body temperature 96.8 [degF] Trenton Mccord MD Work Phone: [facility] 02-20-2022 11:19-0400 Diastolic blood pressure 56 mm[Hg] Trenton Mccord MD Work Phone: [facility] 02-20-2022 11:19-0400 Heart rate 56 /min Trenton Mccord MD Work Phone: [facility] 02-20-2022 11:19-0400 Respiratory rate 16 /min Trenton Mccord MD Work Phone: [facility] 02-20-2022 11:19-0400 Systolic blood pressure 94 mm[Hg] Trenton Mccord MD Work Phone: [facility] 02-20-2022 09:45-0400 Body height 164.2 cm Trenton Mccord MD Work Phone: [facility] 02-20-2022 09:45-0400 Body mass index (BMI) [Ratio] 28.93 kg/m2 Trenton Mccord MD Work Phone: [facility] 02-20-2022 09:45-0400 Body weight 78 kg Trenton Mccord MD Work Phone: [facility] 01-09-2022 12:30-0400 Body temperature 96.8 [degF] Trenton Mccord MD Work Phone: [facility] 01-09-2022 12:30-0400 Diastolic blood pressure 53 mm[Hg] Trenton Mccord MD Work Phone: [facility] 01-09-2022 12:30-0400 Heart rate 66 /min Trenton Mccord MD Work Phone: [facility] 01-09-2022 12:30-0400 Respiratory rate 16 /min Trenton Mccord MD Work Phone: [facility] 01-09-2022 12:30-0400 Systolic blood pressure 96 mm[Hg] Trenton Mccord MD Work Phone: [facility] 01-09-2022 09:30-0400 Body height 162 cm Trenton Mccord MD Work Phone: [facility] 01-09-2022 09:30-0400 Body mass index (BMI) [Ratio] 30.1 kg/m2 Trenton Mccord MD Work Phone: [facility] 01-09-2022 09:30-0400 Body weight 79 kg Trenton Mccord MD Work Phone: [facility] 12-31-2021 23:27-0400 Respiratory rate 18 /min Alyson Contreras MD Work Phone: [facility] 12-31-2021 21:57-0400 Body temperature 97.5 [degF] Alyson Contreras MD Work Phone: [facility] 12-31-2021 21:57-0400 Body weight 79.9 kg Alyson Contreras MD Work Phone: [facility] 12-31-2021 21:57-0400 Diastolic blood pressure 79 mm[Hg] Alyson Contreras MD Work Phone: [facility] 12-31-2021 21:57-0400 Heart rate 80 /min Alyson Contreras MD Work Phone: [facility] 12-31-2021 21:57-0400 SaO2% (BldA) [Mass fraction] 100 % Alyson Contreras MD Work Phone: [facility] 12-31-2021 21:57-0400 Systolic blood pressure 130 mm[Hg] Alyson Contreras MD Work Phone: [facility] 11-28-2021 14:40-0400 Body temperature 98.1 [degF] Trenton Mccord MD Work Phone: [facility] 11-28-2021 14:40-0400 Diastolic blood pressure 58 mm[Hg] Trenton Mccord MD Work Phone: [facility] 11-28-2021 14:40-0400 Heart rate 69 /min Trenton Mccord MD Work Phone: [facility] 11-28-2021 14:40-0400 Respiratory rate 16 /min Trenton Mccord MD Work Phone: [facility] 11-28-2021 14:40-0400 Systolic blood pressure 97 mm[Hg] Trenton Mccord MD Work Phone: [facility] 10-18-2021 13:50-0400 Body temperature 96.8 [degF] Trenton Mccord MD Work Phone: [facility] 10-18-2021 13:50-0400 Diastolic blood pressure 63 mm[Hg] Trenton Mccord MD Work Phone: [facility] 10-18-2021 13:50-0400 Heart rate 54 /min Trenton Mccord MD Work Phone: [facility] 10-18-2021 13:50-0400 Respiratory rate 16 /min Trenton Mccord MD Work Phone: [facility] 10-18-2021 13:50-0400 Systolic blood pressure 101 mm[Hg] Trenton Mccord MD Work Phone: [facility] 10-18-2021 11:10-0400 Body height 162 cm Trenton Mccord MD Work Phone: [facility] 10-18-2021 11:10-0400 Body mass index (BMI) [Ratio] 32.65 kg/m2 Trenton Mccord MD Work Phone: [facility] 10-18-2021 11:10-0400 Body weight 85.7 kg Trenton Mccord MD Work Phone: [facility] 10-02-2021 10:24-0400 Body temperature 97.88 [degF] Veronica Aristeo Other Phone: [facility] 10-02-2021 10:24-0400 Diastolic blood pressure 72 mm[Hg] Veronica Aristeo Other Phone: [facility] 10-02-2021 10:24-0400 Heart rate 78 /min Veronica Aristeo Other Phone: [facility] 10-02-2021 10:24-0400 Respiratory rate 14 /min Veronica Aristeo Other Phone: [facility] 10-02-2021 10:24-0400 SaO2% (BldA) [Mass fraction] 99 % Veronica Aristeo Other Phone: [facility] 10-02-2021 10:24-0400 Systolic blood pressure 125 mm[Hg] Veronica Alberts Other Phone: [facility] 10-02-2021 06:29-0400 Body height 162.5 cm Veronica Alberts Other Phone: [facility] 10-02-2021 06:29-0400 Body weight 87 kg Veronica Alberts Other Phone: [facility] 09-02-2021 14:37-0400 Body temperature 98.1 [degF] Trenton Mccord MD Work Phone: [facility] 09-02-2021 14:37-0400 Diastolic blood pressure 57 mm[Hg] Trenton Mccord MD Work Phone: [facility] 09-02-2021 14:37-0400 Heart rate 67 /min Trenton Mccord MD Work Phone: [facility] 09-02-2021 14:37-0400 Respiratory rate 16 /min Trenton Mccord MD Work Phone: [facility] 09-02-2021 14:37-0400 Systolic blood pressure 121 mm[Hg] Trenton Mccord MD Work Phone: [facility] 09-02-2021 11:33-0400 Body height 162.8 cm Trenton Mccord MD Work Phone: [facility] 09-02-2021 11:33-0400 Body mass index (BMI) [Ratio] 33.17 kg/m2 Trenton Mccord MD Work Phone: [facility] 09-02-2021 11:33-0400 Body weight 87.9 kg Trenton Mccord MD Work Phone: [facility] 10-22-2020 10:09-0400 Diastolic blood pressure 82 mm[Hg] Veronica Alberts Other Phone: [facility] 10-22-2020 10:09-0400 Heart rate 88 /min Veronica Aristeo Other Phone: [facility] 10-22-2020 10:09-0400 SaO2% (BldA) [Mass fraction] 98 % Veronica Aristeo Other Phone: [facility] 10-22-2020 10:09-0400 Systolic blood pressure 123 mm[Hg] Veronica Aristeo Other Phone: [facility] 10-22-2020 07:51-0400 Body height 162.5 cm Veronica Aristeo Other Phone: [facility] 10-22-2020 07:51-0400 Body temperature 99.68 [degF] Veronica Aristeo Other Phone: [facility] 10-22-2020 07:51-0400 Body weight 77.3 kg Veronica Alberts Other Phone: [facility] 10-22-2020 07:51-0400 Respiratory rate 18 /min Veronica Aristeo Other Phone: [facility] 05-15-2020 23:22-0500 BMI (Body Mass Index) 32.45 kg/m2 [facility], [place] 05-15-2020 23:22-0500 Body Temperature 98.1 [degF] [facility], [place] 05-15-2020 23:22-0500 Body weight 88.45 kg [facility] , [place] 05-15-2020 23:22-0500 BP Diastolic 86 mm[Hg] [facility] , [place] 05-15-2020 23:22-0500 BP Systolic 135 mm[Hg] [facility] , [place] 05-15-2020 23:22-0500 Height 165.1 cm [facility] , [place] 05-15-2020 23:22-0500 Pulse (Heart Rate) 81 /[facility]-15-2020 23:22-0500 Pulse Oximetry 99 % [facility] 05-15-2020 23:22-0500 Respiratory Rate 16 /min [facility] [place] Encounters Encounter Date Encounter Type Care Provider Facility Start: 02-03-2025 End: 02-03-2025 ambulatory [facility] Start: 12-23-2024 End: 12-23-2024 ambulatory [facility] Start: 11-11-2024 End: 11-11-2024 ambulatory [facility] Start: 10-16-2024 End: 10-16-2024 Emergency department patient visit Jamir Victor MD Work Phone: [facility] Comment on above: Shortness of breath (Primary Dx); Acute cough; Wheezing Start: 10-07-2024 End: 10-07-2024 ambulatory VERONICA ALBERTS [facility] Start: 10-07-2024 End: 10-07-2024 Encounter for gynecological examination (general) (routine) without abnormal findings AKI SANDHU [facility] Start: 10-07-2024 End: 10-07-2024 Patient encounter procedure Aki Sandhu MD Work Phone: [facility] [employer] Work Phone: Start: 10-07-2024 End: 10-07-2024 Periodic preventive med est patient 18-39 yrs Aki Sandhu MD Work Phone: [facility] - [place]ul Comment on above: Well woman exam with routine gynecological exam (Primary Dx); Vaginal discharge Start: 09-30-2024 End: 09-30-2024 ambulatory [facility] Start: 08-19-2024 End: 08-19-2024 ambulatory [facility] Start: 07-08-2024 End: 07-08-2024 ambulatory [facility] Start: 05-27-2024 End: 05-27-2024 ambulatory BERT Minaya [facility] Start: 04-12-2024 End: [facility]12[facility]: 04-07-[facility]24 End: 04-07-2024 care visit Yesica Mckinnon APRN - [employer] Work Phone: [facility] Obstetrics [facility] [place] Comment on above: care and examination (Primary Dx); Status post delivery Start: 04-07-2024 End: 04-07-2024 ambulatory [facility] Start: 03-09-2024 End: 03-09-2024 care visit Lo Patel MD Work Phone: [facility] Gynecology [facility] Comment on above: care and examination (Primary Dx) Start: 03-09-2024 End: 03-09-2024 [facility] Start: 02-24-2024 End: 02-24-2024 Evaluation and management of inpatient Loki Troy MD Work Phone: [facility] Labor and Delivery L&D H2 Start: 02-23-2024 End: 02-27-2024 Evaluation and management of inpatient Lo Patel MD Work Phone: [facility] Mother Baby H4 Comment on above: S/P section (Primary Dx) Start: 2024 End: 2024 Subsequent care visit Yesica Mckinnon APRN - [employer] Work Phone: [facility] Obstetrics [facility] Gynecology [facility] Comment on above: High-risk supervision, third trimester (Primary Dx); Anxiety disorder affecting , antepartum; Post-term , 40-42 weeks of gestation; Crohn's disease with complication, unspecified gastrointestinal tract location (HCC); Vanishing twin syndrome; 40 weeks gestation of Start: 2024 End: 2024 ambulatory [facility] Start: 02-15-2024 End: 02-15-2024 Subsequent care visit Tank Wolf MD Work Phone: [facility] [place][note 2] Comment on above: Supervision of high risk in third trimester (Primary Dx); 39 weeks gestation of ; Crohn's disease with complication, unspecified gastrointestinal tract location (HCC) Start: 02-15-2024 End: 02-15-2024 ambulatory VERONICA ALBERTS [facility] Start: 02-12-2024 End: 02-12-2024 Office outpatient visit 15 minutes Lorie Robles APRN - CNM Work Phone: [facility] [place][note 2] Comment on above: Anxiety disorder aff ecting , antepartum (Primary Dx); 38 weeks gestation of Start: 02-12-2024 End: 02-12-2024 [facility] Start: 02-03-2024 End: 02-03-2024 Subsequent care visit Lo Patel MD Work Phone: [facility] [place][note 2] Comment on above: Supervision of high risk , antepartum (Primary Dx); Vanishing twin syndrome; Anxiety disorder affecting , antepartum; care, antepartum; 37 weeks gestation of ; screening for streptococcus B Start: 02-03-2024 End: 02-03-2024 [facility] LO PATEL [facility] Start: 01-18-2024 End: 01-18-2024 Subsequent care visit Yesica Ren CNP Work Phone: [facility] [place][note 2] Comment on above: High-risk supervision, third trimester (Primary Dx); Anxiety disorder affecting , antepartum; Vanishing twin syndrome; Maternal Crohn's disease affecting in third trimester (HCC); 35 weeks gestation of Start: 01-18-2024 End: 01-18-2024 ambulatory [facility] Start: 01-08-2024 End: 01-08-2024 ambulatory [facility] Start: 01-08-2024 End: 01-08-2024 Office outpatient visit 15 minutes Aki Sandhu MD Work Phone: [facility] [place][note 2] Comment on above: 33 weeks gestation o f (Primary Dx) Start: 01-08-2024 End: 01-08-2024 ambulatory AKI SANDHU [facility] Start: 01-01-2024 End: 01-01-2024 ambulatory [facility] Start: 12-25-2023 End: 12-25-2023 [facility] Start: 12-24-2023 End: 12-24-2023 Initial care visit Yesica Durham JOSTIN Ren CNP Work Phone: [facility] [place][note 2] Comment on above: GA: [id number] Start: 12-24-2023 End: 12-24-2023 ambulatory [facility] Start: 12-18-2023 End: 12-18-2023 ambulatory [facility] Start: 12-04-2023 End: 12-04-2023 ambulatory [facility] Start: 11-27-2023 End: 11-27-2023 ambulatory [facility] Start: 11-23-2023 End: 11-23-2023 ambulatory SARAH FINNEY [facility] Start: 11-09-2023 End: 11-09-2023 ambulatory [facility] Amb[facility] Start: 10-09-2023 End: 10-09-2023 Office outpatient visit 15 minutes Lilian Alberts APRN-CNM Work Phone: [facility] Comment on above: Crohn's disease of b oth small and large intestine without complication (Multi) (Primary Dx); Anxiety during , antepartum, second trimester (HHS-HCC); Primigravida, second trimester (HHS-HCC); 20 weeks gestation of (HHS-HCC) Start: 10-09-2023 End: 10-09-2023 ambulatory [facility] Start: 10-02-2023 End: 10-02-2023 Subsequent hospital visit by physician Mac Streetsb2 Obgynimg Ultrasound [facility] Comment on above: 13 weeks gestation o f ([facility]) Start: 10-02-2023 End: 10-02-2023 [facility] Start: 09-21-2023 End: 09-21-2023 Office outpatient visit 15 minutes [facility] B[employer]NER-CNM, [employer] Work Phone: [facility] Comment on above: Crohn's disease of b oth small and large intestine without complication (Multi) (Primary Dx); Anxiety during , antepartum, second trimester ([facility]); 17 weeks gestation of (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) Start: 08-19-2023 End: 08-19-2023 ambulatory LILIAN [facility] Start: 08-13-2023 End: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 Start: 09-30-2021 End: 09-30-2021 Patient encounter procedure 09/30/2021 Office Visit Pediatrics Veronica Alberts MD [address] [place] [address] [facility] Start: 12-27-2020 COVID-19 (3 - Pfizer risk 4-dose series) COVID-19 (3 - Pfizer risk 4-dose series) [facility] Start: 02-23-2020 Pneumococcal Vaccine: Pediatrics (0 to 5 Years) and At-Risk Patients (6 to 49 Years) (1 of 2 - PCV) Pneumococcal Vaccine: Pediatrics (0 to 5 Years) and At-Risk Patients (6 to 49 Years) (1 of 2 - PCV) [facility] Start: 02-23-2020 Zoster Vaccines (1 of 2) Zoster Vaccines (1 of 2) [facility] Start: 02-11-2020 Well Visit Well Visit [facility] Start: 2019 Diabetes mellitus screening Diabetes Screening [facility] Start: 2019 Hearing Screening Hearing Screening [facility] Start: 2019 Hepatitis C screening Hepatitis C Screening [facility] Start: 2017 MenB (1 of 2 - MenB 2-Dose Series) MenB (1 of 2 - MenB 2-Dose Series) [facility] Start: 02-23-2016 Vision Screening Vision Screening [facility] Start: 2013 Depression Screening Depression Screening [facility] Start: 2007 Pneumococcal Vaccine: Pediatrics (0 to 5 Years) and At-Risk Patients (6 to 64 Years) (1 - PCV) Pneumococcal Vaccine: Pediatrics (0 to 5 Years) and At-Risk Patients (6 to 64 Years) (1 - PCV) [facility] Start: 2007 Pneumococcal Vaccine: Pediatrics (0 to 5 Years) and At-Risk Patients (6 to 64 Years) (1 of 2 - PCV) Pneumococcal Vaccine: Pediatrics (0 to 5 Years) and At-Risk Patients (6 to 64 Years) (1 of 2 - PCV) [facility] Start: 2002 Hepatitis B Surface Antibody Hepatitis B Surface Antibody [facility] Start: 2001 Cyanocobalamin vitamin b-12 Vitamin B-12 [facility] Start: 2001 HIV screening HIV Screening [facility] Start: 2001 Lipid panel Lipid Panel [facility] Start: 2001 Screening for Chlamydia trachomatis Chlamydia and Gonorrhea Screening [facility] Start: 2001 Screening for osteoporosis Bone Density Scan [facility] Start: 2001 TB Test TB Test [facility] Start: 2001 Vitamin D25-[place] Vitamin D25-OH [facility] Start: 2001 Yearly Adult Physical Yearly Adult Physical [facility] End: 01-09-2022 Hepatitis Acute Panel [facility] Comment on above: For lab collect this frequency defaults to the next routine lab draw time. Routine times: 0600; 1100; 1400; 1900; 2200 for 1 Occurrences starting 01/09/2022 until 01/09/2022 End: 01-09-2022 Quantiferon TB Gold [facility] Work Phone: Comment on above: For lab collect this frequency defaults to the next routine lab draw time. Routine times: 0600; 1100; 1400; 1900; 2200 for 1 Occurrences starting 01/09/2022 until 01/09/2022 Streptococcus agalac tiae DNA [Presence] in Unspecified specimen by XANDER with probe detection Group B Strep Screen PCR Microbiology Routine screening for streptococcus B Ordered: 02/03/2024 [facility] Work Phone: Comment on above: Ordered: 02/03/2024 End: 07-10-2023 US for in first trimester [facility] Work Phone: Comment on above: Once for 1 Occurrences starting 07/10/19 until 07/10/2023 End: 07-10-2023 US Pelvis transvaginal [facility] Work Phone: Comment on above: Once for 1 Occurrences starting 07/10/19 until 07/10/2023 Immunizations Immunization Date Immunization Notes Care Provider [facility] 04-07-2024 influenza, seasonal, injectable, preservative free Yesica Saffell [employer] Work Phone: [facility] 02-24-2024 diphtheria, tetanus toxoids and acellular pertussis vaccine, unspecified formulation Lo Patel MD Work Phone: [facility] 02-24-2024 measles, mumps and rubella virus vaccine Lo Patel MD Work Phone: [facility] 12-04-2023 tetanus toxoid, redu td diphtheria toxoid, and acellular pertussis vaccine, adsorbed Yesica Saffell [employer] Work Phone: [facility] 04-02-2022 influenza, injectabl e, quadrivalent, preservative free Trenton Mccord MD Work Phone: [facility] 04-02-2022 influenza virus vacc ine, unspecified formulation Kayleigh Stevens MD Work Phone: [facility] 12-31-2021 tetanus toxoid, redu td diphtheria toxoid, and acellular pertussis vaccine, adsorbed Alyson Contreras MD Work Phone: [facility] 12-17-2021 meningococcal B vacc ine, recombinant, OMV, adjuvanted Alyson Contreras MD Work Phone: [facility] 09-30-2021 meningococcal B vacc ine, recombinant, OMV, adjuvanted Trenton Mccord MD Work Phone: [facility] 09-30-2021 PFIZER COVID-19, mRN A, VAC-JAY, 30mcg/0.3mL dose Trenton Mccord MD Work Phone: [facility] 03-18-2021 influenza, injectabl e, quadrivalent, preservative free Trenton Mccord MD Work Phone: [facility] 11-29-2020 Pfizer-BioNTech COVI D-19 Vacc 30 MCG/0.3ML Intramuscular Suspension [employer]fa[employer] Work Phone: [facility]-P ort[facility] 200 DO Work Phone: 11-07-2020 Pfizer-BioNTech COVI D-19 Vacc 30 MCG/0.3ML Intramuscular Suspension [employer] Work Phone: [facility]-P ortage 200 DO Work Phone: 03-05-2020 influenza, injectabl e, quadrivalent, preservative free Trenton Mccord MD Work Phone: [facility] 02-10-2019 hepatitis A vaccine, pediatric/adolescent dosage, 2 dose schedule Trenton Mccord MD Work Phone: [facility] 02-10-2019 influenza, injectabl e, quadrivalent, preservative free Trenton Mccord MD Work Phone: [facility] 02-10-2019 meningococcal polysaccharide (groups A, C, Y and W-135) diphtheria toxoid conjugate vaccine (MCV4P) Trenton Mccord MD Work Phone: [facility] 08-06-2016 hepatitis A vaccine, pediatric/adolescent dosage, 2 dose schedule Trenton Mccord MD Work Phone: [facility] 03-24-2016 influenza, injectabl e, quadrivalent, preservative free Trenton Mccord MD Work Phone: [facility] 08-08-2014 human papilloma viru s vaccine, quadrivalent Trenton Mccord MD Work Phone: [facility] 04-06-2013 human papilloma viru s vaccine, quadrivalent Trenton Mccord MD Work Phone: [facility] 04-06-2013 Influenza Vaccine 0. 5 mL >= 3 Yr Trivalent Trenton Mccord MD Work Phone: [facility] 04-06-2013 influenza, seasonal, injectable Veronica Alberts Work Phone: [facility]-P ortage 200 DO Work Phone: 04-06-2013 meningococcal polysaccharide (groups A, C, Y and W-135) diphtheria toxoid conjugate vaccine (MCV4P) Trenton Mccord MD Work Phone: [facility] 04-06-2013 tetanus toxoid, redu td diphtheria toxoid, and acellular pertussis vaccine, adsorbed Trenton Mccord MD Work Phone: [facility] 06-28-2010 varicella virus vaccine Tonny Mccord MD Work Phone: [facility] 05-24-2009 novel influenza-H1N1 -09, preservative-free, injectable Trenton Mccord MD Work Phone: [facility] 04-17-2009 novel influenza-H1N1 -, preservative-free, injectable Trenton Mccord MD Work Phone: [facility] 01-14-2006 diphtheria, tetanus toxoids and acellular pertussis vaccine Trenton Mccord MD Work Phone: [facility] 01-14-2006 diphtheria, tetanus toxoids and acellular pertussis vaccine, unspecified formulation VeronicaCommex [employer] Work Phone: [facility]-P ort[facility] 200 DO Work Phone: 01-14-2006 measles, mumps and rubella virus vaccine Trenton Mccord MD Work Phone: [facility] 01-14-2006 poliovirus vaccine, inactivated Trenton Mccord MD Work Phone: [facility] 01-14-2006 varicella virus vaccine Tonny Mccord MD Work Phone: [facility] 08-18-2002 diphtheria, tetanus toxoids and acellular pertussis vaccine Trenton Mccord MD Work Phone: [facility] 08-18-2002 diphtheria, tetanus toxoids and acellular pertussis vaccine, unspecified formulation [employer] Work Phone: [facility]-P ort[facility] 200 DO Work Phone: 03-31-2002 haemophilus influenz ae type b vaccine, conjugate unspecified formulation [employer] Work Phone: [facility]tage 200 DO Work Phone: 03-31-2002 haemophilus influenz ae type b vaccine, PRP-T conjugate Trenton Mccord MD Work Phone: [facility] 03-31-2002 measles, mumps and rubella virus vaccine Trenton Mccord MD Work Phone: [facility] 2001 diphtheria, tetanus toxoids and acellular pertussis vaccine Trenton Mccord MD Work Phone: [facility] 2001 diphtheria, tetanus toxoids and acellular pertussis vaccine, unspecified formulation [employer] Work Phone: [facility] DO Work Phone: 2001 haemophilus influenz ae type b vaccine, HbOC conjugate Veronica Aristeo Work Phone: [facility] ortage 200 DO Work Phone: 2001 haemophilus influenz ae type b vaccine, PRP-T conjugate Trenton Mccord MD Work Phone: [facility] 2001 poliovirus vaccine, inactivated Trenton Mccord MD Work Phone: [facility] 2001 hepatitis B vaccine, pediatric or pediatric/adolescent dosage Trenton Mccord MD Work Phone: [facility] 2001 pneumococcal conjuga te vaccine, 7 valent Trenton Mccord MD Work Phone: [facility] 2001 diphtheria, tetanus toxoids and acellular pertussis vaccine Trenton Mccord MD Work Phone: [facility] 2001 diphtheria, tetanus toxoids and acellular pertussis vaccine, unspecified formulation [employer] Work Phone: [facility] ortage 200 DO Work Phone: 2001 haemophilus influenz ae type b vaccine, PRP-T conjugate Trenton Mccord MD Work Phone: [facility] 2001 pneumococcal conjuga te vaccine, 7 valent Trenton Mccord MD Work Phone: [facility] 2001 poliovirus vaccine, inactivated Trenton Mccord MD Work Phone: [facility] 2001 diphtheria, tetanus toxoids and acellular pertussis vaccine, unspecified formulation Trenton Mccord MD Work Phone: [facility] 2001 haemophilus influenz ae type b vaccine, PRP-T conjugate rTenton Mccord MD Work Phone: [facility] 2001 pneumococcal conjuga te vaccine, 7 valent Trenton Mccord MD Work Phone: [facility] 2001 poliovirus vaccine, inactivated Trenton Mccord MD Work Phone: [facility] 2001 diphtheria, tetanus toxoids and acellular pertussis vaccine Trenton Mccord MD Work Phone: [facility] 2001 diphtheria, tetanus toxoids and acellular pertussis vaccine, unspecified formulation Veronica Aristeo Work Phone: [facility]-P ortage 200 DO Work Phone: 2001 hepatitis B vaccine, pediatric or pediatric/adolescent dosage Trenton Mccord MD Work Phone: [facility] 2001 pneumococcal conjuga te vaccine, 7 valent Trenton Mccord MD Work Phone: [facility] 2001 poliovirus vaccine, inactivated Trenton Mccord MD Work Phone: [facility] 2001 hepatitis B vaccine, pediatric or pediatric/adolescent dosage Trenton Mccord MD Work Phone: [facility] Payers Date Payer Category Payer Commercial Managed [facility] UMR OPT [id number] 2023 Private Health Insurance [id number] 2022 Medicaid HMO [facility] MEDICAID ODM [id number] 2022 Medicaid [id number] 2020 Private Health Insurance [id number] 2017 Private Health Insurance [id number] 2001 Unknown [id number] 2.16.840.1.327382.3.579.2. 479 2001 Unknown [id number] 2.16.840.1.494781.3.579.2. 479 2001 Unknown [id number] 2.16.840.1.601960.3.579.2. 479 2001 Unknown [id number] 2.16.840.1.866304.3.579.2. 479 2001 Unknown [id number] 2.16.840.1.018977.3.579.2. 479 2001 Unknown [id number] 2.16.840.1.866012.3.579.2. 479 2001 Unknown [id number] 2.16.840.1.334057.3.579.2. 479 2001 Unknown [id number] 2.16.840.1.342567.3.579.2. 479 2001 Unknown [id number] 2.16.840.1.796247.3.579.2. 47 2001 Unknown [id number] 2.16.840.1.855926.3.579.2. 47 2001 Unknown [id number] 2.16.840.1.228017.3.579.2. 479 2001 Unknown [id number] 2.16.840.1.371810.3.579.2. 47 2001 Unknown [id number] 2.16.840.1.928357.3.579.2. 356 2001 Unknown [id number] 2.16.840.1.120816.3.579.2. 356 2001 Unknown [id number] 2.16.840.1.782183.3.579.2. 1069 2001 Unknown [id number] 2.16.840.1.519294.3.579.2. 1068 2001 Unknown [id number] 2.16.840.1.139890.3.579.2. 106 2001 Unknown [id number] 2.16.840.1.501670.3.579.2. 1068 2001 Unknown [id number] 2.16.840.1.895726.3.579.2. 1068 2001 Unknown [id number] 2.16.840.1.981683.3.579.2. 1245 2001 Unknown [id number] 2.16.840.1.827556.3.579.2. 1244 2001 Unknown [id number] 2.16.840.1.138474.3.579.2. 1244 2001 Unknown [id number] 2.16.840.1.834181.3.579.2. 1244 2001 Unknown [id number] 2.16.840.1.590068.3.579.2. 1244 2001 Unknown [id number] 2.16.840.1.354605.3.579.2. 1244 2001 Unknown [id number] 2.840.1.142115.3.579.2. 1244 2001 Unknown [id number] 2.840.1.161954.3.579.2. 1243 2001 Unknown [id number] 2.840.1.794368.3.579.2. 1243 2001 Unknown [id number] 2.840.1.022920.3.579.2. 1243 2001 Unknown [id number] 2.840.1.673906.3.579.2. 1243 2001 Unknown [id number] 2.840.1.565012.3.579.2. 1243 2001 Unknown [id number] 2.840.1.804355.3.579.2. 1243 2001 Unknown [id number] 2.840.1.591974.3.579.2. 1243 2001 Unknown [id number] 2.16840.1.362772.3.579.2. 1243 2001 Unknown [id number] 2.16.840.1.730426.3.579.2. 1243 2001 Unknown [id number] 2.840.1.938417.3.579.2. 1243 2001 Unknown [id number] 2.16840.1.036470.3.579.2. 1244 2001 Unknown [id number] 2.16.840.1.390488.3.579.2. 1243 2001 Unknown [id number] 2.16.840.1.066742.3.579.2. 1243 2001 Unknown [id number] 2.16.840.1.182124.3.579.2. 1243 2001 Unknown [id number] 2.16.840.1.718921.3.579.2. 1243 2001 Unknown [id number] 2.16.840.1.933371.3.579.2. 1243 2001 Unknown [id number] 2.16.840.1.775452.3.579.2. 3 2001 Unknown [id number] 2.16.840.1.301542.3.579.2. 1243 2001 Unknown [id number] 2.16.840.1.690138.3.579.2. 1243 Private Health Insurance [id number] Private Health Insurance [id number] Private Health Insurance [id number] Unknown Social History Date Type Detail Facility Start: 05-15-2020 End: 05-28-2023 Tobacco smoking status NHIS Current every day smoker [place], [place] History of tobacco use Cigarette Smoker M [place], [place] Start: 05-15-2020 End: 02-23-2024 Cigarettes smoked current (pack per day) - Reported [facility] Start: 05-15-2020 End: 04-17-2023 Tobacco use and exposure [facility] Start: 05-15-2020 End: 10-16-2024 [facility] Sex Assigned At Not on file [place], [place] Start: 08-23-2021 End: 10-09-2023 Exposure to SARS-CoV-2 (event) Not sure [place], [place] Tobacco smoking consumption unknown [facility] History of tobacco use [facility] Start: 09-02-2021 End: 08-08-2022 Alcohol intake Current non-drinker of alcohol (finding) [facility] Start: 07-10-2021 End: 01-09-2022 Tobacco Comment Vaping daily [facility] Start: 08-08-2022 End: 02-23-2024 Tobacco use panel [facility] Adolescent depressio n screening assessment 8 [facility] Start: 05-28-2023 Tobacco Comment She vapes [facility] Start: 04-17-2023 Tobacco smoking status NHIS Never smoked tobacco [facility] Work Phone: Start: 2000 Sex Assigned At Female [facility] Start: 06-25-2023 Gender identity Identifies as female gender (finding) [facility] Work Phone: Start: 06-22-2023 End: 08-19-2023 Exposure to SARS-CoV-2 (event) Unable to assess [facility] Start: 05-30-2023 [facility] Work Phone: Start: 12-24-2023 Tobacco smoking status NHIS Ex-smoker [facility] History of tobacco use Current smoker [facility] Start: 12-24-2023 Tobacco use and exposure Former smokeless tobacco user [facility] Has the [employer], or [address] threatened to shut off services in your home in past 12Mo No [facility] Do you belong to any clubs or organizations such as caodaism groups, unions, fraternal or athletic groups, or school groups? Yes [facility] Are you now , , , , never or living with a partner? Living with partner [facility] How often to you hav e a drink containing alcohol? Monthly or less [facility] How many standard dr inks containing alcohol do you have on a typical day? 1 or 2 [facility] How often do you hav e 6 or more drinks on 1 occasion? Never [facility] Do you feel stress - tense, restless, nervous, or anxious, or unable to sleep at night because your mind is troubled all the time - these days [OSQ] Not at all [facility] (I/We) worried wheth er (my/our) food would run out before (I/we) got money to buy more. Never true [facility] Are you now , , , , never or living with a partner? Never [facility] Start: 01-06-2022 Sex Female (finding) [facility] Clinical Notes 09-02-2021 to 10-16-2024 Erlinda Wallace RN - 10/16/2024 3:05 PM Gloria Wallace RN - 10/16/2024 3:05 PM Rose Huang RN - 10/16/2024 2:25 PM Clau Victor MD - 10/16/2024 1:39 PM EDTDischarge Instructions Note Date & Type Note Facility 10-16-2024 Emergency department Note Patient reports improvement in nausea, no additional vomiting. Lungs sounds improved, and currently denies SOB/CP. [facility] 10-16-2024 Emergency department Note Patient reports improvement in nausea, no additional vomiting. Lungs sounds improved, and currently denies SOB/CP. Patient vomiting. Patient reports she feels like her stomach is upset from all of the drainage. EMERGENCY DEPARTMENT ENCOUNTER Pt Name: Kristine Crum Birthdate 2000 Date of evaluation: 10/16/2024 ED Provider: Jamir Victor MD CHIEF COMPLAINT Chief Complaint Patient presents with Shortness of Breath Cough Nasal Congestion HISTORY OF PRESENT ILLNESS (Location/Symptom, Timing/Onset, Context/Setting, Quality, Duration, Modifying Factors, Severity) Note limiting factors. I wore appropriate PPE for the entirety of this encounter. HPI Kristine Crum is a 24 y.o. who presents to the emergency department with chief complaint of double breathing, cough and congestion. The patient started feeling bad a couple weeks ago. She says its gotten worse over the past couple days. She has had a lot of postnasal drainage. She has had a productive cough. She has felt short of breath over the past couple days which is somewhat new for her. She denies any pulmonary history that she is aware of. She only smokes occasionally. She does take seasonal allergy medication which has helped a little bit. She has a headache when she coughs. Vision normal. No fevers that she is aware of. She denies any pain elsewhere. No vomiting or diarrhea. No urinary complaints. No new pain or swelling in the legs. No localizing numbness or weakness. No other associated symptoms. Nursing Notes were reviewed. Limitations to history: None Outside historians: None REVIEW OF SYSTEMS Review of Systems Constitutional: Negative for chills and fever. HENT: Positive for congestion and postnasal drip. Negative for ear pain and sore throat. Eyes: Negative for visual disturbance. Respiratory: Positive for cough and shortness of breath. Cardiovascular: Negative for chest pain and leg swelling. Gastrointestinal: Negative for abdominal pain, diarrhea and vomiting. Genitourinary: Negative for dysuria. Musculoskeletal: Negative for arthralgias and back pain. Skin: Negative for color change and rash. Neurological: Negative for weakness and numbness. All other systems reviewed and are negative. Pertinent positives and negatives as per HPI. PAST MEDICAL HISTORY Past Medical History: Diagnosis Date CC (Crohn's colitis) ([facility]) ([facility]) Narcolepsy SURGICAL HISTORY Past Surgical History: Procedure Laterality Date BREAST SURGERY SECTION, LOW TRANSVERSE TONSILLECTOMY (HISTORICAL) CURRENT MEDICATIONS Previous Medications INFLECTRA 100 MG INJECTION MISC. DEVICES (BREAST PUMP) MISC [employer]. Lactating mother MODAFINIL (PROVIGIL) 100 MG TABLET Take 1 tablet (100 mg) by mouth 2 times daily as needed (sleepiness). SODIUM OXYBATE ER (LUMRYZ) 9 G PACK Take 9 g by mouth Nightly. Take contents of one packet mixed with water in provided mixing cup at bedtime. ALLERGIES Amoxicillin, Oxycodone, and Penicillins FAMILY HISTORY Family History Problem Relation Name Age of Onset No Known Problems Paternal Grandfather Heart disease Paternal Grandmother Ovarian cysts Maternal Grandmother No Known Problems Maternal Grandfather Crohn's disease Father Diabetes Father Ovarian cysts Mother SOCIAL HISTORY Social History Socioeconomic History Marital status: Single Tobacco Use Smoking status: Former Current packs/day: 0.50 Types: Cigarettes Smokeless tobacco: Former Tobacco comments: She vapes Vaping Use Vaping status: Former Substance and Sexual Activity Alcohol use: Not Currently Drug use: Not Currently Types: Marijuana Comment: Last used when she was about 10 weeks Sexual activity: Not Currently Partners: Male Comment: recent Social Drivers of Health Financial Resource Strain: Low Risk (02/23/2024) Overall Financial Resource Strain (CARDIA) Difficulty of Paying Living Expenses: Not hard at all Food Insecurity: No Food Insecurity (02/23/2024) Hunger Vital Sign Worried About Running Out of Food in the Last Year: Never true Ran Out of Food in the Last Year: Never true Transportation Needs: No Transportation Needs (02/23/2024) PRAPARE - Transportation Lack of Transportation (Medical): No Lack of Transportation (Non-Medical): No Physical Activity: Insufficiently Active (02/23/2024) Exercise Vital Sign Days of Exercise per Week: 2 days Minutes of Exercise per Session: 40 min Stress: No Stress Concern Present (02/23/2024) [employer] - Occupational Stress Questionnaire Feeling of Stress : Not at all Social Connections: Moderately Isolated (02/23/2024) Social Connection and Isolation Panel [NHANES] Frequency of Communication with Friends and Family: More than three times a week Frequency of Social Gatherings with Friends and Family: Twice a week Attends Taoism Services: Never Active Member of Clubs or Organizations: Yes Attends Club or Organization Meetings: 1 to 4 times per year Marital Status: Never Intimate Partner Violence: Not At Risk (02/23/2024) Humiliation, Afraid, Rape, and Kick questionnaire Fear of Current or Ex-Partner: No Emotionally Abused: No Physically Abused: No Sexually Abused: No Housing Stability: Low Risk (02/23/2024) Housing Stability Vital Sign Unable to Pay for Housing in the Last Year: No Number of Times Moved in the Last Year: 1 Homeless in the Last Year: No SCREENINGS Miya Coma Scale Best Eye Response: Spontaneous Best Verbal Response: Oriented Best Motor Response: Follows commands Miya Coma Scale Score: 15 PHYSICAL EXAM ED Triage Vitals [05/11/25 1341] Temp Heart Rate Resp BP 36.9 C (98.5 F) 92 18 (!) 134/96 SpO2 Temp Source Heart Rate Source Patient Position 97 % Oral Monitor -- BP Location FiO2 (%) -- -- Physical Exam Vitals and nursing note reviewed. Exam conducted with a railway patrol officer present. Constitutional: Appearance: Normal appearance. She is well-developed. She is not toxic-appearing. Comments: Patient appears uncomfortable because of her symptoms although nontoxic. HENT: Head: Normocephalic and atraumatic. Right Ear: External ear normal. Left Ear: External ear normal. Nose: Congestion and rhinorrhea present. Mouth/Throat: Mouth: Mucous membranes are moist. Pharynx: Oropharynx is clear. No oropharyngeal exudate or posterior oropharyngeal erythema. Eyes: Extraocular Movements: Extraocular movements intact. Conjunctiva/sclera: Conjunctivae normal. Pupils: Pupils are equal, round, and reactive to light. Cardiovascular: Rate and Rhythm: Normal rate and regular rhythm. Heart sounds: Normal heart sounds. No murmur heard. Pulmonary: Effort: Pulmonary effort is normal. No respiratory distress. Breath sounds: Wheezing present. No rhonchi or rales. Comments: Patient has diffuse wheezing on expiration throughout. There are no obvious rales or rhonchi. She is mildly tachypneic at most although speaking in full sentences and mentating well. She is in no significant respiratory distress. Abdominal: Palpations: Abdomen is soft. Tenderness: There is no abdominal tenderness. Musculoskeletal: General: No swelling or tenderness. Normal range of motion. Cervical back: Normal range of motion and neck supple. Right lower leg: No edema. Left lower leg: No edema. Skin: General: Skin is warm and dry. Neurological: General: No focal deficit present. Mental Status: She is alert and oriented to person, place, and time. GCS: GCS eye subscore is 4. GCS verbal subscore is 5. GCS motor subscore is 6. Cranial Nerves: Cranial nerves 2-12 are intact. Sensory: Sensation is intact. Motor: Motor function is intact. Coordination: Coordination is intact. Psychiatric: Mood and Affect: Mood normal. DIAGNOSTIC RESULTS RADIOLOGY (Per Emergency Physician): Chest x-ray interpreted by me shows no obvious evidence of infiltrate or failure. Interpretation per the Radiologist below, if available at the time of this note: XR chest 1 view Final Result No acute cardiopulmonary abnormality identified. Report Dictated on Electronically Signed By: Guerrero Kang MD Electronically Signed Date/Time: 10/16/2024 2:09 PM EDT ED BEDSIDE ULTRASOUND: Performed by ED Physician - none LABS: Labs Reviewed SARS-COV-2, FLU A/B, AND RSV COMBO - Normal Result Value SARS-CoV-2 Not Detected Respiratory Syncytial Virus Not Detected Influenza A Not Detected Influenza B Not Detected Narrative: Methodology: real-time, RT-PCR The SARS-CoV-2, Flu A/B, and RSV Combo assay is intended for in vitro diagnostic use under the FDA Emergency Use Authorization (EUA). This test has not been FDA cleared or approved. In compliance with this authorization, please visit www.fda.gov/media/835073/download or www.[employer].gov/media/532994/download to access the applicable information sheets. All other labs were within normal range or not returned as of this dictation. EMERGENCY DEPARTMENT COURSE and DIFFERENTIAL DIAGNOSIS/MDM: Vitals: Vitals: 10/16/24 1341 10/16/24 1440 BP: (!) 134/96 104/69 Pulse: 92 79 Resp: 18 16 Temp: 36.9 C (98.5 F) TempSrc: Oral SpO2: 97% 99% Weight: 77.1 kg (170 lb) Height: 1.626 m (5' 4) Diagnoses as of 10/16/24 1453 Shortness of breath Acute cough Wheezing The patient presented with chief complaint of cough and shortness of breath. The differential diagnosis associated with this patient's presentation includes viral illness, pneumonia, reactive airway disease, unlikely CHF, unlikely ACS, unlikely sepsis or bacteremia. Our workup consisted of ordering/reviewing: Chest x-ray and viral swabs will be obtained. Patient is in agreement with this plan. Medications albuterol (2.5 MG/3ML) 0.083% nebulizer solution 2.5 mg (2.5 mg Nebulization Given 10/16/24 1354) predniSONE (Deltasone) tablet 50 mg (50 mg Oral Given 10/16/24 1354) ondansetron ODT (Zofran-ODT) disintegrating tablet 4 mg (4 mg Oral Given 10/16/24 3616) REVAL: For her respiratory symptoms and wheezing, I ordered a breathing treatment for her as well as p.o. prednisone. In order to rule out any viral illness as a source of her symptoms, I ordered viral swabs. I was concerned that she might have RSV. COVID, influenza and RSV were negative. I did reassure her that her chest x-ray showed nothing acute. Because of the excessive postnasal drainage, she was nauseated and threw up 1 time here. We gave her oral Zofran. On reevaluation, she is feeling better now. She feels like the breathing treatment helps her. I told her that she may have a viral illness causing bronchospasm and a reactive airway picture. This could be seasonal as well. I suggested that she continue aalo-uyz-bsgbxty cough medicine and a decongestant versus antihistamine. I will call in a prescription for an inhaler for her as well as prednisone to start tomorrow. Close follow-up with primary physician is recommended. If anything changes she can notify us. I did not feel as though any other test or imaging studies were necessary or indicated. Vitals are stable for discharge. CRITICAL CARE TIME None CONSULTS: None PROCEDURES: Unless otherwise noted below, none FINAL IMPRESSION 1. Shortness of breath 2. Acute cough 3. Wheezing DISPOSITION Discharge 10/16/2024 02:53:32 PM PATIENT REFERRED TO: Veronica Alberts [address] [place] [address] Schedule an appointment as soon as possible for a visit DISCHARGE MEDICATIONS: New Prescriptions ALBUTEROL 108 (90 BASE) MCG/ACT INHALER Inhale 2 puffs every 4 hours as needed for wheezing. Please provide spacer with the inhaler PREDNISONE (DELTASONE) 50 MG TABLET Take 1 tablet (50 mg) by mouth daily for 5 days. Do not start before October 17, 2024. (Comment: Please note this report has been produced using speech recognition software and may contain errors related to that system including errors in grammar, punctuation, and spelling, as well as words and phrases that may be inappropriate. If there are any questions or concerns please feel free to contact the dictating provider for clarification.) Jamir Victor MD (electronically signed) Emergency Medicine Provider Jamir Victor MD 10/16/24 1455 Patient to room 4 with c/o congestion, cough, and shortness of breath worse the last two days. V/S obtained, call light within reach. Patient has been using her boyfriends albuterol MDI one hour prior to arrival. documented in this encounter [facility] 10-16-2024 Emergency department Note Patient vomiting. Patient reports she feels like her stomach is upset from all of the drainage. [facility] 10-16-2024 Emergency department Triage note Patient to room 4 with c/o congestion, cough, and shortness of breath worse the last two days. V/S obtained, call light within reach. Patient has been using her boyfriends albuterol MDI one hour prior to arrival. [facility] 10-16-2024 Physician Emergency department Note EMERGENCY DEPARTMENT ENCOUNTER Pt Name: Kristine Crum Birthdate 2000 Date of evaluation: 10/16/2024 ED Provider: Jamir Victor MD CHIEF COMPLAINT Chief Complaint Patient presents with Shortness of Breath Cough Nasal Congestion HISTORY OF PRESENT ILLNESS (Location/Symptom, Timing/Onset, Context/Setting, Quality, Duration, Modifying Factors, Severity) Note limiting factors. I wore appropriate PPE for the entirety of this encounter. HPI Kristine Crum is a 24 y.o. who presents to the emergency department with chief complaint of double breathing, cough and congestion. The patient started feeling bad a couple weeks ago. She says its gotten worse over the past couple days. She has had a lot of postnasal drainage. She has had a productive cough. She has felt short of breath over the past couple days which is somewhat new for her. She denies any pulmonary history that she is aware of. She only smokes occasionally. She does take seasonal allergy medication which has helped a little bit. She has a headache when she coughs. Vision normal. No fevers that she is aware of. She denies any pain elsewhere. No vomiting or diarrhea. No urinary complaints. No new pain or swelling in the legs. No localizing numbness or weakness. No other associated symptoms. Nursing Notes were reviewed. Limitations to history: None Outside historians: None REVIEW OF SYSTEMS Review of Systems Constitutional: Negative for chills and fever. HENT: Positive for congestion and postnasal drip. Negative for ear pain and sore throat. Eyes: Negative for visual disturbance. Respiratory: Positive for cough and shortness of breath. Cardiovascular: Negative for chest pain and leg swelling. Gastrointestinal: Negative for abdominal pain, diarrhea and vomiting. Genitourinary: Negative for dysuria. Musculoskeletal: Negative for arthralgias and back pain. Skin: Negative for color change and rash. Neurological: Negative for weakness and numbness. All other systems reviewed and are negative. Pertinent positives and negatives as per HPI. PAST MEDICAL HISTORY Past Medical History: Diagnosis Date CC (Crohn's colitis) ([facility]) ([facility]) Narcolepsy SURGICAL HISTORY Past Surgical History: Procedure Laterality Date BREAST SURGERY SECTION, LOW TRANSVERSE TONSILLECTOMY (HISTORICAL) CURRENT MEDICATIONS Previous Medications INFLECTRA 100 MG INJECTION MISC. DEVICES (BREAST PUMP) MISC [employer]. Lactating mother MODAFINIL (PROVIGIL) 100 MG TABLET Take 1 tablet (100 mg) by mouth 2 times daily as needed (sleepiness). SODIUM OXYBATE ER (LUMRYZ) 9 G PACK Take 9 g by mouth Nightly. Take contents of one packet mixed with water in provided mixing cup at bedtime. ALLERGIES Amoxicillin, Oxycodone, and Penicillins FAMILY HISTORY Family History Problem Relation Name Age of Onset No Known Problems Paternal Grandfather Heart disease Paternal Grandmother Ovarian cysts Maternal Grandmother No Known Problems Maternal Grandfather Crohn's disease Father Diabetes Father Ovarian cysts Mother SOCIAL HISTORY Social History Socioeconomic History Marital status: Single Tobacco Use Smoking status: Former Current packs/day: 0.50 Types: Cigarettes Smokeless tobacco: Former Tobacco comments: She vapes Vaping Use Vaping status: Former Substance and Sexual Activity Alcohol use: Not Currently Drug use: Not Currently Types: Marijuana Comment: Last used when she was about 10 weeks Sexual activity: Not Currently Partners: Male Comment: recent Social Drivers of Health Financial Resource Strain: Low Risk (02/23/2024) Overall Financial Resource Strain (CARDIA) Difficulty of Paying Living Expenses: Not hard at all Food Insecurity: No Food Insecurity (02/23/2024) Hunger Vital Sign Worried About Running Out of Food in the Last Year: Never true Ran Out of Food in the Last Year: Never true Transportation Needs: No Transportation Needs (02/23/2024) PRAPARE - Transportation Lack of Transportation (Medical): No Lack of Transportation (Non-Medical): No Physical Activity: Insufficiently Active (02/23/2024) Exercise Vital Sign Days of Exercise per Week: 2 days Minutes of Exercise per Session: 40 min Stress: No Stress Concern Present (02/23/2024) [employer] - Occupational Stress Questionnaire Feeling of Stress : Not at all Social Connections: Moderately Isolated (02/23/2024) Social Connection and Isolation Panel [NHANES] Frequency of Communication with Friends and Family: More than three times a week Frequency of Social Gatherings with Friends and Family: Twice a week Attends Taoism Services: Never Active Member of Clubs or Organizations: Yes Attends Club or Organization Meetings: 1 to 4 times per year Marital Status: Never Intimate Partner Violence: Not At Risk (02/23/2024) Humiliation, Afraid, Rape, and Kick questionnaire Fear of Current or Ex-Partner: No Emotionally Abused: No Physically Abused: No Sexually Abused: No Housing Stability: Low Risk (02/23/2024) Housing Stability Vital Sign Unable to Pay for Housing in the Last Year: No Number of Times Moved in the Last Year: 1 Homeless in the Last Year: No SCREENINGS [place] Coma Scale Best Eye Response: Spontaneous Best Verbal Response: Oriented Best Motor Response: Follows commands Miya Coma Scale Score: 15 PHYSICAL EXAM ED Triage Vitals [10/16/24 1341] Temp Heart Rate Resp BP 36.9 C (98.5 F) 92 18 (!) 134/96 SpO2 Temp Source Heart Rate Source Patient Position 97 % Oral Monitor -- BP Location FiO2 (%) -- -- Physical Exam Vitals and nursing note reviewed. Exam conducted with a railway patrol officer present. Constitutional: Appearance: Normal appearance. She is well-developed. She is not toxic-appearing. Comments: Patient appears uncomfortable because of her symptoms although nontoxic. HENT: Head: Normocephalic and atraumatic. Right Ear: External ear normal. Left Ear: External ear normal. Nose: Congestion and rhinorrhea present. Mouth/Throat: Mouth: Mucous membranes are moist. Pharynx: Oropharynx is clear. No oropharyngeal exudate or posterior oropharyngeal erythema. Eyes: Extraocular Movements: Extraocular movements intact. Conjunctiva/sclera: Conjunctivae normal. Pupils: Pupils are equal, round, and reactive to light. Cardiovascular: Rate and Rhythm: Normal rate and regular rhythm. Heart sounds: Normal heart sounds. No murmur heard. Pulmonary: Effort: Pulmonary effort is normal. No respiratory distress. Breath sounds: Wheezing present. No rhonchi or rales. Comments: Patient has diffuse wheezing on expiration throughout. There are no obvious rales or rhonchi. She is mildly tachypneic at most although speaking in full sentences and mentating well. She is in no significant respiratory distress. Abdominal: Palpations: Abdomen is soft. Tenderness: There is no abdominal tenderness. Musculoskeletal: General: No swelling or tenderness. Normal range of motion. Cervical back: Normal range of motion and neck supple. Right lower leg: No edema. Left lower leg: No edema. Skin: General: Skin is warm and dry. Neurological: General: No focal deficit present. Mental Status: She is alert and oriented to person, place, and time. GCS: GCS eye subscore is 4. GCS verbal subscore is 5. GCS motor subscore is 6. Cranial Nerves: Cranial nerves 2-12 are intact. Sensory: Sensation is intact. Motor: Motor function is intact. Coordination: Coordination is intact. Psychiatric: Mood and Affect: Mood normal. DIAGNOSTIC RESULTS RADIOLOGY (Per Emergency Physician): Chest x-ray interpreted by me shows no obvious evidence of infiltrate or failure. Interpretation per the Radiologist below, if available at the time of this note: XR chest 1 view Final Result No acute cardiopulmonary abnormality identified. Report Dictated on Electronically Signed By: Guerrero Kang MD Electronically Signed Date/Time: 10/16/2024 2:09 PM EDT ED BEDSIDE ULTRASOUND: Performed by ED Physician - none LABS: Labs Reviewed SARS-COV-2, FLU A/B, AND RSV COMBO - Normal Result Value SARS-CoV-2 Not Detected Respiratory Syncytial Virus Not Detected Influenza A Not Detected Influenza B Not Detected Narrative: Methodology: real-time, RT-PCR The SARS-CoV-2, Flu A/B, and RSV Combo assay is intended for in vitro diagnostic use under the FDA Emergency Use Authorization (EUA). This test has not been FDA cleared or approved. In compliance with this authorization, please visit www.fda.gov/media/642628/download or www.fda.gov/media/735791/download to access the applicable information sheets. All other labs were within normal range or not returned as of this dictation. EMERGENCY DEPARTMENT COURSE and DIFFERENTIAL DIAGNOSIS/MDM: Vitals: Vitals: 10/16/24 1341 10/16/24 1440 BP: (!) 134/96 104/69 Pulse: 92 79 Resp: 18 16 Temp: 36.9 C (98.5 F) TempSrc: Oral SpO2: 97% 99% Weight: 77.1 kg (170 lb) Height: 1.626 m (5' 4) Diagnoses as of 10/16/24 1453 Shortness of breath Acute cough Wheezing The patient presented with chief complaint of cough and shortness of breath. The differential diagnosis associated with this patient's presentation includes viral illness, pneumonia, reactive airway disease, unlikely CHF, unlikely ACS, unlikely sepsis or bacteremia. Our workup consisted of ordering/reviewing: Chest x-ray and viral swabs will be obtained. Patient is in agreement with this plan. Medications albuterol (2.5 MG/3ML) 0.083% nebulizer solution 2.5 mg (2.5 mg Nebulization Given 10/16/24 1354) predniSONE (Deltasone) tablet 50 mg (50 mg Oral Given 10/16/24 1354) ondansetron ODT (Zofran-ODT) disintegrating tablet 4 mg (4 mg Oral Given 10/16/24 1443) REVAL: For her respiratory symptoms and wheezing, I ordered a breathing treatment for her as well as p.o. prednisone. In order to rule out any viral illness as a source of her symptoms, I ordered viral swabs. I was concerned that she might have RSV. COVID, influenza and RSV were negative. I did reassure her that her chest x-ray showed nothing acute. Because of the excessive postnasal drainage, she was nauseated and threw up 1 time here. We gave her oral Zofran. On reevaluation, she is feeling better now. She feels like the breathing treatment helps her. I told her that she may have a viral illness causing bronchospasm and a reactive airway picture. This could be seasonal as well. I suggested that she continue [id number] cough medicine and a decongestant versus antihistamine. I will call in a prescription for an inhaler for her as well as prednisone to start tomorrow. Close follow-up with primary physician is recommended. If anything changes she can notify us. I did not feel as though any other test or imaging studies were necessary or indicated. Vitals are stable for discharge. CRITICAL CARE TIME None CONSULTS: None PROCEDURES: Unless otherwise noted below, none FINAL IMPRESSION 1. Shortness of breath 2. Acute cough 3. Wheezing DISPOSITION Discharge 10/16/2024 02:53:32 PM PATIENT REFERRED TO: Veronica Alberts [address] [place] [address] Schedule an appointment as soon as possible for a visit DISCHARGE MEDICATIONS: New Prescriptions ALBUTEROL 108 (90 BASE) MCG/ACT INHALER Inhale 2 puffs every 4 hours as needed for wheezing. Please provide spacer with the inhaler PREDNISONE (DELTASONE) 50 MG TABLET Take 1 tablet (50 mg) by mouth daily for 5 days. Do not start before October 17, 2024. (Comment: Please note this report has been produced using speech recognition software and may contain errors related to that system including errors in grammar, punctuation, and spelling, as well as words and phrases that may be inappropriate. If there are any questions or concerns please feel free to contact the dictating provider for clarification.) Jamir Victor MD (electronically signed) Emergency Medicine Provider Jamir Victor MD 10/16/24 0125 [facility] 10-07-2024 History of Present illness Narrative Kristine Crum 10/07/[birth year]24 24 y.o. Chief Complaint Patient presents with Annual Exam Annual exam Patient's last menstrual period was 09/23/2024. Primary Care Physician: Veronica Alberts The patient was seen and examined. She is here for her annual. Pap 08/01 neg No ho abnormal Menses heavy bleeding Std testing desired Gardasil sp series control not desired no Delivery 2023 No fam ho cancer HPI : Kristine Crum is a 24 y.o. female __ OB History Para Term AB Living 1 1 1 1 SAB IAB Ectopic Multiple Live Births 0 1 # Outcome Date GA Lbr Randy/2nd Weight Sex Type Anes PTL Lv 1 Term 02/24/24 40w4d 7 lb 13 oz (3.545 kg) M CS-LTranv EPI N VAMSHI Complications: Meconium, Prolonged Rupture, Arrest of Dilatation Past Medical History: Diagnosis Date CC (Crohn's colitis) ([facility]/HCC) ([facility]) Narcolepsy Past Surgical History: Procedure Laterality Date BREAST SURGERY SECTION, LOW TRANSVERSE TONSILLECTOMY (HISTORICAL) Family History Problem Relation Name Age of Onset No Known Problems Paternal Grandfather Heart disease Paternal Grandmother Ovarian cysts Maternal Grandmother No Known Problems Maternal Grandfather Crohn's disease Father Diabetes Father Ovarian cysts Mother Social History Socioeconomic History Marital status: Single Spouse name: Not on file Number of children: Not on file Years of education: Not on file Highest education level: Not on file Occupational History Not on file Tobacco Use Smoking status: Former Current packs/day: 0.50 Types: Cigarettes Smokeless tobacco: Former Tobacco comments: She vapes Vaping Use Vaping status: Former Substance and Sexual Activity Alcohol use: Not Currently Drug use: Not Currently Types: Marijuana Comment: Last used when she was about 10 weeks Sexual activity: Not Currently Partners: Male Comment: recent Other Topics Concern Not on file Social History Narrative Not on file Social Drivers of Health Financial Resource Strain: Low Risk (02/23/2024) Overall Financial Resource Strain (CARDIA) Difficulty of Paying Living Expenses: Not hard at all Food Insecurity: No Food Insecurity (02/23/2024) Hunger Vital Sign Worried About Running Out of Food in the Last Year: Never true Ran Out of Food in the Last Year: Never true Transportation Needs: No Transportation Needs (02/23/2024) PRAPARE - Transportation Lack of Transportation (Medical): No Lack of Transportation (Non-Medical): No Physical Activity: Insufficiently Active (02/23/2024) Exercise Vital Sign Days of Exercise per Week: 2 days Minutes of Exercise per Session: 40 min Stress: No Stress Concern Present (02/23/2024) [employer] - Occupational Stress Questionnaire Feeling of Stress : Not at all Social Connections: Moderately Isolated (02/23/2024) Social Connection and Isolation Panel [NHANES] Frequency of Communication with Friends and Family: More than three times a week Frequency of Social Gatherings with Friends and Family: Twice a week Attends Taoism Services: Never Active Member of Clubs or Organizations: Yes Attends Club or Organization Meetings: 1 to 4 times per year Marital Status: Never Intimate Partner Violence: Not At Risk (02/23/2024) Humiliation, Afraid, Rape, and Kick questionnaire Fear of Current or Ex-Partner: No Emotionally Abused: No Physically Abused: No Sexually Abused: No Housing Stability: Low Risk (02/23/2024) Housing Stability Vital Sign Unable to Pay for Housing in the Last Year: No Number of Times Moved in the Last Year: 1 Homeless in the Last Year: No MEDICATIONS: Current Outpatient Medications Medication Sig Dispense Refill Inflectra 100 MG injection Misc. Devices (Breast Pump) misc Double Electric. Lactating mother 1 each 0 modafinil (Provigil) 100 MG tablet Take 1 tablet (100 mg) by mouth 2 times daily as needed (sleepiness). 60 tablet 0 Sodium Oxybate ER (Lumryz) 9 g pack Take 9 g by mouth Nightly. Take contents of one packet mixed with water in provided mixing cup at bedtime. 90 each 0 No current facility-administered medications for this visit. ALLERGIES: Allergies as of 10/07/2024 - Reviewed 10/07/2024 Allergen Reaction Noted Amoxicillin Hives 12/24/2023 Oxycodone Swelling 11/13/2020 Penicillins Hives and Rash 11/01/2009 Gynecologic History: Menstrual History: Patient's last menstrual period was 09/23/2024. __ Review of Systems Constitutional: Negative for fatigue, fever and unexpected weight change. HENT: Negative for congestion and sore throat. Eyes: Negative for discharge and visual disturbance. Respiratory: Negative for cough and shortness of breath. Cardiovascular: Negative for chest pain and leg swelling. Gastrointestinal: Negative for abdominal pain, constipation, diarrhea, nausea and vomiting. Genitourinary: Negative for dysuria and pelvic pain. Musculoskeletal: Negative for arthralgias and back pain. Skin: Negative for rash. Neurological: Negative for weakness and headaches. Psychiatric/Behavioral: Negative for dysphoric mood. The patient is not nervous/anxious. PHYSICAL Exam: : Vitals: 10/07/24 1347 BP: 112/75 Pulse: 85 Weight: 171 lb (77.6 kg) Height: 5' 4 (1.626 m) Physical Exam Constitutional: General: She is not in acute distress. Appearance: Normal appearance. HENT: Head: Normocephalic and atraumatic. Right Ear: External ear normal. Left Ear: External ear normal. Nose: Nose normal. Eyes: Conjunctiva/sclera: Conjunctivae normal. Neck: Thyroid: No thyromegaly. Cardiovascular: Rate and Rhythm: Normal rate. Pulmonary: Effort: Pulmonary effort is normal. No respiratory distress. Chest: Breasts: Right: No mass, nipple discharge, skin change or tenderness. Left: No mass, nipple discharge, skin change or tenderness. Abdominal: General: There is no distension. Palpations: Abdomen is soft. Tenderness: There is no abdominal tenderness. Genitourinary: General: Normal vulva. Pubic Area: No rash. Labia: Right: No rash or lesion. Left: No rash or lesion. Vagina: No vaginal discharge or bleeding. Cervix: No cervical motion tenderness. Uterus: Not enlarged and not tender. Adnexa: Right: No mass or tenderness. Left: No mass or tenderness. Rectum: Normal. Musculoskeletal: General: No swelling. Normal range of motion. Cervical back: Normal range of motion. Right lower leg: No edema. Left lower leg: No edema. Skin: General: Skin is warm and dry. Neurological: Mental Status: She is alert and oriented to person, place, and time. Mental status is at baseline. Psychiatric: Mood and Affect: Mood normal. Behavior: Behavior normal. ASSESSMENT: 24 y.o. Annual Diagnosis Plan 1. Well woman exam with routine gynecological exam 2. Vaginal discharge Sureswab(R) Advanced Vaginitis Plus, TMA ([facility]) Chief Complaint Patient presents with Annual Exam Annual exam Past Medical History: Diagnosis Date CC (Crohn's colitis) (CMS/HCC) (HCC) Narcolepsy Hereditary Breast,Ovarian, Colon and Uterine Cancer screening Done. Tobacco & Secondary smoke risks reviewed; instructedon cessation and avoidance PLAN: Follow up in about 1 year (around 10/07/2025) for annual. Repeat Annual every 1 year PAP guidelines reviewed with pt control reviewed with pt Gardasil counseling provided Routine health maintenance per patients PCP. Orders Placed This Encounter Procedures Sureswab(R) Advanced Vaginitis Plus, TMA ([facility]) Associate Programmer was offered to the patient for exam. Patient declined offer of railway patrol officer documented in this encounter [facility] 04-07-2024 History of Present illness Narrative VISIT Kristine Crum is a 24 y.o. female Presents today for routine visit S/P , Low Transverse on 02/24/24 of male (Humberto) who is doing well. She is accompanied by her baby. Patient is breast feeding without any problems. She denies any breast lumps, redness, edema or signs of infection on the breast. Patient denies any symptoms of depression or anxiety. Restarting her cycle of inflectra infusions. Last pap 08/01 Negative SUBJECTIVE: Patient had a , Low Transverse. Denies problems with voiding, BM's, eating or drinking. Patient is breast feeding. Patient's bleeding is: no bleeding. Patient is not sexually active. Patient plans condoms for contraception. depression screening: negative REVIEW OF SYSTEMS: Review of Systems Constitutional: Negative for fever. Genitourinary: Negative for difficulty urinating, frequency, menstrual problem, pelvic pain, vaginal bleeding, vaginal discharge and vaginal pain. Psychiatric/Behavioral: Negative for self-injury and suicidal ideas. The patient is not nervous/anxious. PHYSICAL EXAM: BP 117/78 Pulse 75 Wt 189 lb 6.4 oz (85.9 kg) Yes BMI 32.51 kg/m Physical Exam Vitals reviewed. Constitutional: Appearance: Normal appearance. Abdominal: Palpations: Abdomen is soft. Tenderness: There is no abdominal tenderness. Comments: Incision well healed. No redness, drainage, edema or signs of infection Neurological: Mental Status: She is alert. Psychiatric: Mood and Affect: Mood normal. Behavior: Behavior normal. Thought Content: Thought content normal. Judgment: Judgment normal. ASSESSMENT/PLAN: Kristine was seen today for care. Diagnoses and all orders for this visit: care and examination (Primary) Status post delivery Other orders - Flu vaccine (FLUZONE/FLULAVAL/FLUARIX), trivalent, split virus (VFC product) Signs and symptoms of breast infection discussed. Advised patient to contact the office with signs of infection. Flu vaccine given. RTO 6 months for CLINICAL REHABILITATION SPECIALIST annual. Contact the office with any questions or concerns prior to next scheduled visit. Patient agrees with plan of care. Follow up in about 6 months (around 10/05/2024) for CLINICAL REHABILITATION SPECIALIST annual. JOSTIN Sarabia CNP Flu vaccine given in left deltoid on 04/07/24. Pt tolerated well. [facility]# [id number] LOT# [id number] EXP 12/05/2024 documented in this encounter [facility] 03-09-2024 History of Present illness Narrative Kristine Crum sarah 24 y.o. female SUBJECTIVE: 2 wks PP, PCD 2/2 arrest of dilation Bleeding minimal. No s/sx PP depression Not sexually active Planning nothing for control + Baby doing well. BP 123/80 Pulse 99 Wt 187 lb 6.4 oz (85 kg) LMP 05/16/2023 (Exact Date) Yes BMI 32.17 kg/m Physical Exam Gen: normal appearance, NAD Neuro: AAOx3 Psych: normal affect Lungs: nonlabored breathing Chest: regular rate Incision: C/D/I, bandaged removed today Current Outpatient Medications: Cyanocobalamin (VITAMIN B 12 PO), Take 1,000 mcg by mouth daily., Disp: , Rfl: desvenlafaxine succinate ER 25 MG 24 hour tablet, Take 50 mg by mouth every morning., Disp: , Rfl: desvenlafaxine succinate ER 25 MG 24 hour tablet, Take 25 mg by mouth., Disp: , Rfl: Inflectra 100 MG injection, , Disp: , Rfl: inFLIXimab (Remicade) 100 MG injection, Infuse into a venous catheter. Every six weeks, Disp: , Rfl: Misc. Devices (Breast Pump) misc, Double Electric. Lactating mother, Disp: 1 each, Rfl: 0 MV-Min-Fe Fum-FA-DHA ( 1 PO), Take by mouth., Disp: , Rfl: modafinil (Provigil) 100 MG tablet, Take 1 tablet (100 mg) by mouth 2 times daily as needed (sleepiness)., Disp: 60 tablet, Rfl: 0 Sodium Oxybate ER (Lumryz) 9 g pack, Take 9 g by mouth Nightly. Take contents of one packet mixed with water in provided mixing cup at bedtime., Disp: 90 each, Rfl: 0 ASSESSMENT: 1. care and examination PLAN: Contraception: declines; discussed BF and anovulation; discussed recommended intervals Follow up: 4 weeks Follow up in about 4 weeks (around 04/06/2024) for PP visit w/ RICCARDO. documented in this encounter [facility] 02-27-2024 Note Department of Obstet rics and Gynecology Delivery Discharge Summary Admission on 02/23/2024 4:09 AM Reason for admission: leakage of fluid Intrapartum Course: Arrest of labor Surgical Operations & Procedures: Date of delivery: 02/24/24 Delivery Type: , Low Transverse Anesthesia: Epidural anesthesia Laceration(s): n/a Delivery Complications: none EBL: 600 cc Pertinent Findings & Procedures: Information for the patient's : Lavelle Crum [[id number]] male 3545 g (7 lb 13 oz) Apgars: Information for the patient's : Lavelle Crum [[id number]] Course: Uncomplicated Infant: male - circ Blood Type/Rh: A Antibody Screen: No results found for: LABANTI Rubella: No results found for: RUBELLAIGG Contraception: no method : yes VTE Prophylaxis: Not Indicated Meds: Medication List START taking these medications oxyCODONE-acetaminophen 5-325 MG tablet Commonly known as: Percocet Take 1 tablet by mouth every 6 hours as needed for moderate pain (4-6) or severe pain (7-10) for up to 5 days. CONTINUE taking these medications Breast Pump misc Double Electric. Lactating mother * desvenlafaxine succinate ER 25 MG 24 hour tablet * desvenlafaxine succinate ER 25 MG 24 hour tablet Inflectra 100 MG injection Generic drug: inFLIXimab-dyyb inFLIXimab 100 MG injection Commonly known as: Remicade Lumryz 9 g pack Generic drug: Sodium Oxybate ER Take 9 g by mouth Nightly. Take contents of one packet mixed with water in provided mixing cup at bedtime. modafinil 100 MG tablet Commonly known as: Provigil Take 1 tablet (100 mg) by mouth 2 times daily as needed (sleepiness). 1 PO VITAMIN B 12 PO * This list has 2 medication(s) that are the same as other medications prescribed for you. Read the directions carefully, and ask your doctor or other care provider to review them with you. Where to Get Your Medications These medications were sent to [facility] - [address] [address] oxyCODONE-acetaminophen 5-325 MG tablet Activity: Activity as tolerated Diet: Regular diet If a patient meets criteria for hypertension, make sure the following are done prior to discharge: [] Order a blood pressure kit through [facility] (or the patient's own pharmacy on the weekend) [] Order the blood pressure log through [facility] [] Place a telephone encounter for a 72 hour blood pressure check. Specify that this will be a virtual visit. [] Include blood pressure dot phrase (.sumobhypertension) in discharge instructions [] Check here if the patient does NOT meet criteria for hypertension Follow up Care: Follow up appointment in 2 weeks Condition on discharge: Stable Discharge to: Home Discharge date: 02/27/24 Discharge Dx: Term delivered vy Instructions to Patient:: Pelvic Rest (no intercourse, tampons, douching, etc) x 6 weeks Specific discharge instruction printed Indication for care in labor or delivery [O75.9] Patient Active Problem List Diagnosis Crohn's disease (HCC) care, antepartum Vanishing twin syndrome Anxiety disorder affecting , antepartum Indication for care in labor or delivery Comments: Home care, Follow-up care and control were reviewed. Signs and symptoms of mastitis and Post Depression were reviewed. The patient is to notify her physician if any of these occur. Gen Read MD on 02/27/2024 at 12:44 PM [facility] 02-27-2024 Hospital course Narrative Images from the original note were not included. Department of Obstetrics and Gynecology Delivery Discharge Summary Admission on 02/23/2024 4:09 AM Reason for admission: leakage of fluid Intrapartum Course: Arrest of labor Surgical Operations & Procedures: Date of delivery: 02/24/24 Delivery Type: , Low Transverse Anesthesia: Epidural anesthesia Laceration(s): n/a Delivery Complications: none EBL: 600 cc Pertinent Findings & Procedures: Information for the patient's : Lavelle Crum [[id number]] male 3545 g (7 lb 13 oz) Apgars: Information for the patient's : Lavelle Crum [[id number]] Course: Uncomplicated : male - circ Blood Type/Rh: A Antibody Screen: No results found for: LABANTI Rubella: No results found for: RUBELLAIGG Contraception: no method : yes VTE Prophylaxis: Not Indicated Meds: Medication List START taking these medications oxyCODONE-acetaminophen 5-325 MG tablet Commonly known as: Percocet Take 1 tablet by mouth every 6 hours as needed for moderate pain (4-6) or severe pain (7-10) for up to 5 days. CONTINUE taking these medications Breast Pump misc Double Electric. Lactating mother * desvenlafaxine succinate ER 25 MG 24 hour tablet * desvenlafaxine succinate ER 25 MG 24 hour tablet Inflectra 100 MG injection Generic drug: inFLIXimab-dyyb inFLIXimab 100 MG injection Commonly known as: Remicade Lumryz 9 g pack Generic drug: Sodium Oxybate ER Take 9 g by mouth Nightly. Take contents of one packet mixed with water in provided mixing cup at bedtime. modafinil 100 MG tablet Commonly known as: Provigil Take 1 tablet (100 mg) by mouth 2 times daily as needed (sleepiness). 1 PO VITAMIN B 12 PO * This list has 2 medication(s) that are the same as other medications prescribed for you. Read the directions carefully, and ask your doctor or other care provider to review them with you. Where to Get Your Medications These medications were sent to [facility] - [address] [address] oxyCODONE-acetaminophen 5-325 MG tablet Activity: Activity as tolerated Diet: Regular diet If a patient meets criteria for hypertension, make sure the following are done prior to discharge: [] Order a blood pressure kit through [facility] (or the patient's own pharmacy on the weekend) [] Order the blood pressure log through [facility] [] Place a telephone encounter for a 72 hour blood pressure check. Specify that this will be a virtual visit. [] Include blood pressure dot phrase (.sumobhypertension) in discharge instructions [] Check here if the patient does NOT meet criteria for hypertension Follow up Care: Follow up appointment in 2 weeks Condition on discharge: Stable Discharge to: Home Discharge date: 02/27/24 Discharge Dx: Term delivered vy Instructions to Patient:: Pelvic Rest (no intercourse, tampons, douching, etc) x 6 weeks Specific discharge instruction printed Indication for care in labor or delivery [O75.9] Patient Active Problem List Diagnosis Crohn's disease (HCC) care, antepartum Vanishing twin syndrome Anxiety disorder affecting , antepartum Indication for care in labor or delivery Comments: Home care, Follow-up care and control were reviewed. Signs and symptoms of mastitis and Post Depression were reviewed. The patient is to notify her physician if any of these occur. Gen Read MD on 02/27/2024 at 12:44 PM documented in this encounter [facility] 02-27-2024 Hospital Discharge instructions Gen Read MD - 02/27/2024 12:44 PM EDT Images from the original note were not included. Thank you for allowing us to care of you at [facility]. This time can be one of many emotional ups and downs and many changes in your life. In these first weeks try to take good care of yourself because you will likely feel very tired. It may take 4 to 6 weeks to feel like yourself again, and possibly longer if you had a . FOLLOW-UP: Your follow-up care is a coyle part of your treatment and safety. Follow-up with your OB providerin 4 weeks or as specified by your OB provider. If you had high blood pressure, visit your OB provider within 3-5 days after being home. Most women's blood pressure will return to pre- levels after delivery. However, some patients continue to have problems with their blood pressure, and some even get worse. Very high blood pressure can lead to seizures or stroke which can be life threatening. If ordered by your provider, take your blood pressure at home and call your OB provider if you have a high reading. Your OB provider can write you a prescription for a blood pressure monitor if you do not have one. Be sure to make and go to all appointments, and call your OB provider if you are having problems. It's also a good idea to know your test results and keep a list of the medicines you take. BLEEDING Vaginal bleeding will decrease in amount over the next few weeks. Bleeding may cigar packer and picker and then decrease again around 7-10 days . Use pads instead of tampons for the bloody flow that may last as long as 2 weeks. You will notice that as your activity increases, your flow may increase. Call your provider if you are saturating one maxi pad in an hour & passing large clots for 3 hours or more. ACTIVITY NO SEXUAL activity for 6 weeks or until advised by your OB provider; Nothing in vagina: intercourse, tampons, or douching. Begin to think about your reproductive life plan. Talk to your OB provider about if and when you would like to get in the future. The recommendation for safe spacing is 18-24 months. Showering is okay; NO tub baths, swimming, or hot tubs. Gradually increase your activity. Resume exercise regimen only after advised by your )OB provider. Avoid lifting anything heavier than ten pounds or a gallon of milk for six weeks. Avoid driving 1 week for vaginal delivery and 2 weeks for section, or longer if you are on prescription pain medicine unless otherwise instructed by your OB provider. Rise slowly from a lying to sitting and then a standing position. Climb stairs carefully. You may feel tired or have a lack of energy. You may continue your vitamin to replenish nutrients post-delivery. Nap when whenever you can to catch up on sleep. EMOTIONS You may feel paz, sad, teary, & overwhelmed for the first 2 weeks ; however, feelings of depression may occur any time within the first year after delivery. Contact your OB provider if you feel you may be showing signs of depression, or have thoughts of harming yourself or or anyone.. WOUND CARE For Vaginal Delivery: Shower daily, and cleanse your perineum (bottom) with mild soap from front to back. Use the plastic squirt bottle until bleeding stops each time you use the restroom instead of wiping with toilet paper. Ease soreness of hemorrhoids and the area between your vagina and rectum with ice compresses or witch pooja pads. If used, stitches will dissolve in 4-6 weeks on their own. You may use a sitz bath or soak in a clean tub with drain open and water running for comfort. Kegel exercises will help restore bladder control. To do these tighten your muscles as if you were stopping your urine flow. Hold for a few seconds and then relax. Do these throughout the day. For Section Delivery: Keep your incision clean and dry. If you had steri-strips you may remove these once they start falling off. If you have constance they need to be removed 3-10 daysafter delivery. If you have steri-strips, remove after 7 - 10 days. Do not wear clothing that irritates the incision line. If your incision is in a crease that is not dry, use a hair-dryer to dry the area 3 times a day. If you develop fever, shaking chills, redness, swelling, drainage or discharge from your wound, or if your wound looks like it is coming apart call your provider immediately. BREAST CARE If you develop a warm, red, tender area on your breast or develop a fever contact your OB provider. If your breasts become engorged ask your provider because treatment can vary according to your needs. DIET & CONSTIPATION Eat a well-balanced diet focusing on foods high in fiber and protein such as: whole grain cereals and breads, fruits and vegetables and legumes (eg, beans, lentils) Drink 8-10 glasses of fluids daily, especially water. Limit caffeine. To avoid constipation you may take a mild [id number] stool softener (such as colace) as recommended by your OB provider. SWELLING Try to keep your legs elevated when you are sitting or lying down. Stay hydrated and take walks. If you had high blood pressure, weigh yourself at the same time each day. Write down your weight and take the record to your OB provider appointment. MEDICATIONS Take all medications prescribed for you exactly as ordered. Don't take any drugs not prescribed to you or over the counter medicines unless recommended by your provider. Don't smoke. WHEN TO CALL THE OB PROVIDER Signs of infection, including fever and chills Increased bleeding: soaking more than one pad an hour or passing clots the size of an egg or larger. Wounds that become red, swollen or drain pus Vaginal discharge that smells foul New pain, swelling, or tenderness in your legs Pain that you can't control with the medications you've been given Pain, burning, urgency or frequency of urination, or persistent bleeding in the urine Cough, shortness of breath, or serious difficulty catching your breath Chest pain or pain in the upper right area of your belly Headache (very painful) or vision changes like blurry or double vision, seeing spots or 'auras' Swelling that is worse or weight gain of more than 3 pounds in 3 days Depression, suicidal thoughts, or feelings of harming someone else Breasts that are hot, red and accompanied by fever Any cracking or bleeding from the nipple or areola (the dark-colored area of the breast) SAVE YOUR LIFE: Get Care for these POST- Warning Signs: Call 911 if you have: Pain in chest Obstructed breathing or shortness of breath Seizures Thoughts of hurting yourself or your baby Call your healthcare provider if you have: (if you can't reach your healthcare provider, call 911 or go to an emergency room) Bleeding, soaking through one pad/hour, or blood clots the size of an egg or bigger Incision that is not healing Red or swollen leg, that is painful or warm to touch Temperature of 100.4 F or higher Headache that does not get better, even after taking medicine, or bad headache with vision changes. Contact your healthcare provider and tell them: I delivered on 02/24/2024 and I am having ____(specific warning signs) In case of an emergency, call 911 immediately. documented in this encounter [facility] 02-27-2024 Miscellaneous Notes Follow-up visit with patient. Patient states has been nursing well, patient is having some slight discomfort initially but discomfort eases as nurses. Encouraged patient to call for assistance at next feeding if needed. Patient verbalized understanding and aware of how to call for LC on wall touch pad. Observation of . Pt able to independently position and latch baby; baby in football hold on left breast. Reinforcement given on skin to skin, proper positioning and latch-on technique. Importance of deep, wide latch discussed. Baby feeding well and swallows noted. Pt reports feeding is comfortable. Breasts and nipples WNL; breasts remain soft. Pt reminded that learning to takes practice, and baby will continue to improve with this new skill over time. Reminded to feed baby on demand, at earliest signs of hunger, for a total of 8 or more feeds in 24 hours. Reviewed availability of [facility] dept and Mothers Support Group for help after discharge. Encouraged to all for LC as needed. Pt seen regarding of term who is now 35 HOL. This is first baby for pt. States is going well. Reports some nipple soreness. Baby is in nursery at this time for an antibiotic infusion. Reviewed deep latching technique through picture illustrations. Reminded that she and baby are learning a new skill that will improve with time and practice. Reminded to feed baby at earliest signs of hunger, but at least every 3 hours and call for help if not latching. Pt / family instructed on the following signs of adequate intake for the breastfed baby: 8 or more feeds in 24 hrs, including in the night; 6 or more wet diapers per 24 hrs by day 6 of life; 4 or more stools, turning yellow and seedy, per 24 hrs by day 5 of life; audible swallows during ; baby appears full / content after feeds; pt's breasts noticeably marinelli and heavier with whitish milk seen no later than day 5 . Engorgement, damaged nipples, blocked ducts and mastitis information all reviewed in care booklet. Pt / family reminded to have baby seen by follow up provider as instructed and no later than 3 days after discharge. Flyer given and discussed for [facility]'s Mothers Group and other resources for support after discharge. Encouraged to seek help as soon as possible for any infant feeding or related concerns. Encouraged to call LC for assist with ; reviewed use of wall touch pad. Pt reports she has a Spectra pump for home use. Pt receptive to my visit and education. Denies questions at this time. RN states that she had originally called LC for latch assistance but was able to assist pt and latch infant on right side in cradle position. is awake, attentive, with wide gape, lips furled and continuous swallows noted. Mom encouraged to feed infant on the right side as long as he wants to, e.g. twenty minutes, then offer a burp and switch to left side if infant continues to show hunger cues. Mom encouraged to attempt feeding every 2-3 hrs today and at least 8- 10 times per 24 hr period- tomorrow. Re-assurance given to parents and encouraged to call LC as needed. Date: 02/24/2024 Name: Kristine Crum : 2000 [facility] Patient Information Primary Caregiver: Self Accompanied by/Relationship: S/O;Family Marital Status: single Support System: SO/Family Taoism/Cultural Factors: none Activities of Daily Living Communication: See demographics Living Arrangements Current Residence: Private residence Lives With: S/O; Family Support System: S/O; Family Income Information Income Source: Employed Financial Resource Strain How hard is it for you to pay for the very basics like food, housing, medical care and heating? N/A Housing Stability In the last 12 months, was there a time when you did not have a steady place to sleep or slept in a fdc (including now)? No Transportation Needs Has the lack of Transportation kept you from medical appointments? No In the past 12 months, has the lack of transportation kept you from meetings, work, or from getting things needed for daily living? No Food Insecurity Within the past 12 months, have you worried that your food would run out before you got the money to buy more? No Stress Do you feel stress - tense, restless, nervous, or anxious, or unable to sleep at night because you mind is troubled all the time? Mood stable Referral To Financial Resources: N/A Community Resources: Admission folder given upon admission to PP Unit Social Work: N/A CLP: N/A Medical Information 24 year year old admitted for augmentation of PROM at 40/3 weeks. 1 para 0. delivery. Hx of THC, stopped when she found out she was . Chemicals from marijuana can be passed to your baby through breast milk. THC is stored in fat and is slowly released over time, meaning an could be exposed for a longer period of time. Discharge Plan Home or Community Resources: Admission folder given upon admission to PP unit Equipment: N/A Education Given: Discussion on the A. B. C's of safe sleep. Always place your baby on his or her back to sleep, use a firm sleep surface and your baby should not sleep in an adult bed, on a couch or chair. Keep soft objects, toys and loose bedding out of your baby's sleep area. Reviewed depression. It is common to have blues. This is a normal response to many of the hormonal changes, stress and lack of sleep that go with raising a and physically recovering from the . Don't hesitate to talk to your provider with any concerns. There are resources in your home going booklet. To help prevent germs from spreading to you and your baby, make sure everyone washes their hands before they handle your . Avoid crowds, and keep away from sick people, anyone who is sick with a cough or fever, including family members. Post- warning signs information reviewed with patient per nurse with discharge Additional Information: Patient is independent and has insurance. She is prepared with her baby supplies. To be discharged to home. Denies any concerns at this time. Mental Health Services: Resources in discharge folder Equipment: Developmental Delay: N/A Children's Services: N/A Images from the original note were not included. Operative Note Patient: Kristine Crum : 2000 Date of Procedure: 02/24/24 Principal Problem: Indication for care in labor or delivery PREOPERATIVE DIAGNOSES: 1. at 40w4d 2. Failed augmentation of labor 3. Arrest of dilation 4. Crohn's disease 5. Gestational hypertension 6. Narcolepsy POSTOPERATIVE DIAGNOSES: 1. Same 2. Live male infant PROCEDURE: Primary low transverse section. SURGEON: Dr. Read ASST: Dr. Dumont ANESTHESIA: Epidural ANTIBIOTIC(S): Clindamycin, Gentamycin VAG PREP (Iodine): Yes FINDINGS: Viable male infant in cephalic presentation Weight 3545 g, Apgars 7 and 9. No adhesive disease Uterus, tubes, and ovaries normal FLUIDS: 1200 ml crystalloid URINE: 1100 ml EBL: 600 ml QBL: 590 ml DRAINS: Lee catheter SPECIMENS: Placenta COMPLICATIONS: None CONDITION: Stable and transferred to post anesthesia recovery Description of Procedure: The patient was taken back to the operating room with running IV fluids. She was given Clindamycin and gentamicin preoperatively for infection prophylaxis. Epidural anesthesia was in place and confirmed to be adequate. She was prepped and draped in the usual sterile fashion, and placed in the supine position with a leftward tilt. Anesthesia was found to be adequate. A Pfannenstiel skin incision was made with the scalpel. The incision was carried through the subcutaneous tissue to the fascia with the scalpel and bovie. The fascia was incised in the midline and carried transversely curved mayos. Kochers were used to grasp and elevate the superior edge of the fascia, and the underlying rectus muscle was dissected off with the bovie. The inferior fascia was treated in a similar fashion. The rectus muscles were in the midline bluntly. The peritoneum was found to be free of adherent bowel and entered bluntly. The peritoneal incision was extended bluntly with good visualization of bladder. The bladder retractor and Perez retractor were placed, and the vesicouterine peritoneum was identified. The lower uterine segment was incised in a low transverse fashion with a scalpel. The hysterotomy was extended bluntly. The amniotic cavity was ruptured with an Allis clamp and clear amniotic fluid was noted. The fetus was found to be in cephalic, occiput anterior presentation. Pelvis did not feel tight. Bladder retractor and Perez retractor were removed. The head was brought to the level of the uterine incision with special care to avoid using the incision as a fulcrum. Fundal pressure was then applied and the infant delivered without difficulty. The cord was clamped and cut, and the was handed off to the RN for evaluation. IV pitocin was then started. The placenta was removed with gentle traction and fundal pressure. The uterus was exteriorized and wrapped in a wet lap. The uterine cavity was wiped with a dry lap to assure complete removal of placental membranes. The uterine incision closed with 0 vicryl suture in a continuous fashion. A single figure of eight suture was placed in the center of her hysterotomy with 0 Vicryl. The uterine incision was found to be hemostatic. Tubes and ovaries were inspected and found to be normal. The posterior cul de sac was cleared of debris. The uterus was returned into the abdominal cavity. The uterine incision was reinspected and adequate hemostasis was again appreciated. The abdominal cavity was cleared of all clots and debris with wet lap sponges. The peritoneum was reapproximated with 3-0 Vicryl in a continuous fashion. The rectus muscles were reapproximated with 3-0 Vicryl in a continuous fashion. The fascia was closed with 0 Vicryl suture in a running fashion x2. The incision was irrigated. The subcutaneous layer was closed with 3-0 Monocryl. The skin was closed with 4-0 Vicryl suture in a subcuticular fashion. Steri strips and a bandage were placed over the incision. All counts were correct times two. Patient was transferred to the recovery room in satisfactory stable condition. MELANIA DUMONT DO 02/24/2024 8:19 AM VTE Prophylaxis: Prophylactic Dosing until Discharge LABOR DELIVERY ??? SCD's ONLY (labor through ambulation) SCD's PLUS Prophylactic Anticoagulation until discharge SCD's PLUS Prophylactic Anticoagulation for 6 weeks SCD's PLUS Therapeutic Anticoagulation for 6 weeks Vaginal Delivery [] BMI ? 40 kg/m2 Delivery All patients Vaginal Delivery [] BMI ? 40 kg/m2 AND [] Antepartum hospitalization ? 72 hours within the past month Delivery 1 Major Risk Factor: [x] BMI ? 35 kg/m2 [] Low Risk Thrombophilia [] PPH+RBCs, IR, or operation [] Infection+Antibiotics [] Antepartum hospitalization ? 72 hours within the past month [] PMH: Sickle Cell, SLE, Cardiac Dz, Active IBD, Active Cancer, Nephrotic Syndrome OR 2 Minor Risk Factors: [] Multiple gestation [] Age > 40 [] PPH ? 1,000cc [] (+)FMH of VTE [] Smoker [] Preeclampsia [] BMI ? 40 kg/m2 AND [] Low Risk Thrombophilia OR ANY OF THE FOLLOWING: [] High Risk Thrombophilia without prior VTE [] Low Risk Thrombophilia with (+)FMH of VTE [] Any single prior VTE ANY OF THE FOLLOWING: [] Already on LMWH/UFH [] Multiple prior VTE [] High Risk Thrombophilia with prior VTE Low Risk Thrombophilia: FVL (heterozygous), Prothrombin (heterozygous), Protein C, Protein S High Risk Thrombophilia: FVL (homozygous), Prothrombin (homozygous), FVL+Prothrombin (heterozygous), Antithrombin III, APLS Associated attestation - Fernie Readory J, MD - 02/27/2024 12:47 PM EDT Procedures or Surgery: I was present for all coyle elements of the procedure or surgery as described in the resident note. Images from the original note were not included. Safety Huddle Patient admitted for AOL-PROM. Her labor course consisted of a cytotec, lee balloon, pitocin. She was broken and on pitocin for 18 hours without making change past 4 cm. She met criteria for failed induction/augmentation of labor. She was agreeable to a PCD. Plan to proceed with a primary section for failed augmentation of labor. Risks and benefits discussed with the patient including the risk of injury to surrounding structures, bleeding and infection. Patient amendable to receiving blood products if medically indicated. Consent form signed. Safety Huddle performed with Attending provider, OB devulcanizer charger, OB anesthesia, resident team and primary RN. All in agreement for PCD-Failed IOL. Patient will be for clinda/gent and azithromycin. Epidural in place and will be redosed. This will be an unscheduled non-emergent primary section. Shawna Doran DO 02/24/2024 5:54 AM documented in this encounter [facility] 02-27-2024 Obstetrics Note Follow-up visit with patient. Patient states has been nursing well, patient is having some slight discomfort initially but discomfort eases as infant nurses. Encouraged patient to call for assistance at next feeding if needed. Patient verbalized understanding and aware of how to call for LC on wall touch pad. [facility] 02-27-2024 History of Present illness Narrative Images from the original note were not included. Note- POST OPERATIVE DAY # 3 Kristine Crum is a 24 y.o. who was seen & examined today. Her was complicated by: Patient Active Problem List Diagnosis Crohn's disease (HCC) care, antepartum Vanishing twin syndrome Anxiety disorder affecting , antepartum Indication for care in labor or delivery Today she is doing well without any chief complaint. Her lochia is light. She denies Headache, Chest Pain, Vision Changes, and Shortness of Breath. She is ambulating well. Flatus present. Bowel movement present. Voiding spontaneously . She is tolerating solids. Pain is controlled yes. Vital Signs: Vitals: 02/26/24 0726 02/26/24 1935 02/27/24 0019 02/27/24 0330 BP: 112/68 139/76 120/67 113/75 BP Location: Right arm Right arm Right arm Patient Position: Sitting Lying Lying Pulse: 86 85 90 96 Resp: 16 16 16 18 Temp: 36.6 C (97.9 F) 36.8 C (98.2 F) 36.6 C (97.8 F) 36.6 C (97.9 F) TempSrc: Temporal Temporal Temporal Temporal SpO2: 96% 97% 96% 96% Weight: Height: Urine Input & Output last 24hrs: No intake or output data in the 24 hours ending 02/27/24 0530 Physical Exam: GENERAL APPEARANCE: alert, well appearing, in no apparent distress ABDOMEN : benign non-tender, without masses or organomegaly palpable EXTREMITIES: no redness or tenderness in the calves or thighs, no edema NEUROLOGIC: alert, oriented, normal speech, no focal findings or movement disorder noted UTERUS : normal size, well involuted, firm, non-tender Desc; incision: silverlon overlying, replaced overnight Labs: Lab Results Component Value Date WBC 14.5 (H) 02/23/2024 HGB 8.8 (L) 02/25/2024 HCT 34.1 (L) 02/23/2024 MCV 82.6 02/23/2024 PLT 203 02/23/2024 A Antibody Screen: No results found for: LABANTI No results found for: RUBELLAIGG LABOR DELIVERY ??? SCD's ONLY (labor through ambulation) SCD's PLUS Prophylactic Anticoagulation until discharge SCD's PLUS Prophylactic Anticoagulation for 6 weeks SCD's PLUS Therapeutic Anticoagulation for 6 weeks Vaginal Delivery [] BMI ? 40 kg/m2 Delivery All patients Vaginal Delivery [] BMI ? 40 kg/m2 AND [] Antepartum hospitalization ? 72 hours within the past month Delivery 1 Major Risk Factor: [x] BMI ? 35 kg/m2 [] Low Risk Thrombophilia [] PPH+RBCs, IR, or operation [] Infection+Antibiotics [] Antepartum hospitalization ? 72 hours within the past month [] PMH: Sickle Cell, SLE, Cardiac Dz, Active IBD, Active Cancer, Nephrotic Syndrome OR 2 Minor Risk Factors: [] Multiple gestation [] Age > 40 [] PPH ? 1,000cc [] (+)FMH of VTE [] Smoker [] Preeclampsia [] BMI ? 40 kg/m2 AND [] Low Risk Thrombophilia OR ANY OF THE FOLLOWING: [] High Risk Thrombophilia without prior VTE [] Low Risk Thrombophilia with (+)FMH of VTE [] Any single prior VTE ANY OF THE FOLLOWING: [] Already on LMWH/UFH [] Multiple prior VTE [] High Risk Thrombophilia with prior VTE Low Risk Thrombophilia: FVL (heterozygous), Prothrombin (heterozygous), Protein C, Protein S High Risk Thrombophilia: FVL (homozygous), Prothrombin (homozygous), FVL+Prothrombin (heterozygous), Antithrombin III, APLS Assessment/Plan: Kristine Crum is a 24 y.o. POD # 3 s/p PLTCS 2/2 Failed IOL Care - Doing well, VSS - Male - Contraception: Per Private Attending - Encourage ambulation and use of incentive spirometer - D/C lee catheter and saline lock IV on POD #1 - Postop Hb 8.8 - VTE Prophylaxis: Prophylactic Dosing until Discharge gHTN -Met criteria during labor -PreE labs WNL during labor -Normotensive and asymptomatic overnight -Vitals per unit protocol Acute Blood Loss Anemia -Hg drop from 11.2 to 8.8 postoperatively -EBL 600mL -Vital signs WNL without tachycardia or hypotension -Denies symptoms this AM -Continue PO iron Crohn's Disease -Follows with GI -On Remicade antepartum, per GI -Denies new sx this AM BHASKAR -Follows with psychiatry -Mood appropriate this AM -Continue Pristiq 25 mg daily Narcolepsy -No meds at this time -Follows with sleep medicine Disposition: Per private attending. Provider's Name: MD Leila Pace MD 02/27/2024, 5:30 AM Called to replace saturated Silverlon Dressing. Silverlon removed with steri-strips remaining. Incision looks well approximated with no erythema, induration. New silverlon applied. Patient doing well with no complaints. Images from the original note were not included. Note- POST OPERATIVE DAY # 2 Kristine Crum is a 24 y.o. who was seen & examined today. Her was complicated by: Patient Active Problem List Diagnosis Crohn's disease (HCC) care, antepartum Vanishing twin syndrome Anxiety disorder affecting , antepartum Indication for care in labor or delivery Today she is doing well without any chief complaint. Her lochia is light. She denies Headache, Chest Pain, Vision Changes, and Shortness of Breath. She is ambulating well. Flatus present. Bowel movement present. Voiding spontaneously . She is tolerating solids. Pain is controlled yes. Vital Signs: Vitals: 02/25/24 0755 02/25/24 1114 02/25/24 1602 02/25/24 2205 BP: 116/62 108/60 121/74 117/71 BP Location: Right arm Right arm Right arm Patient Position: Sitting Sitting Pulse: 82 84 83 81 Resp: 18 14 18 18 Temp: 36.4 C (97.5 F) 36.6 C (97.9 F) 36.8 C (98.3 F) 36.7 C (98.1 F) TempSrc: Temporal Temporal Temporal Temporal SpO2: 95% 100% 98% 97% Weight: Height: Urine Input & Output last 24hrs: No intake or output data in the 24 hours ending 02/26/24 0540 Physical Exam: GENERAL APPEARANCE: alert, well appearing, in no apparent distress ABDOMEN : benign non-tender, without masses or organomegaly palpable EXTREMITIES: no redness or tenderness in the calves or thighs, no edema NEUROLOGIC: alert, oriented, normal speech, no focal findings or movement disorder noted UTERUS : normal size, well involuted, firm, non-tender Desc; incision: Silverlon in place Labs: Lab Results Component Value Date WBC 14.5 (H) 02/23/2024 HGB 8.8 (L) 02/25/2024 HCT 34.1 (L) 02/23/2024 MCV 82.6 02/23/2024 PLT 203 02/23/2024 A Antibody Screen: No results found for: LABANTI No results found for: RUBELLAIGG LABOR DELIVERY ??? SCD's ONLY (labor through ambulation) SCD's PLUS Prophylactic Anticoagulation until discharge SCD's PLUS Prophylactic Anticoagulation for 6 weeks SCD's PLUS Therapeutic Anticoagulation for 6 weeks Vaginal Delivery [] BMI ? 40 kg/m2 Delivery All patients Vaginal Delivery [] BMI ? 40 kg/m2 AND [] Antepartum hospitalization ? 72 hours within the past month Delivery 1 Major Risk Factor: [x] BMI ? 35 kg/m2 [] Low Risk Thrombophilia [] PPH+RBCs, IR, or operation [] Infection+Antibiotics [] Antepartum hospitalization ? 72 hours within the past month [] PMH: Sickle Cell, SLE, Cardiac Dz, Active IBD, Active Cancer, Nephrotic Syndrome OR 2 Minor Risk Factors: [] Multiple gestation [] Age > 40 [] PPH ? 1,000cc [] (+)FMH of VTE [] Smoker [] Preeclampsia [] BMI ? 40 kg/m2 AND [] Low Risk Thrombophilia OR ANY OF THE FOLLOWING: [] High Risk Thrombophilia without prior VTE [] Low Risk Thrombophilia with (+)FMH of VTE [] Any single prior VTE ANY OF THE FOLLOWING: [] Already on LMWH/UFH [] Multiple prior VTE [] High Risk Thrombophilia with prior VTE Low Risk Thrombophilia: FVL (heterozygous), Prothrombin (heterozygous), Protein C, Protein S High Risk Thrombophilia: FVL (homozygous), Prothrombin (homozygous), FVL+Prothrombin (heterozygous), Antithrombin III, APLS Assessment/Plan: Kristine Crum is a 24 y.o. POD # 2 s/p PLTCS 2/2 Failed IOL Care - Doing well, VSS - Male - Contraception: Per Private Attending - Encourage ambulation and use of incentive spirometer - D/C lee catheter and saline lock IV on POD #1 - Postop Hb 8.8 - VTE Prophylaxis: Prophylactic Dosing until Discharge gHTN -Met criteria during labor -PreE labs WNL during labor -Normotensive and asymptomatic overnight -Continue vitals per unit protocol Acute Blood Loss Anemia -Hg drop from 11.2 to 8.8 -EBL 600mL -Vital signs stable without signs of hypotension or tachycardia -Denies symptoms of light headedness with standing, dizziness this AM -Continue PO iron and colace Crohn's Disease -Follows with GI -On Remicade during antepartum period, per GI -Denies new sx this AM BHASKAR -Follows with psychiatry -Mood appropriate this AM -Continue Pristiq 25mg daily Narcolepsy -No meds at this time -Follows with sleep medicine Disposition: Per private attending. Provider's Name: MD Leila Pace MD 02/26/2024, 5:40 AM Associated attestation - Kylah Laguerre MD - 02/26/2024 10:14 AM EDT Hospital Care (Independent): I independently saw and evaluated the patient. I agree with the findings and plan of care as documented in the resident's note. Nutrition rescreen completed. Patient assigned a level 1. LES [place] Images from the original note were not included. Note- POST OPERATIVE DAY # 1 Kristine Crum is a 24 y.o. who was seen & examined today. Her was complicated by: Patient Active Problem List Diagnosis Crohn's disease (HCC) care, antepartum Vanishing twin syndrome Anxiety disorder affecting , antepartum Indication for care in labor or delivery Today she is doing well without any chief complaint. Her lochia is light. She denies Headache, Chest Pain, Vision Changes, and Shortness of Breath. She is ambulating well. Flatus present. Bowel movement absent. Voiding spontaneously . She is tolerating solids. Pain is controlled yes. Vital Signs: Vitals: 02/24/24 1705 02/24/24 1951 02/25/24 0004 02/25/24 0335 BP: 123/77 121/74 113/68 106/66 BP Location: Patient Position: Pulse: 75 68 78 85 Resp: 14 16 16 16 Temp: 36.4 C (97.5 F) 36.3 C (97.3 F) 36.3 C (97.4 F) 36.8 C (98.3 F) TempSrc: Temporal Temporal Temporal Temporal SpO2: 97% 97% 97% 95% Weight: Height: Urine Input & Output last 24hrs: Intake/Output Summary (Last 24 hours) at 02/25/2024 0613 Last data filed at 02/25/2024 0300 Gross per 24 hour Intake 1643 ml Output 4790 ml Net -3147 ml Physical Exam: GENERAL APPEARANCE: alert, well appearing, in no apparent distress ABDOMEN : benign non-tender, without masses or organomegaly palpable EXTREMITIES: no redness or tenderness in the calves or thighs, no edema NEUROLOGIC: alert, oriented, normal speech, no focal findings or movement disorder noted UTERUS : normal size, well involuted, firm, non-tender Desc; incision: Silverlon Labs: Lab Results Component Value Date WBC 14.5 (H) 02/23/2024 HGB 11.2 (L) 02/23/2024 HCT 34.1 (L) 02/23/2024 MCV 82.6 02/23/2024 PLT 203 02/23/2024 A Antibody Screen: No results found for: LABANTI No results found for: RUBELLAIGG LABOR DELIVERY ??? SCD's ONLY (labor through ambulation) SCD's PLUS Prophylactic Anticoagulation until discharge SCD's PLUS Prophylactic Anticoagulation for 6 weeks SCD's PLUS Therapeutic Anticoagulation for 6 weeks Vaginal Delivery [] BMI ? 40 kg/m2 Delivery All patients Vaginal Delivery [] BMI ? 40 kg/m2 AND [] Antepartum hospitalization ? 72 hours within the past month Delivery 1 Major Risk Factor: [x] BMI ? 35 kg/m2 [] Low Risk Thrombophilia [] PPH+RBCs, IR, or operation [] Infection+Antibiotics [] Antepartum hospitalization ? 72 hours within the past month [] PMH: Sickle Cell, SLE, Cardiac Dz, Active IBD, Active Cancer, Nephrotic Syndrome OR 2 Minor Risk Factors: [] Multiple gestation [] Age > 40 [] PPH ? 1,000cc [] (+)FMH of VTE [] Smoker [] Preeclampsia [] BMI ? 40 kg/m2 AND [] Low Risk Thrombophilia OR ANY OF THE FOLLOWING: [] High Risk Thrombophilia without prior VTE [] Low Risk Thrombophilia with (+)FMH of VTE [] Any single prior VTE ANY OF THE FOLLOWING: [] Already on LMWH/UFH [] Multiple prior VTE [] High Risk Thrombophilia with prior VTE Low Risk Thrombophilia: FVL (heterozygous), Prothrombin (heterozygous), Protein C, Protein S High Risk Thrombophilia: FVL (homozygous), Prothrombin (homozygous), FVL+Prothrombin (heterozygous), Antithrombin III, APLS Assessment/Plan: Kristine Crum is a 24 y.o. POD # 1 s/p PLTCS 2/2 Failed IOL Care - Doing well, VSS - Male - Contraception: Per Private Attending - Encourage ambulation and use of incentive spirometer - D/C lee catheter and saline lock IV on POD #1 - Postop Hb pending at this note time - VTE Prophylaxis: Prophylactic Dosing until Discharge gHTN -Met criteria during labor -PreE labs WNL at that time -Normotensive and asymptomatic overnight Chron's -follows with GI -Remicade per GI antepartum infusions BHASKAR -follows with psych -Mood appropriate this am -Continue Pristiq 25mg daily Narcolepsy -no medications at this time -follows with sleep clinic Disposition: Per private attending Provider's Name: MD Leila Pace MD 02/25/2024, 6:13 AM Images from the original note were not included. Labor Progress Note Date: 02/23/2024 Time: 6:19 AM Subjective: Kristine Crum is a 24 y.o. female at 40w3d admitted for AOL-PROM Complications: Term Crohn's Disease Anxiety Narcolepsy gHTN SVE on admission: visually closed, per check in office yesterday GBS: []Pos [x]Neg []Unknown Cx:defer FHT: Cat I Moroni: irregular A/P: 1. AOL-PROM PO Cytotec administered at this time. Cervical exam deferred as pt had copious amounts of meconium on admission and was called in office on 02/21. FHR Cat I with a baseline of 130 's, moderatevariability, accelerations present, and decelerations absent. BP's normotensive. Continue to monitor. CCM. Cx: -3 Isolated deceleration noted at 08:51, however overall Cat I since then. Overall reassuring given presence of accelerations, moderate variability, and baseline of 120's. Dr. Salas discussed with Dr. Read who is agreeable for lee balloon placement at this time. Plan to discuss with patient. BP's normotensive. Continue to monitor. CCM. Glenn around q4. Analilia Moreno DO 02/23/2024 10:45 AM Cervix unchanged. FHT cat II for rare late decels overall reassuring with mod variability and accels. FB placed. Will start LD pit Cx: Defer FHT: Cat I Moroni: q5 A/P: 1. AOL-PROM FHR Cat I with a baseline of 125, moderate variability, accelerations present, and decelerations absent. BP's normotensive. Lee balloon still in place. Currently on low dose pitocin, 2 mL/min. Continue to monitor. CCM. Taking over care from day team at this time. FB out at this time. Will titrate pitocin. Shawna Doran DO 02/23/2024 5:31 PM Cx:Defer FHP: defer FHT: Cat I Moroni:Not tracing well A/P: 1. AOL-PROM FHR Cat I with a baseline of 120 's, moderate variability, accelerations present, and no clinically significant decelerations.BP's normotensive. Continue to monitor. [facility] Shawna Williamsonpippa, DO 02/23/2024 6:15 PM Cx:3/70/-3 FHP: defer FHT: Cat I Moroni:q5min A/P: 1. AOL-PROM FHR Cat I with a baseline of 120's, moderate variability, accelerations present, and no clinically significant decelerations. Pitocin at 10cc/hr. Continue to titrate per protocol. SVE with very tight cervix, attempted to AROM forebag, only very small amount of fluid expressed. Patient comfortable, merchant not want epidural yet. BP's normotensive. Continue to monitor. [facility] Shawnanoé CanoAnalilia Karpippa, DO 02/23/2024 8:38 PM Cx:Defer FHP: defer FHT: Cat I Moroni:q3 min A/P: 1. AOL-PROM FHR Cat I with a baseline of 120's-130's, moderate variability, accelerations present, and no clinically significant decelerations. Pitocin at 14cc/hr. Continue to titrate per protocol. BP's normotensive. Continue to monitor. [facility] Shawnanoé CanoAnalilia Karpippa, DO 02/23/2024 10:33 PM Cx:3-4/70/-3 FHP: defer FHT: Cat I Moroni:q3-4min A/P: 1. AOL-PROM FHR Cat I with a baseline of 140's, moderate variability, accelerations present, and no clinically significant decelerations present. Patient has been broken with pitocin on for 12 hours. Discussed that given Cat I FHT okay to continue for 18 hours. Patient voiced understanding, states that she does desire a vaginal delivery but is okay at this time for a PCD if she meets criteria. IUPC placed, will calculate MVUs when able. Pitocin at 16cc/hr. Continue to titrate per protocol. BP's normotensive to low mild range, patient has met criteria for gHTN through her labor course. Continue to monitor. [facility] Shawna Williamsonlock, 02/24/2024 12:14 AM Cat II for isolated late deceleration. Overall reassuring with moderate variability, baseline 140s, spontaneous accelerations. Contractions every 2-3 minutes. Pitocin 16ml/hr, continue to titrate. Last BP recorded 129/73. Will plan for recheck at next note time. performed, /3. No significant change has been made from previous exam. Patient has epidural and is comfortable currently. MVUs inadequate at 138 most recently. Patient still desires a vaginal delivery. Will continue position changes and peanut ball as head feels asynclytic. Pitocin @ 18cc/hour, continue to titirate per protocol. Continue to monitor, CCM. Shawna Williamsonpippa, 02/24/2024 3:04 AM Cat II for late decelerations. Overall reassuring with moderate variability, baseline 150s. Pitocin at 18ml/hr. Contractions every 1-2 minutes with potential coupling. Fluid bolus and repositioning measures have been taken by RN. At this time, patient is 16 hours broken and on pit. MVUs 188. Will recheck at 0530. Last BP normotensive. CCM. remains unchanged. Discussed with patient need for for failed induction of labor. Patient is okay proceeding to at this time. Alternatives of pitocin holiday and increased dose of pitocin discussed but likelihood of those desired results are unlikely. Dr. Read updated and case discussed. Will proceed with unscheduled primary due to failed induction. Dr. Read ETA 25hr. . See delivery note for details. Department of Obstetrics and Gynecology Labor and Delivery Triage Note CHIEF COMPLAINT: r/o ROM HISTORY OF PRESENT ILLNESS: Pt noted leaking then gush of fluid around 3am today. Was originally clear fluid but noted green fluid in triage bathroom. No regular contractions but does have abdominal cramping and stomach ache. Denies N/V/BAH/VC/CP/SOB/RUQ or epigastric pain/LE edema. Checked in office yesterday was 3. The patient is a 24 y.o. 40w3d. OB History 1 Para Term AB Living SAB IAB Ectopic Multiple Live Births Patient presents with a chief complaint as above. Denies DFM/VB/CTX. Endorses LOF. Estimated Due Date: Estimated Date of Delivery: 02/20/24 PAST MEDICAL HISTORY: Past Medical History: Diagnosis Date CC (Crohn's colitis) (CMS/HCC) ([facility]) Narcolepsy PAST SURGICAL HISTORY: Past Surgical History: Procedure Laterality Date BREAST SURGERY TONSILLECTOMY (HISTORICAL) SOCIAL HISTORY: reports that she has quit smoking. Her smoking use included cigarettes. She has quit using smokeless tobacco. She reports that she does not currently use alcohol. She reports that she does not currently use drugs after having used the following drugs: Marijuana. MEDICATIONS: Prior to Admission medications Medication Sig Start Date End Date Taking? Authorizing Provider Cyanocobalamin (VITAMIN B 12 PO) Take 1,000 mcg by mouth daily. Historical Provider, desvenlafaxine succinate ER 25 MG 24 hour tablet Take 50 mg by mouth every morning. 01/06/23 Historical Provider, desvenlafaxine succinate ER 25 MG 24 hour tablet Take 25 mg by mouth. 01/06/23 Historical Provider, Inflectra 100 MG injection 07/09/23 Historical Provider, inFLIXimab (Remicade) 100 MG injection Infuse into a venous catheter. Every six weeks Historical Provider, Misc. Devices (Breast Pump) misc [employer]. Lactating mother 12/24/23 Yesica Mckinnon APRN - MICHELLE modafinil (Provigil) 100 MG tablet Take 1 tablet (100 mg) by mouth 2 times daily as needed (sleepiness). 05/28/23 02/12/24 Kayleigh Stevens MD MV-Min-Fe Fum-FA-DHA ( 1 PO) Take by mouth. Historical Provider, Sodium Oxybate ER (Lumryz) 9 g pack Take 9 g by mouth Nightly. Take contents of one packet mixed with water in provided mixing cup at bedtime. 05/28/23 02/12/24 Kayleigh Stevens MD CARE: Complicated by: none REVIEW OF SYSTEMS: Pertinent items are noted in HPI. APPEARANCE: Pain: No PHYSICAL EXAM: Vital Signs: VS wnl-reviewed/Respirations normal effort Vitals: 02/23/24 0426 BP: 133/87 Pulse: 80 Resp: 18 Temp: 37 C (98.6 F) TempSrc: Oral Weight: 206 lb (93.4 kg) Height: 5' 4 (1.626 m) Abdomen: soft, NT, ND, no rebound/guarding Uterus: gravid/non-tender LE Edema: trace Speculum Exam: pooled fluid appearing dark green and thin, blood absent, Nitrizine test is positive, Ferning test is positive heart rate: Category I Cervix: checked in office on 02/21 was found to be 1/20/-3, visually closed on spec exam Contraction frequency: none Membranes: Ruptured meconium stained RESULTS: NST: Reactive GENERAL LABS: No results found for this or any previous visit (from the past 24 hour(s)). TRIAGE COURSE: Pt resting comfortably in triage. Reported gush of fluid around 3am this morning that was initially clear but is now dark green in triage. Spec exam significant for pooling of dark green fluid, positive Nitrazine, positive ferning. Cervical exam performed in office on 02/21 was 1/20/-3, cervical exam deferred at this time due to ROM. Plan to admit to L&D for AOL-PROM. FHT Cat I, HR baseline 130, accelerations present, decelerations absent. ESSION: Leaking Fluid/ROM-meconium Pain assessment and plan: None DISCUSSED WITH PNC PROVIDER: Dr. Lo Patel DISPOSITION: Admit to L&D documented in this encounter [facility] 02-26-2024 Obstetrics Note Observation of . Pt able to independently position and latch baby; baby in football hold on left breast. Reinforcement given on skin to skin, proper positioning and latch-on technique. Importance of deep, wide latch discussed. Baby feeding well and swallows noted. Pt reports feeding is comfortable. Breasts and nipples WNL; breasts remain soft. Pt reminded that learning to takes practice, and baby will continue to improve with this new skill over time. Reminded to feed baby on demand, at earliest signs of hunger, for a total of 8 or more feeds in 24 hours. Reviewed availability of [facility] dept and Mothers Support Group for help after discharge. Encouraged to all for LC as needed. [facility] 02-25-2024 Nurse Note Mom asked if she could switch baby to sensitive formula. She is doing both breast and bottle and continues to do so at home. She states that when baby drinks the regular formula he spits/throws up, but when she nurses him, he does not. I reached out to Dr. Nelson, and she was fine with this. Mom given a 4 pack of sensitive formula and slow flow nipples, will continue to monitor. [facility] 02-25-2024 Obstetrics Note Pt seen regarding of term who is now 35 HOL. This is first baby for pt. States is going well. Reports some nipple soreness. Baby is in nursery at this time for an antibiotic infusion. Reviewed deep latching technique through picture illustrations. Reminded that she and baby are learning a new skill that will improve with time and practice. Reminded to feed baby at earliest signs of hunger, but at least every 3 hours and call for help if not latching. Pt / family instructed on the following signs of adequate intake for the breastfed baby: 8 or more feeds in 24 hrs, including in the night; 6 or more wet diapers per 24 hrs by day 6 of life; 4 or more stools, turning yellow and seedy, per 24 hrs by day 5 of life; audible swallows during ; baby appears full / content after feeds; pt's breasts noticeably marinelli and heavier with whitish milk seen no later than day 5 . Engorgement, damaged nipples, blocked ducts and mastitis information all reviewed in care booklet. Pt / family reminded to have baby seen by follow up provider as instructed and no later than 3 days after discharge. Flyer given and discussed for [facility]'s Mothers Group and other resources for support after discharge. Encouraged to seek help as soon as possible for any infant feeding or related concerns. Encouraged to call LC for assist with ; reviewed use of wall touch pad. Pt reports she has a Spectra pump for home use. Pt receptive to my visit and education. Denies questions at this time. [facility] 02-24-2024 Obstetrics Note RN states that she had originally called LC for latch assistance but was able to assist pt and latch on right side in cradle position. is awake, attentive, with wide gape, lips furled and continuous swallows noted. Mom encouraged to feed on the right side as long as he wants to, e.g. twenty minutes, then offer a burp and switch to left side if continues to show hunger cues. Mom encouraged to attempt feeding every 2-3 hrs today and at least 8- 10 times per 24 hr period- tomorrow. Re-assurance given to parents and encouraged to call LC as needed. [facility] 02-24-2024 Nurse Note Yanet reported some dizziness when I went in to do vitals. No chest pain, no headache, and no blurred vision. Vitals were WDL, see flowsheet. Bleeding is WDL. Patient states she is very tired and hasn't had much sleep, she has been pushing her water and has great output. Patient states she will try to rest after visitors have gone. Will continue to monitor. [facility] 02-24-2024 Nurse Note Patient up and ambulated to the restroom with nurse. Patient did well. Mary care was demonstrated and teach back was done. Patient is ok to walk independently if she choose. [facility] 02-24-2024 Note Formatting of this n ote might be different from the original. Date: 02/24/2024 Name: Kristine Crum : 2000 [facility] Information [place] Patient Information Primary Caregiver: Self Accompanied by/Relationship: S/O;Family Marital Status: single Support System: SO/Family Taoism/Cultural Factors: none Activities of Daily Living Communication: See demographics Living Arrangements Current Residence: Private residence Lives With: S/O; Family Support System: S/O; Family Income Information Income Source: Employed Financial Resource Strain How hard is it for you to pay for the very basics like food, housing, medical care and heating? N/A Housing Stability In the last 12 months, was there a time when you did not have a steady place to sleep or slept in a fdc (including now)? No Transportation Needs Has the lack of Transportation kept you from medical appointments? No In the past 12 months, has the lack of transportation kept you from meetings, work, or from getting things needed for daily living? No Food Insecurity Within the past 12 months, have you worried that your food would run out before you got the money to buy more? No Stress Do you feel stress - tense, restless, nervous, or anxious, or unable to sleep at night because you mind is troubled all the time? Mood stable Referral To Financial Resources: N/A Community Resources: Admission folder given upon admission to PP Unit Social Work: N/A CLP: N/A Medical Information 24 year year old admitted for augmentation of PROM at 40/3 weeks. 1 para 0. delivery. Hx of THC, stopped when she found out she was . Chemicals from marijuana can be passed to your baby through breast milk. THC is stored in fat and is slowly released over time, meaning an infant could be exposed for a longer period of time. Discharge Plan Home or Community Resources: Admission folder given upon admission to PP unit Equipment: N/A Education Given: Discussion on the A. B. C's of safe sleep. Always place your baby on his or her back to sleep, use a firm sleep surface and your baby should not sleep in an adult bed, on a couch or chair. Keep soft objects, toys and loose bedding out of your baby's sleep area. Reviewed depression. It is common to have blues. This is a normal response to many of the hormonal changes, stress and lack of sleep that go with raising a and physically recovering from the . Don't hesitate to talk to your provider with any concerns. There are resources in your home going booklet. To help prevent germs from spreading to you and your baby, make sure everyone washes their hands before they handle your . Avoid crowds, and keep infant away from sick people, anyone who is sick with a cough or fever, including family members. Post- warning signs information reviewed with patient per nurse with discharge Additional Information: Patient is independent and has insurance. She is prepared with her baby supplies. To be discharged to home. Denies any concerns at this time. Mental Health Services: Resources in discharge folder Equipment: Developmental Delay: N/A Children's Services: N/A [facility] 02-24-2024 Note Formatting of this n ote might be different from the original. Date: 02/24/2024 Name: [facility] 2000 [facility] Information Primary Caregiver: Self Accompanied by/Relationship: S/O;Family Marital Status: single Support System: SO/Family Taoism/Cultural Factors: none Activities of Daily Living Communication: See demographics Living Arrangements Current Residence: Private residence Lives With: S/O; Family Support System: S/O; Family Income Information Income Source: Employed Financial Resource Strain How hard is it for you to pay for the very basics like food, housing, medical care and heating? N/A Housing Stability In the last 12 months, was there a time when you did not have a steady place to sleep or slept in a fdc (including now)? No Transportation Needs Has the lack of Transportation kept you from medical appointments? No In the past 12 months, has the lack of transportation kept you from meetings, work, or from getting things needed for daily living? No Food Insecurity Within the past 12 months, have you worried that your food would run out before you got the money to buy more? No Stress Do you feel stress - tense, restless, nervous, or anxious, or unable to sleep at night because you mind is troubled all the time? Mood stable Referral To Financial Resources: N/A Community Resources: Admission folder given upon admission to PP Unit Social Work: N/A CLP: N/A Medical Information 24 year year old admitted for augmentation of PROM at 40/3 weeks. 1 para 0. delivery. Hx of THC, stopped when she found out she was . Chemicals from marijuana can be passed to your baby through breast milk. THC is stored in fat and is slowly released over time, meaning an could be exposed for a longer period of time. Discharge Plan Home or Community Resources: Admission folder given upon admission to PP unit Equipment: N/A Education Given: Discussion on the A. B. C's of safe sleep. Always place your baby on his or her back to sleep, use a firm sleep surface and your baby should not sleep in an adult bed, on a couch or chair. Keep soft objects, toys and loose bedding out of your baby's sleep area. Reviewed depression. It is common to have blues. This is a normal response to many of the hormonal changes, stress and lack of sleep that go with raising a and physically recovering from the . Don't hesitate to talk to your provider with any concerns. There are resources in your home going booklet. To help prevent germs from spreading to you and your baby, make sure everyone washes their hands before they handle your . Avoid crowds, and keep away from sick people, anyone who is sick with a cough or fever, including family members. Post- warning signs information reviewed with patient per nurse with discharge Additional Information: Patient is independent and has insurance. She is prepared with her baby supplies. To be discharged to home. Denies any concerns at this time. Mental Health Services: Resources in discharge folder Equipment: Developmental Delay: N/A Children's Services: N/A T [facility] 02-24-2024 Note Formatting of this n ote is different from the original. Patient: Kristine Crum Procedure Summary Date: 02/24/24 Room / Location: [facility] Labor and Delivery Anesthesia Start: 142 Anesthesia Stop: 715 Procedure: DELIVERY (Abdomen) Diagnosis: (Other (See Comments)) Surgeons: Gen Read MD Responsible Provider: Loki Troy MD Anesthesia Type: epidural ASA Status: 2 Anesthesia Type: epidural Vitals Value Taken Time BP 117/63 02/24/24 0715 Temp 36.8 C (98.2 F) 02/24/24 0715 Pulse 97 02/24/24 0715 Resp 17 02/24/24 0715 SpO2 100 % 02/24/24714 Anesthesia Post Evaluation Patient location during evaluation: PACU Patient participation: complete - patient participated Level of consciousness: awake and alert Pain management: satisfactory to patient Airway patency: patent Dental Injury: no Cardiovascular status: acceptable, blood pressure returned to baseline and hemodynamically stable Respiratory status: acceptable and spontaneous ventilation Hydration status: euvolemic Nausea/Vomiting: controlled No notable events documented. Patient can be discharged once all PACU criteria has been met. [facility] 02-24-2024 Note Patient: Kristine gaxiola Procedure Summary Date: 02/24/24 Room / Location: [facility] Labor and Delivery Anesthesia Start: 142 Anesthesia Stop: 715 Procedure: DELIVERY (Abdomen) Diagnosis: (Other (See Comments)) Surgeons: Gen Read MD Responsible Provider: Loki Troy MD Anesthesia Type: epidural ASA Status: 2 Anesthesia Type: epidural Vitals Value Taken Time BP 117/63 02/24/24 0715 Temp 36.8 ?C (98.2 ?F) 02/24/24 0715 Pulse 97 02/24/24 0715 Resp 17 02/24/24 0715 SpO2 100 % 02/24/24 07 Anesthesia Post Evaluation Patient location during evaluation: PACU Patient participation: complete - patient participated Level of consciousness: awake and alert Pain management: satisfactory to patient Airway patency: patent Dental Injury: no Cardiovascular status: acceptable, blood pressure returned to baseline and hemodynamically stable Respiratory status: acceptable and spontaneous ventilation Hydration status: euvolemic Nausea/Vomiting: controlled No notable events documented. Patient can be discharged once all PACU criteria has been met. [facility] 02-24-2024 Miscellaneous Notes Patient: Kristine Crum Procedure Summary Date: 02/24/24 Room / Location: [facility] Labor and Delivery Anesthesia Start: 142 Anesthesia Stop: 715 Procedure: DELIVERY (Abdomen) Diagnosis: (Other (See Comments)) Surgeons: Gen Read MD Responsible Provider: Loki Troy MD Anesthesia Type: epidural ASA Status: 2 Anesthesia Type: epidural Vitals Value Taken Time BP 117/63 02/24/24 0715 Temp 36.8 C (98.2 F) 02/24/24 0715 Pulse 97 02/24/24 0715 Resp 17 02/24/24 0715 SpO2 100 % 02/24/24714 Anesthesia Post Evaluation Patient location during evaluation: PACU Patient participation: complete - patient participated Level of consciousness: awake and alert Pain management: satisfactory to patient Airway patency: patent Dental Injury: no Cardiovascular status: acceptable, blood pressure returned to baseline and hemodynamically stable Respiratory status: acceptable and spontaneous ventilation Hydration status: euvolemic Nausea/Vomiting: controlled No notable events documented. Patient can be discharged once all PACU criteria has been met. documented in this encounter [facility] 02-24-2024 Anesthesiology Postoperative evaluation and management note Patient: Kristine Crum Procedure Summary Date: 02/24/24 Room / Location: [facility] Labor and Delivery Anesthesia Start: 142 Anesthesia Stop: 715 Procedure: DELIVERY (Abdomen) Diagnosis: (Other (See Comments)) Surgeons: Gne Read MD Responsible Provider: Loki Troy MD Anesthesia Type: epidural ASA Status: 2 Anesthesia Type: epidural Vitals Value Taken Time BP 117/63 02/24/24 0715 Temp 36.8 C (98.2 F) 02/24/24 0715 Pulse 97 02/24/24 0715 Resp 17 02/24/24 0715 SpO2 100 % 02/24/24714 Anesthesia Post Evaluation Patient location during evaluation: PACU Patient participation: complete - patient participated Level of consciousness: awake and alert Pain management: satisfactory to patient Multimodal analgesia pain management approach Airway patency: patent Two or more strategies used to mitigate risk of obstructive sleep apnea Cardiovascular status: acceptable and hemodynamically stable Respiratory status: acceptable, room air and spontaneous ventilation Hydration status: acceptable No notable events documented. MIPS #430 PONV Patient did not receive an inhalational anesthetic (XX430) MIPS # 424 Perioperative Temperature Management Anesthesia time was 60 minutes or longer (4255F) Anesthesai administered was General (inhalational or TIVA) or Neuraxial block (X0424) At least one body temperature greater than 95.8F/35.5C achieved within the 30 mins immediately prior to or the 15 minutes immediately following anesthesia end time (G9771) MIPS #477 Multimodal Pain Management Not emergent case Patient was administered multimodal pain management (two or more drugs and/or interventions excluding systemic opioids) in the periopeartive period occurring at some time between 6 hours prior to anesthesia start time until discharged from PACU (G2148) MIPS #404 Anesthesiology Smoking Abstinence The patient is not a current smoker (e.g. cigarette, cigar, pipe, e-cigarette/vaping/marijuana) If no stop here (XX404) I completed my handoff to the receiving clinician during which we: 1. Identified the patient 2. Identified the responsible provider 3. Reviewed the pertinent medical history 4. Discussed the surgical course 5. Reviewed intra-op anesthesia management and issues during anesthesia 6. Set expectations for post-procedure period 7. Allowed opportunity for questions and acknowledgement of understanding. [facility] Phone: 02-24-2024 Note Patient: Kristine gaxiola Procedure Summary Date: 02/24/24 Room / Location: [facility] Labor and Delivery Anesthesia Start: 142 Anesthesia Stop: 715 Procedure: DELIVERY (Abdomen) Diagnosis: (Other (See Comments)) Surgeons: Gen Read MD Responsible Provider: Loki Troy MD Anesthesia Type: epidural ASA Status: 2 Anesthesia Type: epidural Vitals Value Taken Time BP 117/63 02/24/24 0715 Temp 36.8 ?C (98.2 ?F) 02/24/24 0715 Pulse 97 02/24/24 0715 Resp 17 02/24/24 0715 SpO2 100 % 02/24/24 0715 Anesthesia Post Evaluation Patient location during evaluation: PACU Patient participation: complete - patient participated Level of consciousness: awake and alert Pain management: satisfactory to patient Multimodal analgesia pain management approach Airway patency: patent Two or more strategies used to mitigate risk of obstructive sleep apnea Cardiovascular status: acceptable and hemodynamically stable Respiratory status: acceptable, room air and spontaneous ventilation Hydration status: acceptable No notable events documented. MIPS #430 PONV Patient did not receive an inhalational anesthetic (XX430) MIPS # 424 Perioperative Temperature Management Anesthesia time was 60 minutes or longer (4255F) Anesthesai administered was General (inhalational or TIVA) or Neuraxial block (X0424) At least one body temperature greater than 95.8F/35.5C achieved within the 30 mins immediately prior to or the 15 minutes immediately following anesthesia end time (G9771) MIPS #477 Multimodal Pain Management Not emergent case Patient was administered multimodal pain management (two or more drugs and/or interventions excluding systemic opioids) in the periopeartive period occurring at some time between 6 hours prior to anesthesia start time until discharged from PACU (G2148) MIPS #404 Anesthesiology Smoking Abstinence The patient is not a current smoker (e.g. cigarette, cigar, pipe, e-cigarette/vaping/marijuana) If no stop here (XX404) I completed my handoff to the receiving clinician during which we: 1. Identified the patient 2. Identified the responsible provider 3. Reviewed the pertinent medical history 4. Discussed the surgical course 5. Reviewed intra-op anesthesia management and issues during anesthesia 6. Set expectations for post-procedure period 7. Allowed opportunity for questions and acknowledgement of understanding. [facility] 02-24-2024 Surgical operation note Patient: Kristine Crum Procedure Summary Date: 02/24/24 Room / Location: [facility] Labor and Delivery Anesthesia Start: 142 Anesthesia Stop: 715 Procedure: DELIVERY (Abdomen) Diagnosis: (Other (See Comments)) Surgeons: Gen Read MD Responsible Provider: Loki Troy MD Anesthesia Type: epidural ASA Status: 2 Anesthesia Type: epidural Vitals Value Taken Time BP 117/63 02/24/24 0715 Temp 36.8 C (98.2 F) 02/24/24 0715 Pulse 97 02/24/24 0715 Resp 17 02/24/24 0715 SpO2 100 % 02/24/24 0715 Anesthesia Post Evaluation Patient location during evaluation: PACU Patient participation: complete - patient participated Level of consciousness: awake and alert Pain management: satisfactory to patient Multimodal analgesia pain management approach Airway patency: patent Two or more strategies used to mitigate risk of obstructive sleep apnea Cardiovascular status: acceptable and hemodynamically stable Respiratory status: acceptable, room air and spontaneous ventilation Hydration status: acceptable No notable events documented. MIPS #430 PONV Patient did not receive an inhalational anesthetic (XX430) MIPS # 424 Perioperative Temperature Management Anesthesia time was 60 minutes or longer (4255F) Anesthesai administered was General (inhalational or TIVA) or Neuraxial block (X0424) At least one body temperature greater than 95.8F/35.5C achieved within the 30 mins immediately prior to or the 15 minutes immediately following anesthesia end time (G9771) MIPS #477 Multimodal Pain Management Not emergent case Patient was administered multimodal pain management (two or more drugs and/or interventions excluding systemic opioids) in the periopeartive period occurring at some time between 6 hours prior to anesthesia start time until discharged from PACU (G2148) MIPS #404 Anesthesiology Smoking Abstinence The patient is not a current smoker (e.g. cigarette, cigar, pipe, e-cigarette/vaping/marijuana) If no stop here (XX404) I completed my handoff to the receiving clinician during which we: 1. Identified the patient 2. Identified the responsible provider 3. Reviewed the pertinent medical history 4. Discussed the surgical course 5. Reviewed intra-op anesthesia management and issues during anesthesia 6. Set expectations for post-procedure period 7. Allowed opportunity for questions and acknowledgement of understanding. Associated Order(s): Peripheral Block Peripheral Block Time Out: 02/24/2024 7:02 AM Patient location during procedure: Procedural Start time: 02/24/2024 7:02 AM End time: 02/24/2024 7:07 AM Reason for block: at surgeon's request and post-op pain management Staffing Performed: BRITTNEY Resident/SUPPLIER DEVELOPMENT MANAGER: JOSTIN Hernandes CRNA Preanesthetic Checklist Completed: patient identified, IV checked, site marked, risks and benefits discussed, surgical consent, monitors and equipment checked, pre-op evaluation and timeout performed Region: [place] Primary: TAP (60ml of Bupivacaine 0.375% with dexamethasone 0.01% with epinephrine 1:200,000 divided evenly bilaterally) Peripheral Block Patient position: supine Prep: ChloraPrep Patient monitoring: heart rate, conveyor monitor and continuous pulse ox O2: Room air Laterality: bilateral Injection technique: single-shot Guidance: ultrasound guided -image retained in chart, tip of the needle identified by ultraound during injection. Needle Needle: 21G X 110 mm Additional Notes 02/24/2024 7:02 AM Assessment Injection assessment: negative aspiration for heme, no paresthesia on injection, incremental injection and local visualized surrounding nerve on ultrasound Paresthesia pain: none Heart rate change: no Slow fractionated injection: yes Required Documentation: Relevant anatomy identified (Nerves, Vessels, Muscles), Negative for blood on aspiration, Local anesthetic injected incrementally with intermittent aspiration every 5 mL, No EKG changes noted, No symptoms of toxicity, Local anesthetic spread visualized around nerves or plane., Normal resistance with injection, No paresthesias reported by patient during injection and Local anesthetic injected without difficultyMedications efsOEEVSmwouo-clfvhlinuhg-oqijppjup ne (TAP) syringe - Injection 40 mL - 02/24/2024 7:02:00 AM Associated Order(s): Epidural Block Epidural Block Time Out: 02/24/2024 1:44 AM Patient location during procedure: OB Start time: 02/24/2024 1:45 AM End time: 02/24/2024 1:53 AM Reason for block: labor analgesia Staffing Performed: BRITTNEY Resident/SUPPLIER DEVELOPMENT MANAGER: JOSTIN Goddard CRNA Preanesthetic Checklist Completed: patient identified, IV checked, site marked, risks and benefits discussed, surgical consent, monitors and equipment checked, pre-op evaluation, timeout performed, IV bolus and anesthesia consent given Block Placement Patient position: sitting Prep: ChloraPrep Sterility prep: drape, gloves, cap, hand and mask Sedation level: no sedation Patient monitoring: heart rate Approach: midline Location: lumbar Lumbar location: L3-L4 Epidural Loss of resistance technique: saline Guidance: landmark technique Needle Needle type: César Needle gauge: 17 G Needle length: 9 cm Needle insertion depth: 7 cm Catheter type: multi-orifice Catheter size: 19 G Catheter at skin depth: 14 cm Catheter securement method: surgical tape, liquid medical adhesive and clear occlusive dressing Test dose: negative Medications Administered lidocaine-EPINEPHrine (Xylocaine W/EPI) 1.5 %-1:[id number] injection - Epidural 3 mL - 02/24/2024 1:50:00 AM ropivacaine (Naropin) 0.2 % epidural bolus - Epidural 15 mL - 02/24/2024 1:51:00 AM Assessment Block outcome: pain improved Number of attempts: 1 Procedure assessment: patient tolerated procedure well with no immediate complications Patient: Kristine Crum Procedure Information Date: 02/23/24 Procedure: Labor Analgesia Relevant Problems No relevant active problems Clinical information reviewed: Tobacco Allergies Meds Med Hx Surg Hx Fam Hx Soc Hx Physical Exam Airway Mallampati: II TM distance: >3 FB Neck ROM: full Mouth Open: normalendotracheal tube not in place Cardiovascular - normal exam Dental dentition normal Pulmonary - normal exam Abdominal - normal exam Anesthesia Plan patient is NPO appropriate Any family history or previous problems with anesthesia no ASA 2 epidural Any family history or previous problems with anesthesia no The patient is not a current smoker. Anesthetic plan and risks discussed with patient. Use of blood products discussed with who consented to blood products. Additional Equipment Requests documented in this encounter [facility] 02-24-2024 Anesthesiology procedure note Associated Order(s): Peripheral Block Peripheral Block Time Out: 02/24/2024 7:02 AM Patient location during procedure: Procedural Start time: 02/24/2024 7:02 AM End time: 02/24/2024 7:07 AM Reason for block: at surgeon's request and post-op pain management Staffing Performed: SUPPLIER DEVELOPMENT MANAGER Resident/SUPPLIER DEVELOPMENT MANAGER: JOSTIN Hernandes CRNA Preanesthetic Checklist Completed: patient identified, IV checked, site marked, risks and benefits discussed, surgical consent, monitors and equipment checked, pre-op evaluation and timeout performed Region: [place] Primary: TAP (60ml of Bupivacaine 0.375% with dexamethasone 0.01% with epinephrine 1:200,000 divided evenly bilaterally) Peripheral Block Patient position: supine Prep: ChloraPrep Patient monitoring: heart rate, conveyor monitor and continuous pulse ox O2: Room air Laterality: bilateral Injection technique: single-shot Guidance: ultrasound guided -image retained in chart, tip of the needle identified by ultraound during injection. Needle Needle: 21G X 110 mm Additional Notes 02/24/2024 7:02 AM Assessment Injection assessment: negative aspiration for heme, no paresthesia on injection, incremental injection and local visualized surrounding nerve on ultrasound Paresthesia pain: none Heart rate change: no Slow fractionated injection: yes Required Documentation: Relevant anatomy identified (Nerves, Vessels, Muscles), Negative for blood on aspiration, Local anesthetic injected incrementally with intermittent aspiration every 5 mL, No EKG changes noted, No symptoms of toxicity, Local anesthetic spread visualized around nerves or plane., Normal resistance with injection, No paresthesias reported by patient during injection and Local anesthetic injected without difficultyMedications [id number]-phjeopfdnju-bldvixeqd ne (TAP) syringe - Injection 40 mL - 02/24/2024 7:02:00 AM [facility] 02-24-2024 Note Peripheral Block Time Out: 02/24/2024 7:02 AM Patient location during procedure: Procedural Start time: 02/24/2024 7:02 AM End time: 02/24/2024 7:07 AM Reason for block: at surgeon's request and post-op pain management Staffing Performed: SUPPLIER DEVELOPMENT MANAGER Resident/SUPPLIER DEVELOPMENT MANAGER: JOSTIN Hernandes CRNA Preanesthetic Checklist Completed: patient identified, IV checked, site marked, risks and benefits discussed, surgical consent, monitors and equipment checked, pre-op evaluation and timeout performed Region: [place] Primary: TAP (60ml of Bupivacaine 0.375% with dexamethasone 0.01% with epinephrine 1:200,000 divided evenly bilaterally) Peripheral Block Patient position: supine Prep: ChloraPrep Patient monitoring: heart rate, conveyor monitor and continuous pulse ox O2: Room air Laterality: bilateral Injection technique: single-shot Guidance: ultrasound guided -image retained in chart, tip of the needle identified by ultraound during injection. Needle Needle: 21G X 110 mm Additional Notes 02/24/2024 7:02 AM Assessment Injection assessment: negative aspiration for heme, no paresthesia on injection, incremental injection and local visualized surrounding nerve on ultrasound Paresthesia pain: none Heart rate change: no Slow fractionated injection: yes Required Documentation: Relevant anatomy identified (Nerves, Vessels, Muscles), Negative for blood on aspiration, Local anesthetic injected incrementally with intermittent aspiration every 5 mL, No EKG changes noted, No symptoms of toxicity, Local anesthetic spread visualized around nerves or plane., Normal resistance with injection, No paresthesias reported by patient during injection and Local anesthetic injected without difficultyMedications [id number]-fxswlscfjsm-tuewdslje ne (TAP) syringe - Injection 40 mL - 02/24/2024 7:02:00 AM [facility] 02-24-2024 Note Formatting of this n ote is different from the original. Images from the original note were not included. Operative Note Patient: Kristine Crum : 2000 Date of Procedure: 02/24/24 Principal Problem: Indication for care in labor or delivery PREOPERATIVE DIAGNOSES: 1. at 40w4d 2. Failed augmentation of labor 3. Arrest of dilation 4. Crohn's disease 5. Gestational hypertension 6. Narcolepsy POSTOPERATIVE DIAGNOSES: 1. Same 2. Live male PROCEDURE: Primary low transverse section. SURGEON: Dr. Read ASST: Dr. Dumont ANESTHESIA: Epidural ANTIBIOTIC(S): Clindamycin, Gentamycin VAG PREP (Iodine): Yes FINDINGS: Viable male infant in cephalic presentation Weight 3545 g, Apgars 7 and 9. No adhesive disease Uterus, tubes, and ovaries normal FLUIDS: 1200 ml crystalloid URINE: 1100 ml EBL: 600 ml QBL: 590 ml DRAINS: Lee catheter SPECIMENS: Placenta COMPLICATIONS: None CONDITION: Stable and transferred to post anesthesia recovery Description of Procedure: The patient was taken back to the operating room with running IV fluids. She was given Clindamycin and gentamicin preoperatively for infection prophylaxis. Epidural anesthesia was in place and confirmed to be adequate. She was prepped and draped in the usual sterile fashion, and placed in the supine position with a leftward tilt. Anesthesia was found to be adequate. A Pfannenstiel skin incision was made with the scalpel. The incision was carried through the subcutaneous tissue to the fascia with the scalpel and bovie. The fascia was incised in the midline and carried transversely curved mayos. Kochers were used to grasp and elevate the superior edge of the fascia, and the underlying rectus muscle was dissected off with the bovie. The inferior fascia was treated in a similar fashion. The rectus muscles were in the midline bluntly. The peritoneum was found to be free of adherent bowel and entered bluntly. The peritoneal incision was extended bluntly with good visualization of bladder. The bladder retractor and Perez retractor were placed, and the vesicouterine peritoneum was identified. The lower uterine segment was incised in a low transverse fashion with a scalpel. The hysterotomy was extended bluntly. The amniotic cavity was ruptured with an Allis clamp and clear amniotic fluid was noted. The fetus was found to be in cephalic, occiput anterior presentation. Pelvis did not feel tight. Bladder retractor and Perez retractor were removed. The head was brought to the level of the uterine incision with special care to avoid using the incision as a fulcrum. Fundal pressure was then applied and the infant delivered without difficulty. The cord was clamped and cut, and the infant was handed off to the RN for evaluation. IV pitocin was then started. The placenta was removed with gentle traction and fundal pressure. The uterus was exteriorized and wrapped in a wet lap. The uterine cavity was wiped with a dry lap to assure complete removal of placental membranes. The uterine incision closed with 0 vicryl suture in a continuous fashion. A single figure of eight suture was placed in the center of her hysterotomy with 0 Vicryl. The uterine incision was found to be hemostatic. Tubes and ovaries were inspected and found to be normal. The posterior cul de sac was cleared of debris. The uterus was returned into the abdominal cavity. The uterine incision was reinspected and adequate hemostasis was again appreciated. The abdominal cavity was cleared of all clots and debris with wet lap sponges. The peritoneum was reapproximated with 3-0 Vicryl in a continuous fashion. The rectus muscles were reapproximated with 3-0 Vicryl in a continuous fashion. The fascia was closed with 0 Vicryl suture in a running fashion x2. The incision was irrigated. The subcutaneous layer was closed with 3-0 Monocryl. The skin was closed with 4-0 Vicryl suture in a subcuticular fashion. Steri strips and a bandage were placed over the incision. All counts were correct times two. Patient was transferred to the recovery room in satisfactory stable condition. MELANIA DUMONT DO 02/24/2024 8:19 AM VTE Prophylaxis: Prophylactic Dosing until Discharge LABOR DELIVERY ??? SCD's ONLY (labor through ambulation) SCD's PLUS Prophylactic Anticoagulation until discharge SCD's PLUS Prophylactic Anticoagulation for 6 weeks SCD's PLUS Therapeutic Anticoagulation for 6 weeks Vaginal Delivery [] BMI ? 40 kg/m2 Delivery All patients Vaginal Delivery [] BMI ? 40 kg/m2 AND [] Antepartum hospitalization ? 72 hours within the past month Delivery 1 Major Risk Factor: [x] BMI ? 35 kg/m2 [] Low Risk Thrombophilia [] PPH+RBCs, IR, or operation [] Infection+Antibiotics [] Antepartum hospitalization ? 72 hours within the past month [] PMH: Sickle Cell, SLE, Cardiac Dz, Active IBD, Active Cancer, Nephrotic Syndrome OR 2 Minor Risk Factors: [] Multiple gestation [] Age > 40 [] PPH ? 1,000cc [] (+)FMH of VTE [] Smoker [] Preeclampsia [] BMI ? 40 kg/m2 AND [] Low Risk Thrombophilia OR ANY OF THE FOLLOWING: [] High Risk Thrombophilia without prior VTE [] Low Risk Thrombophilia with (+)FMH of VTE [] Any single prior VTE ANY OF THE FOLLOWING: [] Already on LMWH/UFH [] Multiple prior VTE [] High Risk Thrombophilia with prior VTE Low Risk Thrombophilia: FVL (heterozygous), Prothrombin (heterozygous), Protein C, Protein S High Risk Thrombophilia: FVL (homozygous), Prothrombin (homozygous), FVL+Prothrombin (heterozygous), Antithrombin III, APLS Associated attestation - Roro, Gen Rain MD - 02/27/2024 12:47 PM EDT Procedures or Surgery: I was present for all coyle elements of the procedure or surgery as described in the resident note. [facility] 02-24-[facility]24 Note Formatting of this n ote is different from the original. Images from the original note were not included. Operative Note Patient: Kristine Crum : 2000 Date of Procedure: 02/24/24 Principal Problem: Indication for care in labor or delivery PREOPERATIVE DIAGNOSES: 1. at 40w4d 2. Failed augmentation of labor 3. Arrest of dilation 4. Crohn's disease 5. Gestational hypertension 6. Narcolepsy POSTOPERATIVE DIAGNOSES: 1. Same 2. Live male infant PROCEDURE: Primary low transverse section. SURGEON: Dr. Read ASST: Dr. Dumont ANESTHESIA: Epidural ANTIBIOTIC(S): Clindamycin, Gentamycin VAG PREP (Iodine): Yes FINDINGS: Viable male in cephalic presentation Weight 3545 g, Apgars 7 and 9. No adhesive disease Uterus, tubes, and ovaries normal FLUIDS: 1200 ml crystalloid URINE: 1100 ml EBL: 600 ml QBL: 590 ml DRAINS: Lee catheter SPECIMENS: Placenta COMPLICATIONS: None CONDITION: Stable and transferred to post anesthesia recovery Description of Procedure: The patient was taken back to the operating room with running IV fluids. She was given Clindamycin and gentamicin preoperatively for infection prophylaxis. Epidural anesthesia was in place and confirmed to be adequate. She was prepped and draped in the usual sterile fashion, and placed in the supine position with a leftward tilt. Anesthesia was found to be adequate. A Pfannenstiel skin incision was made with the scalpel. The incision was carried through the subcutaneous tissue to the fascia with the scalpel and bovie. The fascia was incised in the midline and carried transversely curved mayos. Kochers were used to grasp and elevate the superior edge of the fascia, and the underlying rectus muscle was dissected off with the bovie. The inferior fascia was treated in a similar fashion. The rectus muscles were in the midline bluntly. The peritoneum was found to be free of adherent bowel and entered bluntly. The peritoneal incision was extended bluntly with good visualization of bladder. The bladder retractor and Perez retractor were placed, and the vesicouterine peritoneum was identified. The lower uterine segment was incised in a low transverse fashion with a scalpel. The hysterotomy was extended bluntly. The amniotic cavity was ruptured with an Allis clamp and clear amniotic fluid was noted. The fetus was found to be in cephalic, occiput anterior presentation. Pelvis did not feel tight. Bladder retractor and Perez retractor were removed. The head was brought to the level of the uterine incision with special care to avoid using the incision as a fulcrum. Fundal pressure was then applied and the delivered without difficulty. The cord was clamped and cut, and the infant was handed off to the RN for evaluation. IV pitocin was then started. The placenta was removed with gentle traction and fundal pressure. The uterus was exteriorized and wrapped in a wet lap. The uterine cavity was wiped with a dry lap to assure complete removal of placental membranes. The uterine incision closed with 0 vicryl suture in a continuous fashion. A single figure of eight suture was placed in the center of her hysterotomy with 0 Vicryl. The uterine incision was found to be hemostatic. Tubes and ovaries were inspected and found to be normal. The posterior cul de sac was cleared of debris. The uterus was returned into the abdominal cavity. The uterine incision was reinspected and adequate hemostasis was again appreciated. The abdominal cavity was cleared of all clots and debris with wet lap sponges. The peritoneum was reapproximated with 3-0 Vicryl in a continuous fashion. The rectus muscles were reapproximated with 3-0 Vicryl in a continuous fashion. The fascia was closed with 0 Vicryl suture in a running fashion x2. The incision was irrigated. The subcutaneous layer was closed with 3-0 Monocryl. The skin was closed with 4-0 Vicryl suture in a subcuticular fashion. Steri strips and a bandage were placed over the incision. All counts were correct times two. Patient was transferred to the recovery room in satisfactory stable condition. MELANIA DUMONT DO 02/24/2024 8:19 AM VTE Prophylaxis: Prophylactic Dosing until Discharge LABOR DELIVERY ??? SCD's ONLY (labor through ambulation) SCD's PLUS Prophylactic Anticoagulation until discharge SCD's PLUS Prophylactic Anticoagulation for 6 weeks SCD's PLUS Therapeutic Anticoagulation for 6 weeks Vaginal Delivery [] BMI ? 40 kg/m2 Delivery All patients Vaginal Delivery [] BMI ? 40 kg/m2 AND [] Antepartum hospitalization ? 72 hours within the past month Delivery 1 Major Risk Factor: [x] BMI ? 35 kg/m2 [] Low Risk Thrombophilia [] PPH+RBCs, IR, or operation [] Infection+Antibiotics [] Antepartum hospitalization ? 72 hours within the past month [] PMH: Sickle Cell, SLE, Cardiac Dz, Active IBD, Active Cancer, Nephrotic Syndrome OR 2 Minor Risk Factors: [] Multiple gestation [] Age > 40 [] PPH ? 1,000cc [] (+)FMH of VTE [] Smoker [] Preeclampsia [] BMI ? 40 kg/m2 AND [] Low Risk Thrombophilia OR ANY OF THE FOLLOWING: [] High Risk Thrombophilia without prior VTE [] Low Risk Thrombophilia with (+)FMH of VTE [] Any single prior VTE ANY OF THE FOLLOWING: [] Already on LMWH/UFH [] Multiple prior VTE [] High Risk Thrombophilia with prior VTE Low Risk Thrombophilia: FVL (heterozygous), Prothrombin (heterozygous), Protein C, Protein S High Risk Thrombophilia: FVL (homozygous), Prothrombin (homozygous), FVL+Prothrombin (heterozygous), Antithrombin III, APLS Associated attestation - Gen Read MD - 02/27/2024 12:47 PM EDT Procedures or Surgery: I was present for all coyle elements of the procedure or surgery as described in the resident note. [employer] Phone: 02-24-2024 Note Formatting of this n ote might be different from the original. Images from the original note were not included. Safety Huddle Patient admitted for AOL-PROM. Her labor course consisted of a cytotec, lee balloon, pitocin. She was broken and on pitocin for 18 hours without making change past 4 cm. She met criteria for failed induction/augmentation of labor. She was agreeable to a PCD. Plan to proceed with a primary section for failed augmentation of labor. Risks and benefits discussed with the patient including the risk of injury to surrounding structures, bleeding and infection. Patient amendable to receiving blood products if medically indicated. Consent form signed. Safety Huddle performed with Attending provider, OB devulcanizer charger, OB anesthesia, resident team and primary RN. All in agreement for PCD-Failed IOL. Patient will be for clinda/gent and azithromycin. Epidural in place and will be redosed. This will be an unscheduled non-emergent primary section. Shawna Doran DO 02/24/2024 5:54 AM [employer] Phone: 02-24-2024 Note Formatting of this n ote might be different from the original. Images from the original note were not included. Safety Huddle Patient admitted for AOL-PROM. Her labor course consisted of a cytotec, lee balloon, pitocin. She was broken and on pitocin for 18 hours without making change past 4 cm. She met criteria for failed induction/augmentation of labor. She was agreeable to a PCD. Plan to proceed with a primary section for failed augmentation of labor. Risks and benefits discussed with the patient including the risk of injury to surrounding structures, bleeding and infection. Patient amendable to receiving blood products if medically indicated. Consent form signed. Safety Huddle performed with Attending provider, OB devulcanizer charger, OB anesthesia, resident team and primary RN. All in agreement for PCD-Failed IOL. Patient will be for clinda/gent and azithromycin. Epidural in place and will be redosed. This will be an unscheduled non-emergent primary section. Shawna Doran DO 02/24/2024 5:54 AM [employer] Phone: 02-24-2024 Procedure anesthe julianne Narrative Procedure Name Responsible Anesthesiologist Anesthesia Start Time Anesthesia Stop Time DELIVERY (Abdomen) Loki Troy MD 02/24/24 0143 02/24/24 0716 Events Date Time Event Comment 02/23/2024 0545 02/24/2024 0143 An Start 0557 Epidural to 0613 In Room 0613 An Start Data 0619 Anesthesia Ready 0628 Proc Start 0631 Uterine Incision 0632 Baby Delivered 0632 Cord Clamped 0634 AN Placenta 0658 Proc Fin 0707 an stop data 0712 Out of Room 0716 An Stop Meds Name Total lidocaine-EPINEPHrine (Xylocaine W/EPI) 1.5 %-1:502171 injection 3 mL ropivacaine (Naropin) 0.2 % epidural [facility] 15 mL ropivacaine 2 mg/mL bolus 1 mL ropivacaine (Naropin) 0.2 % (OB) epidura l infusion 34.4 mL azithromycin (Zithromax) injection 500 m g lidocaine 2%-EPINEPHrine 1:200,000 (Xylo erna W/EPI) injection 10 mL sodium bicarbonate injection 0.5 mEq/mL 2.5 mEq ePHEDrine injection 15 mg dexAMETHasone (Decadron) PF injection 10 mg/mL 10 mg morphine PF (Duramorph) injection 0.5 mg /mL 2.5 mg dexmedetomidine (Precedex) 4 0 mcg in sodium chloride 0.9 % 10 mL injection 20 mcg clindamycin in D5W (Cleocin) IVPB 900 mg 900 mg ondansetron (Zofran) injection 4 mg 4 mg oxytocin (Pitocin) 30 units in 500 mL in fusion 22,493 dayo-units acetaminophen (Ofirmev) injection 1,000 mg gentamicin (Garamycin) 480 mg in sodium chloride 0.9 % 250 mL IVPB 480 mg ewvUHSIGzxjub-mczlwxvdqiq-ksmurghvibu (T AP) syringe 40 mL lactated Ringer's (LR) infusion 1,200 mL * Agents Name O2 N2O Air * Blood No blood administrations on file. Lines, Drains, and Airways Type Details Placement Removal Peripheral IV Placement Date: 02/23/24; Placement Time: 05; Catheter Size: 18 G; Orientation: Anterior, Left; Location: Forearm; Site Prep: Alcohol; Local Anesth: None; Inserted by: Rochelle CLAIRE; Insertion Attempts: 1; Difficult Venous Access? No 02/23/24 0510 by Naomi Luna RN Urethral Catheter Placement Date: 02/24/24; Placement Time: 045; Inserted by: sean; Type: Straight-tip; Balloon Size: 10 mL; Urine Returned: Yes 02/24/24 0450 by Marley Hunt RN Wound/Incision 02/24/24; 0644; Incision; Abdomen; Lower 02/24/24 0644 by Marley Hunt RN Epidural Placement Date: 02/24/24; Placement Time: 014 (created via procedure documentation); Location: Lumbar (1-5) (removed w/ease, tip intact); Removal Date: 02/24/24; Removal Time: 71002/24/24 0145 by JOSTIN Goddard CRNA 02/24/24 0711 by OJSTIN Hernandes CRNA documented in this encounter [id number]esthesiology procedure note* Anesthesia Procedure Notes - JOSTIN Goddard CRNA - 02/24/2024 1:58 AM EDTAssociated Order(s): Epidural Block Epidural Block Time Out: 02/24/2024 1:44 AM Patient location during procedure: OB Start time: 02/24/2024 1:45 AM End time: 02/24/2024 1:53 AM Reason for block: labor analgesia Staffing Performed: SUPPLIER DEVELOPMENT MANAGER Resident/SUPPLIER DEVELOPMENT MANAGER: JOSTIN Goddard CRNA Preanesthetic Checklist Completed: patient identified, IV checked, site marked, risks and benefits discussed, surgical consent, monitors and equipment checked, pre-op evaluation, timeout performed, IV bolus and anesthesia consent given Block Placement Patient position: sitting Prep: ChloraPrep Sterility prep: drape, gloves, cap, hand and mask Sedation level: no sedation Patient monitoring: heart rate Approach: midline Location: lumbar Lumbar location: L3-L4 Epidural Loss of resistance technique: saline Guidance: landmark technique Needle Needle type: César Needle gauge: 17 G Needle length: 9 cm Needle insertion depth: 7 cm Catheter type: multi-orifice Catheter size: 19 G Catheter at skin depth: 14 cm Catheter securement method: surgical tape, liquid medical adhesive and clear occlusive dressing Test dose: negative Medications Administered lidocaine-EPINEPHrine (Xylocaine W/EPI) 1.5 %-1:542761 injection - Epidural 3 mL - 02/24/2024 1:50:00 AM ropivacaine (Naropin) 0.2 % epidural bolus - Epidural 15 mL - 02/24/2024 1:51:00 AM Assessment Block outcome: pain improved Number of attempts: 1 Procedure assessment: patient tolerated procedure well with no immediate complications [employer] Phone: [phone] 325-570809-18-2024 NoteEpidural Block Time Out: 02/24/2024 1:44 AM Patient location during procedure: OB Start time: 02/24/2024 1:45 AM End time: 02/24/2024 1:53 AM Reason for block: labor analgesia Staffing Performed: SUPPLIER DEVELOPMENT MANAGER Resident/SUPPLIER DEVELOPMENT MANAGER: JOSTIN Goddard CRNA Preanesthetic Checklist Completed: patient identified, IV checked, site marked, risks and benefits discussed, surgical consent, monitors and equipment checked, pre-op evaluation, timeout performed, IV bolus and anesthesia consent given Block Placement Patient position: sitting Prep: ChloraPrep Sterility prep: drape, gloves, cap, hand and mask Sedation level: no sedation Patient monitoring: heart rate Approach: midline Location: lumbar Lumbar location: L3-L4 Epidural Loss of resistance technique: saline Guidance: landmark technique Needle Needle type: César Needle gauge: 17 G Needle length: 9 cm Needle insertion depth: 7 cm Catheter type: multi-orifice Catheter size: 19 G Catheter at skin depth: 14 cm Catheter securement method: surgical tape, liquid medical adhesive and clear occlusive dressing Test dose: negative Medications Administered lidocaine-EPINEPHrine (Xylocaine W/EPI) 1.5 %-1:644049 injection - Epidural 3 mL - 02/24/2024 1:50:00 AM ropivacaine (Naropin) 0.2 % epidural bolus - Epidural 15 mL - 02/24/2024 1:51:00 AM Assessment Block outcome: pain improved Number of attempts: 1 Procedure assessment: patient tolerated procedure well with no immediate complicationsMclaren [facility] [id number] NoteLabor Progress Note Date: 02/23/2024 Time: 6:19 AM Subjective: Kristine Crum is a 24 y.o. female at 40w3d admitted for AOL-PROM Complications: Term Crohn's Disease Anxiety Narcolepsy gHTN SVE on admission: visually closed, per check in office yesterday GBS: []Pos [x]Neg []Unknown Cx:defer FHT: Cat I Moroni: irregular A/P: 1. AOL-PROM PO Cytotec administered at this time. Cervical exam deferred as pt had copious amounts of meconium on admission and was called in office on 02/21. FHR Cat I with a baseline of 130 's, moderatevariability, accelerations present, and decelerations absent. BP's normotensive. Continue to monitor. CCM. Cx: 3 Isolated deceleration noted at 08:51, however overall Cat I since then. Overall reassuring given presence of accelerations, moderate variability, and baseline of 120's. Dr. Salas discussed with Dr. Read who is agreeable for lee balloon placement at this time. Plan to discuss with patient. BP's normotensive. Continue to monitor. CCM. Glenn around q4. Analilia Moreno DO 02/23/2024 10:45 AM Cervix unchanged. FHT cat II for rare late decels overall reassuring with mod variability and accels. FB placed. Will start LD pit Cx: Defer FHT: Cat I Moroni: q5 A/P: 1. AOL-PROM FHR Cat I with a baseline of 125, moderate variability, accelerations present, and decelerations absent. BP's normotensive. Lee balloon still in place. Currently on low dose pitocin, 2 mL/min. Continue to monitor. CCM. Taking over care from day team at this time. FB out at this time. Will titrate pitocin. Shawna Doran DO 02/23/2024 5:31 PM Cx:Defer FHP: defer FHT: Cat I Moroni:Not tracing well A/P: 1. AOL-PROM FHR Cat I with a baseline of 120 's, moderate variability, accelerations present, and no clinically significant decelerations.BP's normotensive. Continue to monitor. [facility] Shawna Doran, DO 02/23/2024 6:15 PM Cx:3/70/-3 FHP: defer FHT: Cat I Moroni:q5min A/P: 1. AOL-PROM FHR Cat I with a baseline of 120's, moderate variability, accelerations present, and no clinically significant decelerations. Pitocin at 10cc/hr. Continue to titrate per protocol. SVE with very tight cervix, attempted to AROM forebag, only very small amount of fluid expressed. Patient comfortable, merchant not want epidural yet. BP's normotensive. Continue to monitor. [facility] Shawna Doran, DO 02/23/2024 8:38 PM Cx:Defer FHP: defer FHT: Cat I Moroni:q3 min A/P: 1. AOL-PROM FHR Cat I with a baseline of 120's-130's, moderate variability, accelerations present, and no clinically significant decelerations. Pitocin at 14cc/hr. Continue to titrate per protocol. BP's normotensive. Continue to monitor. [facility] Shawna Doran, DO 02/23/2024 10:33 PM Cx:3-4/70/-3 FHP: defer FHT: Cat I Moroni:q3-4min A/P: 1. AOL-PROM FHR Cat I with a baseline of 140's, moderate variability, accelerations present, and no clinically significant decelerations present. Patient has been broken with pitocin on for 12 hours. Discussed that given Cat I FHT okay to continue for 18 hours. Patient voiced understanding, states that she does desire a vaginal delivery but is okay at this time for a PCD if she meets criteria. IUPC placed, will calculate MVUs when able. Pitocin at 16cc/hr. Continue to titrate per protocol. BP's normotensive to low mild range, patient has met criteria for gHTN through her labor course. Continue to monitor. [facility] Shawna Doran, DO 02/24/2024 12:14 AM Cat II for isolated late deceleration. Overall reassuring with moderate variability, baseline 140s, spontaneous accelerations. Contractions every 2-3 minutes. Pitocin 16ml/hr, continue to titrate. Last BP recorded 129/73. Will plan for recheck at next note time. performed, 4/70/-3. No significant change has been made from previous exam. Patient has epidural and is comfortable currently. MVUs inadequate at 138 most recently. Patient still desires a vaginal delivery. Will continue position changes and peanut ball as head feels asynclytic. Pitocin @ 18cc/hour, continue to titirate per protocol. Continue to monitor, CCM. Shawnanoé Williamsonpippa, DO 02/24/2024 3:04 AM Cat II for late decelerations. Overall reassuring with moderate variability, baseline 150s. Pitocin at 18ml/hr. Contractions every 1-2 minutes with potential coupling. Fluid bolus and repositioning measures have been taken by RN. At this time, patient is 16 hours broken and on pit. MVUs 188. Will recheck at 0530. Last BP normotensive. CCM. remains unchanged. Discusse (more content not included)...[facility]09-17-2024 Anesthesiology Preoperative evaluation and management note * Anesthesia Preprocedure Evaluation - JOSTIN Goddard CRNA - 02/23/2024 5:45 AM EDT Patient: Kristine Crum Procedure Information Date: 02/23/24 Procedure: Labor Analgesia Relevant Problems No relevant active problems Clinical information reviewed: Tobacco Allergies Meds Med Hx Surg Hx Fam Hx Soc Hx Physical Exam Airway Mallampati: II TM distance: >3 FB Neck ROM: full Mouth Open: normalendotracheal tube not in place Cardiovascular - normal exam Dental dentition normal Pulmonary - normal exam Abdominal - normal exam Anesthesia Plan patient is NPO appropriate Any family history or previous problems with anesthesia no ASA 2 epidural Any family history or previous problems with anesthesia no The patient is not a current smoker. Anesthetic plan and risks discussed with patient. Use of blood products discussed with who consented to blood products. Additional Equipment [facility]s [id number] NotePatient: Kristine Crum Procedure Information Date: 02/23/24 Procedure: Labor Analgesia Relevant Problems No relevant active problems Clinical information reviewed: Tobacco Allergies Meds Med Hx Surg Hx Fam Hx Soc Hx Physical Exam Airway Mallampati: II TM distance: >3 FB Neck ROM: full Mouth Open: normalendotracheal tube not in place Cardiovascular - normal exam Dental dentition normal Pulmonary - normal exam Abdominal - normal exam Anesthesia Plan patient is NPO appropriate Any family history or previous problems with anesthesia no ASA 2 epidural Any family history or previous problems with anesthesia no The patient is not a current smoker. Anesthetic plan and risks discussed with patient. Use of blood products discussed with who consented to blood products. Additional Equipment [facility]09-17-2024 History and physical note* Sarah Floyd DO - 02/23/2024 4:41 AM EDT Obstetrical History and Physical CHIEF COMPLAINT: leakage of amniotic fluid HISTORY OF PRESENT ILLNESS: The patient is a 24 y.o. female at 40w3d OB History 1 Para Term AB Living SAB IAB Ectopic Multiple Live Births Patient presents with a chief complaint as above and is being admitted for AOL-PROM. Denies DFM/VB/BAH/EpigastricPain/Visual changes. Estimated Due Date: Estimated Date of Delivery: 02/20/24 CARE: Complications: See below PAST OB HISTORY: OB History Para Term AB Living 1 SAB IAB Ectopic Multiple Live Births # Outcome Date GA Lbr Randy/2nd Weight Sex Type Anes PTL Lv 1 Current Past Medical History: Past Medical History: Diagnosis Date CC (Crohn's colitis) ([facility]) ([facility]) Narcolepsy Past Surgical History: Past Surgical History: Procedure Laterality Date BREAST SURGERY TONSILLECTOMY (HISTORICAL) Allergies: Amoxicillin, Oxycodone, and Penicillins Social History: Social History Socioeconomic History Marital status: Single Spouse name: Not on file Number of children: Not on file Years of education: Not on file Highest education level: Not on file Occupational History Not on file Tobacco Use Smoking status: Former Current packs/day: 0.50 Types: Cigarettes Smokeless tobacco: Former Tobacco comments: She vapes Vaping Use Vaping status: Former Substance and Sexual Activity Alcohol use: Not Currently Drug use: Not Currently Types: Marijuana Comment: Last used when she was about 10 weeks Sexual activity: Yes Comment: Other Topics Concern Not on file Social History Narrative Not on file Social Determinants of Health Financial Resource Strain: Low Risk (02/15/2024) Overall Financial Resource Strain (CARDIA) Difficulty of Paying Living Expenses: Not hard at all Food Insecurity: No Food Insecurity (02/15/2024) Hunger Vital Sign Worried About Running Out of Food in the Last Year: Never true Ran Out of Food in the Last Year: Never true Transportation Needs: No Transportation Needs (02/15/2024) PRAPARE - Transportation Lack of Transportation (Medical): No Lack of Transportation (Non-Medical): No Physical Activity: Insufficiently Active (02/15/2024) Exercise Vital Sign Days of Exercise per Week: 1 day Minutes of Exercise per Session: 30 min Stress: No Stress Concern Present (02/15/2024) [employer] - Occupational Stress Questionnaire Feeling of Stress : Not at all Social Connections: Unknown (02/15/2024) Social Connection and Isolation Panel [NHANES] Frequency of Communication with Friends and Family: More than three times a week Frequency of Social Gatherings with Friends and Family: Twice a week Attends Taoism Services: Patient unable to answer Active Member of Clubs or Organizations: Yes Attends Club or Organization Meetings: More than 4 times per year Marital Status: Living with partner Intimate Partner Violence: Not At Risk (02/15/2024) Humiliation, Afraid, Rape, and Kick questionnaire Fear of Current or Ex-Partner: No Emotionally Abused: No Physically Abused: No Sexually Abused: No Housing Stability: Unknown (02/15/2024) Housing Stability Vital Sign Unable to Pay for Housing in the Last Year: No Number of Times Moved in the Last Year: Not on file Homeless in the Last Year: No Family History: Family History Problem Relation Name Age of Onset No Known Problems Paternal Grandfather Heart disease Paternal Grandmother Ovarian cysts Maternal Grandmother No Known Problems Maternal Grandfather Crohn's disease Father Diabetes Father Ovarian cysts Mother Medications Prior to Admission: Medications Prior to Admission Medication Sig Dispense Refill Last Dose Cyanocobalamin (VITAMIN B 12 PO) Take 1,000 mcg by mouth daily. desvenlafaxine succinate ER 25 MG 24 hour tablet Take 50 mg by mouth every morning. desvenlafaxine succinate ER 25 MG 24 hour tablet Take 25 mg by mouth. Inflectra 100 MG injection inFLIXimab (Remicade) 100 MG injection Infuse into a venous catheter. Every six weeks Misc. Devices (Breast Pump) misc Double Electric. Lactating mother 1 each 0 modafinil (Provigil) 100 MG tablet Take 1 tablet (100 mg) by mouth 2 times daily as needed (sleepiness). 60 tablet 0 MV-Min-Fe Fum-FA-DHA ( 1 PO) Take by mouth. Sodium Oxybate ER (Lumryz) 9 g pack Take 9 g by mouth Nightly. Take contents of one packet mixed with water in provided mixing cup at bedtime. 90 each 0 REVIEW OF SYSTEMS: Const: Negative HEENT: Negative Resp: Negative CVS: Negative GI: Negative : Negative MSK: Negative Breast: Negative Skin: Negative Heme/Lymph:Negative Endo: Negative Neuro: Negative Psych: Negative PHYSICAL EXAM: Vitals: 02/23/24 0426 BP: 133/87 Pulse: 80 Resp: 18 Temp: 37 C (98.6 F) TempSrc: Oral Weight: 206 lb (93.4 kg) Height: 5' 4 (1.626 m) General appearance: awake, alert, cooperative, no apparent distress, and appears stated age Neurologic: Awake, alert, oriented to name, place and time. Lungs: No increased work of breathing, good air exchange Abdomen: Soft, non tender, gravid, consistent with her gestational age Sterile Speculum Exam: Membranes: Ruptured clear fluid HSV Lesions:not applicable Cervix: 1cm per check in office yesterday Contraction frequency: not tracing well on tocometer Labs: CBC: No results found for: WBC, RBC, HGB, HCT, MCV, MCH, MCHC, RDW, PLT, MPV Blood Type/Rh: No results found for: RH Group B Strep: No components found for: GRPBPCR Fetus: EFW: 2681gm (49%) AC 38% Presentation: Vertex by U/S LABOR DELIVERY ??? SCD's ONLY (labor through ambulation) SCD's PLUS Prophylactic Anticoagulation until discharge SCD's PLUS Prophylactic Anticoagulation for 6 weeks SCD's PLUS Therapeutic Anticoagulation for 6 weeks Vaginal Delivery [] BMI ? 40 kg/m2 Delivery All patients Vaginal Delivery [] BMI ? 40 kg/m2 AND [] Antepartum hospitalization ? 72 hours within the past month Delivery 1 Major Risk Factor: [] BMI ? 35 kg/m2 [] Low Risk Thrombophilia [] PPH+RBCs, IR, or operation [] Infection+Antibiotics [] Antepartum hospitalization ? 72 hours within the past month [] PMH: Sickle Cell, SLE, Cardiac Dz, Active IBD, Active Cancer, Nephrotic Syndrome OR 2 Minor Risk Factors: [] Multiple gestation [] Age > 40 [] PPH ? 1,000cc [] (+)FMH of VTE [] Smoker [] Preeclampsia [] BMI ? 40 kg/m2 AND [] Low Risk Thrombophilia OR ANY OF THE FOLLOWING: [] High Risk Thrombophilia without prior VTE [] Low Risk Thrombophilia with (+)FMH of VTE [] Any single prior VTE ANY OF THE FOLLOWING: [] Already on LMWH/UFH [] Multiple prior VTE [] High Risk Thrombophilia with prior VTE Low Risk Thrombophilia: FVL (heterozygous), Prothrombin (heterozygous), Protein C, Protein S High Risk Thrombophilia: FVL (homozygous), Prothrombin (homozygous), FVL+Prothrombin (heterozygous), Antithrombin III, APLS ASSESSMENT AND PLAN: 1. AOL-PROM Admission: Admit to L&D FHR: Category 1 Celestone: not indicated Pain control plan: desires epidural Delivery Plan: PO Cytotec, Pitocin GBS: GBS negative, No indication for GBS prophylaxis LARC: declines Intrapartum SCDs: Not Indicated VTE Prophylaxis: Not Indicated Crohn's Disease - follows with GI - Inflectra infusions - MFM was consulted to monitor growth Anxiety - follows with psychiatry - mood stable on admission - Pristiq 25mg daily Narcolepsy - follows with sleep clinic - no medications Discussed with Dr Patel, who agrees with plan. Sarah Floyd DO 02/23/2024, 5:07 AM [facility] [id number] NoteObstetrical History and Physical CHIEF COMPLAINT: leakage of amniotic fluid HISTORY OF PRESENT ILLNESS: The patient is a 24 y.o. female at 40w3d OB History 1 Para Term AB Living SAB IAB Ectopic Multiple Live Births Patient presents with a chief complaint as above and is being admitted for AOL-PROM. Denies DFM/VB/BAH/EpigastricPain/Visual changes. Estimated Due Date: Estimated Date of Delivery: 02/20/24 CARE: Complications: See below PAST OB HISTORY: OB History Para Term AB Living 1 SAB IAB Ectopic Multiple Live Births # Outcome Date GA Lbr Randy/2nd Weight Sex Type Anes PTL Lv 1 Current Past Medical History: Past Medical History: Diagnosis Date CC (Crohn's colitis) (CMS/HCC) ([facility]) Narcolepsy Past Surgical History: Past Surgical History: Procedure Laterality Date BREAST SURGERY TONSILLECTOMY (HISTORICAL) Allergies: Amoxicillin, Oxycodone, and Penicillins Social History: Social History Socioeconomic History Marital status: Single Spouse name: Not on file Number of children: Not on file Years of education: Not on file Highest education level: Not on file Occupational History Not on file Tobacco Use Smoking status: Former Current packs/day: 0.50 Types: Cigarettes Smokeless tobacco: Former Tobacco comments: She vapes Vaping Use Vaping status: Former Substance and Sexual Activity Alcohol use: Not Currently Drug use: Not Currently Types: Marijuana Comment: Last used when she was about 10 weeks Sexual activity: Yes Comment: Other Topics Concern Not on file Social History Narrative Not on file Social Determinants of Health Financial Resource Strain: Low Risk (02/15/2024) Overall Financial Resource Strain (CARDIA) Difficulty of Paying Living Expenses: Not hard at all Food Insecurity: No Food Insecurity (02/15/2024) Hunger Vital Sign Worried About Running Out of Food in the Last Year: Never true Ran Out of Food in the Last Year: Never true Transportation Needs: No Transportation Needs (02/15/2024) PRAPARE - Transportation Lack of Transportation (Medical): No Lack of Transportation (Non-Medical): No Physical Activity: Insufficiently Active (02/15/2024) Exercise Vital Sign Days of Exercise per Week: 1 day Minutes of Exercise per Session: 30 min Stress: No Stress Concern Present (02/15/2024) [employer] - Occupational Stress Questionnaire Feeling of Stress : Not at all Social Connections: Unknown (02/15/2024) Social Connection and Isolation Panel [NHANES] Frequency of Communication with Friends and Family: More than three times a week Frequency of Social Gatherings with Friends and Family: Twice a week Attends Taoism Services: Patient unable to answer Active Member of Clubs or Organizations: Yes Attends Club or Organization Meetings: More than 4 times per year Marital Status: Living with partner Intimate Partner Violence: Not At Risk (02/15/2024) Humiliation, Afraid, Rape, and Kick questionnaire Fear of Current or Ex-Partner: No Emotionally Abused: No Physically Abused: No Sexually Abused: No Housing Stability: Unknown (02/15/2024) Housing Stability Vital Sign Unable to Pay for Housing in the Last Year: No Number of Times Moved in the Last Year: Not on file Homeless in the Last Year: No Family History: Family History Problem Relation Name Age of Onset No Known Problems Paternal Grandfather Heart disease Paternal Grandmother Ovarian cysts Maternal Grandmother No Known Problems Maternal Grandfather Crohn's disease Father Diabetes Father Ovarian cysts Mother Medications Prior to Admission: Medications Prior to Admission Medication Sig Dispense Refill Last Dose Cyanocobalamin (VITAMIN B 12 PO) Take 1,000 mcg by mouth daily. desvenlafaxine succinate ER 25 MG 24 hour tablet Take 50 mg by mouth every morning. desvenlafaxine succinate ER 25 MG 24 hour tablet Take 25 mg by mouth. Inflectra 100 MG injection inFLIXimab (Remicade) 100 MG injection Infuse into a venous catheter. Every six weeks Misc. Devices (Breast Pump) misc Double [employer]. Lactating mother 1 each 0 modafinil (Provigil) 100 MG tablet Take 1 tablet (100 mg) by mouth 2 times daily as needed (sleepiness). 60 tablet 0 MV-Min-Fe Fum-FA-DHA ( 1 PO) Take by mouth. Sodium Oxybate ER (Lumryz) 9 g pack Take 9 g by mouth Nightly. Take contents of one packet mixed with water in provided mixing cup at bedtime. 90 each 0 REVIEW OF SYSTEMS: Const: Negative HEENT: Negative Resp: Negative CVS: Negative GI: Negative : Negative MSK: Negative Breast: Negative Skin: Negative Heme/Lymph:Negative Endo: Negative Neuro: Negative Psych: Negative PHYSICAL EXAM: Vitals: 02/23/24 0426 BP: 133/87 Pulse: 80 Resp: 18 Temp: 37 ?C (98.6 ?F) TempSrc: Oral Weight: 206 lb (93.4 kg) Heig (more content not included)...[facility] [id number] History and physical note* Sarah FloydDO - 02/23/2024 4:41 AM EDT Obstetrical History and Physical CHIEF COMPLAINT: leakage of amniotic fluid HISTORY OF PRESENT ILLNESS: The patient is a 24 y.o. female at 40w3d OB History 1 Para Term AB Living SAB IAB Ectopic Multiple Live Births Patient presents with a chief complaint as above and is being admitted for AOL-PROM. Denies DFM/VB/BAH/EpigastricPain/Visual changes. Estimated Due Date: Estimated Date of Delivery: 02/20/24 CARE: Complications: See below PAST OB HISTORY: OB History Para Term AB Living 1 SAB IAB Ectopic Multiple Live Births # Outcome Date GA Lbr Randy/2nd Weight Sex Type Anes PTL Lv 1 Current Past Medical History: Past Medical History: Diagnosis Date CC (Crohn's colitis) ([facility]) ([facility]) Narcolepsy Past Surgical History: Past Surgical History: Procedure Laterality Date BREAST SURGERY TONSILLECTOMY (HISTORICAL) Allergies: Amoxicillin, Oxycodone, and Penicillins Social History: Social History Socioeconomic History Marital status: Single Spouse name: Not on file Number of children: Not on file Years of education: Not on file Highest education level: Not on file Occupational History Not on file Tobacco Use Smoking status: Former Current packs/day: 0.50 Types: Cigarettes Smokeless tobacco: Former Tobacco comments: She vapes Vaping Use Vaping status: Former Substance and Sexual Activity Alcohol use: Not Currently Drug use: Not Currently Types: Marijuana Comment: Last used when she was about 10 weeks Sexual activity: Yes Comment: Other Topics Concern Not on file Social History Narrative Not on file Social Determinants of Health Financial Resource Strain: Low Risk (02/15/2024) Overall Financial Resource Strain (CARDIA) Difficulty of Paying Living Expenses: Not hard at all Food Insecurity: No Food Insecurity (02/15/2024) Hunger Vital Sign Worried About Running Out of Food in the Last Year: Never true Ran Out of Food in the Last Year: Never true Transportation Needs: No Transportation Needs (02/15/2024) PRAPARE - Transportation Lack of Transportation (Medical): No Lack of Transportation (Non-Medical): No Physical Activity: Insufficiently Active (02/15/2024) Exercise Vital Sign Days of Exercise per Week: 1 day Minutes of Exercise per Session: 30 min Stress: No Stress Concern Present (02/15/2024) [employer] - Occupational Stress Questionnaire Feeling of Stress : Not at all Social Connections: Unknown (02/15/2024) Social Connection and Isolation Panel [NHANES] Frequency of Communication with Friends and Family: More than three times a week Frequency of Social Gatherings with Friends and Family: Twice a week Attends Taoism Services: Patient unable to answer Active Member of Clubs or Organizations: Yes Attends Club or Organization Meetings: More than 4 times per year Marital Status: Living with partner Intimate Partner Violence: Not At Risk (02/15/2024) Humiliation, Afraid, Rape, and Kick questionnaire Fear of Current or Ex-Partner: No Emotionally Abused: No Physically Abused: No Sexually Abused: No Housing Stability: Unknown (02/15/2024) Housing Stability Vital Sign Unable to Pay for Housing in the Last Year: No Number of Times Moved in the Last Year: Not on file Homeless in the Last Year: No Family History: Family History Problem Relation Name Age of Onset No Known Problems Paternal Grandfather Heart disease Paternal Grandmother Ovarian cysts Maternal Grandmother No Known Problems Maternal Grandfather Crohn's disease Father Diabetes Father Ovarian cysts Mother Medications Prior to Admission: Medications Prior to Admission Medication Sig Dispense Refill Last Dose Cyanocobalamin (VITAMIN B 12 PO) Take 1,000 mcg by mouth daily. desvenlafaxine succinate ER 25 MG 24 hour tablet Take 50 mg by mouth every morning. desvenlafaxine succinate ER 25 MG 24 hour tablet Take 25 mg by mouth. Inflectra 100 MG injection inFLIXimab (Remicade) 100 MG injection Infuse into a venous catheter. Every six weeks Misc. Devices (Breast Pump) misc Double Electric. Lactating mother 1 each 0 modafinil (Provigil) 100 MG tablet Take 1 tablet (100 mg) by mouth 2 times daily as needed (sleepiness). 60 tablet 0 MV-Min-Fe Fum-FA-DHA ( 1 PO) Take by mouth. Sodium Oxybate ER (Lumryz) 9 g pack Take 9 g by mouth Nightly. Take contents of one packet mixed with water in provided mixing cup at bedtime. 90 each 0 REVIEW OF SYSTEMS: Const: Negative HEENT: Negative Resp: Negative CVS: Negative GI: Negative : Negative MSK: Negative Breast: Negative Skin: Negative Heme/Lymph:Negative Endo: Negative Neuro: Negative Psych: Negative PHYSICAL EXAM: Vitals: 02/23/24 0426 BP: 133/87 Pulse: 80 Resp: 18 Temp: 37 C (98.6 F) TempSrc: Oral Weight: 206 lb (93.4 kg) Height: 5' 4 (1.626 m) General appearance: awake, alert, cooperative, no apparent distress, and appears stated age Neurologic: Awake, alert, oriented to name, place and time. Lungs: No increased work of breathing, good air exchange Abdomen: Soft, non tender, gravid, consistent with her gestational age Sterile Speculum Exam: Membranes: Ruptured clear fluid HSV Lesions:not applicable Cervix: 1cm per check in office yesterday Contraction frequency: not tracing well on tocometer Labs: CBC: No results found for: WBC, RBC, HGB, HCT, MCV, MCH, MCHC, RDW, PLT, MPV Blood Type/Rh: No results found for: RH Group B Strep: No components found for: GRPBPCR Fetus: EFW: 2681gm (49%) AC 38% Presentation: Vertex by U/S LABOR DELIVERY ??? SCD's ONLY (labor through ambulation) SCD's PLUS Prophylactic Anticoagulation until discharge SCD's PLUS Prophylactic Anticoagulation for 6 weeks SCD's PLUS Therapeutic Anticoagulation for 6 weeks Vaginal Delivery [] BMI ? 40 kg/m2 Delivery All patients Vaginal Delivery [] BMI ? 40 kg/m2 AND [] Antepartum hospitalization ? 72 hours within the past month Delivery 1 Major Risk Factor: [] BMI ? 35 kg/m2 [] Low Risk Thrombophilia [] PPH+RBCs, IR, or operation [] Infection+Antibiotics [] Antepartum hospitalization ? 72 hours within the past month [] PMH: Sickle Cell, SLE, Cardiac Dz, Active IBD, Active Cancer, Nephrotic Syndrome OR 2 Minor Risk Factors: [] Multiple gestation [] Age > 40 [] PPH ? 1,000cc [] (+)FMH of VTE [] Smoker [] Preeclampsia [] BMI ? 40 kg/m2 AND [] Low Risk Thrombophilia OR ANY OF THE FOLLOWING: [] High Risk Thrombophilia without prior VTE [] Low Risk Thrombophilia with (+)FMH of VTE [] Any single prior VTE ANY OF THE FOLLOWING: [] Already on LMWH/UFH [] Multiple prior VTE [] High Risk Thrombophilia with prior VTE Low Risk Thrombophilia: FVL (heterozygous), Prothrombin (heterozygous), Protein C, Protein S High Risk Thrombophilia: FVL (homozygous), Prothrombin (homozygous), FVL+Prothrombin (heterozygous), Antithrombin III, APLS ASSESSMENT AND PLAN: 1. AOL-PROM Admission: Admit to L&D FHR: Category 1 Celestone: not indicated Pain control plan: desires epidural Delivery Plan: PO Cytotec, Pitocin GBS: GBS negative, No indication for GBS prophylaxis LARC: declines Intrapartum SCDs: Not Indicated VTE Prophylaxis: Not Indicated Crohn's Disease - follows with GI - Inflectra infusions - MFM was consulted to monitor growth Anxiety - follows with psychiatry - mood stable on admission - Pristiq 25mg daily Narcolepsy - follows with sleep clinic - no medications Discussed with Dr Patel, who agrees with plan. Sarah Floyd DO 02/23/2024, 5:07 AM documented in this [facility]09-16-2024 Evaluation + Plan note* Assessment & Plan Note - JOSTIN Hamilton CNP - 2024 12:34 PM EDT Associated Problem(s): care, antepartum Patient advised to call with labor contractions, LOF, bleeding or decreased movement GBS negative RH+ Normal GCT/CBC Received Tdap Advised kick counts Induction Thursday F[facility]U [id number] Miscellaneous Notes* Assessment & Plan Note - JOSTIN Hamilton CNP - 2024 12:34 PM EDTAssociated Problem(s): care, antepartum Patient advised to call with labor contractions, LOF, bleeding or decreased movement GBS negative RH+ Normal GCT/CBC Received Tdap Advised kick counts Induction Thursday F/U PP visit * Assessment & Plan Note - JOSTIN Hamilton CNP - 2024 12:32 PM EDT Associated Problem(s): Crohn's disease (HCC) Stable Follows with GI * Assessment & Plan Note - JOSTIN Hamilton CNP - 2024 12:32 PM EDT Associated Problem(s): Anxiety disorder affecting , antepartum Stable [facility] [id number] Evaluation + Plan note* Assessment & Plan Note - JOSTIN Hamilton CNP - 2024 12:32 PM EDT Associated Problem(s): Crohn's disease (HCC) Stable [id number] Evaluation + Plan note* Assessment & Plan Note - JOSTIN Hamilton CNP - 2024 12:32 PM EDTAssociated Problem(s): Anxiety disorder affecting , antepartum Stable [facility] [id number] History of Present illness Narrative* JOSTIN Hamilton CNP - 2024 11:20 AM EDT PLAN: Anxiety disorder affecting , antepartum Stable Crohn's disease (HCC) Stable Follows with GI care, antepartum Patient advised to call with labor contractions, LOF, bleeding or decreased movement GBS negative RH+ Normal GCT/CBC Received Tdap Advised kick counts Induction Thursday F/U PP visit ASSESSESMENT: Diagnosis Plan 1. High-risk supervision, third trimester 2. Anxiety disorder affecting , antepartum 3. Post-term , 40-42 weeks of gestation 4. Crohn's disease with complication, unspecified gastrointestinal tract location (HCC) 5. Vanishing twin syndrome 6. 40 weeks gestation of She is here for 40w2d OB visit. Denies cramping, leaking of fluid, or bleeding PHYSICAL EXAM: BP 123/80 Pulse 84 Wt 207 lb (93.9 kg) LMP 05/16/2023 (Exact Date) BMI 35.53 kg/m I have reviewed her pertinent history, lab results, medications and problem list. See episode for any changes. Reports baby is very active all day Well appearing, Alert & oriented Skin warm & dry Normal range of motion in all extremities. Abdomen soft nontender Normal resp effort JOSTIN Sarabia CNP 02/22/24 Follow up for visit. documented in this [facility]09-09-2024 Evaluation + Plan note* Assessment & Plan Note - Tank Wolf MD - 02/15/2024 12:49 PM EDTAssociated Problem(s): care, antepartum GBS negative Will schedule for 41 week IOL. She declines earlier IOL. OK for vaginal delivery unless active perianal or rectal disease from a GI perspective. [facility] [id number] Miscellaneous Notes* Assessment & Plan Note - Tank Wolf MD - 02/15/2024 12:49 PM EDTAssociated Problem(s): care, antepartum GBS negative Will schedule for 41 week IOL. She declines earlier IOL. OK for vaginal delivery unless active perianal or rectal disease from a GI perspective. * Assessment & Plan Note - Tank Wolf MD - 02/15/2024 12:48 PM EDTAssociated Problem(s): Crohn's disease (HCC) Stable on medication (IV Inflectra q6w). Has been on meds x 10 years. Recent infusion 01/15/24. Continue follow up with GI. documented in this [facility]09-09-2024 Evaluation + Plan note* Assessment & Plan Note - Tank Wolf MD - 02/15/2024 12:48 PM EDTAssociated Problem(s): Crohn's disease (HCC) Stable on medication (IV Inflectra q6w). Has been on meds x 10 years. Recent infusion 01/15/24. Continue follow up with GI. [facility] [id number] History of Present illness Narrative* Tank Wolf MD - 02/15/2024 11:00 AM EDT PLAN: Crohn's disease (HCC) Stable on medication (IV Inflectra q6w). Has been on meds x 10 years. Recent infusion 01/15/24. Continue follow up with GI. care, antepartum GBS negative Will schedule for 41 week IOL. She declines earlier IOL. OK for vaginal delivery unless active perianal or rectal disease from a GI perspective. ASSESSESMENT: Diagnosis Plan 1. Supervision of high risk in third trimester 2. 39 weeks gestation of 3. Crohn's disease with complication, unspecified gastrointestinal tract location (HCC) She is here for 39w2d OB visit. Denies cramping, leaking of fluid, or bleeding PHYSICAL EXAM: BP 122/80 Pulse 70 Wt 204 lb 6.4 oz (92.7 kg) LMP 05/16/2023 (Exact Date) BMI 35.09 kg/m I have reviewed her pertinent history, lab results, medications and problem list. See episode for any changes. Well appearing, Alert & oriented Skin warm & dry Normal range of motion in all extremities. Abdomen soft nontender Normal resp effort Tank Wolf MD 02/15/24 Follow up in about 1 week (around 2024) for Routine OB visit. documented in this [facility]09-06-2024 Evaluation + Plan note* Assessment & Plan Note - JOSTIN Rod CNM - 02/12/2024 1:51 PM EDT Associated Problem(s): Anxiety disorder affecting , antepartum Gbs neg [facility] [id number] Miscellaneous Notes* Assessment & Plan Note - JOSTIN Rod CNM - 02/12/2024 1:51 PM EDTAssociated Problem(s): Anxiety disorder affecting , antepartum Gbs neg documented in this [facility]09-06-2024 History of Present illness Narrative* JOSTIN Rod CNM - 02/12/2024 1:45 PM EDT She is here for 38w6d OB visit. Denies cramping leaking or bleeding or LOF PHYSICAL EXAM: BP 136/81 Pulse 85 Wt 200 lb (90.7 kg) LMP 05/16/2023 (Exact Date) BMI 34.33 kg/m I have reviewed her pertinent history, lab results, medications and problem list. See episode for any changes. Denies cramping leaking or bleeding or LOF Well appearing, Alert & oriented Skin warm & dry Normal range of motion in all extremities. Abdomen soft nontender Normal resp effort ASSESSESMENT: Diagnosis Plan 1. Anxiety disorder affecting , antepartum 2. 38 weeks gestation of PLAN: Patient Active Problem List Diagnosis Crohn's disease (HCC) care, antepartum Vanishing twin syndrome Anxiety disorder affecting , antepartum Anxiety disorder affecting , antepartum Gbs neg JOSTIN Rod CNM 02/12/24 Follow up in about 1 week (around 02/19/2024) for TORITO. documented in this [facility]08-28-2024 Evaluation + Plan note* Assessment & Plan Note - Lo Patel MD - 02/03/2024 3:15 PM EDTAssociated Problem(s): care, antepartum -GBS collected -labor precautions [id number] History of Present illness Narrative* Lo Patel MD - 02/03/2024 3:15 PM EDT PLAN: Crohn's disease (HCC) Stable on medication ( IV Inflectra Q6w). Has been on meds x 10 years. Recent infusion 01/15/24 Continued F/U with GI Growth AGA care, antepartum -GBS collected -labor precautions ASSESSESMENT: Diagnosis Plan 1. Supervision of high risk , antepartum 2. Vanishing twin syndrome 3. Anxiety disorder affecting , antepartum 4. care, antepartum 5. 37 weeks gestation of 6. screening for streptococcus B Group B Strep Screen PCR She is here for 37w4d OB visit. Denies cramping, leaking of fluid, or bleeding PHYSICAL EXAM: LMP 05/16/2023 (Exact Date) I have reviewed her pertinent history, lab results, medications and problem list. See episode for any changes. Well appearing, Alert & oriented Skin warm & dry Normal range of motion in all extremities. Abdomen soft nontender Normal resp effort Lo Patel MD 02/03/24 Follow up in about 1 week (around 02/10/2024) for TORITO. documented in this [facility]08-28-2024 Miscellaneous Notes* Assessment & Plan Note - Lo Patel MD - 02/03/2024 3:15 PM EDTAssociated Problem(s): care, antepartum -GBS collected -labor precautions * Assessment & Plan Note - Lo Patel MD - 02/03/2024 3:14 PM EDTAssociated Problem(s): Crohn's disease (HCC) Stable on medication ( IV Inflectra Q6w). Has been on meds x 10 years. Recent infusion 01/15/24 Continued F/U with GI Growth AGA documented in this [facility]08-28-2024 Evaluation + Plan note* Assessment & Plan Note - Lo Patel MD - 02/03/2024 3:14 PM EDTAssociated Problem(s): Crohn's disease (HCC) Stable on medication ( IV Inflectra Q6w). Has been on meds x 10 years. Recent infusion 01/15/24 Continued F/U with GI Growth AGA [facility] [id number] History of Present illness Narrative* Yesica Mckinnon, JOSTIN - [employer] - 01/18/2024 4:00 PM EDT PLAN: Anxiety disorder affecting , antepartum Stable on medication. Follows with psychiatrist Crohn's disease (HCC) Stable on medication ( IV Inflectra Q6w). Has been on meds x 10 years. Recent infusion 01/15/24 Continued F/U with GI Prelim US: Single live IUP in a vertex presentation. Cardiac activity and movement are present. EFW is 2681gr = 5lbs 15oz, 49% (Ector). KATIE = 16.7cm. anatomy appears normal, as noted above. Normal movements and breathing noted. care, antepartum Patient advised to call with > 6 contractions in an hour, LOF, bleeding or decreased movement RH+ Normal GCT/CBC Received Tdap Prelim US: Single live IUP in a vertex presentation. Cardiac activity and movement are present. EFW is 2681gr = 5lbs 15oz, 49% (Ector). KATIE = 16.7cm. anatomy appears normal, as noted above. Normal movements and breathing noted. TORITO 1 week Vanishing twin syndrome Serial growth US. Prelim US: Single live IUP in a vertex presentation. Cardiac activity and movement are present. EFW is 2681gr = 5lbs 15oz, 49% (Ector). KATIE = 16.7cm. anatomy appears normal, as noted above. Normal movements and breathing noted. ASSESSESMENT: Diagnosis Plan 1. High-risk supervision, third trimester 2. Anxiety disorder affecting , antepartum 3. Vanishing twin syndrome 4. Maternal Crohn's disease affecting in third trimester ([facility]) 5. 35 weeks gestation of She is here for 35w2d OB visit. Denies cramping, leaking of fluid, or bleeding. Prelim US results reviewed with patient: Single live IUP in a vertex presentation. Cardiac activity and movement are present. EFW is 2681gr = 5lbs 15oz, 49% (Ector). KATIE = 16.7cm. anatomy appears normal, as noted above. Normal movements and breathing noted. PHYSICAL EXAM: BP 117/70 Pulse 83 Wt 194 lb (88 kg) LMP 05/16/2023 (Exact Date) BMI 33.30 kg/m I have reviewed her pertinent history, lab results, medications and problem list. See episode for any changes. Feeling good movement Well appearing, Alert & oriented Normal range of motion in all extremities. Normal resp effort JOSTIN Sarabia CNP 01/18/24 Follow up in about 1 week (around 01/25/2024) for TORITO. documented in this [facility]08-12-2024 Evaluation + Plan note* Assessment & Plan Note - JOSTIN Hamilton CNP - 01/18/2024 3:54 PM EDT Associated Problem(s): Vanishing twin syndrome Serial growth US. Prelim US: Single live IUP in a vertex presentation. Cardiac activity and movement are present. EFW is 2681gr = 5lbs 15oz, 49% (Ector). KATIE = 16.7cm. anatomy appears normal, as noted above. Normal movements and breathing noted. [facility] [id number] Miscellaneous Notes* Assessment & Plan Note - JOSTIN Hamilton CNP - 01/18/2024 3:54 PM EDTAssociated Problem(s): Vanishing twin syndrome Serial growth US. Prelim US: Single live IUP in a vertex presentation. Cardiac activity and movement are present. EFW is 2681gr = 5lbs 15oz, 49% (Ector). KATIE = 16.7cm. anatomy appears normal, as noted above. Normal movements and breathing noted. * Assessment & Plan Note - JOSTIN Hamilton CNP - 01/18/2024 3:53 PM EDT Associated Problem(s): care, antepartum Patient advised to call with > 6 contractions in an hour, LOF, bleeding or decreased movement RH+ Normal GCT/CBC Received Tdap Prelim US: Single live IUP in a vertex presentation. Cardiac activity and movement are present. EFW is 2681gr = 5lbs 15oz, 49% (Ector). KATIE = 16.7cm. anatomy appears normal, as noted above. Normal movements and breathing noted. TORITO 1 week * Assessment & Plan Note - JOSTIN Hamilton CNP - 01/18/2024 3:53 PM EDT Associated Problem(s): Crohn's disease (HCC) Stable on medication ( IV Inflectra Q6w). Has been on meds x 10 years. Recent infusion 01/15/24 Continued F/U with GI Prelim US: Single live IUP in a vertex presentation. Cardiac activity and movement are present. EFW is 2681gr = 5lbs 15oz, 49% (Ector). KTAIE = 16.7cm. anatomy appears normal, as noted above. Normal movements and breathing noted. * Assessment & Plan Note - JOSTIN Hamilton CNP - 01/18/2024 3:52 PM EDT Associated Problem(s): Anxiety disorder affecting , antepartum Stable on medication. Follows with psychiatrist documented in this [facility]08-12-2024 Evaluation + Plan note* Assessment & Plan Note - JOSTIN Hamilton CNP - 01/18/2024 3:53 PM EDT Associated Problem(s): care, antepartum Patient advised to call with > 6 contractions in an hour, LOF, bleeding or decreased movement RH+ Normal GCT/CBC Received Tdap Prelim US: Single live IUP in a vertex presentation. Cardiac activity and movement are present. EFW is 2681gr = 5lbs 15oz, 49% (Ector). KATIE = 16.7cm. anatomy appears normal, as noted above. Normal movements and breathing noted. TORITO 1 week [facility] [id number] Evaluation + Plan note* Assessment & Plan Note - JOSTIN Hamilton CNP - 01/18/2024 3:53 PM EDTAssociated Problem(s): Crohn's disease (HCC) Stable on medication ( IV Inflectra Q6w). Has been on meds x 10 years. Recent infusion 01/15/24 Continued F/U with GI Prelim US: Single live IUP in a vertex presentation. Cardiac activity and movement are present. EFW is 2681gr = 5lbs 15oz, 49% (Ector). KATIE = 16.7cm. anatomy appears normal, as noted above. Normal movements and breathing noted. [facility] [id number] Evaluation + Plan note* Assessment & Plan Note - JOSTIN Hamilton CNP - 01/18/2024 3:52 PM EDTAssociated Problem(s): Anxiety disorder affecting , antepartum Stable on medication. [facility]s with psychiatrist [facility] [id number] History of Present illness Narrative* Aki Sandhu MD - 01/08/2024 7:30 AM EDT Pt here for OB visit. The baby is active. No LOF or bleeding. No contractions. History reviewed - see episode report No nausea or vomiting. PE: See vitals Pt A&OX3, NAD Normal affect Non labored breathing Abd - non tender Ext - no edema lower extremities 33 week IUP Ulsd growth 12/24 wnl Repeat next visit Will go for labs documented in this encounterSUniversity [facility] [id number] Evaluation + Plan note* Assessment & Plan Note - JOSTIN Hamilton CNP - 12/24/2023 2:35 PM EDT Associated Problem(s): Vanishing twin syndrome Serial growth US. [facility] [id number] Evaluation + Plan note* Assessment & Plan Note - JOSTIN Hamilton CNP - 12/24/2023 2:35 PM EDTAssociated Problem(s): care, antepartum Patient advised to call with > 6 contractions in an hour, LOF, bleeding or decreased movement RH+ Normal GCT/CBC Received Tdap Keep scheduled growth US at and F/U appt : Miller sex: Male Delivery Plans Planned delivery method: Vaginal Planned delivery location: [facility] Planned anesthesia: Epidural Post-Delivery Plans Feeding intentions: Breast Milk Circumcision requested: Provider Performed Breast pump order given to patient TORITO at out office 2 weeks and growth US in 4 weeks [facility] [id number] Miscellaneous Notes* Assessment & Plan Note - JOSTIN Hamilton CNP - 12/24/2023 2:35 PM EDTAssociated Problem(s): Vanishing twin syndrome Serial growth US. Scheduled tomorrow at * Assessment & Plan Note - JOSTIN Hamilton CNP - 12/24/2023 2:35 PM EDT Associated Problem(s): care, antepartum Patient advised to call with > 6 contractions in an hour, LOF, bleeding or decreased movement RH+ Normal GCT/CBC Received Tdap Keep scheduled growth US at and F/U appt : Miller sex: Male Delivery Plans Planned delivery method: Vaginal Planned delivery location: [facility] Planned anesthesia: Epidural Post-Delivery Plans Feeding intentions: Breast Milk Circumcision requested: Provider Performed Breast pump order given to patient TORITO at out office 2 weeks and growth US in 4 weeks * Assessment & Plan Note - JOSTIN Hamilton CNP - 12/24/2023 2:34 PM EDT Associated Problem(s): Crohn's disease (HCC) Stable on medication ( IV Inflectra Q6w). Has been on meds x 10 years Continued F/U with GI Serial growth US. Scheduled for growth US tomorrow at and TORITO next week there for F/U. * Assessment & Plan Note - JOSTIN Hamilton CNP - 12/24/2023 2:30 PM EDT Associated Problem(s): Anxiety disorder affecting , antepartum Stable on medication. Follows with psychiatrist * Addendum Note - Sarah Diallo - 12/24/2023 10:20 AM EDTAddended by: SARAH DIALLO on: 01/08/2024 08:38 AM Modules accepted: Orders documented in this encounterSUniversity Hospitals Beachwood Medical [id number] Evaluation + Plan note* Assessment & Plan Note - JOSTIN Hamilton CNP - 12/24/2023 2:34 PM EDT Associated Problem(s): Crohn's disease (HCC) Stable on medication ( IV Inflectra Q6w). Has been on meds x 10 years Continued F/U with GI Serial growth US. Scheduled for growth US tomorrow at and TORITO next week there for F/U. [facility] [id number] Evaluation + Plan note* Assessment & Plan Note - JOSTIN Hamilton CNP - 12/24/2023 2:30 PM EDTAssociated Problem(s): Anxiety disorder affecting , antepartum Stable on medication. Follows with psychiatrist [facility] [id number] History of Present illness Narrative* JOSTIN Hamilton CNP - 12/24/2023 10:20 AM EDT PLAN: Anxiety disorder affecting , antepartum Stable on medication. Follows with psychiatrist Crohn's disease (HCC) Stable on medication ( IV Inflectra Q6w). Has been on meds x 10 years Continued F/U with GI Serial growth US. Scheduled for growth US tomorrow at and TORITO next week there for F/U. care, antepartum Patient advised to call with > 6 contractions in an hour, LOF, bleeding or decreased movement RH+ Normal GCT/CBC Received Tdap Keep scheduled growth US at and F/U appt : Miller sex: Male Delivery Plans Planned delivery method: Vaginal Planned delivery location: [facility] Planned anesthesia: Epidural Post-Delivery Plans Feeding intentions: Breast Milk Circumcision requested: Provider Performed Breast pump order given to patient TORITO at out office 2 weeks and growth US in 4 weeks Vanishing twin syndrome Serial growth US. Scheduled tomorrow at ASSESSESMENT: Diagnosis Plan 1. High-risk supervision, third trimester Rubella antibody, IgG Misc. Devices (Breast Pump) misc Rubella antibody, IgG US OB follow up transabdominal approach 2. Anxiety disorder affecting , antepartum 3. Vanishing twin syndrome US OB follow up transabdominal approach 4. Crohn's disease of both small and large intestine without complication (HCC) US OB follow up transabdominal approach 5. 31 weeks gestation of Rubella antibody, IgG Misc. Devices (Breast Pump) misc Rubella antibody, IgG US OB follow up transabdominal approach She is here for 31w5d transfer of care OB visit. Patient has had adequate PNC at . She is moving to [place] from [facility] so is transferring care to our practice. Records available in [facility] attime of visit. Reviewed records/ Denies cramping, leaking of fluid, or bleeding PHYSICAL EXAM: BP 118/75 Pulse 79 Wt 185 lb (83.9 kg) LMP 05/16/2023 (Exact Date) BMI 31.76 kg/m I have reviewed her pertinent history, lab results, medications and problem list. See episode for any changes. Feeling good movement Well appearing, Alert & oriented Skin warm & dry Normal range of motion in all extremities. Abdomen soft nontender Normal resp effort JOSTIN Sarabia CNP 12/24/23 Follow up in about 2 weeks (around 01/07/2024) for TORITO. documented in this [facility]07-18-2024 Note* Addendum Note - Sarah Diallo - 12/24/2023 10:20 AM EDTAddended by: SARAH DIALLO on: 01/08/2024 08:38 AM Modules accepted: Orders [facility] [id number] NoteAddended by: SARAH DIALLO on: 01/08/2024 08:38 AM Modules accepted: [facility]05-03-2024 History of Present illness Narrative* Lilian Alberts, JOSTIN-CN - 10/09/2023 3:45 PM EDT Subjective Yanet Crum is a 23 y.o. at 20w2d with a working estimated date of delivery of 02/24/2024, by Other Basis who presents virtually with consent for a routine visit and follow up to anatomy US. She is feeling movement and denies n/v, vaginal bleeding, or urinary complaints. Since her last visit, she has discussed medication management with her psychiatrist who recommended against sertraline and encouraged patient to either continue Pristiq specifically or discontinue any medications. Her is complicated by: -initial twin gestation with demise -crohn's disease with IV medication -anxiety We reviewed limited information re: Pristiq, though perceived low risk for malformation, normal anatomy imaging, potential for withdraw syndrome, and potential for PPH based on limited research. We have previously reviewed the inherent risks of un-treated mental health disorders in . Overall, pt verbalized understanding, accepts inherent related risks to Pristiq use in , and would like to continue without changes. We also discussed her normal anatomy US and plan for growth at 28w. She had no other questions and verbalized understanding to all topics today. Objective Physical Exam - VV with limited PE During our virtual visit there were no concerns to indicate an in-office PE was necessary today. Expected Total Weight Gain: Could not be calculated Pregravid BMI: Could not be calculated Labs Urine dip: No results found for: KETONESU, GLUCOSEUR, LEUKOCYTESUR Lab Results Component Value Date HGB 12.6 08/13/2023 HCT 36.8 08/13/2023 ABO A 08/13/2023 HEPBSAG Nonreactive 09/04/2023 No results found for: PAPPA, AFP, HCG, ESTRIOL, INHBA No results found for: GLUF, GLUT1, WTCOFFO4HR, CGGPDPV5XA Imaging Anatomy US WNL and reviewed in detail today. Follow up growth @ 28wga Assessment/Plan Diagnoses and all orders for this visit: Crohn's disease of both small and large intestine without complication (Multi) Anxiety during , antepartum, second trimester (HHS-HCC) Primigravida, second trimester (HHS-HCC) 20 weeks gestation of (HHS-HCC) Continue vitamin. Labs reviewed and up to date. Follow up in 4 weeks for a routine visit. Charlene MURCIA documented in this [facility] Work Phone: [phone] 491-849804-15-2024 History of Present illness Narrative* DIVINA Adan, GERALD - 09/21/2023 4:00 PM EDT Virtual or Telephone Consent A telephone visit (audio only) between the patient (at the originating site) and the provider (at the distant site) was utilized to provide this telehealth service. Verbal consent was requested and obtained from Kristinerei Crum on this date, 09/24/23 for a telehealth visit. Subjective Yanet Crum is a 23 y.o. at 16w6d with a working estimated date of delivery of 02/24/2024, for a VV for passing out pt states she felt light headed after standing for a long time. Pt states she was out for a few seconds. Denies cramping and no vaginal bleeding. Overview and Plan c/b: -initial twin gestation with demise by 8wga -> ok to continue with CNM care -chron's disease with IV treatment -h/o narcolepsy -h/o anxiety Taking Prestique daily for anxiety and depression Pt being managed by neurology for narcolepsy -Desiring to take Adderall 5 mg daily Crohns disease- Following with GI Taking Inflectra every 6 weeks Objective Physical Exam: NAD, easy respiratory effort, CN grossly intact, no edema; alert & oriented @ baseline , Pregravid BMI: Could not be calculated Expected Total Weight Gain: Could not be calculated Labs Urine dip: No results found for: KETONESU, GLUCOSEUR, LEUKOCYTESUR Lab Results Component Value Date HGB 12.6 08/13/2023 HCT 36.8 08/13/2023 ABO A 08/13/2023 HEPBSAG Nonreactive 09/04/2023 No results found for: PAPPA, AFP, HCG, ESTRIOL, INHBA Risks and benefits of Adderall discussed with the patient, including follow up for growth if dosingdaily. Pt states she will use this prn. Imaging See reports Kristine Holt was seen today for routine visit. Diagnoses and all orders for this visit: Crohn's disease of both small and large intestine without complication (Multi) (Primary) Anxiety during , antepartum, second trimester ([facility]) 17 weeks gestation of ([facility]) Vasovagal episode I discussed with Yanet to increase her p.o. fluids in regards to her vasovagal episode change positions slowly. This was a one-time occurrence and she will continue to monitor this if recurrence happens consider further evaluation. In addition to this I discussed Yanet's anxiety and depression management with her including her use of daily Pristiq. Yanet has ongoing somnolence with this medication and has not desired to start Adderall with her history of narcolepsy. I discussed with her possible cold switch from her SNRI to her SSRI in the form of Zoloft as this is the most researched medication in and thought to be the safest. She is planning to follow-up with her psychiatrist in regards to this consideration of change and is willing to attempt this change to see if it reduces her fatigue. Risks of continued Pristiq and third trimester reviewed with Yanet at this time. DIVINA Adan, GERALD documented in this [facility] Work Phone: [phone] 700-811404-01-2024 Nurse Note* Amy Cruz RN - 02/25/2024 5:56 PM EDT Mom asked if she could switch baby to sensitive formula. She is doing both breast and bottle and continues to do so at home. She states that when baby drinks the regular formula he spits/throws up, but when she nurses him, he does not. I reached out to Dr. Nelson, and she was fine with this. Mom given a 4 pack of sensitive formula and slow flow nipples, will continue to monitor. * Amy Cruz RN - 02/24/2024 5:15 PM EDT Yanet reported some dizziness when I went in to do vitals. No chest pain, no headache, and no blurred vision. Vitals were WDL, see flowsheet. Bleeding is WDL. Patient states she is very tired and hasn't had much sleep, she has been pushing her water and has great output. Patient states she will tryto rest after visitors have gone. Will continue to monitor. * Amy Cruz RN - 02/24/2024 2:47 PM EDT Patient up and ambulated to the restroom with nurse. Patient did well. Mary care was demonstrated and teach back was done. Patient is ok to walk independently if she choose. documented in this [facility]03-21-2024 History of Present illness Narrative* Kayleigh Stevens MD - 08/27/2023 2:30 PM EDT Images from the original note were not included. [facility] SLEEP MEDICINE FOLLOW UP OFFICE VISIT-SLEEP Date of last visit: 05/28/23 Plan at that time: - Continue Lumryz 9 g nightly. - Can take modafinil 100 mg BID PRN sleepiness. Discussed indications/length of use/risks/benefits/alternatives/duration to efficacy of medication. - F/u approximately 3 months. Interval History: 14 weeks into . Feeling very tired, but slightly better than she was doing first trimester. Continues to work. May have 1 cup tea per day, slight amount of coffee as well. Has stayed on samedose psychiatric meds at this time. Sleep-Wake Schedule Bedtime: 10-10:30 P.M. Final wake time: 7 A.M. she does not wake up refreshed. Sleep Latency: 20-30 minutes. Listens to sleep meditations. Awakenings after sleep onset: 0 Naps: 2-3x/day on work days, lasting 20 minutes; 60 minutes at home Estimated total sleep time: 8 hours Sleep Metrics: ESS = 9 (2 last visit) Past Treatments: Nuvigil Pristiq Lumryz Sleep Studies: Doesn't remember--was prescribed something in the past PSG 08/20/22: AHI 3.9; SpO2 min 83%. TST 472 minutes. SE 97.5%. REM latency 69.5 minutes. 29.1% REM sleep. MSLT: MSL 7.9 minutes; 2 SOREMPs. No urine tox. Irregular sleep schedule on sleep diary. Labs/additional studies: Reviewed Past Medical History Past Medical History: Diagnosis Date CC (Crohn's colitis) ([facility]) ([facility]) Past Surgical History Past Surgical History: Procedure Laterality Date BREAST SURGERY TONSILLECTOMY (HISTORICAL) Allergies Allergies Allergen Reactions Oxycodone Swelling Had facial swelling and throat tightness when took oxy after wisdom teeth were pulled. Resolved once stopped taking oxy. Penicillins Hives and Rash Medications Current Outpatient Medications Medication Instructions desvenlafaxine succinate ER 50 mg, Oral, Every morning inFLIXimab (Remicade) 100 MG injection IntraVENous, Every six weeks Lumryz 9 g, Oral, Nightly, Take contents of one packet mixed with water in provided mixing cup at bedtime. modafinil (PROVIGIL) 100 mg, Oral, 2 times daily PRN Social History Social History Tobacco Use Smoking status: Every Day Packs/day: .5 Types: Cigarettes Smokeless tobacco: Never Tobacco comments: She vapes Substance Use Topics Alcohol use: Not Currently Family History No family history on file. Review of Systems Constitutional: Positive for fatigue. HENT: Positive for congestion. + difficulty smelling Allergic/Immunologic: Positive for environmental allergies. Psychiatric/Behavioral: The patient is nervous/anxious. Physical Exam BP 116/78 (BP Location: Left arm, Patient Position: Sitting, BP Cuff Size: Large adult) Pulse 62 Resp 16 Ht 5' 4 (1.626 m) Wt 165 lb 12.8 oz (75.2 kg) SpO2 98% Comment: ra BMI 28.46 kg/m General appearance: Well appearing. No acute distress. AAOX3 Head: Normocephalic, without obvious abnormality, atraumatic Eyes: Normal sclera and conjunctiva Skin: Skin color normal. No rashes or lesions Psych: Dysthymic Mood Impression: Diagnosis Plan 1. Narcolepsy without cataplexy 23 y/o F with Crohn's. Had occasional sleep onset insomnia, but primary issue was significant daytime sleepiness and fatigue. PSG/MSLT demonstrated hypersomnolence consistent with narcolepsy w/o cataplexy. Currently in 2nd trimester of . Recommendations: - Discussed unfortunately no wake-promoting medication approved for use during . Discussedpossibility of low dose adderall PRN. Pt states she is is also going to explore possibility of medical THC. 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 - F/u TBD after pt lets me know which route she would like to pursue for treatment of sleepiness. On this date, 08/27/2023 I have spent 30 minutes reviewing the above treatment plan with the patientas well as documenting on the day of the visit. documented in this [facility]01-25-2024 History of Present illness Narrative* Bert Casey DO - 07/02/2023 9:[address] [facility] Gastroenterology ASSESSMENT and PLAN: Kristine R Skylavivien Holt is a 23 y.o. female with a significant past medical history of crohnsdisease who presents for follow up 1. Moderate to Severe Crohns disease - Diagnosed at the age of 10 no hx of surgery -Patient remains in remission and well maintained on Remicade 10 mg/kg every 6 weeks, of note patient has been tried on bio similar's such as Inflectra and had worsening of disease along with worsening of hydradenitis and I recommend patient continue on Remicade 10mg/kg q 6 qweeks -CBC, CMP and CRP was all within normal limits -colon in Jul 2021 with no endoscopic signs of active disease, mild inflammation seen on biopsy of the TI -Repeat colon in 2 years - Follow up in 6 months Risk and benefits of Remicade while being The patient in great detail. All questions were answered translocation. Patient to call my office if she has any problems. Would recommend continuing with Remicade as she is well-controlled on this medication and there is risks of acute flare. Patient was educated about the need for no live vaccines for the baby for 6 months after giving and she voiced understanding. Bert Casey, Gastroenterology [facility] Subjective HISTORY OF PRESENT ILLNESS: Chief Complaint Follow-up (Discuss remicade/Patient is ) History Of Present Illness: Patient is no complaints today. Patient seen in virtual visit for discussion about Remicade in . Overall she has no abdominal pain change in bowel habits change in vision or rash. She statesher due date is February 2024. Patient denies any heartburn/GERD, N/V, dysphagia, odynophagia, abdominal pain, diarrhea, constipation, hematemesis, hematochezia, melena, or weight loss. Endoscopy History: She last had an EGD and colonoscopy in July 2021. That was normal Review of systems: Review of Systems I performed a complete 10 point review of systems and it is negative except as noted in HPI or above. PAST HISTORIES: Past Medical History: She has a past medical history of Anxiety, Crohn disease (CMS/HCC), and Narcolepsy. Past Surgical History: She has a past surgical history that includes Colonoscopy and Cyst Removal. Social History: She reports that she has never smoked. She has never used smokeless tobacco. She reports that she does not currently use alcohol. She reports current drug use. Drug: Marijuana. Family History: No known GI disease, specifically denies pancreatitis, Crohn's, colon cancer, gastroesophageal cancer, or ulcerative colitis. Family History Problem Relation Name Age of Onset Other (preeclampsia) Mother Other (hysterectomy) Mother Crohn's disease Father Diabetes Father Other (lung problems) Father COPD Maternal Grandmother Hypertension Maternal Grandmother Hyperlipidemia Maternal Grandmother Ovarian cancer Maternal Grandmother Uterine cancer Maternal Grandmother Hypertension Maternal Grandfather Hypertension Paternal Grandmother Other (heart condition) Paternal Grandmother Allergies: Amoxicillin, Oxycodone, and Penicillin Objective OBJECTIVE: Last Recorded Vitals: There were no vitals filed for this visit. LMP 05/16/2023 Physical Exam: Patient alert oriented in no acute distress Home Medications: Prior to Admission medications Medication Sig Start Date End Date Taking? Authorizing Provider desvenlafaxine succinate (Pristiq) 25 mg 24 hour tablet Take 2 tablets (50 mg) by mouth once daily in the morning. Take before meals. 01/06/23 Historical Provider, modafinil (Provigil) 100 mg tablet Take 1 tablet (100 mg) by mouth once daily. Historical Provider, sodium oxybate (Lumryz) 6 gram extend release granules,packet Take 1 packet by mouth. 03/10/23 Historical Provider, sodium oxybate (Lumryz) 9 gram extend release granules,packet Take 9 g by mouth once daily. Historical Provider, Relevant Results Recent labs reviewed in the EMR. Lab Results Component Value Date HGB 13.5 08/01/2022 MCV 86 08/01/2022 PLT 295 08/01/2022 No results found for: FERRITIN, IRON Lab Results Component Value Date NA 140 08/01/2022 K 4.0 08/01/2022 CL 108 (H) 08/01/2022 BUN 13 08/01/2022 CREATININE 0.74 08/01/2022 Lab Results Component Value Date BILITOT 0.5 08/01/2022 Lab Results Component Value Date ALT 12 08/01/2022 AST 11 08/01/2022 ALKPHOS 56 08/01/2022 Lab Results Component Value Date CRP <0.10 08/01/2022 No results found for: CALPS Radiology: Reviewed imaging reviewed in the EMR. No results found. documented in this [facility] Work Phone: 1(794) 140-217701-18-2024 History of Present illness Narrative* DIVINA Prado - 06/25/2023 3:45 PM EST Subjective Patient ID: Kristine Crum is a 23 y.o. female who presents for Amenorrhea. This 23yo presents virtually with consent to discuss missed menses and +UPT and establish pregnancycare. She has some questions related to her medications. was unintentional, but not prevented and she endorses effective coping and partner support. They have not yet shared their news withthe families. She is already taking PNV. She has had some nausea, but is managing and denies other complaints including vaginal bleeding or UTI complaints. We discussed her medications in detail including the very limited data available, potential for SABand/or congenital effects related to rodent studies, and overall ability for her to determine R/B and potential for continued usage. She plans to call her physician and discuss alternative medicationregimens as it sounds like she does not feel the benefit obtained from the medications are worth the risks. We reviewed anticipated care including completing a viability US and follow up in office to review imaging and establish planning. Her questions were answered to her satisfaction and she verbalized understanding to all topics. Review of Systems Constitutional: Negative. HENT: Negative. Eyes: Negative. Respiratory: Negative. Cardiovascular: Negative. Gastrointestinal: Positive for nausea. Negative for abdominal pain, constipation, diarrhea and vomiting. Endocrine: Negative. Genitourinary: Negative. Musculoskeletal: Negative. Allergic/Immunologic: Negative. Neurological: Negative. Hematological: Negative. Psychiatric/Behavioral: Negative. Objective - virtual visit, no PE Physical Exam Constitutional: Appearance: Normal appearance. Neurological: Mental Status: She is alert. During our virtual visit, there were no concerns to indicate that an in-person PE was necessary today. Assessment/Plan Diagnoses and all orders for this visit: Missed menses - US ordered. RTO following US to review results and establish a plan of care. DIVINA Prado 06/25/23 10:04 PM No questions/concerns. Pt would like to know if she can take Lumryz. Pt aware of Center closure & plans to deliver at [facility]. FOB name + phone number: Albert Giraldo [phone] ? No Pre- weight: 161 lbs Flu vaccine? No (pt would like to get one) LMP: 05/16/23 GA: 5w 5d NEHEMIAS: 02/20/2024 Latex allergy? No Blood transfusion acceptable? Yes 28 day cycle? Yes BC at conception? No hCG+ at home (date): 06/16/2023 Pt educated on 1st trimester topics: risk factors, nutrition & weight gain counseling, toxoplasmosis precautions, environmental/work hazards documented in this [facility] Work Phone: 1(294) 556-108012-21-2023 History of Present illness Narrative* Kayleigh Stevens MD - 05/28/2023 11:30 AM EST Images from the original note were not included. [facility] SLEEP MEDICINE FOLLOW UP TELEHEALTH VISIT-SLEEP Date of last visit: 04/17/23 Plan at that time: - Titrate Lumryz to 7.5 g x 1 week, then 9 g nightly. - Decrease nuvigil from 100 mg to 50 mg after she is on lumryz 9 g. Will see if she can be tapered off going forward per her request. - Completed FMLA forms. - F/u approximately 4-6 weeks. Interval History: Has been able to taper off nuvigil--off of it for at least 3 weeks. Psychiatrist happy about this. Pt states she hasn't noticed significant difference being off of it. Wonders about having something available PRN breakthrough sleepiness. Much much easier to wake up and get going in the morning. Has to go to bathroom immediately after awakening in A.M. Boyfriend has noticed a difference since she has been on highest dose Lumryz. Got accommodations changed to start work later. Working 8 am to 4 pm, 4 days/week. Sleep-Wake Schedule Bedtime: 10:30 P.M. (takes Lumryz 9 g around this time) Final wake time: 7 A.M. she does wake up refreshed. Sleep Latency: 20 minutes. Listens to sleep meditations. Awakenings after sleep onset: 0 Naps: 1-2 x/week, 30-60 minutes (sometimes from boredom at work) Estimated total sleep time: 8 hours in 24 hours Sleep Metrics: ESS = 2 (2 last visit) Past Treatments: Nuvigil Pristiq Lumryz Sleep Studies: Doesn't remember--was prescribed something in the past PSG 08/20/22: AHI 3.9; SpO2 min 83%. TST 472 minutes. SE 97.5%. REM latency 69.5 minutes. 29.1% REM sleep. MSLT: MSL 7.9 minutes; 2 SOREMPs. No urine tox. Irregular sleep schedule on sleep diary. Labs/additional studies: Reviewed Past Medical History Past Medical History: Diagnosis Date CC (Crohn's colitis) ([facility]) ([facility]) Past Surgical History Past Surgical History: Procedure Laterality Date BREAST SURGERY TONSILLECTOMY (HISTORICAL) Allergies Allergies Allergen Reactions Oxycodone Swelling Had facial swelling and throat tightness when took oxy after wisdom teeth were pulled. Resolved once stopped taking oxy. Penicillins Hives and Rash Medications Current Outpatient Medications Medication Instructions desvenlafaxine succinate ER 50 mg, Oral, Every morning inFLIXimab (Remicade) 100 MG injection IntraVENous, Every six weeks Lumryz 9 g, Oral, Nightly, Take contents of one packet mixed with water in provided mixing cup at bedtime. modafinil (PROVIGIL) 100 mg, Oral, 2 times daily PRN Social History Social History Tobacco Use Smoking status: Every Day Packs/day: .5 Types: Cigarettes Smokeless tobacco: Never Tobacco comments: She vapes Substance Use Topics Alcohol use: Not Currently Family History No family history on file. Review of Systems Constitutional: Positive for fatigue. HENT: Positive for congestion. + difficulty smelling Allergic/Immunologic: Positive for environmental allergies. Psychiatric/Behavioral: The patient is nervous/anxious. Physical Exam BP 110/70 (BP Location: Right arm, Patient Position: Sitting, BP Cuff Size: Large adult) Pulse 90 Resp 16 Ht 5' 4 (1.626 m) Wt 161 lb 9.6 oz (73.3 kg) SpO2 98% Comment: ra BMI 27.74 kg/m General appearance: Well appearing. No acute distress. AAOX3 Head: Normocephalic, without obvious abnormality, atraumatic Eyes: Normal sclera and conjunctiva Skin: Skin color normal. No rashes or lesions Psych: Euthymic Mood Impression: Diagnosis Plan 1. Narcolepsy without cataplexy modafinil (Provigil) 100 MG tablet Sodium Oxybate ER (Lumryz) 9 g pack 23 y/o F with Crohn's. Has occasional sleep onset insomnia, but primary issue is significant daytime sleepiness and fatigue. PSG/MSLT demonstrated hypersomnolence consistent with narcolepsy w/o cataplexy. Recommendations: - Continue Lumryz 9 g nightly. - Can take modafinil 100 mg BID PRN sleepiness. Discussed indications/length of use/risks/benefits/alternatives/duration to efficacy of medication. - F/u approximately 3 months. documented in this [facility]10-03-2023 Note* Addendum Note - Kayleigh Stevens MD - 03/10/2023 11:02 AM EDTAddended by: KAYLEIGH STEVENS on: 03/10/2023 11:02 AM Modules accepted: [id number] [facility]* Addendum Note - Kayleigh Stevens MD - 03/10/2023 11:02 AM EDTAddended by: KAYLEIGH STEVENS on: 03/10/2023 11:02 AM Modules accepted: Orders T [id number] Note* Addendum Note - Kayleigh Stevens MD - 03/10/2023 11:02 AM EDTAddended by: KAYLEIGH STEVENS on: 03/10/2023 11:02 AM Modules accepted: Orders [place] [id number] Miscellaneous Notes* Addendum Note - Kayleigh Stevens MD - 03/10/2023 11:02 AM EDTAddended by: KAYLEIGH STEVENS on: 03/10/2023 11:02 AM Modules accepted: Orders * Addendum Note - Sarah Russell RN - 03/10/2023 8:34 AM EDTAddended by: SARAH RUSSELL on: 03/10/2023 08:34 AM Modules accepted: Orders * Telephone Encounter - Sarah Russell RN - 03/10/2023 8:33 AM EDT Per Sarah Rodriguez, TWO forms of rx must be sent to [facility]. Orders pended for signature. * Telephone Encounter - Sarah Russell RN - 03/09/2023 1:23 PM EDT Faxed Lumryz rx to [facility], . * Telephone Encounter - Reginaldo Yeager - 03/09/2023 1:14 PM EDT Name of caller: Maddie Contact phone number: [phone] Relationship to Patient: [facility] Provider: Dr Stevens Practice: [facility] Sleep Chief Complaint/Reason for Call: Maddie states that forms were received from office for pt's Lumryz. Maddie states that due to state regulations for controlled substances that a valid prescription is still needed. Maddie states that that either an electronic or verbal prescription can be accepted in order to fill medication. Please advise. Best time of day caller can be reached: any Patient advised that office/PCP has 24-48 business hours to return their call: No' documented in this [facility]10-03-2023 Note* Addendum Note - Sarah Russell RN - 03/10/2023 8:34 AM EDTAddended by: SARAH RUSSELL on: 03/10/2023 08:34 AM Modules accepted: Orders [id number] Note* Addendum Note - Sarah Russell RN - 03/10/2023 8:34 AM EDTAddended by: SARAH RUSSELL on: 03/10/2023 08:34 AM Modules accepted: Orders [place] [id number] Note* Addendum Note - Sarah Russell RN - 03/10/2023 8:34 AM EDTAddended by: SARAH RUSSELL on: 03/10/2023 08:34 AM Modules accepted: Orders [place] [id number] Telephone encounter Note* Telephone Encounter - Sarah Russell RN - 03/10/2023 8:33 AM EDT Per Sarah Rodriguez, TWO forms of rx must be sent to [facility]. Orders pended for signature. [id number] Telephone encounter Note* Telephone Encounter - Sarah Russell RN - 03/09/2023 1:23 PM EDT Faxed Lumryz rx to [facility], [phone]. [id number] Telephone encounter Note* Telephone Encounter - Reginaldo Toy - 03/09/2023 1:14 PM EDT Name of caller: Maddie Contact phone number: [phone] Relationship to Patient: [facility] Provider: Dr Stevens Practice: [facility] Sleep Chief Complaint/Reason for Call: Maddie states that forms were received from office for pt's Lumdaphnez. Maddie states that due to state regulations for controlled substances that a valid prescription is still needed. Maddie states that that either an electronic or verbal prescription can be accepted in order to fill medication. Please advise. Best time of day caller can be reached: any Patient advised that office/PCP has 24-48 business hours to return their call: No' [facility] [id number] History of Present illness Narrative* Kayleigh Stevens MD - 02/24/2023 11:00 AM EDT Images from the original note were not included. [facility] SLEEP MEDICINE FOLLOW UP OFFICE VISIT-SLEEP Date of last visit: 01/13/23 Plan at that time: - Continue Nuvigil 100 mg daily. Ok to do drug holidays. - F/u 3 months. Interval History: Getting frustrated because of difficulty waking in the morning. Causes her a great deal of stress. Has been this way for many years, wants to be sure work is aware so that it doesn't cause problems. Also needs accommodations for amount of time she is working, as having a lot of time just sitting causes her sleepiness as well. Feels pristiq has been helpful for mood. Nuvigil 100 mg daily helpful for wakefulness during the day. However, doesn't help her wake up on time. She sleeps through multiple alarms. Sleep-Wake Schedule Bedtime: 10-10:30 P.M. Final wake time: 5 A.M. she does not wake up refreshed. Sleep Latency: occasionally can have some days can be up to couple hours (seems to be less of an issue than last visit though). Usually just lays in bed, but sometimes has tv on. Awakenings after sleep onset: usually not Naps: not since Estimated total sleep time: 6 hours in 24 hours Non-work day schedule: may sleep in for several additional hours (up to 10-11 am) Sleep Metrics: ESS = 9 (11 last visit) Past Treatments: Nuvigil pristiq Sleep Studies: Doesn't remember--was prescribed something in the past PSG 08/20/22: AHI 3.9; SpO2 min 83%. TST 472 minutes. SE 97.5%. REM latency 69.5 minutes. 29.1% REM sleep. MSLT: MSL 7.9 minutes; 2 SOREMPs. No urine tox. Irregular sleep schedule on sleep diary. Labs/additional studies: Reviewed Past Medical History Past Medical History: Diagnosis Date CC (Crohn's colitis) ([facility]) ([facility]) Past Surgical History Past Surgical History: Procedure Laterality Date BREAST SURGERY TONSILLECTOMY (HISTORICAL) Allergies Allergies Allergen Reactions Oxycodone Swelling Had facial swelling and throat tightness when took oxy after wisdom teeth were pulled. Resolved once stopped taking oxy. Penicillins Hives and Rash Medications Current Outpatient Medications Medication Instructions armodafinil (NUVIGIL) 100 mg, Oral, Daily desvenlafaxine succinate ER 50 mg, Oral, Every morning inFLIXimab (Remicade) 100 MG injection IntraVENous, Every six weeks Social History Social History Tobacco Use Smoking status: Every Day Packs/day: 0.50 Types: Cigarettes Smokeless tobacco: Never Substance Use Topics Alcohol use: Not Currently Family History No family history on file. Review of Systems Constitutional: Positive for fatigue. HENT: Positive for congestion. + difficulty smelling Allergic/Immunologic: Positive for environmental allergies. Psychiatric/Behavioral: The patient is nervous/anxious. Physical Exam BP 108/70 (BP Location: Left arm, Patient Position: Sitting, BP Cuff Size: Adult) Pulse 93 Resp16 Ht 5' 4 (1.626 m) Wt 170 lb (77.1 kg) SpO2 97% Comment: ra BMI 29.18 kg/m General appearance: Well appearing. No acute distress. AAOX3 Head: Normocephalic, without obvious abnormality, atraumatic Eyes: Normal sclera and conjunctiva Lungs: Normal respiratory effort--no dyspnea Skin: Skin color normal. 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 Has occasional sleep onset insomnia, but primary issue is significant daytime sleepiness and fatigue. PSG/MSLT demonstrated hypersomnolence consistent with narcolepsy w/o cataplexy. Having great difficulty awakening in the morning. Recommendations: - Continue Nuvigil 100 mg daily. Ok to do drug holidays. - Starting Lumryz 4.5 g HS to try to help with A.M. sleep inertia. Discussed indications/length of use/risks/benefits/alternatives/duration to efficacy of medication. - Will complete paperwork for her job. - F/u approximately 2-4 weeks after starting Lumryz. Would try to taper down Nuvigil at that time. On this date, 02/24/2023 I have spent 30 minutes reviewing previous notes, test results and face to face with the patient discussing the diagnosis and importance of compliance with the treatment plan as well as documenting on the day of the visit. documented in this [facility]08-08-2023 History of Present illness Narrative* Kayleigh Stevens MD - 01/13/2023 2:00 PM EDT Images from the original note were not included. [facility] SLEEP MEDICINE FOLLOW UP OFFICE VISIT-SLEEP Date of last visit: 09/09/22 Plan at that time: - Increasing nuvigil from 50 to 100 mg for some ongoing fatigue. - Pt will update me via [employer] in 2-4 weeks. - F/u 3 months. Interval History: Has had insurance issues past 3 months. Now back on schedule with meds. Will finally be starting them all in concert. Has now started pristiq 50 mg as well. Sometimes skips weekends with Nuvigil. But overall happy with where her wakefulness is on it. Denies any side effects with it. Does note occasional bouts of insomnia, but no different than prior to nuvigil. Sleep-Wake Schedule Bedtime: 10-10:30 P.M. Final wake time: 5 A.M. she does not wake up refreshed. Sleep Latency: occasionally can have some days can be up to couple hours (seems to be less of an issue than last visit though). Usually just lays in bed, but sometimes has tv on. Awakenings after sleep onset: usually not Naps: not since Estimated total sleep time: 6 hours in 24 hours Non-work day schedule: may sleep in for several additional hours (up to 10-11 am) Sleep Metrics: ESS = 11 (8 last visit) Past Treatments: Nuvigil Sleep Studies: Doesn't remember--was prescribed something in the past PSG 08/20/22: AHI 3.9; SpO2 min 83%. TST 472 minutes. SE 97.5%. REM latency 69.5 minutes. 29.1% REM sleep. MSLT: MSL 7.9 minutes; 2 SOREMPs. No urine tox. Irregular sleep schedule on sleep diary. Labs/additional studies: Reviewed Past Medical History Past Medical History: Diagnosis Date CC (Crohn's colitis) ([facility]) ([facility]) Past Surgical History Past Surgical History: Procedure Laterality Date BREAST SURGERY TONSILLECTOMY (HISTORICAL) Allergies Allergies Allergen Reactions Oxycodone Swelling Had facial swelling and throat tightness when took oxy after wisdom teeth were pulled. Resolved once stopped taking oxy. Penicillins Hives and Rash Medications Current Outpatient Medications Medication Instructions armodafinil (NUVIGIL) 100 mg, Oral, Daily desvenlafaxine succinate ER 50 mg, Oral, Every morning inFLIXimab (Remicade) 100 MG injection IntraVENous, Every six weeks Social History Social History Tobacco Use Smoking status: Every Day Packs/day: 0.50 Types: Cigarettes Smokeless tobacco: Never Substance Use Topics Alcohol use: Not Currently Family History No family history on file. Review of Systems Constitutional: Positive for fatigue. HENT: Positive for congestion. + difficulty smelling Allergic/Immunologic: Positive for environmental allergies. Psychiatric/Behavioral: The patient is nervous/anxious. Physical Exam BP 108/72 (BP Location: Left arm, Patient Position: Sitting, BP Cuff Size: Large adult) Pulse 75 Resp 16 Ht 5' 4 (1.626 m) Wt 172 lb 6.4 oz (78.2 kg) SpO2 96% Comment: ra BMI 29.59 kg/m General appearance: Well appearing. No acute distress. AAOX3 Head: Normocephalic, without obvious abnormality, atraumatic Eyes: Normal sclera and conjunctiva Lungs: Normal respiratory effort--no dyspnea Skin: Skin color normal. No rashes or lesions Psych: Euthymic Mood Impression: Diagnosis Plan 1. Narcolepsy without cataplexy armodafinil (Nuvigil) 50 MG tablet 22 y/o F with Crohn's. Has occasional sleep onset insomnia, but primary issue is significant daytime sleepiness and fatigue. PSG/MSLT demonstrated hypersomnolence consistent with narcolepsy w/o cataplexy. Recommendations: - Continue Nuvigil 100 mg daily. Ok to do drug holidays. - F/u 3 months. documented in this [facility]05-08-2023 History of Present illness Narrative* Kayleigh Stevens MD - 10/13/2022 2:00 PM EDT Images from the original note were not included. [facility] SLEEP MEDICINE FOLLOW UP OFFICE VISIT-SLEEP Date of last visit: 09/09/22 Plan at that time: - Reviewed results of PSG/MSLT in detail with patient. - Counseled pt on sleep hygiene. - Starting Nuvigil 50 mg HS. Discussed indications/length of use/risks/benefits/alternatives/duration to efficacy of medication. - F/u 1 month. Interval History: Takes nuvigil around 6 am. Has noticed some improvement--no longer napping so somewhat easier to fall asleep at night. However, still feels like she can hit a slump during the day with her fatigue. Denies headaches, decreased appetite, insomnia, or anxiety. Having some insurance problems with meds once she switched from [facility] to . Sleep-Wake Schedule Bedtime: 10:30 P.M. Final wake time: 5 A.M. she does not wake up refreshed. Sleep Latency: not sure, but some days can be up to couple hours (seems to be less of an issue thanlast visit though). Usually just lays in bed, but sometimes has tv on. Awakenings after sleep onset: usually not Naps: tries not to, but couple days a week will fall asleep after work for couple hours Estimated total sleep time: 6 hours in 24 hours Non-work day schedule: may sleep in for several additional hours (up to 10-11 am) Sleep Metrics: ESS = 8 (14 last visit) Past Treatments: Doesn't remember--was prescribed something in the past PSG 08/20/22: AHI 3.9; SpO2 min 83%. TST 472 minutes. SE 97.5%. REM latency 69.5 minutes. 29.1% REM sleep. MSLT: MSL 7.9 minutes; 2 SOREMPs. No urine tox. Irregular sleep schedule on sleep diary. Sleep Studies: None Labs/additional studies: Reviewed Past Medical History Past Medical History: Diagnosis Date CC (Crohn's colitis) ([facility]) ([facility]) Past Surgical History Past Surgical History: Procedure Laterality Date BREAST SURGERY TONSILLECTOMY (HISTORICAL) Allergies Allergies Allergen Reactions Oxycodone Swelling Had facial swelling and throat tightness when took oxy after wisdom teeth were pulled. Resolved once stopped taking oxy. Penicillins Hives and Rash Medications Current Outpatient Medications Medication Instructions armodafinil (NUVIGIL) 100 mg, Oral, Daily inFLIXimab (Remicade) 100 MG injection IntraVENous, Every six weeks Social History Social History Tobacco Use Smoking status: Every Day Packs/day: 0.50 Types: Cigarettes Smokeless tobacco: Never Substance Use Topics Alcohol use: Not Currently Family History No family history on file. Review of Systems Constitutional: Positive for fatigue. HENT: Positive for congestion. + difficulty smelling Allergic/Immunologic: Positive for environmental allergies. Psychiatric/Behavioral: The patient is nervous/anxious. Physical Exam BP 120/78 (BP Location: Right arm, Patient Position: Sitting, BP Cuff Size: Large adult) Pulse 69 Resp 16 Ht 5' 4 (1.626 m) Wt 164 lb 12.8 oz (74.8 kg) SpO2 94% Comment: ra BMI 28.29 kg/m General appearance: Well appearing. No acute distress. AAOX3 Head: Normocephalic, without obvious abnormality, atraumatic Eyes: Normal sclera and conjunctiva Lungs: Normal respiratory effort--no dyspnea Skin: Skin color normal. No rashes or lesions Psych: Euthymic Mood, full affect Impression: Diagnosis Plan 1. Narcolepsy without cataplexy armodafinil (Nuvigil) 50 MG tablet 22 y/o F with Crohn's and BMI > 30. Has occasional sleep onset insomnia, but primary issue is significant daytime sleepiness and fatigue. PSG/MSLT demonstrated hypersomnolence consistent with narcolepsy w/o cataplexy. Recommendations: - Increasing nuvigil from 50 to 100 mg for some ongoing fatigue. - Pt will update me via [employer] in 2-4 weeks. - F/u 3 months. documented in this [facility]04-04-2023 History of Present illness Narrative* Kayleigh Stevens MD - 09/09/2022 9:30 AM EDT Images from the original note were not included. [facility] SLEEP MEDICINE FOLLOW UP TELEHEALTH VISIT-SLEEP Date of last visit: 06/12/22 Plan at that time: - Will obtain PSG/MSLT. Pt to complete sleep logs and obtain urine testing. - Pt will let me know after she has signed up for [employer] so I can send further instructions/info. - F/u after sleep study. Interval History: Here for results of PSG/MSLT. Reports sleep is fairly unchanged from last visit. Still tired and sleepy throughout the day. Does note some occasional difficulty falling asleep, as well as sleeping in longer on weekends when she'snot working. Sleep-Wake Schedule Bedtime: 10:30 P.M. . Final wake time: 5 A.M. . she does not wake up refreshed. Sleep Latency: not sure, but some days can be up to couple hours. Usually just lays in bed, but sometimes has tv on. Awakenings after sleep onset: usually not Naps: tries not to, but couple days a week will fall asleep after work for couple hours Estimated total sleep time: 6 hours in 24 hours Non-work day schedule: may sleep in for several additional hours (up to 10-11 am) Sleep Metrics: ESS = 14 (19 last visit) Past Treatments: Doesn't remember--was prescribed something in the past PSG 08/20/22: AHI 3.9; SpO2 min 83%. TST 472 minutes. SE 97.5%. REM latency 69.5 minutes. 29.1% REM sleep. MSLT: MSL 7.9 minutes; 2 SOREMPs. No urine tox. Irregular sleep schedule on sleep diary. Sleep Studies: None Labs/additional studies: Reviewed Past Medical History Past Medical History: Diagnosis Date CC (Crohn's colitis) (CMS/HCC) ([facility]) Past Surgical History Past Surgical History: Procedure Laterality Date BREAST SURGERY TONSILLECTOMY (HISTORICAL) Allergies Allergies Allergen Reactions Oxycodone Swelling Had facial swelling and throat tightness when took oxy after wisdom teeth were pulled. Resolved once stopped taking oxy. Penicillins Hives and Rash Medications Current Outpatient Medications Medication Instructions armodafinil (NUVIGIL) 50 mg, Oral, Daily inFLIXimab (Remicade) 100 MG injection IntraVENous, Every six weeks Social History Social History Tobacco Use Smoking status: Every Day Packs/day: 0.50 Types: Cigarettes Smokeless tobacco: Never Substance Use Topics Alcohol use: Not Currently Family History No family history on file. Review of Systems Constitutional: Positive for fatigue. HENT: Positive for congestion. + difficulty smelling Allergic/Immunologic: Positive for environmental allergies. Psychiatric/Behavioral: The patient is nervous/anxious. Physical Exam General appearance: Well appearing. No acute distress. AAOX3 Head: Normocephalic, without obvious abnormality, atraumatic Eyes: Normal sclera and conjunctiva Lungs: Normal respiratory effort--no dyspnea Skin: Skin color normal. No rashes or lesions Psych: Euthymic Mood, full affect Impression: Diagnosis Plan 1. Narcolepsy without cataplexy armodafinil (Nuvigil) 50 MG tablet 2. Inadequate sleep hygiene 22 y/o F with Crohn's and BMI > 30. Has occasional sleep onset insomnia, but primary issue is significant daytime sleepiness and fatigue. PSG/MSLT demonstrated hypersomnolence consistent with narcolepsy w/o cataplexy. Recommendations: - Reviewed results of PSG/MSLT in detail with patient. - Counseled pt on sleep hygiene. - Starting Nuvigil 50 mg HS. Discussed indications/length of use/risks/benefits/alternatives/duration to efficacy of medication. - F/u 1 month. Patient was seen today via Telehealth by agreement and consent in light of the current COVID-19 pandemic. I used the following Telehealth technology: Audio and video capabilities Patient location: Home. This patient encounter is appropriate and reasonable under the circumstances given the patient'sparticular presentation at this time. The patient has been advised of the potential risks and limitations of this mode of treatment (including but not limited to the absence of in-person examination)and has agreed to be treated in a remote fashion in spite of them. Any and all of the patient's/patient's family's questions on this issue have been answered and I have made no promises or guaranteesto the patient. The patient has also been advised to contact this office for worsening conditions or problems, and seek emergency medical treatment and/or call 911 if the patient deems either necessary. The patient stated that they are currently in the [facility]. If the patient is a minor, permission has been obtained by the parent or guardian for the patient to receive medical care at this visit. * Sarah Russell RN - 09/09/2022 9:30 AM EDT Patient scheduled for 1-month follow up. She was advised of d/t/l. documented in this [facility]03-03-2023 Telephone encounter Note* Telephone Encounter - Aye Cao - 08/08/2022 3:07 PM EST Called to check status, auth was not initiated yet. Initiated for both codes. [id number] approved, auth #[id number] valid 08/08/22-02/04/23. [id number] case #[id number] pending, sending in additional clinical info [id number] Miscellaneous Notes* Telephone Encounter - Aye Cao - 08/08/2022 3:07 PM EST Called to check status, auth was not initiated yet. Initiated for both codes. [id number] approved, auth #[id number] valid 08/08/22-02/04/23. [id number] case #[id number] pending, sending in additional clinical info * Telephone Encounter - Cecile Nelson - 08/04/2022 4:05 PM EST Good afternoon, Patient is scheduled for a PSG/MSLT on 08/14/22. Per Gabby thompson [facility], prior authorization is required through [facility] for CPT 18182/74332. Please initiate at your earliest convenience. documented in this [facility]03-03-2023 History of Present illness Narrative* Jb Iniguez, [employer] - 08/08/2022 12:00 PM EST Infusion Center Progress Note Date Of Service: 08/08/2022 Patient: Kristine Crum : 2000 Age:22 y.o. Weight/Height: Vitals: 08/08/22 1140 Weight: 78.4 kg Height: 163.5 cm Allergies: Allergies Allergen Reactions Oxycodone Swelling Had facial swelling and throat tightness when took oxy after wisdom teeth were pulled. Resolved once stopped taking oxy. Amoxicillin Hives and Rash Penicillins Rash Chief Complaint Patient presents with Infusion Infusion Therapy Ordering Provider: Dr. Trenton Mccord MD Subjective: Kristine Crum is a 22 y.o. female with a history of Crohn's who presents today for her scheduled Inflectra infusion. She is unaccompanied and reports no recent illnesses. No questions or concerns per patient, nursingprior to infusion. She has previously tolerated infusions well. Today is her last infusion at [facility]. Past Medical and Past Surgical History: Past Medical History: Diagnosis Date Acne Crohn's disease Former smoker Inflammatory bowel disease Migraines started 4-5 years ago, worse since tragus piercing has been outMay 2018, now has some degree of headache almost daily. Obesity Poor sleep hygiene Past Surgical History: Procedure Laterality Date ABCESS DRAINAGE Right 02/26/2019 INCISION AND DRAINAGE ABSCESS (SIMPLE) right buttock performed by Ronnie Irene MD at [facility] OR COLONOSCOPY ESOPHAGOSCOPY N/A 06/04/2018 ENDOSCOPY (UPPER AND COLONOSCOPY) with biopsies performed by Baldomero Becerra MD at [facility] OR ESOPHAGOSCOPY N/A 07/15/2021 ENDOSCOPY (UPPER AND COLONOSCOPY) with biopsies (screening IBD) performed by [facility] [place] ENDOSCOPY TONSILLECTOMY AND ADENOIDECTOMY 2004 WRIST GANGLION EXCISION Left 05/29/2017 CYST GANGLION EXCISION, LEFT WRIST performed by Phillip Lala Sr., MD at [facility] OR WRIST GANGLION EXCISION Left 06/04/2018 CYST GANGLION EXCISION performed by Phillip Lala Sr., MD at [facility] OR Current Medications: Current Outpatient Medications: vitamin D (ERGOCALCIFEROL) 1.25 MG (31211 UT) capsule, Take 1 Capsule (50,000 Units) by mouth every7 days, Disp: 12 Capsule, Rfl: 0 DYMISTA 137-50 MCG/ACT SUSP, use 1 [employer] each nostril daily (Patient not taking: Reported on 02/20/2022), Disp: 69 g, Rfl: 3 Current Facility-Administered Medications: NaCl 0.9% PosiFlush 2 mL, 2 mL, Intravenous, PRN, Trenton Mccord MD NaCl 0.9% PosiFlush 2 mL, 2 mL, Intercatheter, PRNFlex Matthew J, MD NaCl 0.9 % IV Flush bag 30 mL, 30 mL, Intravenous, PRN, Trenton Mccord MD sterile water injection 10 mL, 10 mL, Injection, PRN, Trenton Mccord MD NaCl 0.9% PosiFlush 10 mL, 10 mL, Intravenous, Flex SIDHU Matthew J, MD NaCl 0.9 % 10 mL, 10 mL, Intravenous, PRFlex Granados Matthew J, MD diphenhydrAMINE (BENADRYL) injection 25 mg, 25 mg, Intravenous, Q4H PRN, Trenton Mccord MD EPINEPHrine 1 mg/mL injection 0.5 mg, 0.5 mg, Intramuscular, Once PRN, Trenton Mccord MD methylPREDNISolone (Solu-MEDROL) in sterile water IV High CONC 125 mg, 125 mg, Intravenous, Once PRN, Trenton Mccord MD cetirizine (ZyrTEC) tablet 10 mg, 10 mg, Oral, PRN, Sarah Torre APRN-CNP inFLIXimab-dyyb (INFLECTRA) 800 mg in NaCl 0.9% 250 mL IV, 800 mg, Intravenous, Once, Trenton Mccord MD Objective: Vitals: 08/08/22 1140 BP: 117/76 Pulse: 89 Resp: 16 Temp: 37.1 C (98.8 F) Review of Systems: General: Negative for fever Neurological: Negative for headaches Respiratory: Negative for cough or rhinorrhea Gastrointestinal: Negative for vomiting or diarrhea Musculoskeletal: Negative for joint pain and swelling Skin: Negative for rash Physical Exam: General:The patient is well-kept and well-nourished. HEENT:Conjunctiva clear,nares patent without discharge,there is full range of motion. Respiratory:Respirations are easy and non-labored. Extremities:Moves all extremities purposefully. Neurologic:Awake and Alert. At neurologic baseline Skin:No rashes noted. Data Review: Labs drawn per therapy plan Recent Labs 08/08/22 1148 HCGURPOCT Negative Protocol Regimen: Every 6 week(s). Transitioning to adult facility after this visit. Assessment: Kristine Crum is a 22 y.o. female with a history of Crohn's who presents today for her scheduled infusion in good condition. Plan: -Infusion as scheduled -Notify Provider for any concerns or infusion reactions -Infusion ordering provider to follow up on all labs Time spent on the assessment, plan, and coordination of care for this patient was 10 minutes. GERALD Woodward 08/08/2022 12:09 PM [facility] Miscellaneous Notes* Nursing - Margarita Pryor RN - 08/08/2022 12:00 PM EST Patient present for Inflectra infusion. Denies of any signs and symptoms of flare of disease. Patient express understanding of signs and symptoms of flare, side effects of medication, and how/when tocontact doctor with problems and concerns. Denies any signs and symptoms of reaction post Inflectrainfusion. * Nursing - Margarita Pryor RN - 08/08/2022 12:00 PM EST Patient discharged home in stable condition. Patient expresses verbal understanding of discharge instructions. * Plan of Care - Margarita Pryor RN - 08/08/2022 12:00 PM EST Problem: Diarrhea Goal: Knowledge of infection prevention and control procedures Outcome: Ongoing Problem: Fluid Volume Deficit Goal: Balanced intake and output Outcome: Ongoing Problem: Falls, Risk of Goal: Absence of falls Outcome: Ongoing Goal: Absence of physical injury Outcome: Ongoing [facility] Nurse Note* Katie - Margarita Pryor RN - 08/08/2022 12:00 PM EST Patient present for Inflectra infusion. Denies of any signs and symptoms of flare of disease. Patient express understanding of signs and symptoms of flare, side effects of medication, and how/when tocontact doctor with problems and concerns. Denies any signs and symptoms of reaction post Inflectrainfusion. [facility]03-[facility] Nurse Note* Nursing - Margarita Pryor RN - 08/08/2022 12:00 PM EST Patient discharged home in stable condition. Patient expresses verbal understanding of discharge instructions. [facility]03-03-2023 Plan of care note* Plan of Care - Margarita Pryor RN - 08/08/2022 12:00 PM EST Problem: Diarrhea Goal: Knowledge of infection prevention and control procedures Outcome: Ongoing Problem: Fluid Volume Deficit Goal: Balanced intake and output Outcome: Ongoing Problem: Falls, Risk of Goal: Absence of falls Outcome: Ongoing Goal: Absence of physical injury Outcome: Ongoing [facility]02-27-2023 Telephone encounter Note* Telephone Encounter - Cecile Nelson - 08/04/2022 4:05 PM EST Good afternoon, Patient is scheduled for a PSG/MSLT on 08/14/22. Per Gabby thompson [facility], prior authorization is required through [facility] for CPT 14865/77405. Please initiate at your earliest convenience. [facility]01-20-2023 Nurse Note* Nursing - Christine Godfrey RN - 06/27/2022 1:10 PM EST Patient discharged home with Mother in stable condition.Pt expresses verbal understanding of discharge instructions. Pt ambulated out of unit without difficulty. [facility]01-20-2023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 02/20/2022 12:28 PM [facility] Miscellaneous Notes* Whit Jones RN - 02/20/2022 9:30 AM EDT Patient present for Inflectra infusion. Denies of any signs and symptoms of flare of disease. Patient expresses understanding of signs and symptoms of flare, side effects of medication, and how/when to contact doctor with problems and concerns. Denies any signs and symptoms of reaction post Inflectra infusion. No recent illness, infections, or fevers per patient. * Whit Jones RN - 02/20/2022 9:30 AM EDT Patient took tylenol at home at 0845. * Whit Jones RN - 02/20/2022 9:30 AM EDT Patient discharged home in stable condition. Patient expresses verbal understanding of discharge instructions. Follow-up appointments given to patient. [facility] Nurse Note* Whit Jones RN - 02/20/2022 9:30 AM EDT Patient present for Inflectra infusion. Denies of any signs and symptoms of flare of disease. Patient expresses understanding of signs and symptoms of flare, side effects of medication, and how/when to contact doctor with problems and concerns. Denies any signs and symptoms of reaction post Inflectra infusion. No recent illness, infections, or fevers per patient. [facility] Note* Whit Jones RN - 02/20/2022 9:30 AM EDT Patient took tylenol at home at 0845. [facility]* Whit Jones RN - 02/20/2022 9:30 AM EDT Patient discharged home in stable condition. Patient expresses verbal understanding of discharge instructions. Follow-up appointments given to patient. [facility]04[facility] Miscellaneous Notes* Kayla Hammer RN - 01/09/2022 12:40 PM EDT Patient tolerated her infusion without any incident. Patient discharged home in stable condition. Patient expresses verbal understanding of discharge instructions. Follow-up appointments given to patient. * Kayla Hammer RN - 01/09/2022 9:45 AM EDT Rapid remicade infusion protocol discussed with patient. Letter given to patient. Survey given to patient on ipad. Advised patient to contact GI provider with any questions or concerns related to rapid remicade infusions and preparing for transition. No questions at this time. * Kayla Hammer RN - 01/09/2022 9:45 AM EDT Patient present for Inflectra infusion. Patient's right finger is in a splint due to stiches. See ER visit on 12/31/21. Patient denies any problems currently. Patient denies of any signs and symptoms of flare of disease or infection. Patient expresses understanding of signs and symptoms of flare, side effects of medication, and how/when to contact doctor with problems and concerns. Patient denies any signs and symptoms of reaction post Inflectra infusion. * Plan of Care - Kayla Rutledge RN - 01/09/2022 9:45 AM EDT Plan of care is ongoing due to chronic disease. documented in this [facility]08-[facility]22 Nurse Note* Nursing - Kayla Rutledge RN - 01/09/2022 12:40 PM EDT Patient tolerated her infusion without any incident. Patient discharged home in stable condition. Patient expresses verbal understanding of discharge instructions. Follow-up appointments given to patient. [facility]* Nursing - Kayla Rutledge RN - 01/09/2022 9:45 AM EDT Rapid remicade infusion protocol discussed with patient. Letter given to patient. Survey given to patient on ipad. Advised patient to contact GI provider with any questions or concerns related to rapid remicade infusions and preparing for transition. No questions at this time. [facility]* Nursing - Kayla Rutledge RN - 01/09/2022 9:45 AM EDT Patient present for Inflectra infusion. Patient's right finger is in a splint due to stiches. See ER visit on 12/31/21. Patient denies any problems currently. Patient denies of any signs and symptoms of flare of disease or infection. Patient expresses understanding of signs and symptoms of flare, side effects of medication, and how/when to contact doctor with problems and concerns. Patient denies any signs and symptoms of reaction post Inflectra infusion. [facility] Plan of care note* Plan of Care - Kayla Rutledge RN - 01/09/2022 9:45 AM EDT Plan of care is ongoing due to chronic disease. [facility] History of Present illness Narrative* Sarah Torre APRN-MICHELLE - 01/09/2022 9:30 AM EDT Infusion Center Progress Note Date Of Service: 01/09/2022 Patient: Kristine Crum : 2000 Age:21 y.o. Weight/Height: Vitals: 01/09/22 0930 Weight: 79 kg Height: 162 cm Allergies: Allergies Allergen Reactions Oxycodone Swelling Had facial swelling and throat tightness when took oxy after wisdom teeth were pulled. Resolved once stopped taking oxy. Amoxicillin Hives and Rash Penicillins Rash Chief Complaint Patient presents with Infusion Infusion Therapy Ordering Provider: Dr. Trenton Mccord MD Subjective: Kristine Crum is a 21 y.o. female with a history of Crohn's who presents today for her scheduled Inflectra infusion. She is unaccompanied and reports no recent illnesses, she has a laceration to her finger, seen in the ED last week and got stitches. No questions or concerns per patient or nursing prior to infusion.She has previously tolerated infusions well. Past Medical and Past Surgical History: Past Medical History: Diagnosis Date Acne Crohn's disease Former smoker Inflammatory bowel disease Migraines started 4-5 years ago, worse since tragus piercing has been out/May 2018, now has some degree of headache almost daily. Obesity Poor sleep hygiene Past Surgical History: Procedure Laterality Date ABCESS DRAINAGE Right 02/26/2019 INCISION AND DRAINAGE ABSCESS (SIMPLE) right buttock performed by Ronnie Irene MD at [facility] OR COLONOSCOPY ESOPHAGOSCOPY N/A 06/04/2018 ENDOSCOPY (UPPER AND COLONOSCOPY) with biopsies performed by Baldomero Becerra MD at [facility] OR ESOPHAGOSCOPY N/A 07/15/2021 ENDOSCOPY (UPPER AND COLONOSCOPY) with biopsies (screening IBD) performed by Trenton Mccord MDat [facility] [place] [facility] ENDOSCOPY TONSILLECTOMY AND ADENOIDECTOMY 2004 WRIST GANGLION EXCISION Left 05/29/2017 CYST GANGLION EXCISION, LEFT WRIST performed by Phillip Lala Sr., MD at [facility] OR WRIST GANGLION EXCISION Left 06/04/2018 CYST GANGLION EXCISION performed by Phillip Lala Sr., MD at [facility] OR Current Medications: Current Outpatient Medications: tretinoin (RETIN-A) 0.025 % CREA cream, , Disp: , Rfl: clindamycin phosphate (CLEOCIN-T) 1 % SWAB, , Disp: , Rfl: vitamin D (ERGOCALCIFEROL) 1.25 MG (77602 UT) capsule, Take 1 Capsule (50,000 Units) by mouth every7 days (Patient not taking: Reported on 09/30/2021), Disp: 12 Capsule, Rfl: 0 DYMISTA 137-50 MCG/ACT SUSP, use 1 [employer] each nostril daily, Disp: 69 g, Rfl: 3 adapalene (DIFFERIN) 0.1 % cream, Apply to affected area nightly at bedtime, Disp: 135 g, Rfl: 3 hydrocortisone 2.5 % cream, Apply to affected area 2 times daily Apply thin film to affected areas., Disp: 120 g, Rfl: 3 Current Facility-Administered Medications: NaCl 0.9% PosiFlush 2 mL, 2 mL, Intravenous, PRN, Trenton Mccord MD, Last Rate: 0 mL/hr at 01/09/22 1015, 2 mL at 01/09/22 1015 NaCl 0.9% PosiFlush 2 mL, 2 mL, Intercatheter, PRN, Trenton Mccord MD NaCl 0.9 % IV Flush bag 30 mL, 30 mL, Intravenous, THEA, Trenton Mccord MD sterile water injection 10 mL, 10 mL, Injection, PRN, Trenton Mccord MD NaCl 0.9% PosiFlush 10 mL, 10 mL, Intravenous, PRN, Trenton Mccord MD NaCl 0.9 % 10 mL, 10 mL, Intravenous, PRN, Trenton Mccord MD diphenhydrAMINE (BENADRYL) injection 25 mg, 25 mg, Intravenous, Q4H PRN, Trenton Mccord MD EPINEPHrine 1 mg/mL injection 0.5 mg, 0.5 mg, Intramuscular, Once PRN, Trenton Mccord MD methylPREDNISolone (Solu-MEDROL) in sterile water IV High CONC 125 mg, 125 mg, Intravenous, Once PRN, Trenton Mccord MD lidocaine (LMX) 4 % kit 5 g, 1 Each, Topical, PRN, Trenton Mccord MD cetirizine (ZyrTEC) tablet 10 mg, 10 mg, Oral, PRN, Sarah Torre APRN-MICHELLE Objective: Vitals: 01/09/22 0930 BP: 135/90 Pulse: 68 Resp: 20 Temp: 36.6 C (97.9 F) Review of Systems: General: Negative for fever Respiratory: Negative for cough or rhinorrhea Gastrointestinal: Negative for vomiting or diarrhea Physical Exam: General:The patient is well-kept and well-nourished. Sitting in bed, pleasant and cooperative. HEENT:Conjunctiva clear,there is full range of motion. Respiratory:Respirations are easy and non-labored. Extremities:Moves all extremities purposefully. Neurologic:Awake and Alert. At neurologic baseline Skin:Skin is warm and dry. No rashes noted. Data Review: Labs drawn per therapy plan Recent Labs 01/09/22 0949 HCGURPOCT Negative Protocol Regimen: Every 6 week(s). Assessment: Kristine Crum is a 21 y.o. female with a history of Crohn's who presents today for her scheduled infusion in good condition. Plan: -Infusion as scheduled -Notify Provider for any concerns or infusion reactions -Scheduled next infusion prior to discharge home -Infusion ordering provider to follow up on all labs Time spent on the assessment, plan, and coordination of care for this patient was 10 minutes. GERALD Emmanuel 01/09/2022 10:43 AM [facility] Emergency [facility] Note* Daphne Schmitz RN - 12/31/2021 11:20 PM EDT Discharge instructions reviewed with family. Patient and partner verbalized understanding. Denied questions or concerns. Pt awake and alert and ambulated out of the ED in [facility]. [facility] Emergency [facility] Note* Daphne Schmitz RN - 12/31/2021 11:20 PM EDT Discharge instructions reviewed with family. Patient and partner verbalized understanding. Denied questions or concerns. Pt awake and alert and ambulated out of the ED in [facility]. * Alyson Contreras MD - 12/31/2021 10:17 PM EDT Kristine Chaidez Skyla : 2000 Chief Complaint Patient presents with Injury Allergies Allergen Reactions Oxycodone Swelling Had facial swelling and throat tightness when took oxy after wisdom teeth were pulled. Resolved once stopped taking oxy. Amoxicillin Hives and Rash Penicillins Rash DOS: 12/31/2021 LISA Swan is our 21 yo old female with a PMHx of IBD, and migraines presenting after cutting her hand on glass from her fish tank. Denies BAH, vision changes, no sob/difficulty breathing, no chest or abdominal pain. Tolerating PO intake well, no nausea or vomiting. Denies dizziness or lightheadedness. No fever or chills. No retained glass noted. States that she immediatly applied pressure however do to persistent movement was unable to stop the bleeding totally. Review of Systems Constitutional: Negative for appetite change, fatigue and fever. HENT: Negative for sinus pressure, sinus pain and sneezing. Eyes: Negative for visual disturbance. Respiratory: Negative for cough and shortness of breath. Gastrointestinal: Negative for abdominal distention, abdominal pain, constipation, diarrhea, nauseaand vomiting. Genitourinary: Negative for dysuria and hematuria. Musculoskeletal: Negative for arthralgias and myalgias. Skin: Positive for wound (right index finger laceration). Neurological: Negative for dizziness, seizures, weakness, light-headedness, numbness and headaches. Psychiatric/Behavioral: Negative for agitation. The patient is not nervous/anxious. Past Medical History: Diagnosis Date Acne Crohn's disease Former smoker Inflammatory bowel disease Migraines started 4-5 years ago, worse since tragus piercing has been outMay 2018, now has some degree of headache almost daily. Obesity Poor sleep hygiene Past Surgical History: Procedure Laterality Date ABCESS DRAINAGE Right 02/26/2019 INCISION AND DRAINAGE ABSCESS (SIMPLE) right buttock performed by Ronnie Irene MD at [facility] OR COLONOSCOPY ESOPHAGOSCOPY N/A 06/04/2018 ENDOSCOPY (UPPER AND COLONOSCOPY) with biopsies performed by Baldomero Becerra MD at [facility] OR ESOPHAGOSCOPY N/A 07/15/2021 ENDOSCOPY (UPPER AND COLONOSCOPY) with biopsies (screening IBD) performed by [facility]ord [facility] [place] [facility] [facility] TONSILLECTOMY AND ADENOIDECTOMY 2004 WRIST GANGLION EXCISION Left 05/29/2017 CYST GANGLION EXCISION, LEFT WRIST performed by Phillip Lala Sr., MD at [facility] OR WRIST GANGLION EXCISION Left 06/04/2018 CYST GANGLION EXCISION performed by Phillip Lala Sr., MD at [facility] OR Pediatric History Patient Parents Anitha Crum (Mother) Guerrero Crum (Father) Other Topics Concern Not on file Social History Narrative Not on file ED Triage Vitals Date and Time Temp Temp src Pulse Resp BP SpO2 Weight User 12/31/21 2157 36.4 C (97.5 F) Temporal 80 20 130/79 100 % 79.9 kg EAB Physical Exam Constitutional: General: She is not in acute distress. Appearance: Normal appearance. She is normal weight. She is not ill-appearing. HENT: Head: Normocephalic and atraumatic. Nose: No congestion or rhinorrhea. Mouth/Throat: Pharynx: No oropharyngeal exudate or posterior oropharyngeal erythema. Eyes: Extraocular Movements: Extraocular movements intact. Pupils: Pupils are equal, round, and reactive to light. Neck: Musculoskeletal: Normal range of motion. Cardiovascular: Rate and Rhythm: Normal rate. Pulses: Normal pulses. Heart sounds: Normal heart sounds. No murmur heard. Pulmonary: Effort: Pulmonary effort is normal. No respiratory distress. Breath sounds: Normal breath sounds. Abdominal: General: Bowel sounds are normal. There is no distension. Palpations: Abdomen is soft. Tenderness: There is no abdominal tenderness. Musculoskeletal: General: No swelling or tenderness. Normal range of motion. Cervical back: Normal range of motion. Skin: General: Skin is warm and dry. Capillary Refill: Capillary refill takes less than 2 seconds. Findings: Laceration (2cm laceration on right index finger) present. Neurological: General: No focal deficit present. Mental Status: She is alert and oriented to person, place, and time. Mental status is at baseline. Psychiatric: Mood and Affect: Mood normal. Behavior: Behavior normal. Thought Content: Thought content normal. Judgment: Judgment normal. Procedures MDM ED Course: Diagnosis' considered: Labs/Radiology: Consults: No orders of the defined types were placed in this encounter. Medical Record/Transferring Institution Record: Treatment/Reassessment: Kristine is our 21 yo old female with a PMHx of IBD, and migraines presenting after cutting her hand on glass from her fish tank. In the ED vital signs stable, well-appearing and cooperative. Emergency care plan for patient was reviewed with patient which includes consulting the suture team for wound closure. Received 3 sutures to right second finger. tenus immunization gave. Will be due in 03/29. Patient states she would like it given on this visit. Patient tolerated procedure well, tolerating po intake, pain well controlled and safe for dischargehome with close outpatient follow up. No abx indicated at this time. Will continue with outpatient wound care instructions provided. Including bacitracin. . Encounter Documentation/Handoff: Final Clinical Impression/Diagnosis as of 12/31/212341 Laceration of right index finger without foreign body without damage to nail, initial encounter The the above note has been reviewed by Alyson Contreras MD who was present in the Emergency Department with Kristine Chaidez Skyla. I spoke with the family regarding the history and Physical Exam findings. Management of the patient has been carried out in accordance with my plans. she has mild Laceration Of the finger from glass tank. No glass in wound. Tetanus was given. . The wound does be sutured. See Suture note for details. At the time of discharge the patient was stable. I answered all questions and reviewed with them the return criteria of infection, which they understood. They will follow up with PCP or ER. 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 Removal/Physician Follow up: For signs of infection or other concerns, follow-up with child's doctor/Emergency immediately. The sutures do not need to be removed. They will fall out by themselves. They may take 10-14 days. If the sutures remain in place after 14 days, scrub vigorously with soap and water, to aid in theirbreakdown. Bandages: Remove bandage in 48 hours. If bandage becomes wet or soiled, remove it and apply a clean one. Change bandage after each cleaning. Cleaning the wound: Starting 48 hours after treatment, clean with soap and water 2-3 times a day for 14 days, or until healed. Apply Bacitracin ointment after each cleaning. Additional Instructions: Additional information sheets given: suture care Elevate injury for 24-48 hours or until pain free. No swimming until 24 hours after sutures are removed or dissolved. No gym class or sports for 14 days or until cleared by child's doctor. Signs of Infection (contact your doctor if present) * Increased redness around wound * Increasing pain * Increased tenderness * Increased swelling * Fever * Foul odor or drainage from wound. THE HEALING PROCESS Will this leave a scar? Yes. All wounds heal by scarring. Our job is to treat your child's wounds to keep scarring to a minimum. Different areas of the body heal at different rates and require different treatments. Although the sutures and bandages are removed after a short time, the healing process is continuous, lasting six (6) months or longer. Do not be alarmed at subtle changes in the color or texture of the scar. This is normal. Discuss any history of excessive scarring with your child's regular doctor. Scar Management: To minimize the scaring process, start these three weeks after sutures are removed. Three simple rules to follow--------The Three S s Soften--with massaging scar twice a day for 1-2 minutes Sun block--apply directly to the scar using SPF 30 or higher for 1 year Silicone or Scar gels - an over the counter product applied on top of scar. Use as directed. Final scar appearance: Scars can take up to 18 months to mature . During this time the scar can be pink-red, firm, thick, raised, itchy, and lumpy. You may be able to accelerate this process of maturation with The Three S s. * Attachments The following attachments cannot be sent through Care Everywhere. * Pediatric Advisor: Suture Care: Brief Version (Guatemalan) documented in this [facility]07-26-2022 Emergency department Note* ED Suture Note - Daphne Schmitz RN - 12/31/2021 11:00 PM EDT Kristine Crum 21 y.o. 2000 12/31/2021 TYPE OF WOUND PROCEDURE: LACERATION Laceration Row Name 12/31/21 2300 Laceration procedure time Start time 5 End time 2300 Total time 15 Temporary immobilization Temporarily immobilization needed for safety of patient No Patient Support Support present Other suture staff Cleansing Cleansing/soak Cleansed Cleansing solution Diluted betadine Irrigation Irrigation amount 90cc Type of irrigation Splash guard and syringe Irrigation solution Normal saline Exploration Instrument Adson forceps Findings No significant findings;No foreign matter;No tendon involvement;No obvious neurovascular damage Closure type Suture kit used Yes Lac total Lac 1 Mechanism of injury (Lac 1) Other (comment) Mechanism of Injury Description (Lac 1) fishtank glass vs finger Anatomy direction (Lac 1) Right Location (Lac 1) Finger Finger (Lac 1) Index Wound length (cm) (Lac 1) 1.5 centimeters Wound depth (Lac 1) Full thickness Anesthesia (LAC 1) Digital (1% lidocaine and 0.5% bupivacaine mixed in a 1:1 ratio given) Wound 1 Skin Wound1/Skin: Total Sutures 3 Wound1/Skin: Suture Size 4-0 Wound1/Skin: Stitch Type Simple interrupted Wound1/Skin: Stitch Material Vicryl rapide Dressing Dressing Bacitracin ointment;Tube gauze;Cuticerin Post Procedure Tolerated procedure Yes Alert and appropriate for age upon discharge Yes Wound instructions given Signs of infection;Wound care Wound discharge instructions given Yes Patient Currently in Pain Denies Daphne Schmitz RN 12/31/2021 11:27 PM [facility] Miscellaneous Notes* ED Suture Note - Daphne Schmitz RN - 12/31/2021 11:00 PM EDT Kristine Crum 21 y.o. 2000 12/31/2021 TYPE OF WOUND PROCEDURE: LACERATION Laceration Row Name 12/31/21 2300 Laceration procedure time Start time 2245 End time 2300 Total time 15 Temporary immobilization Temporarily immobilization needed for safety of patient No Patient Support Support present Other suture staff Cleansing Cleansing/soak Cleansed Cleansing solution Diluted betadine Irrigation Irrigation amount 90cc Type of irrigation Splash guard and syringe Irrigation solution Normal saline Exploration Instrument Adson forceps Findings No significant findings;No foreign matter;No tendon involvement;No obvious neurovascular damage Closure type Suture kit used Yes Lac total Lac 1 Mechanism of injury (Lac 1) Other (comment) Mechanism of Injury Description (Lac 1) fishtank glass vs finger Anatomy direction (Lac 1) Right Location (Lac 1) Finger Finger (Lac 1) Index Wound length (cm) (Lac 1) 1.5 centimeters Wound depth (Lac 1) Full thickness Anesthesia (LAC 1) Digital (1% lidocaine and 0.5% bupivacaine mixed in a 1:1 ratio given) Wound 1 Skin Wound1/Skin: Total Sutures 3 Wound1/Skin: Suture Size 4-0 Wound1/Skin: Stitch Type Simple interrupted Wound1/Skin: Stitch Material Vicryl rapide Dressing Dressing Bacitracin ointment;Tube gauze;Cuticerin Post Procedure Tolerated procedure Yes Alert and appropriate for age upon discharge Yes Wound instructions given Signs of infection;Wound care Wound discharge instructions given Yes Patient Currently in Pain Denies Daphne Schmitz RN 12/31/2021 11:27 PM documented in [facility] Phys[facility] Emergency department Note* Alyson Contreras MD - 12/31/2021 10:17 PM EDT Kristine Chaidez Skyla : 2000 Chief Complaint Patient presents with Injury Allergies Allergen Reactions Oxycodone Swelling Had facial swelling and throat tightness when took oxy after wisdom teeth were pulled. Resolved once stopped taking oxy. Amoxicillin Hives and Rash Penicillins Rash DOS: 12/31/2021 HPI Kristine is our 21 yo old female with a PMHx of IBD, and migraines presenting after cutting her hand on glass from her fish tank. Denies BAH, vision changes, no sob/difficulty breathing, no chest or abdominal pain. Tolerating PO intake well, no nausea or vomiting. Denies dizziness or lightheadedness. No fever or chills. No retained glass noted. States that she immediatly applied pressure however do to persistent movement was unable to stop the bleeding totally. Review of Systems Constitutional: Negative for appetite change, fatigue and fever. HENT: Negative for sinus pressure, sinus pain and sneezing. Eyes: Negative for visual disturbance. Respiratory: Negative for cough and shortness of breath. Gastrointestinal: Negative for abdominal distention, abdominal pain, constipation, diarrhea, nauseaand vomiting. Genitourinary: Negative for dysuria and hematuria. Musculoskeletal: Negative for arthralgias and myalgias. Skin: Positive for wound (right index finger laceration). Neurological: Negative for dizziness, seizures, weakness, light-headedness, numbness and headaches. Psychiatric/Behavioral: Negative for agitation. The patient is not nervous/anxious. Past Medical History: Diagnosis Date Acne Crohn's disease Former smoker Inflammatory bowel disease Migraines started 4-5 years ago, worse since tragus piercing has been out/May 2018, now has some degree of headache almost daily. Obesity Poor sleep hygiene Past Surgical History: Procedure Laterality Date ABCESS DRAINAGE Right 02/26/2019 INCISION AND DRAINAGE ABSCESS (SIMPLE) right buttock performed by Ronnie Irene MD at [facility] OR COLONOSCOPY ESOPHAGOSCOPY N/A 06/04/2018 ENDOSCOPY (UPPER AND COLONOSCOPY) with biopsies performed by Baldomero Becerra MD at [facility] OR ESOPHAGOSCOPY N/A 07/15/2021 ENDOSCOPY (UPPER AND COLONOSCOPY) with biopsies (screening IBD) performed by [facility]ord [facility] [place] [facility] TONSILLECTOMY AND ADENOIDECTOMY 2004 WRIST GANGLION EXCISION Left 05/29/2017 CYST GANGLION EXCISION, LEFT WRIST performed by Phillip Lala Sr., MD at [facility] OR WRIST GANGLION EXCISION Left 06/04/2018 CYST GANGLION EXCISION performed by Phillip Lala Sr., MD at [facility] Pediatric History Patient Parents Anitha Crum (Mother) Guerrero Crum (Father) Other Topics Concern Not on file Social History Narrative Not on file ED Triage Vitals Date and Time Temp Temp src Pulse Resp BP SpO2 Weight User 12/31/21 2157 36.4 C (97.5 F) Temporal 80 20 130/79 100 % 79.9 kg EAB Physical Exam Constitutional: General: She is not in acute distress. Appearance: Normal appearance. She is normal weight. She is not ill-appearing. HENT: Head: Normocephalic and atraumatic. Nose: No congestion or rhinorrhea. Mouth/Throat: Pharynx: No oropharyngeal exudate or posterior oropharyngeal erythema. Eyes: Extraocular Movements: Extraocular movements intact. Pupils: Pupils are equal, round, and reactive to light. Neck: Musculoskeletal: Normal range of motion. Cardiovascular: Rate and Rhythm: Normal rate. Pulses: Normal pulses. Heart sounds: Normal heart sounds. No murmur heard. Pulmonary: Effort: Pulmonary effort is normal. No respiratory distress. Breath sounds: Normal breath sounds. Abdominal: General: Bowel sounds are normal. There is no distension. Palpations: Abdomen is soft. Tenderness: There is no abdominal tenderness. Musculoskeletal: General: No swelling or tenderness. Normal range of motion. Cervical back: Normal range of motion. Skin: General: Skin is warm and dry. Capillary Refill: Capillary refill takes less than 2 seconds. Findings: Laceration (2cm laceration on right index finger) present. Neurological: General: No focal deficit present. Mental Status: She is alert and oriented to person, place, and time. Mental status is at baseline. Psychiatric: Mood and Affect: Mood normal. Behavior: Behavior normal. Thought Content: Thought content normal. Judgment: Judgment normal. Procedures MDM ED Course: Diagnosis' considered: Labs/Radiology: Consults: No orders of the defined types were placed in this encounter. Medical Record/Transferring Institution Record: Treatment/Reassessment: Kristine is our 21 yo old female with a PMHx of IBD, and migraines presenting after cutting her hand on glass from her fish tank. In the ED vital signs stable, well-appearing and cooperative. Emergency care plan for patient was reviewed with patient which includes consulting the suture team for wound closure. Received 3 sutures to right second finger. tenus immunization gave. Will be due in 03/29. Patient states she would like it given on this visit. Patient tolerated procedure well, tolerating po intake, pain well controlled and safe for dischargehome with close outpatient follow up. No abx indicated at this time. Will continue with outpatient wound care instructions provided. Including bacitracin. . Encounter Documentation/Handoff: Final Clinical Impression/Diagnosis as of 12/31/21 2342 Laceration of right index finger without foreign body without damage to nail, initial encounter The the above note has been reviewed by Alyson Contreras MD who was present in the Emergency Department with Kristine Crum. I spoke with the family regarding the history and Physical Exam findings. Management of the patient has been carried out in accordance with my plans. she has mild Laceration Of the finger from glass tank. No glass in wound. Tetanus was given. . The wound does be sutured. See Suture note for details. At the time of discharge the patient was stable. I answered all questions and reviewed with them the return criteria of infection, which they understood. They will follow up with PCP or ER. 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 Weight/Height: There were no vitals filed for this visit. Allergies: Allergies Allergen Reactions Oxycodone Swelling Had facial swelling and throat tightness when took oxy after wisdom teeth were pulled. Resolved once stopped taking oxy. Amoxicillin Hives and Rash Penicillins Rash Chief Complaint Patient presents with Infusion Infusion Therapy Ordering Provider: Dr. Trenton Mccord MD Subjective: Kristine Crum is a 21 y.o. female with a history of Crohn's who presents today for her scheduled [facility] infusion. She is accompanied by her friend who report no recent illnesses. No questions or concerns per patient or nursing prior to infusion. She has previously tolerated infusions well. Past Medical and Past Surgical History: Past Medical History: Diagnosis Date Acne Crohn's disease Former smoker Inflammatory bowel disease Migraines started 4-5 years ago, worse since tragus piercing has been out/May 2018, now has some degree of headache almost daily. Obesity Poor sleep hygiene Past Surgical History: Procedure Laterality Date ABCESS DRAINAGE Right 02/26/2019 INCISION AND DRAINAGE ABSCESS (SIMPLE) right buttock performed by Ronnie Irene MD at [facility] OR COLONOSCOPY ESOPHAGOSCOPY N/A 06/04/2018 ENDOSCOPY (UPPER AND COLONOSCOPY) with biopsies performed by Baldomero Becerra MD at [facility] OR ESOPHAGOSCOPY N/A 07/15/2021 ENDOSCOPY (UPPER AND COLONOSCOPY) with biopsies (screening IBD) performed by [facility] [place] [facility] ENDOS[place] TONSILLECTOMY AND ADENOIDECTOMY 2004 WRIST GANGLION EXCISION Left 05/29/2017 CYST GANGLION EXCISION, LEFT WRIST performed by Phillip Lala Sr., MD at [facility] OR WRIST GANGLION EXCISION Left 06/04/2018 CYST GANGLION EXCISION performed by Phillip Lala Sr., MD at [facility] OR Current Medications: Current Outpatient Medications: tretinoin (RETIN-A) 0.025 % CREA cream, , Disp: , Rfl: clindamycin phosphate (CLEOCIN-T) 1 % SWAB, , Disp: , Rfl: vitamin D (ERGOCALCIFEROL) 1.25 MG (70462 UT) capsule, Take 1 Capsule (50,000 Units) by mouth every7 days (Patient not taking: Reported on 09/30/2021), Disp: 12 Capsule, Rfl: 0 DYMISTA 137-50 MCG/ACT SUSP, use 1 [employer] each nostril daily, Disp: 69 g, Rfl: 3 adapalene (DIFFERIN) 0.1 % cream, Apply to affected area nightly at bedtime, Disp: 135 g, Rfl: 3 hydrocortisone 2.5 % cream, Apply to affected area 2 times daily Apply thin film to affected areas., Disp: 120 g, Rfl: 3 Current Facility-Administered Medications: NaCl 0.9% PosiFlush 2 mL, 2 mL, Intravenous, PRN, Trenton Mccord MD NaCl 0.9% PosiFlush 2 mL, 2 mL, Intercatheter, PRN, Trenton Mccord MD NaCl 0.9 % IV Flush bag 30 mL, 30 mL, Intravenous, PRN, Trenton Mccord MD sterile water injection 10 mL, 10 mL, Injection, PRFlex Granados Matthew J, MD NaCl 0.9% PosiFlush 10 mL, 10 mL, Intravenous, PRNFlex Matthew J, MD NaCl 0.9 % 10 mL, 10 mL, Intravenous, PRNFlex Matthew J, MD diphenhydrAMINE (BENADRYL) injection 25 mg, 25 mg, Intravenous, Q4H PRN, Trenton Mccord MD EPINEPHrine 1 mg/mL injection 0.5 mg, 0.5 mg, Intramuscular, Once PRN, Trenton Mccord MD methylPREDNISolone (Solu-MEDROL) in sterile water IV High CONC 125 mg, 125 mg, Intravenous, Once PRNFlex Matthew J, MD lidocaine (LMX) 4 % kit 5 g, 1 Each, Topical, PRN, Trenton Mccord MD diphenhydrAMINE (BENADRYL) capsule 25 mg, 25 mg, Oral, PRN, Trenton Mccord MD Objective: Vitals: 11/28/21 1205 11/28/21 1250 BP: 108/63 98/56 Pulse: 81 63 Resp: 18 16 Temp: 36.4 C (97.5 F) 36.4 C (97.5 F) Review of Systems: General: Negative for fever Respiratory: Negative for cough or rhinorrhea Gastrointestinal: Negative for vomiting or diarrhea Skin: Negative for rash Physical Exam: General:The patient is well-kept and well-nourished. HEENT:Conjunctiva clear,nares patent without discharge,there is full range of motion. Respiratory:Respirations are easy and non-labored. Breathing comfortably in room air Extremities:Moves all extremities purposefully. Neurologic:Awake and Alert. At neurologic baseline Data Review: Labs drawn per therapy plan Recent Labs 11/28/21 1225 HCGURPOCT Negative Protocol Regimen: Every 6 week(s). Assessment: Kristine Crum is a 21 y.o. female with a history of Crohn's who presents today for her scheduled infusion in good condition. Plan: -Infusion as scheduled -Notify Provider for any concerns or infusion reactions -Scheduled next infusion prior to discharge home -Infusion ordering provider to follow up on all labs Time spent on the assessment, plan, and coordination of care for this patient was 10 minutes. Leila GERALD Regalado 11/28/2021 1:30 PM [facility] Miscellaneous Notes* Nursing - Christine Godfrey RN - 11/28/2021 12:00 PM EDT Patient present for Inflectra infusion. Denies of any signs and symptoms of flare of disease. Patient express understanding of signs and symptoms of flare, side effects of medication, and how/when tocontact doctor with problems and concerns. Denies any signs and symptoms of reaction post Inflectrainfusion. * Katie - Christine Godfrey RN - 11/28/2021 12:00 PM EDT Patient discharged home in stable condition. Pt expresses verbal understanding of discharge instructions. Pt ambulated off of unit without difficulty. * Plan of Care - Christine Godfrey RN - 11/28/2021 12:00 PM EDT Ongoing due to pt condition. [facility]* Katie - Christine Godfrey RN - 11/28/2021 12:00 PM EDT Patient present for Inflectra infusion. Denies of any signs and symptoms of flare of disease. Patient express understanding of signs and symptoms of flare, side effects of medication, and how/when tocontact doctor with problems and concerns. Denies any signs and symptoms of reaction post [facility]rainfusion. [facility]* Nursing - Christine Godfrey RN - 11/28/2021 12:00 PM EDT Patient discharged home in stable condition. Pt expresses verbal understanding of discharge instructions. Pt ambulated off of unit without difficulty. [facility] Plan of care note* Plan of Care - Christine Godfrey RN - 11/28/2021 12:00 PM EDT Ongoing due to pt condition. [facility] Miscellaneous Notes* Nursing - Tanya Lacy RN - 10/18/2021 2:00 PM EDT Patient discharged home in stable condition. Patient expresses verbal understanding of discharge instructions, post infusion reaction signs and symptoms to watch for and when to notify physician. * Plan of Care - Barb Franklin RN - 10/18/2021 11:32 AM EDT Plan of care ongoing due to chronic illness. * Nursing - Barb Franklin RN - 10/18/2021 11:10 AM EDT Patient presents today for her Inflectra infusion. Patient denies any illness, infections, or flares of disease. Patient expressed understanding of signs and symptoms of flare, side effects of medication, and how/when to contact the doctor with problems or concerns. Patient denies any signs or symptoms of reaction after her last Inflectra infusion. documented in this [facility]* Nursing - Tanya Lacy RN - 10/18/2021 2:00 PM EDT Patient discharged home in stable condition. Patient expresses verbal understanding of discharge instructions, post infusion reaction signs and symptoms to watch for and when to notify physician. [facility] Plan of care note* Plan of Care - Barb Franklin RN - 10/18/2021 11:32 AM EDT Plan of care ongoing due to chronic illness. [facility]05-13-20[facility] Nurse Note* Nursing - Barb Franklin RN - 10/18/2021 11:10 AM EDT Patient presents today for her Inflectra infusion. Patient denies any illness, infections, or flares of disease. Patient expressed understanding of signs and symptoms of flare, side effects of medication, and how/when to contact the doctor with problems or concerns. Patient denies any signs or symptoms of reaction after her last Inflectra infusion. [facility]05-[facility] History of Present illness Narrative* Mindy Talley APRN-MICHELLE - 10/18/2021 11:00 AM EDT Infusion Center Progress Note Date Of Service: 10/18/2021 Patient: Kristine Crum : 2000 Age:21 y.o. Weight/Height: Vitals: 10/18/21 1110 Weight: 85.7 kg Height: 162 cm Allergies: Allergies Allergen Reactions Oxycodone Swelling Had facial swelling and throat tightness when took oxy after wisdom teeth were pulled. Resolved once stopped taking oxy. Amoxicillin Hives and Rash Penicillins Rash Chief Complaint Patient presents with Infusion Infusion Therapy Ordering Provider: Dr. Trenton Mccord MD Subjective: Kristine Crum is a 21 y.o. female with a history of Crohn's who presents today for her scheduled Inflectra infusion. She is accompanied by her friend who report no recent illnesses. No questions or concerns per patient or nursing prior to infusion. She has previously tolerated infusions well. Past Medical and Past Surgical History: Past Medical History: Diagnosis Date Acne Crohn's disease Former smoker Inflammatory bowel disease Migraines started 4-5 years ago, worse since tragus piercing has been outMay 2018, now has some degree of headache almost daily. Obesity Poor sleep hygiene Past Surgical History: Procedure Laterality Date ABCESS DRAINAGE Right 02/26/2019 INCISION AND DRAINAGE ABSCESS (SIMPLE) right buttock performed by Ronnie Irene MD at [facility] OR COLONOSCOPY ESOPHAGOSCOPY N/A 06/04/2018 ENDOSCOPY (UPPER AND COLONOSCOPY) with biopsies performed by Baldomero Becerra MD at [facility] OR ESOPHAGOSCOPY N/A 07/15/2021 ENDOSCOPY (UPPER AND COLONOSCOPY) with biopsies (screening IBD) performed by [facility] [place] TONSILLECTOMY AND ADENOIDECTOMY 2004 WRIST GANGLION EXCISION Left 05/29/2017 CYST GANGLION EXCISION, LEFT WRIST performed by Phillip Lala Sr., MD at [facility] OR WRIST GANGLION EXCISION Left 06/04/2018 CYST GANGLION EXCISION performed by Phillip Lala Sr., MD at [facility] OR Current Medications: Current Outpatient Medications: tretinoin (RETIN-A) 0.025 % CREA cream, , Disp: , Rfl: clindamycin phosphate (CLEOCIN-T) 1 % SWAB, , Disp: , Rfl: vitamin D (ERGOCALCIFEROL) 1.25 MG (25912 UT) capsule, Take 1 Capsule (50,000 Units) by mouth every7 days (Patient not taking: Reported on 09/30/2021), Disp: 12 Capsule, Rfl: 0 DYMISTA 137-50 MCG/ACT SUSP, use 1 [employer] each nostril daily, Disp: 69 g, Rfl: 3 adapalene (DIFFERIN) 0.1 % cream, Apply to affected area nightly at bedtime, Disp: 135 g, Rfl: 3 hydrocortisone 2.5 % cream, Apply to affected area 2 times daily Apply thin film to affected areas., Disp: 120 g, Rfl: 3 Current Facility-Administered Medications: NaCl 0.9% PosiFlush 2 mL, 2 mL, Intravenous, Flex SIDHU Matthew J, MD NaCl 0.9% PosiFlush 2 mL, 2 mL, Intercatheter, PRFlex Granados Matthew J, MD, Last Rate: 0 mL/hr at 10/18/21 1152, 2 mL at 10/18/21 1152 NaCl 0.9 % IV Flush bag 30 mL, 30 mL, Intravenous, Flex SIDHU Matthew J, MD sterile water injection 10 mL, 10 mL, Injection, PRFlex Granados Matthew J, MD NaCl 0.9% PosiFlush 10 mL, 10 mL, Intravenous, Flex SIHDU Matthew J, MD NaCl 0.9 % 10 mL, 10 mL, Intravenous, PRFlex Granados Matthew J, MD diphenhydrAMINE (BENADRYL) injection 25 mg, 25 mg, Intravenous, Q4H PRN, Trenton Mccord MD EPINEPHrine 1 mg/mL injection 0.5 mg, 0.5 mg, Intramuscular, Once PRNFlex Matthew J, MD methylPREDNISolone (Solu-MEDROL) in sterile water IV High CONC 125 mg, 125 mg, Intravenous, Once PRNFlex Matthew J, MD lidocaine (LMX) 4 % kit 5 g, 1 Each, Topical, PRN, Trenton Mccord MD diphenhydrAMINE (BENADRYL) capsule 25 mg, 25 mg, Oral, PRN, Trenton Mccord MD Objective: Vitals: 10/18/21 1110 BP: 115/77 Pulse: 70 Resp: 20 Temp: 36 C (96.8 F) Review of Systems: General: Negative for fever Respiratory: Negative for cough or rhinorrhea Gastrointestinal: Negative for vomiting or diarrhea Skin: Negative for rash Physical Exam: General:The patient is well-kept and well-nourished. Respiratory:Respirations are easy and non-labored. Extremities:Moves all extremities purposefully. Neurologic:Awake and Alert. At neurologic baseline Skin:Skin is warm and dry. No rashes noted. Data Review: Labs drawn per therapy plan Recent Labs 10/18/21 1123 HCGURPOCT Negative Protocol Regimen: Every 6 week(s). Assessment: Kristine Crum is a 21 y.o. female with a history of Crohn's who presents today for her scheduled infusion in good condition. Plan: -Infusion as scheduled -Notify Provider for any concerns or infusion reactions -Scheduled next infusion prior to discharge home -Infusion ordering provider to follow up on all labs Time spent on the assessment, plan, and coordination of care for this patient was 10 minutes. GERALD Lozano 10/18/2021 12:03 PM documented in this encounterKe[facility] History of Present illness Narrative* Analilia Hardy APRN-CNP - 09/02/2021 11:30 AM EDT Infusion Center Progress Note Date Of Service: 09/02/2021 Patient: Kristine Crum : 2000 Age:21 y.o. Weight/Height: Vitals: 09/02/21 1133 Weight: 87.9 kg Height: 162.8 cm Allergies: Allergies Allergen Reactions Oxycodone Swelling Had facial swelling and throat tightness when took oxy after wisdom teeth were pulled. Resolved once stopped taking oxy. Amoxicillin Hives and Rash Penicillins Rash Chief Complaint Patient presents with Infusion Infusion Therapy Ordering Provider: Dr. Trenton Mccord MD Subjective: Kristine Crum is a 21 y.o. female with a history of Crohn's who presents today for her scheduled Inflectra infusion. She is unaccompanied. She reports no recent illnesses and denies symptoms r/t disease flare. No questions or concerns per patient or nursing prior to infusion. She has previously tolerated infusions well. Past Medical and Past Surgical History: Past Medical History: Diagnosis Date Acne Crohn's disease Former smoker Inflammatory bowel disease Migraines started 4-5 years ago, worse since tragus piercing has been out/May 2018, now has some degree of headache almost daily. Obesity Poor sleep hygiene Past Surgical History: Procedure Laterality Date ABCESS DRAINAGE Right 02/26/2019 INCISION AND DRAINAGE ABSCESS (SIMPLE) right buttock performed by Ronnie Irene MD at [facility] OR COLONOSCOPY ESOPHAGOSCOPY N/A 06/04/2018 ENDOSCOPY (UPPER AND COLONOSCOPY) with biopsies performed by Baldomero Becerra MD at [facility] OR ESOPHAGOSCOPY N/A 07/15/2021 ENDOSCOPY (UPPER AND COLONOSCOPY) with biopsies (screening IBD) performed by [facility] [place] TONSILLECTOMY AND ADENOIDECTOMY 2004 WRIST GANGLION EXCISION Left 05/29/2017 CYST GANGLION EXCISION, LEFT WRIST performed by Phillip Lala Sr., MD at [facility] OR WRIST GANGLION EXCISION Left 06/04/2018 CYST GANGLION EXCISION performed by Phillip Lala Sr., MD at [facility] OR Current Medications: Current Outpatient Medications: tretinoin (RETIN-A) 0.025 % CREA cream, , Disp: , Rfl: clindamycin phosphate (CLEOCIN-T) 1 % SWAB, , Disp: , Rfl: vitamin D (ERGOCALCIFEROL) 1.25 MG (37439 UT) capsule, Take 1 Capsule (50,000 Units) by mouth every7 days, Disp: 12 Capsule, Rfl: 0 DYMISTA 137-50 MCG/ACT SUSP, use 1 [employer] each nostril daily (Patient not taking: No sig reported), Disp: 69 g, Rfl: 3 adapalene (DIFFERIN) 0.1 % cream, Apply to affected area nightly at bedtime, Disp: 135 g, Rfl: 3 hydrocortisone 2.5 % cream, Apply to affected area 2 times daily Apply thin film to affected areas., Disp: 120 g, Rfl: 3 Current Facility-Administered Medications: NaCl 0.9% PosiFlush 2 mL, 2 mL, Intravenous, PRN, Trenton Mccord MD NaCl 0.9% PosiFlush 2 mL, 2 mL, Intercatheter, PRNFlex Matthew J, MD, Last Rate: 0 mL/hr at 09/02/21 1224, 2 mL at 09/02/21 1224 NaCl 0.9 % IV Flush bag 30 mL, 30 mL, Intravenous, Flex SIDHU Matthew J, MD sterile water injection 10 mL, 10 mL, Injection, PRN, Trenton Mccord MD NaCl 0.9% PosiFlush 10 mL, 10 mL, Intravenous, PRRafaela, Trenton Mccord MD NaCl 0.9 % 10 mL, 10 mL, Intravenous, PRN, Trenton Mccord MD diphenhydrAMINE (BENADRYL) injection 25 mg, 25 mg, Intravenous, Q4H PRN, Trenton Mccord MD EPINEPHrine 1 mg/mL injection 0.5 mg, 0.5 mg, Intramuscular, Once PRN, Trenton Mccord MD methylPREDNISolone (Solu-MEDROL) in sterile water IV High CONC 125 mg, 125 mg, Intravenous, Once PRN, Trenton Mccord MD lidocaine (LMX) 4 % kit 5 g, 1 Each, Topical, PRN, Trenton Mccord MD, 5 g at 09/02/21 1155 lidocaine-tetracaine (SYNERA) 70-70 MG patch 2 Patch, 2 Patch, Transdermal, Once, Trenton Mccord MD diphenhydrAMINE (BENADRYL) capsule 25 mg, 25 mg, Oral, PRN, Trenton Mccord MD Objective: Vitals: 09/02/21 1147 BP: 115/69 Pulse: 76 Resp: 16 Temp: 36.4 C (97.5 F) Review of Systems: General: Negative for fever Respiratory: Negative for cough or rhinorrhea Gastrointestinal: Negative for vomiting or diarrhea Physical Exam: General:The patient is well-kept and well-nourished. HEENT:Conjunctiva clear, face masked Respiratory:Respirations are easy and non-labored. Extremities:Moves all extremities purposefully. Neurologic:Awake and Alert. At neurologic baseline Skin:Skin is warm and dry. No rashes noted. Data Review: Labs drawn per therapy plan Recent Labs 09/02/21 1139 HCGURPOCT Negative Protocol Regimen: Every 6 week(s). Assessment: Kristine Crum is a 21 y.o. female with a history of Crohn's who presents today for her scheduled infusion in good condition. Plan: -Infusion as scheduled -Notify Provider for any concerns or infusion reactions -Scheduled next infusion prior to discharge home -Infusion ordering provider to follow up on all labs Time spent on the assessment, plan, and coordination of care for this patient was 10 minutes. GERALD Calderón 09/02/2021 12:31 PM documented in this encounterKe[facility] Miscellaneous Notes* Fernando Collins RN - 09/02/2021 11:30 AM EDT Kristine Cainershot presents today for her Inflectra infusion. Patient denies any illness, infections, or flares of disease. Patient expressed understanding of signs and symptoms of flare, side effects of medication, and how/when to contact the doctor with problems or concerns. Patient denies any signs or symptoms of reaction after her last Inflectra infusion. * Fernando Collins RN - 09/02/2021 11:30 AM EDT Kristine Rose Skyla discharged home in stable condition. Pt verbalized understanding of discharge instructions. documented in this encounterKe[facility] Nurse Note* Fernando Collins RN - 09/02/2021 11:30 AM EDT Kristine Chaidez Skyla presents today for her Inflectra infusion. Patient denies any illness, infections, or flares of disease. Patient expressed understanding of signs and symptoms of flare, side effects of medication, and how/when to contact the doctor with problems or concerns. Patient denies any signs or symptoms of reaction after her last Inflectra infusion. [facility] Note* Fernando Collins RN - 09/02/2021 11:30 AM EDT Kristine Crum discharged home in stable condition. Pt verbalized understanding of discharge instructions. [facility] note* Diagnosis Crohn's disease of small and large intestines with complication- Primary documented in this encounter [facility] note* Diagnosis Crohn's disease of small and large intestines with complication- Primary documented in this encounter [facility] note* Diagnosis Crohn's disease of small and large intestines with complication- Primary documented in this encounter [facility] note* Diagnosis Laceration of right index finger without foreign body without damage to nail, initial encounter- Primary documented in this encounter [facility] note* Diagnosis Crohn's disease of small and large intestines with complication- Primary documented in this encounter [facility] note* Diagnosis Crohn's disease of small and large intestines with complication- Primary documented in this encounter [facility] note* Diagnosis Crohn's disease of small and large intestines with complication- Primary documented in this encounter [facility] note* Diagnosis Crohn's disease of small and large intestines with complication- Primary documented in this encounter [facility] note* 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- Primary Inadequate sleep hygiene Other specific disorder of sleep of nonorganic origin documented in this encounter [facility] note* 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- Primary documented in this encounter [facility] note* 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- Primary documented in this encounter [facility] note* 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- Primary documented in this encounter [facility] note* 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- Primary documented in this encounter [facility] note* Diagnosis Missed menses- Primary documented in this encounter [facility] Work Phone: Evaluation note* Diagnosis Crohn's disease of both small and large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 05/15/20 Curtain Mender Relationship Specialty Start Date End Date Veronica Alberts [address] [place] [address] PCP - General 05/15/20 Curtain Mender Relationship Specialty Start Date End Date Veronica Alberts [address] [place] [address] PCP - General 05/15/20 Curtain Mender Relationship Specialty Start Date End Date Veronica Alberts [address] [place] [address] PCP - General 05/15/20 Curtain Mender Relationship Specialty Start Date End Date Veronica Alberts [address] [place] [address] PCP - General 05/15/20 Curtain Mender Relationship Specialty Start Date End Date Veronica Alberts [address] [place] [address] PCP - General 05/15/20 Scheduled Active and Recently Administ ered Medications (unrecognized section and content) Medication Order 12/29/2021 12/30/2021 12/31/2021 bupivacaine (MARCAINE) 0.5 % injection 1.5 mL (COMPLETED) 1.5 mL (0.0188 ml/kg/DOSE), Intradermal, ONCE, 1 dose, On Thu12/31/21 at 2230 2236 (Given - Provid er: Daphne Schmitz RN - Comment: digital block) lidocaine HCl 1 % injection 15 mg 15 mg (0.188 mg/kg/DOSE = 1.5 mL), Intradermal, ONCE, 1 dose, On Thu12/31/21 at 2230 2237 (Not Given - Pr ovider: Daphne Schmitz RN - Reason: Other - Comment: double order see documentation) lidocaine HCl 1 % injection 20 mg (COMPLETED) 20 mg (rounded from 19.975 mg = 0.25 mg/kg/DOSE 79.9 kg), Subcutaneous, ONCE, 1 dose, On Thu12/31/21 at 2230 2237 (Given - Provid er: Daphne Schmitz RN - Comment: digital block RIGHT SECOND FINGER) PRN Medication Order 12/29/2021 12/30/2021 12/31/2021 bacitracin 500 UNIT/GM ointment Topical, PRN, Starting on Thu12/31/21 at 2225, Until Thu01/01/22 at 0129, Wound Care, Apply To Affected Area 2300 (Given - Provid er: Daphne Schmitz RN) Scheduled Medication Order 02/25/2024 02/26/2024 02/27/2024 desvenlafaxine succinate ER 24 hour tablet 25 mg 25 mg, Oral, Every morning, First dose on Thu02/24/24 at 1200, Patient's own medication identified by glm. 0900 (Canceled Entry - Provider: Automatic Discharge Provider - Comment: Automatically canceled at discontinue of medication order) 0946 (Given - Provider: Sarah Lindsey RN) 0813 (Given - Provider: Shruti Spicer, RN) enoxaparin (Lovenox) syringe 60 mg 60 mg, SubCUTAneous, Daily, First dose on Thu02/24/24 at 2030, , Indication of Use: Prophylaxis-DVT/PE 0837 (Given - Provider: Amy Cruz RN) 0844 (Given - Provider: Sarah Lindsey RN) 0813 (Given - Provider: Shruti Spicer, RN) ferrous sulfate tablet 325 mg 325 mg, Oral, 2 times daily with meals, First dose on Thu02/24/24 at 1030, , Start if Hgb less than 10. Hold oral ferrous sulfate dose if receiving IV iron sucrose (Venofer) 0837 (Given - Provider: Amy Cruz RN)1806 (Given - Provider: Shanti Huston, RN) 0843 (Given - Provider: Sarah Lindsey RN)1835 (Given - Provider: Jie Hall RN) 0813 (Given - Provider: Shruti Spicer, DAKOTAH)1700 (Canceled Entry - Provider: Automatic Discharge Provider - Comment: Automatically canceled at discontinue of medication order) ibuprofen tablet 600 mg 600 mg, Oral, Every 6 hours, First dose on Thu02/24/24 at 1600, , Once tolerating PO, discontinue Toradol and begin ibuprofen 8 hours after the final dose of Toradol. Alternate ibuprofen and acetaminophen every 3 hours. 0400 (Not Given - Provider: Yuridia Melissa RN - Reason: Order parameters not met)1000 (Canceled Entry - Provider: Automatic Discharge Provider - Comment: Automatically canceled at discontinue of medication order)1806 (Given - Provider: Shanti Huston RN) 0242 (Given - Provider: Mary Alfaro, RN)0843 (Given - Provider: Sarah Lindsey RN)1535 (Given - Provider: Sarah Lindsey RN)1600 (Not Given - Provider: Mera dougherty Oca, RN - Reason: Other - Comment: received at 1535)2129 (Given - Provider: Mera dougherty Oca, DAKOTAH) 0334 (Given - Provider: Mera dougherty Oca, RN)1040 (Given - Provider: Shruti Spicer, DAKOTAH)1600 (Canceled Entry - Provider: Automatic Discharge Provider - Comment: Automatically canceled at discontinue of medication order) influenza vac tiss-cult subunt (Flucelvax) injection 0.5 mL 0.5 mL, IntraMUSCular, Once, On Mayi 02/25/24 at 0900, For 1 dose, 0900 (Canceled Entry - Provider: Automatic Discharge Provider - Comment: Automatically canceled at discontinue of medication order) ketorolac (Toradol) injection 30 mg (COMPLETED) 30 mg, IntraVENous, Every 6 hours, First dose on Thu02/24/24 at 1400, For 4 doses, , This may be discontinued prior to 4 doses if patient pain is well controlled and able to take PO ibuprofen. 0302 (Given - Provider: Yuridia Melissa RN)0837 (Given - Provider: Amy Cruz RN) measles, mumps and rubella (MMR) vaccine 0.5 mL 0.5 mL, SubCUTAneous, Prior to discharge, Starting on Thu02/24/24 at 1022, For 1 dose, , Administer if Rubella non-immune or equivocal Vaccine is a vial of powder. Reconstitute with the available diluent for this vaccine. Barcode scan vaccine vial for Vaccine Record vitamin tablet 1 tablet, Oral, Daily, First dose on Thu02/24/24 at 1030, , Begin when normal bowel activity resumes. 0900 (Canceled Entry - Provider: Automatic Discharge Provider - Comment: Automatically canceled at discontinue of medication order) 0843 (Given - Provider: Sarah Lindsey RN) 0900 (Not Given - Provider: Shruti Spicer, DAKOTAH - Reason: Order parameters not met) sodium chloride 0.9% (NS) flush 5-40 mL 5-40 mL, IntraVENous, Every 12 hours scheduled (2 times per day), First dose on Thu02/24/24 at 1030, , or Line Patency: Peripheral IV = 5 mL; Midline or Central Line = 10 mL/lumen. If following IV push medication, administer flush at same rate as the IV push. Flush volume is determined by type of infusion therapy being given. For non-viscous solutions use: Peripheral IV = 5 mL Midline or Central Line = 10 mL/lumen For viscous solutions (i.e. blood components, parenteral nutrition, contrast media, or after obtaining blood sample) use: Peripheral IV = 10 mL Midline or Central Line = 20 mL/lumen 0900 (Canceled Entry - Provider: Automatic Discharge Provider - Comment: Automatically canceled at discontinue of medication order)2099 (Canceled Entry - Provider: Automatic Discharge Provider - Comment: Automatically canceled at discontinue of medication order) 0900 (Not Given - Provider: Sarah Lindsey RN - Reason: Loss of IV access)2099 (Not Given - Provider: Mera dougherty Oca, RN - Reason: Loss of IV access) 0900 (Not Given - Provider: Shruti Spicer RN - Reason: Loss of IV access) Tdap (BoostRIX) vaccine 0.5 mL 0.5 mL, IntraMUSCular, Prior to discharge, Starting on Thu02/24/24 at 1022, For 1 dose, , If not previously administered during at 27-36 weeks as recommended by CDC. Tdap. Not to be confused with look-alike/sound-alike product DTaP. PRN Medication Order 02/25/2024 02/26/2024 02/27/2024 acetaminophen (Tylenol) tablet 650 mg 650 mg, Oral, Every 6 hours PRN, other, Pain (1-10), Starting on Thu02/24/24 at 1200, , Give in addition to any other pain medication ordered at same time for any pain indication. Maximum dose of acetaminophen is 4000mg from all sources in 24 hours. Alternate ibuprofen and acetaminophen every 3 hours. 0006 (Given - Provider: Yuridia Melissa RN)0643 (Given - Provider: Yuridia Melissa RN)1247 (Given - Provider: Amy Cruz RN) 0242 (Given - Provider: Mary Alfaro RN)1223 (Given - Provider: Sarah Lindsey RN)1835 (Given - Provider: Jie Hall, DAKOTAH) 0025 (Given - Provider: Mera dougherty Oca, DAKOTAH)0631 (Given - Provider: Mera dougherty Oca, DAKOTAH)1247 (Given - Provider: Shruti Spicer, DAKOTAH) diphenhydrAMINE (BENADryl) injection 25 mg 25 mg, IntraVENous, Every 6 hours PRN, itching, hives, Starting on Thu02/24/24 at 1022, docusate sodium (Colace) capsule 100 mg 100 mg, Oral, 2 times daily PRN, constipation, Starting on Thu02/24/24 at 1022, , Do not crush or break. 0837 (Given - Provider: Amy Cruz RN) 0843 (Given - Provider: Sarah Lindsey RN)2129 (Given - Provider: Mera dougherty Oca, DAKOTAH) 0813 (Given - Provider: Shruti Spicer, DAKOTAH) famotidine (Pepcid) tablet 20 mg 20 mg, Oral, Daily PRN, indigestion, heartburn, Starting on Thu02/24/24 at 1022, , Renal dose per pharmacy for peptic ulcer prophylaxis. HYDROmorphone (Dilaudid) injection 0.25 mg(Linked Group 1) 0.25 mg, IntraVENous, Every 3 hours PRN, moderate pain (4-6), Starting on Thu02/24/24 at 1930, , If oral and IV narcotics ordered, use oral first and only use IV if oral is ineffective or cannot take oral. Do Not give oral and IV within 1 hour of each other unless specifically ordered. HYDROmorphone (Dilaudid) injection 0.5 mg(Linked Group 1) 0.5 mg, IntraVENous, Every 3 hours PRN, severe pain (7-10), Starting on Thu02/24/24 at 1930, , If oral and IV narcotics ordered, use oral first and only use IV if oral is ineffective or cannot take oral. Do Not give oral and IV within 1 hour of each other unless specifically ordered. lanolin (Lansinoh) cream Topical, Every 1 hour PRN, dry skin, nipple discomfort, Starting on Thu02/24/24 at 1022, , Apply to affected area naloxone (Narcan) injection 0.4 mg 0.4 mg, IntraVENous, Every 5 min PRN, opioid reversal, respiratory depression, Starting on Thu02/26/24 at 0854, +++ For RR <10, pinpoint pupils, over sedation for opioid reversal - MUST notify power generation equipment repairer provider immediately after first dose, may give IM or SQ if no IV access +++ ondansetron (Zofran) injection 4 mg(Linked Group 2) 4 mg, IntraVENous, Every 6 hours PRN, nausea, vomiting, Starting on Thu02/24/24 at 1300, , 1st Line. Give IV if patient is unable to take orally. If inadequate response within 60 minutes, proceed to next-line agent or contact provider if no further options ordered. ondansetron ODT (Zofran-ODT) disintegrating tablet 4 mg(Linked Group 2) 4 mg, Oral, Every 8 hours PRN, nausea, vomiting, Starting on Thu02/24/24 at 1300, , 1st Line. If inadequate response within 60 minutes, proceed to next-line agent or contact provider if no further options ordered. Patient should allow tablet to dissolve on tongue. Do not remove from blister pack until just before administering. oxytocin (Pitocin) 30 units in 500 mL infusion 250-999 dayo-units/min (250-999 mL/hr), IntraVENous, Continuous PRN, bleeding, Starting on Thu02/24/24 at 1022, Post-Delivery, For Immediate Post Use Only. Give after delivery of placenta. Bag 1 of 2: Bolus for bag to infuse at 999 ml/hour for 15 minutes (15 units in 250cc). After initial bolus then decrease rate to 250cc/hr for 1 hour. Then discontinue simethicone (Mylicon) chewable tablet 80 mg 80 mg, Oral, Every 6 hours PRN, flatulence, cramping, Starting on Thu02/24/24 at 1022, sodium chloride 0.9 % infusion 5-250 mL/hr, IntraVENous, PRN, if patient receiving piggyback infusions and maintenance fluids are not ordered OR KVO fluids to protect IV site / prevent frequent line interruptions/ long duration, Starting on Thu02/24/24 at 1022, , For piggyback infusion, administer at same rate as piggyback for a total of 25 mL. Enter 25 mL into dose field and piggyback rate into rate field of order. If piggyback is infusing at a rate less than 100 mL/hr, enter 25 mL into dose field and 100 mL/hr into rate field of order. For KVO fluids, enter rate of 20 mL/hr or less into rate field of order. sodium chloride 0.9% (NS) flush 5-40 mL 5-40 mL, IntraVENous, PRN, line care, After every IV line use, Starting on Thu02/24/24 at 1022, , or Line Patency: Peripheral IV = 5 mL; Midline or Central Line = 10 mL/lumen. If following IV push medication, administer flush at same rate as the IV push. Flush volume is determined by type of infusion therapy being given. For non-viscous solutions use: Peripheral IV = 5 mL Midline or Central Line = 10 mL/lumen For viscous solutions (i.e. blood components, parenteral nutrition, contrast media, or after obtaining blood sample) use: Peripheral IV = 10 mL Midline or Central Line = 20 mL/lumen 0300 (Given - Provider: Yuridia Melissa, DAKOTAH) traMADol (Ultram) tablet 50 mg 50 mg, Oral, Every 6 hours PRN, moderate pain (4-6), Starting on Thu02/24/24 at 1930 1611 (Given - Provider: Shanti Huston, DAKOTAH)2202 (Given - Provider: Mary Alfaro RN) 0459 (Given - Provider: Mary Alfaro RN)1223 (Given - Provider: Sarah Lindsey RN)1835 (Given - Provider: Jie Hall RN) 0026 (Given - Provider: Mera dougherty Oca, DAKOTAH)0631 (Given - Provider: Mera dougherty Oca, DAKOTAH)1646 (Given - Provider: Shruti Spicer RN) Linked Groups Order Group 1: HYDROmorphone (Dilaudid) injection 0.25 mgJump to med 0.25 mg, IntraVENous, Every 3 hours PRN, moderate pain (4-6), Starting on Thu02/24/24 at 1930, , If oral and IV narcotics ordered, use oral first and only use IV if oral is ineffective or cannot take oral. Do Not give oral and IV within 1 hour of each other unless specifically ordered. Or HYDROmorphone (Dilaudid) injection 0.5 mgJump to med 0.5 mg, IntraVENous, Every 3 hours PRN, severe pain (7-10), Starting on Thu02/24/24 at 1930, , If oral and IV narcotics ordered, use oral first and only use IV if oral is ineffective or cannot take oral. Do Not give oral and IV within 1 hour of each other unless specifically ordered. Group 2: ondansetron ODT (Zofran-ODT) disintegrating tablet 4 mgJump to med 4 mg, Oral, Every 8 hours PRN, nausea, vomiting, Starting on Thu02/24/24 at 1300, , 1st Line. If inadequate response within 60 minutes, proceed to next- line agent or contact provider if no further options ordered. Patient should allow tablet to dissolve on tongue. Do not remove from blister pack until just before administering. Or ondansetron (Zofran) injection 4 mgJump to med 4 mg, IntraVENous, Every 6 hours PRN, nausea, vomiting, Starting on Thu02/24/24 at 1300, , 1st Line. Give IV if patient is unable to take orally. If inadequate response within 60 minutes, proceed to next-line agent or contact provider if no further options ordered. Scheduled Medication Order 10/14/2024 10/15/2024 10/16/2024 albuterol (2.5 MG/3ML) 0.083% nebulizer solution 2.5 mg (COMPLETED) 2.5 mg, Nebulization, Once, On 10/16/24 at 1355, For 1 dose 1354 (Given - Provid er: Erlinda Wallace RN) ondansetron ODT (Zofran-ODT) disintegrating tablet 4 mg (COMPLETED) 4 mg, Oral, Once, On 10/16/24 at 1445, For 1 dose 1443 (Given - Provid er: Dana Huang RN) predniSONE (Deltasone) tablet 50 mg (COMPLETED) 50 mg, Oral, Once, On 10/16/24 at 1355, For 1 dose 1354 (Given - Provid er: Erlinda Wallace RN) FOR RECORDS PERTAINING TO PATIENTS WHO ARE OR HAVE BEEN ENROLLED IN A CHEMICAL DEPENDENCY/SUBSTANCEABUSE PROGRAM, SOME INFORMATION MAY BE OMITTED. This clinical summary was aggregated from multiple sources. Caution should be exercised in using it in the provision of clinical care. This summary normalizes information from multiple sources, and as a consequence, information in this document may materially change the coding, format and clinical context of patient data. In addition, data may be omitted in some cases. CLINICAL DECISIONS SHOULD BE BASED ON THE PRIMARY CLINICAL RECORDS. [facility] [facility]. provides no warranty or guarantee of the accuracy or completeness of information in this document.
--- NOTE | 2025-02-19 00:14 | EKG12_ITS ---
Test Reason : DYSRHYTHMIA Blood Pressure : */* mmHG Vent. Rate : 70 BPM Atrial Rate : 70 BPM P-R Int : 124 ms QRS Dur : 76 ms QT Int : 416 ms P-R-T Axes : 34 65 28 degrees QTcB Int : 449 ms Normal sinus rhythm Normal ECG Confirmed by Irvin Meza ([id number]), news video editor EMILIE ANTHONY ([id number]) on 02/20/2025 1:21:28 PM Referred By: Confirmed By: Irvin Meza
--- NOTE | 2025-02-19 00:22 | EX.ED.VIS.UR ---
HPI HPI - URI History of Present Illness Chief Complaint: Shortness of Breath Narrative Narrative: Patient is a 24-year-old female presenting to the emergency department for viral symptoms that started today. Patient has a PMHX of Chron's. She states that she has had some shortness of breath today with mild wheezing. She did use her significant other's albuterol inhaler which did help. She denies any chest pain. States that she has felt very warm today but denies any known fever or chills. Endorses sore throat, congestion and a dry cough. States that she has been nauseous today and had an episode of nonbloody, nonbilious vomiting on the way here. She is also reporting nonbloody diarrhea. She denies any dysuria or hematuria. Denies any use of hormone therapy including oral contraceptives, recent surgeries, hospitalizations or travel or history of DVT or PE. Denies any known sick contacts. Denies any abdominal pain. ROS ROS ED ROS Narrative See HPI PFSH PFSH Medical History Crohn disease Anxiety Home Medications ?Medication ?Instructions ?Recorded ?Last Taken ?Type ondansetron 4 mg disintegrating 4 mg PO Q8H PRN PRN Nausea #10 tabs 02/19/25 Unknown Rx tablet Allergy/AdvReac Type Severity Reaction Status Date / Time amoxicillin Allergy Mild RASH Verified 02/18/25 23:45 Penicillins Allergy Mild Rash Verified 02/18/25 23:45 Social History Smoking Status: Light Smoker (<10/day) EXAM Physical Exam Narrative Exam Narrative: Vital signs: Reviewed General: Alert and oriented x 3. No acute distress HEENT: Head is normocephalic and atraumatic, sinuses nontender, pupils equal round and reactive. Nares are patent. Oropharynx and throat exams normal. No posterior oropharynx erythema or swelling. Uvula is midline and nonerythematous. Tongue is midline, no soft palate bogginess or evidence of [place]. Neck: Supple without lymphadenopathy nontender. Trachea midline. Cardiovascular: Regular rate and rhythm, no murmurs. No rubs or gallops. Normal S1 and S2 Respiratory: Very mild expiratory wheezing in all lung lin. No rales or rhonchi heard. Abdominal: Soft and nontender. Normal bowel sounds. No guarding or rebound. Nonsurgical abdomen Extremities: No tenderness. No bruising. Normal range of motion. Normal sensation. Skin: No rash or redness. The rest of the physical exam is unremarkable Const Vital Signs: 02/18/25 23:46 02/18/25 23:59 02/19/25 00:23 Temperature 98.2 F Temperature Source Oral Pulse Rate 82 70 Respiratory Rate 18 16 Respiratory Effort Normal Respiratory Pattern Normal Blood Pressure 144/94 H Blood Pressure Mean 110 Pulse Ox 95 Oxygen Delivery Method Room Air MDM MDM MDM Narrative Medical decision making narrative: Patient is a 24-year-old female presenting to the emergency department for viral symptoms that started today. Patient was seen and examined. Vitals are stable. She saturating 95% on room air. She is afebrile. She is not tachycardic. She is in no acute distress. Differential includes but is not limited to: URI, strep, pneumonia, gastroenteritis, less likely ACS, PE PERC negative. No CP to suspect ACS. With her congestion, sore throat, dry cough, vomiting and diarrhea, it is likely viral in nature. Will given fluid bolus, zofran and a duoneb breathing txt given the mild wheezing on exam. Will obtain basic labs, CXR to rule out pneumonia and EKG. CBC with mild leukocytosis of 12.6. Normal hemoglobin. BMP with mild hypokalemia 3.2, otherwise no significant abnormalities. Viral swab was negative for COVID, flu and RSV. Strep test was negative. Chest x-ray reviewed by myself, no opacities, pneumothorax. EKG with normal sinus rhythm. No ischemic changes. No dysrhythmia. Patient reevaluated after fluid bolus, Zofran and breathing treatment. States that she is feeling better. Lung sounds are clear. States that she has an albuterol inhaler at home to use if needed. She was given a prescription for Zofran to use for nausea and vomiting. Given supportive care instructions for likely viral illness. Patient discharged from the Emergency Department. I do not feel that the patient's evaluation reveals any acute reason for admission at this time. I instructed them to either follow-up with their primary care physician or promptly return to the Emergency Department for reevaluation should symptoms worsen or new symptoms develop. I explained what symptoms would indicate the need to return to the emergency department. Shared decision making was used. The patient voiced understanding of the treatment plan and is agreeable with it. Clinical impression Viral illness History & Record Review Discussion w/independent historian: Patient and Significant other Lab Data Attestation: I reviewed the patient's lab results. Labs: Laboratory Results - last 24 hr 02/19/25 00:30 WBC 12.6 H RBC 4.85 Hgb 13.6 Hct 40.9 MCV 84.3 MCH 28.0 MCHC 33.3 RDW Std Deviation 40.4 RDW Coeff of Sue 13.2 Plt Count 273 MPV 10.3 Immature Gran % (Auto) 0.300 Neut % (Auto) 69.2 Lymph % (Auto) 20.1 [place] % (Auto) 5.1 Eos % (Auto) 5.1 H Baso % (Auto) 0.2 Absolute Neuts (auto) 8.7 H Absolute Lymphs (auto) 2.53 Nucleated RBC % 0 Sodium 143 Potassium 3.2 L Chloride 107 Carbon Dioxide 23.0 Anion Gap 13 BUN 10 Creatinine 0.86 Estim Creat Clear Calc 99.61 Est GFR (MDRD) Non-Af 97 BUN/Creatinine Ratio 11.7 Glucose 119 H Calcium 9.0 Discharge Plan Triage Chief Complaint: Shortness of Breath ED Provider: Linnea Garcia Dx/Rx/DC Orders Clinical Impression: Viral illness Instructions: ED Viral Syndrome (Adult) Prescriptions: New ondansetron 4 mg tablet,disintegrating 4 mg PO Q8H PRN PRN (Reason: Nausea) Qty: 10 0RF Primary Care Provider: Care Physician,No Primary Referrals: Coco Tao MD [Med Staff - [employer]] - 2 Days NOT,DEFINED [Non-Staff] - Activity Restrictions/Additional Instructions: Take the Zofran every 8 hours as needed for nausea and vomiting. Please drink lots of fluids at home and rest. Take Tylenol or Motrin as needed for any pain or sore throat. Follow-up with your primary care doctor as soon as possible and return to the ED with any new or worsening symptoms. Your evaluation in the Emergency Department did not reveal any acute reason for admission. However, I want to emphasize that you may be early in the course of a disease process or illness even if it is not present. For this reason you should follow-up within 24 hours for reevaluation with either your primary care physician or if necessary back here in the Emergency Department. You should return to the Emergency Department immediately if your symptoms worsen or new symptoms develop. Print Language: Palestinian Disposition Disposition: Home, Self Care
[2025-02-19 00:23] VITALS: PULSE 70; RESP 16
[2025-02-19] MEDS: 0.9% Normal Saline (1000mL) 1,000 ML 1000 ML IV (00:28)
[2025-02-19 00:35] LABS: Hematocrit 40.9 % (37-47); Hemoglobin 13.6 g/dL (12.0-15.0); Immature Granulocytes Count 0.040 X10^3/uL (0.0-0.0); Mean Corp Hgb Conc 33.3 g/dL (32-36); Mean Corpuscular Volume 84.3 fL (81-99); Mean Platelet Vol. 10.3 fl (6.2-12.0); NRBC Flagged by Analyzer 0 % (0-5); Platelet Count 273 K/mm3 (150-450); RBC Distribution Width CV 13.2 % (11.6-14.6); RBC Distribution Width SD 40.4 fl (35.1-43.9); Red Blood Count 4.85 M/mm3 (4.2-5.4); White Blood Count 12.6 K/mm3 (4.4-11.0)
--- NOTE | 2025-02-19 00:55 | RAD_ITS ---
PROCEDURE: CHEST PA AND LATERAL 02/19/2025 REASON FOR EXAM: Shortness of breath. TECHNIQUE: Procedure Code: RADCXR Modality: DX Procedure: CHEST PA AND LATERAL COMPARISON: None. FINDINGS: The lungs are hyperexpanded. There is no demonstrated parenchymal abnormality. There is no demonstrated pleural abnormality. Normal heart and pericardium. Normal mediastinum and mark. Normal visualized pulmonary arteries. Normal visualized aortic arch and descending thoracic aorta. Normal visualized thoracic spine. Normal visualized ribs, clavicles, and shoulders. There is no demonstrated abnormality of the visualized soft tissue structures of the upper abdomen. RAD/Chest PA and Lateral IMPRESSION: Hyperexpanded lungs which came secondary to increased inspiratory effort/deep i nspiration versus hyperactive airway disease. [facility]
[2025-02-19 00:58] LABS: Anion Gap 13 (5-15); BUN 10 mg/dL (4-19); BUN/Creat Ratio 11.7 RATIO (10-20); Calcium,Total 9.0 mg/dL (7.6-11.0); Carbon Dioxide 23.0 mmol/L (21.0-32.0); Chloride 107 mmol/L (98-108); Estimated Creatinine Clearance 99.61 ml/min (50-250); Glucose 119 mg/dL (70-99); Potassium 3.2 mmol/L (3.3-5.1)
[2025-02-19 01:44] VITALS: BP 120/57; PULSE 77; RESP 18; O2SAT 99
[2025-02-19 01:49] VITALS: BP 113/79; PULSE 66; RESP 14; TEMP 36.6; O2SAT 99
== END 2025-02-19 01:50 | disposition home or self-care (01) ==
PROVIDERS: Emergency Provider Student in an Organized Health Care Education/Training Program; Visit Provider Student in an Organized Health Care Education/Training Program
DX: B34.9 Viral infection, unspecified (principal); R06.02 Shortness of breath; Z87.19 Personal history of other diseases of the digestive system; E87.6 Hypokalemia
CPT/HCPCS: 71046; 80048; 85025; 87631; 87651; 93005; 94640; 96361; 96374; 99283; A4216; J2405